=== PATIENT | female | born 1970 | race Caucasian/White ===

== ENCOUNTER 2020-12-28 09:00 | Outpatient (RCR) | payer MEDICARE, SELFPAY ==
--- NOTE | 2020-12-28 10:10 | BH.NA ---
Physical Data - Vital Signs Pulse Rate: 70 Blood Pressure: 128/72 - Height/Weight Height: 1.65 m Weight:: 104.326 kg Weight in Pounds: 230.0 lbs Current Medication Compliance - Medication Compliance Do you take your medication as prescribed?: Yes Nutritional History - Appetite Nutritional Instructions:: If client shows signs of a swallowing problem, weight change of 10 pounds or more in the last month, or is on a diabetic diet, the physician will review and request a dietitian consult, as appropriate. All unintentional weight loss will be referred to the physician for decision on need for dietitian consult. Describe your appetite:: Good Additional nutritional information:: Client states she did have a decrease appetite, but appetite has increased after Latuda dose increase about 4 weeks ago. Functional Assessment - Sleep Pattern Describe any problems with sleeping: Client states her sleep has been good, stating she gets about 8 hours per night. Client states at times, she does have night terrors due to her PTSD. - Activities Motor Activity:: Functional Sensory/Communication Assess - Communication Problems Do you have difficulty understanding what people are saying?: No Medical Problems/History - Cardiac Conditions Cardiovascular: Hypertension, Myocardial infarction Comments:: [place] in 2005. Cardiomyopathy. - Additional History Additional comments:: anxiety, PTSD, bipolar Surgical History - Surgical History Have you had any surgeries? If so, list type and date:: Yes - heart cath 2005, hysterectomy 2013, tonsilectomy as child Substance Abuse - Substance Abuse Please describe substance abuse in the last 30 days:: Client reports drinking alcohol socially. Client has been a 1 pack per day smoker of cigarettes for 35 years. Client reports marijuana use about 2x per week, stating she uses it at times to help her sleep or when she has a night terror. Client states she drinks 2 cups of coffee per day. Mental Status Summary - Mental Status Significant Findings/Observations on Appearance and Mood:: Client is alert and oriented x 4. Client is wearing a mask due to COVID 19 pandemic. Client is casually groomed with good hygiene. Client makes good eye contact. Client's speech is normal volume with increased rate at times. Client is cooperative with assessment. Client makes logical associations. Client states she has a history of delusions with brayan in the past, but denies current delusions/hallucinations. Client denies SI. Suicide Assessment - Suicidal Ideation Are you currently or have you been suicidal in the past?: Yes - denies SI at this time Suicidal Intentional Rating Scale (SIRS): Suicidal thoughts (past) Physician Notification: If Active suicidal thoughts/Will not contract for safety is checked, contact physician and document in the Physician Notification section below. Past Psychiatric History - MH Treatment Hx Past Psychiatric Medications:: [place], minipress, Seroquel, Zyprexa, Wellbutrin, Effexor, Abilify, Topamax, Trileptal, Xanax Age of first mental health symptoms: Client states she began having anxiety in her teenage years. Client states she was diagnosed bipolar in her 20's. Describe (age, circumstance, etc) any past hospitalizations: Client was hospitalized 6 times in [place], last being in 2018 and states she spent 10 days in intermediate. Client states this was during around a 3 year period of brayan where she had delusions. Current providers for mental health treatment (counselor, psychiatrist, immigration case worker, etc.): counselor at [facility]. Client's PCP prescibes mental health medication. Fall Risk Assessment - Age Age: Less than 60 - Mental Status Mental Status: Willing & able to ask for assistance when needed - Physical Status Physical Status: No problems - Impairments Impairments: None - Elimination Elimination: Continent AND independent - Gait or Balance Gait or Balance: Walks independently - Hx of Falls History of falls in the past 6 months: No known history - Medications/Substances Psychotropics:: Antidepressants, Mood stabilizers Others:: Antihypertensives Medications/substances used within the past 24 hours or ordered to administer: 3 or more of the medications/substances listed above - Total Score Total Points:: 2 RN Summary of Impressions - Impressions Recommendations: Include psychiatric and medical issues, treatment planning recommendations, and discharge planning needs. Impressions: Psychiatric Issues: Bipolar 1 disorder, most recent episode mixed, severe without psychosis - Level of Care How do the client's current symptoms and functional deficits support need for this level of care?: Client was self-referred to program with hypomania and erratic moods. Client states her and sister reported to her that they saw hypomania signs in her behavior, and client wanted to get help before she noticed full brayan. Client states she was depressed in October and recently has noticed hypomania symptoms of racing thoughts, increased energy, talking faster at times. Client also endorses poor focus, crying spells, and mood swings. Client states her sister is her biggest support system. Client denies SI, but states she does not want to be a burden on others and states she often feels she would not mind if she did not wake up in the morning. Client reports having a 3 year period in the past of brayan, where she had several hospitalizations and spent 10 days in intermediate and had many delusions. Client states she has been stable for the past 2 years on her medication and denies delusions. IOP will promote gains and prevent further decompensation while providing social support and skills training.
[2020-12-28 11:09] VITALS: BP 128/72; PULSE 70
--- NOTE | 2020-12-28 11:10 | BH.SGPN.GN ---
Behaviors/Verbalizations/Mental Status: []Eye contact is good. Alert and oriented. Motor activity is appropriate. Appearance is casual. grooming is appropriate. Speech is Appropriate. Mood is anxious. Affect is constricted. Thoughts are linear and logical. No evidence of psychosis or hallucinations. Client Response/Progress/Benefit: []Pt engaged participant AEB pt providing limited input throughout session, listening attentively to peers and completing strengths exploration handout. Pt reported she felt uncomfortable identifying her strengths because it's something she isn't used to doing. Pt shared some of the strengths she identified were forgiveness, patience, and spirituality. Pt stated she is currently using the strength of gratitude to help her stay focused on appreciating what she has in life. Pt reported she will journal what she is grateful for so she can reflect back on what she appreciates at times of struggle. Pt seemed to benefit from increased awareness of personal strengths and improved understanding how perspective can impact view of self. Pt first day in IOP. Pt is to continue IOP to increase healthy coping, stabilize moods, and prevent decompensation. Narrative Note: []
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
--- NOTE | 2020-12-28 13:22 | BH.PSY.EVA_ITS ---
Initial Treatment Plan - Patient Information Visit Information: ADMISSION DATE: EXPECTED LOS: 4-6 weeks - Problems/Symptoms Problem #1:: Erratic mood Symptom:: Depression, crying, irritability, anger, restlessness, energy fluct uations, decreased concentration, guilt, fleeting thoughts of Problem #2:: Anxiety Symptom:: Worry, rumination
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
--- NOTE | 2021-01-02 10:47 | BH.MTP ---
Master Treatment Plan - Patient Information Program Physician:: Dr. Hall Primary Therapist:: Kyleigh Drew, [facility] - Psychiatric Diagnoses Psychiatric Diagnoses:: Bipolar 1 disorder, most recent episode mixed, severe without psychosis Diagnosis Code(s):: F 31.63 - Estimated LOS Estimated LOS (in weeks):: 6 Problem/Goal #1 - Problem/Goal #1 Stated Goal:: Client will increase mood stability and decrease depressive symptoms, anger/irritability, and passive thoughts of due to Bipolar I through Intensive Outpatient Program. Description of Barriers: Pt's uncertainty about whether she wants to be in IOP could be a barrier to treatment progress. Pt expresses her biggest concern is mood stability but now feels more stable since her medication was adjusted. Additional treatment barriers could be distorted thoughts and social anxiety. Functional Impact: Pt self-referred to [facility] after her noticed manic symptoms. Pt reported up until 1 week ago she had a history of racing thoughts, restlessness, rapid speech, crying and irritability and erratic mood. She does endorse feeling sad and crying and irritable, but she feels in the past week her mood has calm down somewhat. She denies hopelessness and denies worthlessness. She does feel guilty over being estranged from her other 3 children from her prior marriage and other issues in her past regarding family. Pt has hx of 6 prior hospitalizations for severe brayan. Pt reports significant anxiety that prevents patient from leaving house unless important. Pt states her family has an issue with her being a ?shut in? but at this time doesn?t see that as a problem. Pt reports significant social anxiety so avoids crowds and being around others. Pt has limited support system due to her isolative behaviors. Pt does have passive thoughts of stating, ?I wouldn?t mind if I didn?t wake up tomorrow.? Pt denies suicidal intent or plan. - Objectives Objective #1 Stated Objective: Client will learn and utilize 2-3 healthy coping strategies to manage mental health symptoms. Interventions: Therapist will utilize CBT techniques to assist client with understanding the connection between thoughts, feelings and behaviors. Education will be provided on behavioral activation. Therapist will assist client in learning internal coping strategies to manage depressive symptoms, along with helping client identify triggers. Discharge Criteria: Client will have achieved this goal when can verbalize and practiced at least 2 healthy coping strategies that successfully manage mental health symptoms. Target Date: 02/08/21 Review Date: 01/25/21 Objective #2 Stated Objective: Pt will decrease depressive and manic symptoms AEB pt?s score on the DSM 5 cross-cutting measure and improve pt?s daily functioning. Interventions: Through groups and individual therapy, pt will be provided with education on cognitive distortions, mistaken beliefs, and identifying and combating negative self-talk. Therapist will assist pt with getting back into the activities she once enjoyed as well as increasing healthy coping strategies. Discharge Criteria: Pt will have met this goal when pt?s score on the DSM 5 cross cutting measure for depression and brayan has been decreased and per pt?s report daily functioning has improved. Target Date: 02/08/21 Review Date: 01/25/21 Problem/Goal #2 - Problem/Goal #2 Stated Goal:: Stabilize anxiety level while increasing ability to function on daily basis. Description of Barriers: Pt's uncertainty about whether she wants to be in IOP could be a barrier to treatment progress. Pt expresses her biggest concern is mood stability but now feels more stable since her medication was adjusted. Additional treatment barriers could be distorted thoughts and social anxiety. Functional Impact: Pt self-referred to [facility] after her noticed manic symptoms. Pt reported up until 1 week ago she had a history of racing thoughts, restlessness, rapid speech, crying and irritability and erratic mood. She does endorse feeling sad and crying and irritable, but she feels in the past week her mood has calm down somewhat. She denies hopelessness and denies worthlessness. She does feel guilty over being estranged from her other 3 children from her prior marriage and other issues in her past regarding family. Pt has hx of 6 prior hospitalizations for severe brayan. Pt reports significant anxiety that prevents patient from leaving house unless important. Pt states her family has an issue with her being a ?shut in? but at this time doesn?t see that as a problem. Pt reports significant social anxiety so avoids crowds and being around others. Pt has limited support system due to her isolative behaviors. Pt does have passive thoughts of stating, ?I wouldn?t mind if I didn?t wake up tomorrow.? Pt denies suicidal intent or plan. - Objectives Objective #1 Stated Objective: Client will learn and implement 2-3 calming skills to reduce overall anxiety and manage anxiety symptoms.?? Interventions: Therapist will teach client calming/relaxation skills and how to apply these skills to everyday life.? Discharge Criteria: Client will have achieved this goal when can verbalize at least 2 calming strategies and have practiced techniques to help reduce anxiety. Target Date: 02/08/21 Review Date: 01/25/21 Objective #2 Stated Objective: Pt will decrease anxious symptoms AEB pt?s score on the DSM 5 cross-cutting measure improve pt?s daily functioning. Interventions: Through groups and individual therapy, pt will be provided education about anxiety?s impact on body and common physiological reaction to anxiety. Therapist will teach pt appropriate breathing techniques and build healthy coping skills to manage daily anxieties. Discharge Criteria: Pt will have met this goal when pt?s score on the DSM 5 cross cutting measure for anxiety has been decreased and per pt?s report daily functioning has improved. Target Date: 02/08/21 Review Date: 01/25/21
--- NOTE | 2021-01-02 11:13 | BH.SGPN.GN ---
Behaviors/Verbalizations/Mental Status: []Client alert and oriented, neatly dressed and groomed. Eye contact good. Motor activity appropriate. Speech within normal limits. Affect constricted, mood anxious. Thoughts linear, logical, no signs of hallucinations or delusions. Client Response/Progress/Benefit: []Client an active participant throughout AEB taking notes and participating when prompted. Client participated in the group activity highlighting the various barriers to effectively utilizing supports and strategies the group used. Client participated in discussion of the four types of support (emotion, tangible, informational, and social) and gave examples for all types. Client reports wanting to work on increasing social support and she plans to do this by learning more about [employer]. Client shared this will benefit her mental health because it will give client a routine and foster connections. Client seemed to benefit from identifying the type of support client wants to improve. Client to continue in IOP tx to prevent decompensation, improve mood stability, and learn healthy coping skills. Narrative Note: []
--- NOTE | 2021-01-04 08:57 | BH.SGPN.GN ---
Behaviors/Verbalizations/Mental Status: []Eye contact is fair. Alert and oriented. Motor activity is appropriate. Appearance is casual. grooming is appropriate. Declined to speak throughout. Mood is depressed. Affect is constricted. Thoughts are linear and logical. No evidence of psychosis or hallucinations. Client Response/Progress/Benefit: []Pt semi-engaged in session AEB listening to others and remaining attentive throughout. Pt is new to IOP program and continues to struggle with anxiety about engaging in the group setting. As a result she declined to share during group, however appeared to connect with fellow participants comments AEB nodding on occasion throughout. Recommended continued IOP tx to improve mental health sx management, reduce anxiety, and prevent decompensation. Narrative Note: []
--- NOTE | 2021-01-04 10:10 | BH.SGPN.GN ---
Behaviors/Verbalizations/Mental Status: []Client alert and oriented, neatly dressed and groomed. Eye contact good. Motor activity appropriate. Speech within normal limits. Affect constricted, mood anxious. Thoughts linear, logical, no signs of hallucinations or delusions. Client Response/Progress/Benefit: []Pt was a passive participant in group discussion and was attentive during psychoeducation. Participated in short activity about automatic thoughts. Group was primarily educational and introduced and gave examples of the 10 cognitive distortions. Benefited from education and increased awareness of cognitive distortions and role that they play in negative thoughts and emotions. Pt is new to IOP and is quiet during group sessions. Will continue IOP tx to prevent decompensation, increase healthy coping skills, and reduce isolation. Narrative Note: []
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
== END 2021-01-05 11:40 | disposition home or self-care (01) ==
LOC: BHIOP 09:00
PROVIDERS: PCP Internal Medicine; Referring Provider Psychiatry & Neurology Psychiatry; Visit Provider Psychiatry & Neurology Psychiatry
DX: F31.63 Bipolar disorder, current episode mixed, severe, without psychotic features (principal); E66.9 Obesity, unspecified; I42.9 Cardiomyopathy, unspecified; I25.2 Old myocardial infarction; I10 Essential (primary) hypertension; Z79.899 Other long term (current) drug therapy; F17.210 Nicotine dependence, cigarettes, uncomplicated; F12.90 Cannabis use, unspecified, uncomplicated; Z81.8 Family history of other mental and behavioral disorders; Z62.810 Personal history of physical and sexual abuse in childhood
CPT/HCPCS: H0035; 90834; 90853

== ENCOUNTER 2021-05-01 09:29 | Emergency (ER) | payer MEDICARE, MEDICAID, SELFPAY ==
[2021-05-01 09:30] VITALS: BP 162/85; PULSE 79; RESP 18; TEMP 35.7; O2SAT 97; BMI 39.9
--- NOTE | 2021-05-01 09:40 | RAD_ITS ---
STUDY: X-RAY - RIGHT ANKLE REASON FOR EXAM: Female, 51 years old. INJURY TECHNIQUE: view(s) of the ankle. COMPARISON: None. FINDINGS: Normal visualized distal tibia and fibula. Normal medial and lateral malleoli. Normal tibiotalar articulation and ankle mortise. Normal visualized talus and calcaneus. Except for large plantar heel spur. Minimal calcification is noted at the insertion of Achilles tendon. The visualized subtalar, talonavicular, calcaneocuboid and tarsal articulations are normal. The soft tissue structures are unremarkable. RAD/Ankle min 3 Views IMPRESSION: Normal x-ray examination of the ankle. Electronically Signed: Shawn Beth, at 10:00 EDT Tel , Service support ,
--- NOTE | 2021-05-01 09:40 | RAD_ITS ---
STUDY: X-RAY - RIGHT TIBIA AND FIBULA REASON FOR EXAM: Female, 51 years old. INJURY TECHNIQUE: view(s) of the tibia and fibula were obtained. COMPARISON: None. FINDINGS: Normal visualized tibia. Normal visualized fibula. The soft tissue structures are unremarkable. RAD/Tibia & Fibula 2 Views IMPRESSION: Normal x-ray examination of the tibia and fibula. Electronically Signed: Shawn Beth, at 9:59 EDT Tel , Service support ,
--- NOTE | 2021-05-01 09:40 | ED.VIS.LOWEX ---
HPI History of Present Illness Chief Complaint: Lower Extremity Injury Informant: patient Narrative Narrative: Patient states that last (4 days ago) she was having some discomfort in her right ankle. On Saturday she was attempting to step over a puppy gate and had her weight on her right ankle when her ankle buckled and she fell to the ground. Since that time she has had pain and swelling laterally that radiates proximally over the lateral aspect of the lower leg. She had a boot orthosis leftover from a left ankle fracture for which she saw [place] [facility]. She states that she has been wearing that and that is what has helped her to be able to continue to ambulate. She has been icing it and trying to rest. She called her orthopedic surgeon today and they recommended that she come to emergency for x-rays. [facility] Medical History Bipolar 1 disorder, mixed, severe Cardiomyopathy Hypertension Myocardial infarct, old Home Medications Amitriptyline Hcl 25 mg PO QHS 12/28/20 [History Last Taken Unknown] amlodipine 10 mg PO DAILY 12/28/20 [History Last Taken Unknown] efrkhiuvbz-vdcnhmglrkqhp-sjhb 1 tab PO DAILY PRN PRN 12/28/20 [History Last Taken Unknown] carvedilol 12.5 mg PO BID 12/28/20 [History Last Taken Unknown] clonazepam 1 mg PO DAILY PRN PRN 12/28/20 [History Last Taken Unknown] fluoxetine 10 mg PO DAILY 12/28/20 [History Last Taken Unknown] lisinopril 20 mg PO DAILY 12/28/20 [History Last Taken Unknown] lurasidone 60 mg PO DAILY 12/28/20 [History Last Taken Unknown] promethazine 25 mg PO DAILY PRN PRN 12/28/20 [History Last Taken Unknown] Allergy/AdvReac Type Severity Reaction Status Date / Time No Known Allergies Allergy Verified 05/01/21 09:30 Surgical History History of hysterectomy History of tonsillectomy Hx of cardiac catheterization Social History (Updated 05/01/21 @ 09:[address] Emmanuel Bhandari DO) substance use type: does not use ROS ROS ED Constitutional Constitutional ED: Denies chills or weight loss Eyes Eyes: Denies change in vision or diplopia ENT ENT ED: Denies ear pain, rhinorrhea or sore throat Cardiovascular Cardiovascular: Denies chest pain, orthopnea, palpitations or racing heartbeat Respiratory/Chest Respiratory/Chest: Denies cough, dyspnea or orthopnea Gastrointestinal Gastrointestinal: Denies abdominal pain, diarrhea, nausea or vomiting Genitourinary Genitourinary ED: Denies dysuria, hematuria or urinary frequency Musculoskeletal Musculoskeletal: Reports other Details: See history of present illness ; Denies arthralgias or myalgias Integumentary Denies abscess or rash Neurologic Neurologic: Denies headache(s) or weakness Psychiatric Psychiatric: Denies anxiety, depression, suicidal ideation or suicidal thoughts Endocrine Endocrinology: Denies polydipsia, polyphagia or polyuria Allergic/Immunologic Allergic/Immunologic ED: Denies mouth swelling, tongue swelling or urticaria EXAM Physical Exam Const Vital Signs: 05/01/21 09:30 Temperature 96.3 F L Temperature Source Temporal Pulse Rate 79 Respiratory Rate 18 Blood Pressure 162/85 H Blood Pressure Mean 110 Pulse Ox 97 Oxygen Delivery Method Room Air Positive well nourished and well developed General Appearance ED: well developed HEENT Reports normocephalic, head/scalp atraumatic and moist mucous membranes Eyes PERRL and EOMs intact bilaterally Neck no lymphadenopathy, supple and no JVD Resp normal respiratory effort and clear to auscultation bilaterally Cardio regular rate, regular rhythm and no murmurs GI normal to inspection, nondistended, normoactive bowel sounds and non-tender Palpation: soft Back/Spine no CVA tenderness and normal ROM Extremity Extremity Narrative: Patient has swelling and tenderness over the lateral malleolus. She has tenderness over the fibular head. No fifth metatarsal pain. There is some mild yellowish-green ecchymosis over the dorsum of the foot. Neurovascularly intact distal General Extremety ED: Yes edema General Extremity: edema Neuro oriented x3 and CN's II-XII intact bilaterally Sensorium / Orientation: alert Motor Exam: strength 5/5 throughout Psych mental status grossly normal Mood & Affect: Negative for depressed or tearful Skin no rashes or lesions noted and no wounds MDM MDM MDM Narrative Medical decision making narrative: My interpretation of the plain film of the right tibia/fibula and right ankle is no acute fracture or soft tissue swelling noted. Patient may use her walker boot and follow-up with orthopedics if not improving. I will write for a few [place] for nighttime pain at the patient's request. Radiography Diagnostic Testing: Radiology Impression Ankle X-Ray 05/01/21 09:40 IMPRESSION: Normal x-ray examination of the ankle. Electronically Signed: Shawn Beth, at 10:00 EDT Tel , Service support , Tibia/Fibula X-Ray 05/01/21 09:40 IMPRESSION: Normal x-ray examination of the tibia and fibula. Electronically Signed: Shawn Beth, at 9:59 EDT Tel , Service support , Discharge Plan Triage Chief Complaint: Lower Extremity Injury ED Provider: Emmanuel Bhandari Dx/Rx/DC Orders Clinical Impression: Right ankle sprain Instructions: ED Ankle Sprain (Adult) Prescriptions: No Action Amitriptyline Hcl 25 MG tablet 25 mg PO QHS RF: 0 carvedilol 12.5 MG tablet 12.5 mg PO BID RF: 0 lisinopril 20 MG tablet 20 mg PO DAILY RF: 0 clonazepam 1 MG tablet 1 mg PO DAILY PRN PRN (Reason: Anxiety) RF: 0 qpfgcyelil-fzqzninygnfis-cbxs 1 TABLET tablet 1 tab PO DAILY PRN PRN (Reason: Pain 1-10 Or Fever) RF: 0 amlodipine 10 MG tablet 10 mg PO DAILY RF: 0 promethazine 25 MG tablet 25 mg PO DAILY PRN PRN (Reason: Nausea) RF: 0 fluoxetine 20 MG capsule 10 mg PO DAILY RF: 0 lurasidone 60 MG tablet 60 mg PO DAILY RF: 0 Primary Care Provider: Adri Chang Referrals: Adri Chang DO [Primary Care Provider] - As Needed Activity Restrictions/Additional Instructions: Follow-up with your orthopedic surgeon 10 to 14 days unless improved. Disposition Disposition: Home, self care
== END 2021-05-01 10:18 | disposition home or self-care (01) ==
LOC: ED 10:13
PROVIDERS: Emergency Provider Emergency Medicine; PCP Internal Medicine
DX: S93.401A Sprain of unspecified ligament of right ankle, initial encounter (principal); I10 Essential (primary) hypertension; I25.2 Old myocardial infarction; I42.9 Cardiomyopathy, unspecified; W19.XXXA Unspecified fall, initial encounter; Z79.899 Other long term (current) drug therapy
CPT/HCPCS: 73590; 73610; 99282

== ENCOUNTER 2021-05-13 20:35 | Emergency (ER) | payer MEDICARE, MEDICAID, SELFPAY ==
[2021-05-13 20:36] VITALS: BP 116/66; PULSE 101; RESP 16; TEMP 36.4; O2SAT 99; BMI 38.1
--- NOTE | 2021-05-13 20:46 | EKG12_ITS ---
Test Reason : DIZZINESS Blood Pressure : / mmHG Vent. Rate : 096 BPM Atrial Rate : 096 BPM P-R Int : 162 ms QRS Dur : 086 ms QT Int : 388 ms P-R-T Axes : 071 043 035 degrees QTc Int : 490 ms Normal sinus rhythm ST & T wave abnormality, consider anterior ischemia Prolonged QT Abnormal ECG Confirmed by CALLIE TORIBIO, NEIL ([id number]), editor news SABRINA HARTLEY ([id number]) on 05/17/2021 1:09:59 PM Referred By: FIGUEROA Confirmed By:NEIL LEDESMA MD
--- NOTE | 2021-05-13 20:46 | EX.ED.DYSGE1 ---
HPI History of Present Illness Chief Complaint: Syncope Detail of Chief Complaint: Near syncope Informant: patient Onset/Context/Timing Onset: Today Context: Sudden Onset Timing: Intermittent Current Severity: Mild Maximum Severity: Mild Narrative Narrative: 51-year-old female history of prior ID and hypertension. No recent hospitalization. She is asked in the ER tonight for to be evaluated. She said she thought it was her mask because no trouble breathing but then she broke out in a sweat and felt like she might pass out. She said this happened before but it has been several years ago she said she actually passed out at that time. She denies any nausea, vomiting, diarrhea or fever. No chest pain. States she is already feeling better when she got the lie down in bed. Denies any recent dysuria or melena. Prior similar symptoms: Yes Recent Illness/Hospitalization: No PFSH PFS Medical History Bipolar 1 disorder, mixed, severe Cardiomyopathy Hypertension Myocardial infarct, old Home Medications amlodipine 10 mg PO DAILY 12/28/20 [History Last Taken Unknown] otvcfkzexo-olxgpdlkncbdw-sics 1 tab PO DAILY PRN PRN 12/28/20 [History Last Taken Unknown] carvedilol 12.5 mg PO BID 12/28/20 [History Last Taken Unknown] clonazepam 1 mg PO DAILY PRN PRN 12/28/20 [History Last Taken Unknown] fluoxetine 10 mg PO DAILY 12/28/20 [History Last Taken Unknown] lurasidone 60 mg PO DAILY 12/28/20 [History Last Taken Unknown] promethazine 25 mg PO DAILY PRN PRN 12/28/20 [History Last Taken Unknown] hydrocodone-acetaminophen 1 tab PO Q6H PRN PRN 3 Days #10 tablet 05/01/21 [Rx Last Taken Unknown] amitriptyline 50 mg PO QHS 05/13/21 [History Last Taken Unknown] Allergy/AdvReac Type Severity Reaction Status Date / Time No Known Allergies Allergy Verified 05/13/21 20:38 Surgical History History of hysterectomy History of tonsillectomy Hx of cardiac catheterization Social History Smoking Status: Current every day smoker tobacco type: cigarettes substance use type: does not use ROS ROS ED ROS Narrative Denies recent illness. Review of Systems ROS Unobtainable: Denies due to encephalopathy Constitutional Constitutional ED: Denies chills or fever(s) Eyes Eyes: Denies change in vision ENT ENT ED: Denies ear pain or sore throat Cardiovascular Cardiovascular: Denies chest pain or palpitations Respiratory/Chest Respiratory/Chest: Reports dyspnea; Denies cough Gastrointestinal Gastrointestinal: Denies abdominal pain, constipation, diarrhea, melena, nausea or vomiting Genitourinary Genitourinary ED: Denies dysuria Musculoskeletal Musculoskeletal: Denies arthralgias or myalgias Integumentary Denies abscess or rash Neurologic Neurologic: Denies headache(s) Psychiatric Psychiatric: Denies depression Endocrine Endocrinology: Denies polyuria Allergic/Immunologic Allergic/Immunologic ED: Denies urticaria EXAM Physical Exam Narrative Exam Narrative: Middle-aged female no acute distress. Current vital signs are stable afebrile. Blood pressure 116/66. Pulse ox nine 9% on room air no signs of hypoxia. She is in no distress lying flat in bed. Exams unremarkable. Const Vital Signs: 05/13/21 20:36 05/13/21 20:40 05/13/21 21:13 Temperature 97.5 F L Temperature Source Temporal Pulse Rate 101 H Respiratory Rate 16 Respiratory Effort Normal Non-Labored Respiratory Pattern Normal Blood Pressure 116/66 Blood Pressure Mean 82 Pulse Ox 99 97 Oxygen Delivery Method Room Air Room Air 05/13/21 21:27 Temperature Temperature Source Pulse Rate 84 Respiratory Rate 18 Respiratory Effort Respiratory Pattern Blood Pressure 124/61 H Blood Pressure Mean 82 Pulse Ox 95 Oxygen Delivery Method Room Air Positive well nourished and well developed General Appearance ED: well developed HEENT Reports moist mucous membranes Negative for trauma or tenderness Eyes PERRL and EOMs intact bilaterally Neck no lymphadenopathy, supple and no JVD General: Negative for tenderness Chest Wall inspection of chest normal and palpation of chest normal Resp normal respiratory effort and clear to auscultation bilaterally Effort and Inspection: Negative for retractions or pain with movement Auscultation: Negative for rales, rhonchi, wheezes or diminished lung sounds Cardio regular rate, regular rhythm, S1 normal heart sound, S2 normal heart sound and no murmurs GI normal to inspection, nondistended, normoactive bowel sounds, non-tender and non-distended Palpation: soft Back/Spine no CVA tenderness General Back: Negative for CVA tenderness Cervical Spine: Negative for cervical spine tenderness Thoracic Spine / Upper Back: Negative for thoracic spinal tenderness or paraspinal muscle tenderness Lumbar Spine / Lower Back: Negative for lumbar spinal tenderness Extremity normal to inspection General Extremety ED: Negative for edema or tenderness General Extremity: Negative for edema Neuro oriented x3 and CN's II-XII intact bilaterally Sensorium / Orientation: alert Motor Exam: strength 5/5 throughout Psych mental status grossly normal Mood & Affect: anxious Skin no rashes or lesions noted and no wounds MDM MDM MDM Narrative Medical decision making narrative: Patient clinically looks well she had a near syncopal episode. She is already feeling improved before any treatment just lying down. We will check some screening labs. Repeat exam patient is doing well at 10:10 PM. She feels fine. Her symptoms of resolved. She clinically looks well and wants to be discharged home. Impression: Near syncope uncertain etiology Lab Data Attestation: I reviewed the patient's lab results. Lab results narrative: White count 9. Hemoglobin 14. Electrolytes unremarkable gap of 8 creatinine of 1. High-sensitivity troponin 15. Labs: Laboratory Results - last 24 hr 05/13/21 05/13/21 20:42 20:42 WBC 9.5 RBC 4.49 Hgb 14.4 Hct 42.3 MCV 94.2 MCH 32.1 H MCHC 34.0 RDW Std Deviation 42.6 RDW Coeff of Willy 12.3 Plt Count 253 MPV 10.9 Immature Gran % (Auto) 0.200 Neut % (Auto) 54.6 Lymph % (Auto) 35.5 [place] % (Auto) 5.4 Eos % (Auto) 2.8 Baso % (Auto) 1.5 H Absolute Neuts (auto) 5.2 Absolute Lymphs (auto) 3.38 Nucleated RBC % 0 Sodium 138 Potassium 3.6 Chloride 105 Carbon Dioxide 25.0 Anion Gap 8 BUN 14 Creatinine 1.06 H Estim Creat Clear Calc 58.78 Est GFR (MDRD) Af Amer 70 Est GFR (MDRD) Non-Af 58 L BUN/Creatinine Ratio 13.2 Glucose 132 H Calcium 9.0 Troponin I High Sens 15.3 Radiography Chest X-Ray - ED: 1 View, Read by ED Physician, Read by Radiologist, Normal, Heart, Lungs, Mediastinum, Bony Structures and No Acute Disease Diagnostic Testing: Radiology Impression Chest X-Ray 05/13/21 20:53 IMPRESSION: No acute radiographic abnormalities. Electronically Signed: Tobias Waller MD at 21:19 EDT Tel , Service support , Rhythm Strip Rhythm Strip: Sinus Rhythm Rate: 96 Ectopy: None EKG Initial EKG: Attestation: I personally reviewed and interpreted this EKG as follows: Interpretation: Sinus Rhythm and No Acute Injury Pattern Comments: Normal sinus rhythm rate of ninety-six no acute signs of ID she does have inverted T waves in leads V3, four and five. Currently we do not have an old EKG available for comparison. Discharge Plan Triage Chief Complaint: Syncope ED Provider: Kuldeep Benedict Dx/Rx/DC Orders Instructions: ED Near-Fainting, Uncertain Cause Prescriptions: No Action carvedilol 12.5 MG tablet 12.5 mg PO BID RF: 0 clonazepam 1 MG tablet 1 mg PO DAILY PRN PRN (Reason: Anxiety) RF: 0 ceoxvxlvwg-vrmbqoxycklef-mzez 1 TABLET tablet 1 tab PO DAILY PRN PRN (Reason: Pain 1-10 Or Fever) RF: 0 amlodipine 10 MG tablet 10 mg PO DAILY RF: 0 promethazine 25 MG tablet 25 mg PO DAILY PRN PRN (Reason: Nausea) RF: 0 fluoxetine 20 MG capsule 10 mg PO DAILY RF: 0 lurasidone 60 MG tablet 60 mg PO DAILY RF: 0 hydrocodone-acetaminophen [hydrocodone-acetaminophen] 1 TABLET tablet 1 tab PO Q6H PRN PRN (Reason: Pain) 3 Days Qty: 10 RF: 0 amitriptyline 50 mg tablet 50 mg PO QHS RF: 0 Primary Care Provider: Adri Chang Referrals: Adri Chang, [Primary Care Provider] - As Needed Activity Restrictions/Additional Instructions: Your labs are unremarkable as was your chest x-ray. There is no obvious cause for why you feel you might pass out. Drink plenty of fluids and rest. Follow-up with your doctor as needed. Return if you are feeling worse. Disposition Disposition: Home, Self Care
--- NOTE | 2021-05-13 20:53 | RAD_ITS ---
INDICATION: chest pain EXAMINATION/TECHNIQUE: X-RAY - XR Chest 1 View COMPARISON: None. FINDINGS: The lungs are clear. The cardiomediastinal silhouette is unremarkable. No pleural effusion or pneumothorax. No acute osseous abnormalities. RAD/Chest 1 View (Portable) IMPRESSION: No acute radiographic abnormalities. Electronically Signed: Tobias Waller MD at 21:19 EDT Tel , Service support ,
[2021-05-13 21:03] LABS: Absolute Lymphocyte Count 3.38 X10^3/uL (0.83-4.51); Absolute Neutrophil Count 5.2 X10^3/uL (2.0-7.7); Basophil# 0.14 X10^3/uL; Basophil% 1.5 % (0-1); Eosinophil# 0.27 X10^3/uL; Eosinophils% 2.8 % (0-5); Hematocrit 42.3 % (37-47); Hemoglobin 14.4 g/dL (12.0-15.0); Lymphocyte # 3.38 X10^3/ul (0.83-4.51); Lymphocyte % 35.5 % (19-41); Mean Corpuscular Hgb 32.1 pg (27.0-32.0); Mean Corpuscular Volume 94.2 fL (81-99); Mean Platelet Vol. 10.9 fl (6.2-12.0); Monocyte# 0.51 X10^3/uL; Monocyte% 5.4 % (0-10); NRBC Flagged by Analyzer 0 % (0-5); Neutrophil % 54.6 % (47-70); Platelet Count 253 K/mm3 (150-450); RBC Distribution Width CV 12.3 % (11.6-14.6); RBC Distribution Width SD 42.6 fl (35.1-43.9); Red Blood Count 4.49 M/mm3 (4.2-5.4); White Blood Count 9.5 K/mm3 (4.4-11.0)
[2021-05-13 21:13] VITALS: O2SAT 97
[2021-05-13 21:13] LABS: Anion Gap 8 (5-15); BUN 14 mg/dL (7-18); BUN/Creat Ratio 13.2 RATIO (10-20); Chloride 105 mmol/L (98-107); Creatinine, Serum 1.06 mg/dL (0.55-1.02); EST Glomerular Filtration Rate 58 mL/min (>60); Est Glom Filt Rate - Afr Amer 70 mL/min (>60); Estimated Creatinine Clearance 58.78 ml/min; Glucose 132 mg/dL (74-106); Potassium 3.6 mmol/L (3.5-5.1); Sodium Level 138 mmol/L (136-145); Troponin-I HS 15.3 pg/mL (3.0-53.7)
[2021-05-13] MEDS: 0.9% Normal Saline 1,000 ML 1000 ML IV (21:18)
[2021-05-13 21:27] VITALS: BP 124/61; PULSE 84; RESP 18; O2SAT 95
[2021-05-13 22:18] VITALS: BP 121/54; BP 126/64; PULSE 92; PULSE 96
== END 2021-05-13 22:20 | disposition home or self-care (01) ==
PROVIDERS: Emergency Provider Emergency Medicine; PCP Internal Medicine
DX: R55 Syncope and collapse (principal); I10 Essential (primary) hypertension; F17.210 Nicotine dependence, cigarettes, uncomplicated; Z79.899 Other long term (current) drug therapy
CPT/HCPCS: 71045; 80048; 84484; 85025; 93005; 96360; 99285; J7030; A4216

== ENCOUNTER 2021-07-02 07:40 | Inpatient (IN) | payer MEDICARE, MEDICAID, SELFPAY ==
[2021-07-02] VITALS (35 sets, daily range): BP systolic 87–165; BP diastolic 46–90; PULSE 76–97; RESP 12–22; TEMP 35.6–36.8; O2SAT 91–100; BMI 39.9; BMI 39.2
--- NOTE | 2021-07-02 07:54 | EKG12_ITS ---
Test Reason : AM Blood Pressure : / mmHG Vent. Rate : 092 BPM Atrial Rate : 092 BPM P-R Int : 194 ms QRS Dur : 098 ms QT Int : 414 ms P-R-T Axes : 047 010 019 degrees QTc Int : 511 ms Normal sinus rhythm Nonspecific T wave abnormality Prolonged QT Abnormal ECG When compared with ECG of 02-JUL-2021 08:19, MANUAL COMPARISON REQUIRED, DATA IS UNCONFIRMED Confirmed by EVY TORIBIO, FABRICE ([id number]), video news editor JOYCE SHARIF ([id number]) on 07/04/2021 8:07:59 AM Referred By: JOHN Confirmed By:FABRICE RATLIFF MD
--- NOTE | 2021-07-02 07:59 | RAD_ITS ---
STUDY: X-RAY CHEST REASON FOR EXAM: Female, 51 years old. Endotracheal and OG tube placement. TECHNIQUE: Single AP portable view of the chest. COMPARISON: 05/13/2021. FINDINGS: There is an endotracheal tube with its tip 2 cm above the miguel. There is no enteric tube with its tip in the left upper quadrant. There is elevation of the right hemidiaphragm. Lungs are well-expanded and free of infiltrate or mass. There is no demonstrated pleural abnormality. Normal size heart. Normal mediastinum and trisha. Normal visualized pulmonary arteries. Normal visualized aortic arch and descending thoracic aorta. Normal visualized thoracic spine. Normal visualized ribs, clavicles, and shoulders. There is no demonstrated abnormality of the visualized soft tissue structures of the upper abdomen. RAD/Chest 1 View (Portable) IMPRESSION: 1. Endotracheal tube and orogastric tube as described. 2. No acute cardiopulmonary disease. Electronically Signed: Darrick Ball DO at 8:22 EDT Tel [phone], Service support ,
--- NOTE | 2021-07-02 08:01 | EDS_ITS ---
HPI History of Present Illness Chief Complaint: Overdose Informant: EMS Narrative Narrative: Patient arrives via EMS unresponsive after presumed overdose. Per medics patient's heard her up around 530 this morning. He then found her unresponsive. In reviewing her pill bottles there was an empty bottle of amitriptyline. According to pharmacy data we are able to review she had 30 tabs of amitriptyline filled on the 10th and 60 tabs filled on the 12th. Reportedly both bottles are now empty. Patient is unresponsive and unable to answer any questions. [facility] Medical History Bipolar 1 disorder, mixed, severe Cardiomyopathy Hypertension Myocardial infarct, old Home Medications amlodipine 10 mg PO DAILY 12/28/20 [History Last Taken Unknown] yhuxfcthnh-aipdgqidyuyzm-ldjo 1 tab PO DAILY PRN PRN 12/28/20 [History Last Taken Unknown] carvedilol 12.5 mg PO BID 12/28/20 [History Last Taken Unknown] clonazepam 1 mg PO DAILY PRN PRN 12/28/20 [History Last Taken Unknown] lurasidone 60 mg PO DAILY 12/28/20 [History Last Taken Unknown] promethazine 25 mg PO DAILY PRN PRN 12/28/20 [History Last Taken Unknown] amitriptyline 50 mg PO QHS 05/13/21 [History Last Taken Unknown] Allergy/AdvReac Type Severity Reaction Status Date / Time No Known Allergies Allergy Verified 07/02/21 08:34 Surgical History History of hysterectomy History of tonsillectomy Hx of cardiac catheterization Social History Smoking Status: Current every day smoker tobacco type: cigarettes substance use type: does not use ROS ROS ED Review of Systems ROS Unobtainable: due to endotracheal tube and due to mental status EXAM Physical Exam Const Vital Signs: 07/02/21 07:43 07/02/21 07:50 07/02/21 07:51 Temperature 97.3 F L Temperature Source Temporal Pulse Rate 94 96 Respiratory Rate 19 H 19 H Respiratory Effort Normal Non-Labored Respiratory Depth Normal Respiratory Pattern Normal Blood Pressure 101/46 L 102/65 Blood Pressure Mean 64 77 Pulse Ox 91 95 Oxygen Delivery Method Non-Rebreather Ambu-Bag Oxygen Flow Rate (L/min) 10 07/02/21 08:02 07/02/21 08:24 Temperature Temperature Source Pulse Rate 97 97 Respiratory Rate 22 H 13 Respiratory Effort Respiratory Depth Respiratory Pattern Blood Pressure 116/83 H 115/73 Blood Pressure Mean 94 87 Pulse Ox 99 99 Oxygen Delivery Method Venturi Mask Mechanical Ventilator Oxygen Flow Rate (L/min) Positive well nourished and well developed General Appearance ED: well developed HEENT normocephalic; Negative for trauma Cardio regular rate and regular rhythm GI non-tender Palpation: soft Neuro Neuro Narrative: Unresponsive to voice or painful stimuli. MDM MDM MDM Narrative Medical decision making narrative: Patient medically intubated on arrival to the emergency room. Patient did receive 20 mg of IV etomidate. 7.5 ET tube passed through the cords under direct visualization. Versed and fentanyl drips are ordered for sedation. Patient is given IV fluid boluses. Lab work, EKG, urinalysis, urine tox ordered. Lab Data Attestation: I reviewed the patient's lab results. Labs: Laboratory Results - last 24 hr 07/02/21 07/02/21 07/02/21 07:45 07:45 07:45 WBC 8.9 RBC 4.07 L Hgb 13.0 Hct 40.5 MCV 99.5 H MCH 31.9 MCHC 32.1 RDW Std Deviation 46.9 H RDW Coeff of Willy 12.9 Plt Count 233 MPV 10.5 Immature Gran % (Auto) 0.300 Neut % (Auto) 61.1 Lymph % (Auto) 28.2 [place] % (Auto) 6.0 Eos % (Auto) 3.3 Baso % (Auto) 1.1 H Absolute Neuts (auto) 5.4 Absolute Lymphs (auto) 2.51 Nucleated RBC % 0 Sodium 141 Potassium 4.4 Chloride 109 H Carbon Dioxide 26.0 Anion Gap 6 BUN 15 Creatinine 1.05 H Estim Creat Clear Calc 59.34 Est GFR (MDRD) Af Amer 71 Est GFR (MDRD) Non-Af 59 L BUN/Creatinine Ratio 14.3 Glucose 110 H Calcium 8.4 L Total Bilirubin 0.20 AST 15 ALT 31 Alkaline Phosphatase 61 Total Protein 7.1 Albumin 3.8 Globulin 3.3 Albumin/Globulin Ratio 1.2 Urine Color Urine Clarity Urine pH Ur Specific Dorris Urine Protein Urine Glucose (UA) Urine Ketones Urine Occult Blood Urine Nitrite Urine Bilirubin Urine Urobilinogen Ur Leukocyte Esterase Urine RBC Urine WBC Ur Squamous Epith Cells Urine Bacteria Urine Mucus Salicylates 5.0 Urine Opiates Screen Urine Methadone Screen Acetaminophen < 2.0 L Ur Barbiturates Screen Ur Phencyclidine Scrn Ur Amphetamines Screen U Methamphetamin-MDMA U Benzodiazepines Scrn Urine Cocaine Screen U Cannabinoids Screen Ur Drug Screen Comment Ethyl Alcohol < 3.0 07/02/21 07/02/21 07:55 07:55 WBC RBC Hgb Hct MCV MCH MCHC RDW Std Deviation RDW Coeff of Willy Plt Count MPV Immature Gran % (Auto) Neut % (Auto) Lymph % (Auto) [place] % (Auto) Eos % (Auto) Baso % (Auto) Absolute Neuts (auto) Absolute Lymphs (auto) Nucleated RBC % Sodium Potassium Chloride Carbon Dioxide Anion Gap BUN Creatinine Estim Creat Clear Calc Est GFR (MDRD) Af Amer Est GFR (MDRD) Non-Af BUN/Creatinine Ratio Glucose Calcium Total Bilirubin AST ALT Alkaline Phosphatase Total Protein Albumin Globulin Albumin/Globulin Ratio Urine Color Yellow Urine Clarity Clear Urine pH 7.0 Ur Specific Dorris 1.005 Urine Protein Negative Urine Glucose (UA) Normal Urine Ketones Negative Urine Occult Blood Negative Urine Nitrite Negative Urine Bilirubin Negative Urine Urobilinogen Normal Ur Leukocyte Esterase Negative Urine RBC 0 SEEN Urine WBC 0 SEEN Ur Squamous Epith Cells 0 SEEN Urine Bacteria 0 SEEN Urine Mucus 0 SEEN Salicylates Urine Opiates Screen NEGATIVE Urine Methadone Screen NEGATIVE Acetaminophen Ur Barbiturates Screen POSITIVE H Ur Phencyclidine Scrn NEGATIVE Ur Amphetamines Screen NEGATIVE U Methamphetamin-MDMA NEGATIVE U Benzodiazepines Scrn NEGATIVE Urine Cocaine Screen NEGATIVE U Cannabinoids Screen POSITIVE H Ur Drug Screen Comment Ethyl Alcohol Radiography Chest X-Ray - ED: 1 View, Read by ED Physician and - (ET tube above miguel in appropriate position. No focal infiltrate.) Diagnostic Testing: Radiology Impression Chest X-Ray 07/02/21 07:59 IMPRESSION: 1. Endotracheal tube and orogastric tube as described. 2. No acute cardiopulmonary disease. Electronically Signed: Darrick Ball DO at 8:22 EDT Tel [phone], Service support , EKG Initial EKG: Attestation: I personally reviewed and interpreted this EKG as follows: Interpretation: Sinus Rhythm (Sinus at 94 with first-degree AV block. QRS duration is 160 ms. QTC is 497.) Treatment and Re-Evaluation Comments:: Bicarb drip to have ready at bedside. This is not yet been initiated. Patient's lab work is largely unremarkable. Tylenol and salicylate levels are negative. Alcohol is negative. Tox screen is positive for barbiturates and cannabinoids. No family has arrived to provide any further information. At this time of this is a presumed amitriptyline overdose. Patient be admitted to ICU for further treatment and care. Critical Care Time Critical Care Time: Yes Critical care time (excluding procedures): 30-74 minutes (40 minutes), Discussing w/Consultants, Arranging Admission or Transfer and Performing Direct Patient Care at Bedside Discharge Plan Triage Chief Complaint: Overdose ED Provider: Ai Sigala Dx/Rx/DC Orders Clinical Impression: Overdose, Respiratory failure Prescriptions: No Action carvedilol 12.5 MG tablet 12.5 mg PO BID RF: 0 clonazepam 1 MG tablet 1 mg PO DAILY PRN PRN (Reason: Anxiety) RF: 0 oxvfjabetx-fyvadupotobds-soqe 1 TABLET tablet 1 tab PO DAILY PRN PRN (Reason: Pain 1-10 Or Fever) RF: 0 amlodipine 10 MG tablet 10 mg PO DAILY RF: 0 promethazine 25 MG tablet 25 mg PO DAILY PRN PRN (Reason: Nausea) RF: 0 fluoxetine 20 MG capsule 10 mg PO DAILY RF: 0 lurasidone 60 MG tablet 60 mg PO DAILY RF: 0 hydrocodone-acetaminophen [hydrocodone-acetaminophen] 1 TABLET tablet 1 tab PO Q6H PRN PRN (Reason: Pain) 3 Days Qty: 10 RF: 0 amitriptyline 50 mg tablet 50 mg PO QHS RF: 0 Primary Care Provider: Adri Chang Referrals: Adri Chang, [Primary Care Provider] - Disposition Disposition: Acute Care Hospital [facility]
[2021-07-02 08:03] LABS: Bacteria 0 SEEN /hpf (None Seen); Mucous, Urine 0 SEEN /hpf (<or=2+); Red Blood Cells-Urine 0 SEEN /hpf (0-5); Squamous Epithelial Cells - UA 0 SEEN /hpf (5-10); White Blood Cells 0 SEEN /hpf (0-5)
[2021-07-02] MEDS: 0.9% Normal Saline 1,000 ML 1000 ML IV (08:03)
[2021-07-02] MEDS: 0.9% Normal Saline 1,000 ML 250 ML IV (08:04)
[2021-07-02] MEDS: Etomidate 20 MG/10 ML Vial IV (08:04)
[2021-07-02] MEDS: LORazepam 2 MG/ML Syringe IV (08:04)
[2021-07-02 08:07] LABS: Color, Urine Yellow (Yellow); Glucose, Dipstick Normal (Normal); Ketone-Dipstick Negative (Negative); Leukocyte Esterase-Dipstick Negative /ul (Negative); Nitrite-Dipstick Negative (Negative); Occult Blood-Urine Negative /ul (Negative); Protein-Dipstick Negative (Negative); Specific Gravity, Urine 1.005 (1.002-1.030); Urine Bilirubin Dipstick Negative (Negative); Urine Clarity Clear (Clear); Urine Urobilinogen Normal (Normal)
[2021-07-02 08:16] LABS: Absolute Lymphocyte Count 2.51 X10^3/uL (0.83-4.51); Absolute Neutrophil Count 5.4 X10^3/uL (2.0-7.7); Basophil% 1.1 % (0-1); Eosinophil# 0.29 X10^3/uL; Eosinophils% 3.3 % (0-5); Hematocrit 40.5 % (37-47); Lymphocyte # 2.51 X10^3/ul (0.83-4.51); Lymphocyte % 28.2 % (19-41); Mean Corp Hgb Conc 32.1 g/dL (32-36); Mean Corpuscular Hgb 31.9 pg (27.0-32.0); Mean Corpuscular Volume 99.5 fL (81-99); Mean Platelet Vol. 10.5 fl (6.2-12.0); Monocyte# 0.53 X10^3/uL; NRBC Flagged by Analyzer 0 % (0-5); Neutrophil # 5.43 X10^3/uL (2.7-7.7); Neutrophil % 61.1 % (47-70); Platelet Count 233 K/mm3 (150-450); RBC Distribution Width CV 12.9 % (11.6-14.6); RBC Distribution Width SD 46.9 fl (35.1-43.9); Red Blood Count 4.07 M/mm3 (4.2-5.4); White Blood Count 8.9 K/mm3 (4.4-11.0)
[2021-07-02 08:22] LABS: Amphetamine Urine VISTA NEGATIVE (<1000 ng/mL); Barbiturate Urine VISTA POSITIVE (< 200 ng/mL); Benzodiazepine Urine VISTA NEGATIVE (< 200 ng/mL); Cocaine Urine VISTA NEGATIVE (< 300 ng/mL); Ecstacy Urine VISTA NEGATIVE (< 500 ng/mL); Methadone Urine VISTA NEGATIVE (< 300 ng/mL); PCP Urine VISTA NEGATIVE (< 25 ng/mL); THC Urine VISTA POSITIVE (< 50 ng/mL); Vista UDS pH Range 6
[2021-07-02 08:25] LABS: ALB/GLOB Ratio 1.2 RATIO (0.9-2.4); AST(SGOT) 15 U/L (15-37); Alanine Aminotransfer ALT/SGPT 31 U/L (13-56); Albumin, Serum 3.8 g/dL (3.2-5.0); Alkaline Phosphatase 61 U/L (45-117); Anion Gap 6 (5-15); BUN 15 mg/dL (7-18); BUN/Creat Ratio 14.3 RATIO (10-20); Calcium,Total 8.4 mg/dL (8.5-10.1); Chloride 109 mmol/L (98-107); Creatinine, Serum 1.05 mg/dL (0.55-1.02); EST Glomerular Filtration Rate 59 mL/min (>60); Est Glom Filt Rate - Afr Amer 71 mL/min (>60); Estimated Creatinine Clearance 59.34 ml/min; Globulin 3.3 g/dL (2.2-4.2); Glucose 110 mg/dL (74-106); Potassium 4.4 mmol/L (3.5-5.1); Protein, Total 7.1 g/dL (6.4-8.2); Sodium Level 141 mmol/L (136-145)
[2021-07-02 08:30] LABS: Acetaminophen (Tylenol) Level < 2.0 ug/mL (10.0-30.0); Alcohol, Blood (Medical)-Serum < 3.0 mg/dL
[2021-07-02 08:56] LABS: Allen Test Positive; Base Excess -3 mmol/L (-2 to +2); Bicarbonate 22.4 mmol/L (22-26); Blood Gas Specimen Type ART; FI02 50; Mode AC; O2 Delivery Device Adult Vent; PEEP 5; PO2 94 mmHG (75-100); RR 12; SITE R Radial; SO2 97 % (95-99); Total Carbon Dioxide 24 mmol/L; Vt 450; pCO2 37.6 mmHg (35-45); pH 7.38 (7.35-7.45)
[2021-07-02] MEDS: 0.9% Normal Saline 1,000 ML 999 ML IV (09:49)
--- NOTE | 2021-07-02 09:59 | PCS.PANDOC ---
PANDEMIC DOCUMENTATION INITIATED: Date: 06/26/2021 Time: 190
--- NOTE | 2021-07-02 10:03 | ECHOD_ITS ---
Reason For Study: CHF Procedure This was a 2D Doppler, Color Flow transthoracic echocardiogram. Exam performed portable in ICU/CCU. Left Ventricle Normal LV size. Mild concentric left ventricular hypertrophy. Left ventricular systolic function is normal. The estimated ejection fraction is 65 %. Stage 1 diastolic dysfunction. No regional wall motion abnormalities noted. Right Ventricle Normal RV size. Normal systolic function. Atria Normal left atrium. Normal right atrium. Mitral Valve Normal mitral valve. Tricuspid Valve Normal tricuspid valve. Aortic Valve Trisinus/trileaflet aortic valve. Mild (1+) aortic valve insufficiency. Pulmonic Valve Normal pulmonic valve. Great Vessels Normal aortic root. The pulmonary artery is normal size. Normal inferior vena cava. Pericardium/Pleural Trivial pericardial effusion. MMode/2D Measurements & Calculations LVIDd: 4.7 cm IVSd: 1.2 cm Ao root diam: 3.4 cm LVIDs: 2.3 cm LVPWd: 1.2 cm RVDd: 2.8 cm FS: 52.0 % LAV(MOD-bp): 40.7 ml LVAd ap4: 27.3 cm2 SV(MOD-sp4): 47.7 ml LAV(MOD-bp) Indexed: 19.6 ml/m2 LVLd ap4: 8.0 cm LAV(MOD-sp2): 45.4 ml EDV(MOD-sp4): 75.9 ml LAV(MOD-sp4): 31.6 ml EDV(sp4-el): 79.2 ml LVAs ap4: 14.7 cm2 LVLs ap4: 6.5 cm ESV(MOD-sp4): 28.2 ml ESV(sp4-el): 28.3 ml EF(MOD-sp4): 62.8 % EF(sp4-el): 64.2 % SV(sp4-el): 50.9 ml LA A4 area: 12.7 cm2 LA dimension(2D): 3.5 cm RA A4 area: 9.9 cm2 Doppler Measurements & Calculations MV E max joseph: 64.9 cm/sec Lat Peak E' Joseph: 8.5 cm/sec Med Peak E' Joseph: 7.2 cm/sec MV A max joseph: 103.8 cm/sec E/E' lat: 7.6 E/E' med: 9.0 MV E/A: 0.63 Ao V2 max: 164.6 cm/sec AI max joseph: 468.0 cm/sec LV V1 max: 112.5 cm/sec Ao max P.8 mmHg AI max P.7 mmHg LV V1 max P.1 mmHg Ao V2 mean: 114.6 cm/sec Ao mean P.7 mmHg AI dec slope: 269.5 cm/sec2 Ao V2 VTI: 31.8 cm AI P1/2t: 508.5 msec PA V2 max: 93.8 cm/sec ECHO/Echo Complete Interpretation Summary Normal LV size. Mild concentric left ventricular hypertrophy. Left ventricular systolic function is normal. The estimated ejection fraction is 65 %. Stage 1 diastolic dysfunction. Mild (1+) aortic valve insufficiency. Trisinus/trileaflet aortic valve. Ordering Physician: Nubia Flynn Referring Physician: Adri Chang Performed By: Leela To, MAU, RVT
--- NOTE | 2021-07-02 10:07 | PCM.HP.STD ---
HPI - General General Date of Admission: 07/02/21 HPI Narrative SAMANTHA QUIROS, is a 51 F who presented to the emergency department at [facility] via EMS upon being found unresponsive by her at home on 07/02/2021. The patient is currently intubated and sedated and all history was obtained from her . He reports that she woke up at 5 AM and took her son to work and then sent her sister a text at [facility] for that stated she took 30 50 mg amitriptyline tablets. She stated in the text I hope that I took enough. The reports that she has had 6 psychiatric admissions in the last 10 years. Most of her care had been in [place] prior to this as she has recently moved here. He states that she has been under a lot of stress lately as her oldest son has been threatening suicide, her puppy of 6 months old had to be euthanized yesterday, and she has been estranged from her other children. She sees psychiatry and psychology here in [place] and has a history of PTSD and bipolar disorder. He reports he has been treated with lithium in the past but this made her symptoms worse. He notes a history of cardiomyopathy, hypertension, migraine headaches, as well as her PTSD and bipolar disorder. She currently has her medical care in [place]. She smokes 1 to 2 packs/day, uses marijuana periodically, occasionally socially drinks, but he denies any other drug use. [facility] Medical History Bipolar 1 disorder, mixed, severe Cardiomyopathy Hypertension Myocardial infarct, old Home Medications amlodipine 10 mg PO DAILY 12/28/20 [History Last Taken Unknown] ymrhsbdksw-nyhkkqwkcbeqc-dump 1 tab PO DAILY PRN PRN 12/28/20 [History Last Taken Unknown] carvedilol 12.5 mg PO BID 12/28/20 [History Last Taken Unknown] clonazepam 1 mg PO DAILY PRN PRN 12/28/20 [History Last Taken Unknown] lurasidone 60 mg PO DAILY 12/28/20 [History Last Taken Unknown] promethazine 25 mg PO DAILY PRN PRN 12/28/20 [History Last Taken Unknown] amitriptyline 50 mg PO BID 05/13/21 [History Last Taken Unknown] Allergy/AdvReac Type Severity Reaction Status Date / Time No Known Allergies Allergy Verified 07/02/21 08:34 Surgical History History of hysterectomy History of tonsillectomy Hx of cardiac catheterization Social History (Updated 07/02/21 @ 10:[address] Nubia Flynn DO) current occupation: Disabled Smoking Status: Current every day smoker tobacco type: cigarettes Smoking packs per day: 2 Smoking cigarettes per day: 40.0 alcohol intake: current alcohol intake frequency: other details: Social alcohol use but nothing habitual substance use type: marijuana ROS Review of Systems ROS Unobtainable: due to endotracheal tube Vital Signs Vital Signs Vital Signs: 07/02/21 07:43 07/02/21 07:50 07/02/21 07:51 Temperature 97.3 F L Temperature Source Temporal Pulse Rate 94 96 Respiratory Rate 19 H 19 H Respiratory Effort Normal Non-Labored Respiratory Depth Normal Respiratory Pattern Normal Blood Pressure 101/46 L 102/65 Blood Pressure Mean 64 77 Pulse Ox 91 95 Oxygen Delivery Method Non-Rebreather Ambu-Bag Oxygen Flow Rate (L/min) 10 Fraction of Inspired Oxygen (FIO2) 07/02/21 08:02 07/02/21 08:11 07/02/21 08:24 Temperature Temperature Source Pulse Rate 97 96 97 Respiratory Rate 22 H 18 13 Respiratory Effort Respiratory Depth Respiratory Pattern Blood Pressure 116/83 H 115/73 Blood Pressure Mean 94 87 Pulse Ox 99 99 99 Oxygen Delivery Method Venturi Mask Mechanical Ventilator Oxygen Flow Rate (L/min) Fraction of Inspired Oxygen (FIO2) 50 07/02/21 08:33 07/02/21 08:52 07/02/21 09:00 Temperature 97.4 F L Temperature Source Temporal Pulse Rate 93 88 86 Respiratory Rate 16 17 14 Respiratory Effort Respiratory Depth Respiratory Pattern Blood Pressure 112/72 104/71 93/67 Blood Pressure Mean 85 82 75 Pulse Ox 96 96 96 Oxygen Delivery Method Mechanical Ventilator Mechanical Ventilator Mechanical Ventilator Oxygen Flow Rate (L/min) Fraction of Inspired Oxygen (FIO2) 50 50 07/02/21 09:17 07/02/21 09:51 Temperature Temperature Source Pulse Rate 83 79 Respiratory Rate 14 15 Respiratory Effort Respiratory Depth Respiratory Pattern Blood Pressure 87/57 L 87/49 L Blood Pressure Mean 67 61 Pulse Ox 96 96 Oxygen Delivery Method Mechanical Ventilator Mechanical Ventilator Oxygen Flow Rate (L/min) Fraction of Inspired Oxygen (FIO2) 50 50 Weight Weight: 112.4 kg Body Mass Index (BMI) 39.9 Physical Exam Const no apparent distress Constitutional Narrative: Morbidly obese middle-aged white female lying in bed intubated and sedated HEENT normocephalic, head/scalp atraumatic and moist oral mucous membranes HEENT Narrative: ET tube in place Eyes PERRL and conjunctivae normal Eyes Narrative: Pupils are somewhat sluggish but reactive-likely related to amitriptyline and sedated medications Neck no lymphadenopathy, supple, no JVD and no carotid bruits Resp normal respiratory effort, no retractions, no use of accessory muscles and clear to auscultation bilaterally Auscultation: Negative for crackles, rales, rhonchi or wheezes Cardio regular rate, regular rhythm, S1 normal heart sound, S2 normal heart sound, no murmurs, no rub, no gallops, no clicks and no JVD GI normal to inspection, nondistended, normoactive bowel sounds, soft to palpation, non-tender and non-distended; Negative for hepatosplenomegaly Extremity normal to inspection and no clubbing, cyanosis or edema Peripheral Pulses: Yes pulses 2+ throughout Skin no rashes or lesions noted, no wounds, skin turgor normal, no jaundice, no petechiae and no mottling Skin Narrative: Few scattered tattoos Neuro Neuro Narrative: Intubated and sedated, reflexes 2+ bilateral upper and lower extremities, persistent primitive reflexes intact Psych Psych Narrative: Unable to evaluate at this time Results Lab / Micro Data Result Diagrams: 07/02/21 07:45 07/02/21 07:45 Labs: Laboratory Results - last 24 hr 07/02/21 07:45: WBC 8.9, RBC 4.07 L, Hgb 13.0, Hct 40.5, MCV 99.5 H, MCH 31.9, MCHC 32.1, RDW Std Deviation 46.9 H, RDW Coeff of Willy 12.9, Plt Count 233, MPV 10.5, Immature Gran % (Auto) 0.300, Neut % (Auto) 61.1, Lymph % (Auto) 28.2, [place] % (Auto) 6.0, Eos % (Auto) 3.3, Baso % (Auto) 1.1 H, Absolute Neuts (auto) 5.4, Absolute Lymphs (auto) 2.51, Nucleated RBC % 0 07/02/21 07:45: Sodium 141, Potassium 4.4, Chloride 109 H, Carbon Dioxide 26.0, Anion Gap 6, BUN 15, Creatinine 1.05 H, Estim Creat Clear Calc 59.34, Est GFR (MDRD) Af Amer 71, Est GFR (MDRD) Non-Af 59 L, BUN/Creatinine Ratio 14.3, Glucose 110 H, Calcium 8.4 L, Total Bilirubin 0.20, AST 15, ALT 31, Alkaline Phosphatase 61, Total Protein 7.1, Albumin 3.8, Globulin 3.3, Albumin/Globulin Ratio 1.2 07/02/21 07:45: Salicylates 5.0, Acetaminophen < 2.0 L, Ethyl Alcohol < 3.0 07/02/21 07:55: Urine Opiates Screen NEGATIVE, Urine Methadone Screen NEGATIVE, Ur Barbiturates Screen POSITIVE H, Ur Phencyclidine Scrn NEGATIVE, Ur Amphetamines Screen NEGATIVE, U Methamphetamin-MDMA NEGATIVE, U Benzodiazepines Scrn NEGATIVE, Urine Cocaine Screen NEGATIVE, U Cannabinoids Screen POSITIVE H, Ur Drug Screen Comment 07/02/21 07:55: Urine Color Yellow, Urine Clarity Clear, Urine pH 7.0, Ur Specific [place] 1.005, Urine Protein Negative, Urine Glucose (UA) Normal, Urine Ketones Negative, Urine Occult Blood Negative, Urine Nitrite Negative, Urine Bilirubin Negative, Urine Urobilinogen Normal, Ur Leukocyte Esterase Negative, Urine RBC 0 SEEN, Urine WBC 0 SEEN, Ur Squamous Epith Cells 0 SEEN, Urine Bacteria 0 SEEN, Urine Mucus 0 SEEN Micro: Microbiology 07/02/21 08:05 Mucosa - Nose SARS-CoV-2 Antigen (Rapid) - Final ABG Data ABG results: ABG 07/02/21 08:52 Specimen Type ART Sample Site R Radial pH 7.38 Bicarbonate Actual 22.4 Total CO2 24 Base Excess -3 L O2 Saturation 97 O2 % 50 ABG pCO2 37.6 ABG pO2 94 César Test Positive Respiration Rate 12 O2 Delivery Device Adult Vent Vent Mode AC Tidal Volume 450 POC PEEP 5 Radiology Impression Chest X-Ray 07/02/21 07:59 IMPRESSION: 1. Endotracheal tube and orogastric tube as described. 2. No acute cardiopulmonary disease. Electronically Signed: Darrick Ball DO at 8:22 EDT Tel [phone], Service support , Assessment & Plan Assessment/Plan (1) Amitriptyline overdose: (2) Respiratory failure: PLAN: Acute amitriptyline overdose -Patient took at least 3050 mg amitriptyline tablets this a.m. between 5 and 530 -Continue sodium bicarbonate drip for cardiac stabilization -Goal pH is 7.50-7.55 -Patient had a normal pH on admission -Repeat a.m. EKG--> current EKG shows sinus tachycardia -If EKG remains normal will consider tapering sodium bicarb -Check ABG at 1400, 2000, 0400 -Monitor for seizure activity -If occur on propofol would use benzodiazepines -Continue propofol drip -Activated charcoal not performed as patient is out of 2-hour window from ingestion and ingestion time was not clear on presentation -Monitor for hypotension -Patient is currently hemodynamically stable -Pressors if patient has refractory hypotension -Crisis consult once patient is extubated and able to participate in evaluation -Patient will likely need inpatient psychiatric admission Acute hypoxic respiratory failure secondary airway protection -Patient intubated in the emergency department on 07/02/2021 -Wean vent as able -Periodic sedation vacations to assess for extubation readiness -As needed aerosols -Given altered mental status--> concern for aspiration -Monitor for fever/white count elevation/sputum change-->if these develop would initiate Unasyn -Chest x-ray in a.m. -Pulmonary/critical care consult History of ischemic cardiomyopathy -Check echocardiogram -EKG shows no acute ischemic changes -Hold home carvedilol CAD/HTN -Hold amlodipine/carvedilol given concern for hypotension -Monitor blood pressure and reinitiate as able History of migraine headaches -Hold Fioricet PTSD/bipolar disorder -Hold amitriptyline, lurasidone -Psych consult once extubated -Suspect inpatient psychiatry admission after medically stable Tobacco abuse -Suspect patient may have underlying COPD although does not have this is a diagnosis -As needed albuterol -Smokes 1 to 2 packs/day -Recommend cessation -Consider nicotine patch THC use -Recommend cessation Morbid obesity -BMI 40.0 -Complicates treatment, prognosis, and outcomes DVT prophylaxis Lovenox 40 mg twice daily CODE STATUS -Full code Critical care time greater than 35 minutes Charges/Coding Procedures Hospitalists Procedures: [id number] [facility]
[2021-07-02] MEDS: Propofol 10MG/Ml 1,000 MG/100 ML Bottle 3.4 MG CONT INF (10:45)
--- NOTE | 2021-07-02 10:53 | EX.PCM.CONCC ---
Assessment & Plan Assessment/Plan (1) Respiratory failure: (2) Amitriptyline overdose: (3) Bipolar 1 disorder, mixed, severe: (4) Cardiomyopathy: PLAN: RECOMMENDATIONS: 1. No further gastric lavage or activated charcoal 2. Continue bicarbonate drip 3. Ativan as needed for seizure 4. Hold on tube feeds for now 5. Continue mechanical ventilation with spontaneous breathing and awakening trials per protocol 6. Extubation likely based off of mental status 7. Continue to monitor QT/QTc IMPRESSIONS: 1. Acute amitriptyline overdose Patient reportedly has taken up to 3 g of amitriptyline tablets between 5 and 530 this morning. Patient has been placed on a sodium bicarbonate drip with a goal pH of 7.5-7.55. Continue with intermittent EKGs and QTC monitoring. Intermittent ABGs to check pH. Patient should have seizure precautions. Sedation will be transitioned to propofol with as needed Ativan as needed for seizures. Cannot exclude the need for pressors moving forward. 2. Acute hypoxic respiratory failure Clinical suspicion for hypoxia related to failure to protect her airway. Patient does not have any obvious signs of aspiration at this time and no emesis has been reported. If patient were to develop fever, leukocytosis or increased secretions, empiric treatment with Unasyn would be appropriate. 3. Reported ischemic cardiomyopathy/CAD/migraine/PTSD/bipolar/morbid obesity/polysubstance abuse Complicates care, management, recovery and prognosis. Agree with echocardiogram. Would hold home carvedilol secondary to risk for hypotension. Patient will need a crisis evaluation after extubation. May initiate patient on bronchodilators given tobacco history with presumed COPD if wheezing noted on exam. TIME: 36 minutes of critical care time spent addressing patient's amitriptyline overdose, hypoxic respiratory failure, review of all data and collaboration with care team (10 AM to 11 AM) HPI Consult Data Date of Consult: 07/02/21 HPI Narrative HPI Narrative: SAMANTHA QUIROS is a 51 F, with past medical history listed below, who presented to [facility] on 07/02/2021 after being found unresponsive by her at approximately 5:30 AM. Patient reportedly had sent a text to someone at 5 AM and was found unresponsive at 5:30 AM. Patient did have empty bottles of amitriptyline at her bedside. Patient had potentially 90 tablets available and both were found empty. Patient was unresponsive and unable to provide review of systems. Patient reportedly does have issues with suicidal ideation in the past. On presentation to the ER, patient was afebrile with lower blood pressure of 101/46. Patient was initially receiving bag mask ventilation and then was intubated. Patient had an unremarkable CBC and CMP. Patient did have a positive salicylate level of 5, low acetaminophen and low ethyl alcohol. UA was unremarkable and tox screen showed barbiturates and cannabinoids. Chest x-ray showed good position of supportive devices but no aspiration. EKG showed sinus rhythm with a QTC of 497. Patient was initially placed on a Versed drip by the ER secondary to concerns for hypotension. On presentation to the ICU, patient was unresponsive. Patient was on fentanyl, but no sedation. Patient's OG was not to suction. Patient's OG was placed to suction with possible pill fragments. Patient did have a 400 cc lavage with possible pill fragment removal. Patient did not receive charcoal per the documentation and has no signs of charcoal on irrigation. Patient has been placed on a bicarbonate drip. Patient reportedly does have a history of congestive heart failure and is an avid smoker. Unable to obtain review of systems at this time. [facility] Medical History (Updated 07/02/21 @ 10:[address] Dionte Eden MD) Bipolar 1 disorder, mixed, severe Cardiomyopathy Hypertension Myocardial infarct, old Home Medications amlodipine 10 mg PO DAILY 12/28/20 [History Last Taken Unknown] llzxjgiazb-vfgypkgarwnsk-vvtj 1 tab PO DAILY PRN PRN 12/28/20 [History Last Taken Unknown] carvedilol 12.5 mg PO BID 12/28/20 [History Last Taken Unknown] clonazepam 1 mg PO DAILY PRN PRN 12/28/20 [History Last Taken Unknown] lurasidone 60 mg PO DAILY 12/28/20 [History Last Taken Unknown] promethazine 25 mg PO DAILY PRN PRN 12/28/20 [History Last Taken Unknown] amitriptyline 50 mg PO BID 05/13/21 [History Last Taken Unknown] Allergy/AdvReac Type Severity Reaction Status Date / Time No Known Allergies Allergy Verified 07/02/21 08:34 Surgical History History of hysterectomy History of tonsillectomy Hx of cardiac catheterization Social History current occupation: Disabled Smoking Status: Current every day smoker tobacco type: cigarettes Smoking packs per day: 2 Smoking cigarettes per day: 40.0 alcohol intake: current alcohol intake frequency: other details: Social alcohol use but nothing habitual substance use type: marijuana ROS Review of Systems ROS Unobtainable: due to mental status Physical Exam Const no apparent distress Constitutional Narrative: Not following commands. No signs of trauma appreciated General Appearance: intubated and patient mechanically ventilated Nutritional Appearance: morbidly obese HEENT normocephalic, head/scalp atraumatic and moist oral mucous membranes Eyes PERRL and EOMs intact bilaterally Neck full ROM and no lymphadenopathy Chest inspection of chest normal Resp normal respiratory effort and no use of accessory muscles Effort and Inspection: able to speak in complete sentences Auscultation: clear to auscultation bilaterally; Negative for rales, rhonchi or wheezes Percussion: Negative for dullness Cardio regular rate, regular rhythm, S1 normal heart sound, S2 normal heart sound, no murmurs, no rub and no gallops GI normal to inspection, nondistended, normoactive bowel sounds no CVA tenderness Extremity no clubbing, cyanosis or edema Skin no rashes or lesions noted Neuro oriented x3, CN's II-XII intact bilaterally, moves all extremities and no focal motor deficits Psych cooperative and affect normal Lab / Micro Data Result Diagrams: 07/02/21 07:45 07/02/21 07:45 Labs: Laboratory Results - last 24 hr 07/02/21 07:45: WBC 8.9, RBC 4.07 L, Hgb 13.0, Hct 40.5, MCV 99.5 H, MCH 31.9, MCHC 32.1, RDW Std Deviation 46.9 H, RDW Coeff of Willy 12.9, Plt Count 233, MPV 10.5, Immature Gran % (Auto) 0.300, Neut % (Auto) 61.1, Lymph % (Auto) 28.2, [place] % (Auto) 6.0, Eos % (Auto) 3.3, Baso % (Auto) 1.1 H, Absolute Neuts (auto) 5.4, Absolute Lymphs (auto) 2.51, Nucleated RBC % 0 07/02/21 07:45: Sodium 141, Potassium 4.4, Chloride 109 H, Carbon Dioxide 26.0, Anion Gap 6, BUN 15, Creatinine 1.05 H, Estim Creat Clear Calc 59.34, Est GFR (MDRD) Af Amer 71, Est GFR (MDRD) Non-Af 59 L, BUN/Creatinine Ratio 14.3, Glucose 110 H, Calcium 8.4 L, Total Bilirubin 0.20, AST 15, ALT 31, Alkaline Phosphatase 61, Total Protein 7.1, Albumin 3.8, Globulin 3.3, Albumin/Globulin Ratio 1.2 07/02/21 07:45: Salicylates 5.0, Acetaminophen < 2.0 L, Ethyl Alcohol < 3.0 07/02/21 07:55: Urine Opiates Screen NEGATIVE, Urine Methadone Screen NEGATIVE, Ur Barbiturates Screen POSITIVE H, Ur Phencyclidine Scrn NEGATIVE, Ur Amphetamines Screen NEGATIVE, U Methamphetamin-MDMA NEGATIVE, U Benzodiazepines Scrn NEGATIVE, Urine Cocaine Screen NEGATIVE, U Cannabinoids Screen POSITIVE H, Ur Drug Screen Comment 07/02/21 07:55: Urine Color Yellow, Urine Clarity Clear, Urine pH 7.0, Ur Specific [place] 1.005, Urine Protein Negative, Urine Glucose (UA) Normal, Urine Ketones Negative, Urine Occult Blood Negative, Urine Nitrite Negative, Urine Bilirubin Negative, Urine Urobilinogen Normal, Ur Leukocyte Esterase Negative, Urine RBC 0 SEEN, Urine WBC 0 SEEN, Ur Squamous Epith Cells 0 SEEN, Urine Bacteria 0 SEEN, Urine Mucus 0 SEEN Micro: Microbiology 07/02/21 08:05 Mucosa - Nose SARS-CoV-2 Antigen (Rapid) - Final ABG Data ABG results: ABG 07/02/21 08:52 Specimen Type ART Sample Site R Radial pH 7.38 Bicarbonate Actual 22.4 Total CO2 24 Base Excess -3 L O2 Saturation 97 O2 % 50 ABG pCO2 37.6 ABG pO2 94 César Test Positive Respiration Rate 12 O2 Delivery Device Adult Vent Vent Mode AC Tidal Volume 450 POC PEEP 5 Radiology Impression Chest X-Ray 07/02/21 07:59 IMPRESSION: 1. Endotracheal tube and orogastric tube as described. 2. No acute cardiopulmonary disease. Electronically Signed: Darrick Ball DO at 8:22 EDT Tel [phone], Service support , Charges/Coding Procedures Hospitalists Procedures: [id number] [facility] H[facility]
[2021-07-02] MEDS: Enoxaparin 40 MG/0.4 ML Syringe SC ×2 (11:07→20:30)
[2021-07-02] MEDS: Famotidine 20 MG Tablet GT ×2 (11:09→20:30)
[2021-07-02 13:51] LABS: Blood Gas Specimen Type VEN; PEEP 5; RR 12; VBG BASE EXCESS 0 mmol/L (-1.0-3.5); VBG Bicarbonate 26 mmol/L (22-26); VBG PO2 45 mmHg (25-40); VBG SO2 79 % (50-70); VBG TCO2 27 mmol/L (23-33); VBG pCO2 44.3 mmHg (41-51); VBG pH 7.37 (7.32-7.42)
[2021-07-02] MEDS: Chlorhexidine 15 ML PO (20:30)
[2021-07-02 20:31] LABS: Blood Gas Specimen Type VEN; O2 Delivery Device Adult Vent; PEEP 5; RR 12; VBG BASE EXCESS 5 mmol/L (-1.0-3.5); VBG Bicarbonate 30 mmol/L (22-26); VBG PO2 45 mmHg (25-40); VBG SO2 80 % (50-70); VBG TCO2 31 mmol/L (23-33); VBG pCO2 49.3 mmHg (41-51); VBG pH 7.39 (7.32-7.42)
[2021-07-03] VITALS (25 sets, daily range): BP systolic 112–157; BP diastolic 54–102; PULSE 87–99; RESP 10–25; TEMP 36.3–37.3; O2SAT 91–99
[2021-07-03] MEDS: Propofol 10MG/Ml 1,000 MG/100 ML Bottle 13.5 MG CONT INF (01:20)
[2021-07-03 04:07] LABS: Absolute Lymphocyte Count 1.78 X10^3/uL (0.83-4.51); Absolute Neutrophil Count 7.2 X10^3/uL (2.0-7.7); Basophil# 0.05 X10^3/uL; Basophil% 0.5 % (0-1); Eosinophil# 0.19 X10^3/uL; Eosinophils% 1.9 % (0-5); Hematocrit 35.7 % (37-47); Hemoglobin 11.6 g/dL (12.0-15.0); Lymphocyte # 1.78 X10^3/ul (0.83-4.51); Lymphocyte % 18.1 % (19-41); Mean Corp Hgb Conc 32.5 g/dL (32-36); Mean Corpuscular Hgb 32.1 pg (27.0-32.0); Mean Corpuscular Volume 98.9 fL (81-99); Mean Platelet Vol. 10.3 fl (6.2-12.0); Monocyte# 0.56 X10^3/uL; Monocyte% 5.7 % (0-10); NRBC Flagged by Analyzer 0 % (0-5); Neutrophil % 73.5 % (47-70); Platelet Count 168 K/mm3 (150-450); RBC Distribution Width SD 46.9 fl (35.1-43.9); Red Blood Count 3.61 M/mm3 (4.2-5.4); White Blood Count 9.8 K/mm3 (4.4-11.0)
[2021-07-03 04:21] LABS: Allen Test Positive; Base Excess 6 mmol/L (-2 to +2); Bicarbonate 30.1 mmol/L (22-26); Blood Gas Specimen Type ART; FI02 30; Mode AC; O2 Delivery Device Adult Vent; PEEP 5; PO2 76 mmHG (75-100); RR 12; SITE R Radial; SO2 96 % (95-99); Total Carbon Dioxide 31 mmol/L; Vt 450; pCO2 44.2 mmHg (35-45); pH 7.44 (7.35-7.45)
[2021-07-03 04:37] LABS: AST(SGOT) 11 U/L (15-37); Alanine Aminotransfer ALT/SGPT 25 U/L (13-56); Albumin, Serum 3.1 g/dL (3.2-5.0); Alkaline Phosphatase 59 U/L (45-117); Anion Gap 5 (5-15); BUN 7 mg/dL (7-18); BUN/Creat Ratio 8.3 RATIO (10-20); Calcium,Total 7.6 mg/dL (8.5-10.1); Chloride 103 mmol/L (98-107); Creatinine, Serum 0.84 mg/dL (0.55-1.02); EST Glomerular Filtration Rate 75 mL/min (>60); Est Glom Filt Rate - Afr Amer 91 mL/min (>60); Estimated Creatinine Clearance 74.17 ml/min; Glucose 141 mg/dL (74-106); Phosphorus 2.3 mg/dL (2.5-4.9); Potassium 3.3 mmol/L (3.5-5.1); Protein, Total 6.1 g/dL (6.4-8.2); Sodium Level 141 mmol/L (136-145); Thyroid Stim Hormone (TSH) 0.61 uIU/mL (0.358-3.74)
--- NOTE | 2021-07-03 05:00 | RAD_ITS ---
EXAM: XR CHEST, 1 VIEW : 1970 CLINICAL INDICATION: VDRF TECHNIQUE: Frontal view of the chest. This report was created using [employer] report generation technology. COMPARISON: 07/02/21 FINDINGS: LUNGS AND PLEURAL SPACES: Unremarkable. No consolidation or edema. No pneumothorax. No effusion. HEART: Unremarkable. Cardiac silhouette not enlarged. MEDIASTINUM: Central airways and mediastinal contour are unremarkable. BONES/JOINTS: Unremarkable. SOFT TISSUES: Unremarkable. TUBES, LINES AND DEVICES: Stable endotracheal and enteric tubes. RAD/Chest 1 View (Portable) IMPRESSION: No acute findings in the chest. at [id number] Reported and signed by: Luke Acuña MD Electronically Signed: Luke Acuña MD at 5:45 EDT Tel , Service support ,
--- NOTE | 2021-07-03 05:00 | EKG12_ITS ---
Test Reason : OVERDOSE Blood Pressure : / mmHG Vent. Rate : 094 BPM Atrial Rate : 094 BPM P-R Int : 232 ms QRS Dur : 116 ms QT Int : 398 ms P-R-T Axes : 064 -25 057 degrees QTc Int : 497 ms Sinus rhythm with 1st degree A-V block Incomplete left bundle branch block Prolonged QT Abnormal ECG Confirmed by EVY TORIBIO, FABRICE ([id number]), editor city JOYCE SHARIF ([id number]) on 07/06/2021 10:39:09 AM Referred By: BHUMI Confirmed By:FABRICE RATLIFF MD
--- NOTE | 2021-07-03 06:36 | PN.CC_ITS ---
Assessment & Plan Assessment/Plan (1) Amitriptyline overdose: (2) Respiratory failure: PLAN: RECOMMENDATIONS: 1. Okay to proceed with a trial of extubation this morning. 2. Once extubated, wean supplemental oxygen to maintain saturations at or above 90%. 3. Bicarbonate infusion can be stopped once current bag is completed. 4. Bedside swallow evaluation once extubated and advance diet accordingly. 5. Crisis evaluation. 6. Electrolyte repletion as ordered. IMPRESSIONS: 1. Acute hypoxemic respiratory failure Secondary to acute intentional overdose leading to respiratory decompensation. The patient has improved from a respiratory perspective and passed her spontaneous breathing trial this morning. She is currently a candidate for a trial of extubation. Once extubated, supplemental oxygen will be weaned to maintain saturations at or above 90%. Will perform bedside swallow evaluation and advance diet accordingly. 2. Intentional amitriptyline overdose The patient has remained clinically stable overnight. She was treated over the last 24 hours with a continuous bicarbonate infusion, which will be stopped later this morning. We will continue to monitor with telemetry. Plan for extubation and subsequent evaluation by crisis, once medically stable. 3. Hypokalemia/hypophosphatemia Electrolyte repletion as ordered. Recheck levels in the morning. 4. History of ischemic cardiomyopathy/coronary artery disease/PTSD/bipolar disorder/obesity Complicates care, management, recovery and prognosis. Resume home medications when clinically appropriate. TIME: 37 minutes of critical care time, independent of procedures, was spent addressing the patient's acute hypoxemic respiratory failure, intentional amitri ptyline overdose, hypokalemia, hypophosphatemia, review of all data and collaboration with the care team. ([id number]) Subjective Subjective The patient was seen and examined at the bedside this morning. Events from the last 24 hours have been reviewed. The patient is currently afebrile, hemodynamically stable and maintaining appropriate oxygen saturations on spontaneous mode mechanical ventilation with an FiO2 requirement of 30%. The patient remains on a bicarbonate infusion. Arterial blood gas this morning revealed a pH of 7.4 with a PCO2 of 44 and PO2 of 76. Chemistry profile was notable for a potassium of 3.3. Phosphorus was low at 2.3. The patient has done well this morning on her spontaneous breathing trial. She is currently documented to be overall net +2.5 L for the hospital admission. Objective Data Objective Data The patient's most recent lab work, culture data and imaging studies have all been personally reviewed. Rapid coronavirus antigen testing was negative. Sputum culture is pending. Vital Signs: Vital Signs Temp Pulse Resp BP Pulse Ox 97.9 F 87 18 139/68 H 95 07/03/21 00:00 07/03/21 06:00 07/03/21 06:00 07/03/21 06:00 07/03/21 06:00 Oxygen Flow Rate (L/min) 10 Oxygen Delivery Method Mechanical Ventilator Weight: 111.7 kg Body Mass Index (BMI) 39.2 Intake & Output: Intake and Output for Last 24 Hours 07/01/21 07/02/21 07/03/21 23:59 23:59 23:59 Intake Total 4209.11 / 4218.31 1229.48 / 1229.48 Output Total 1750 / 2100 1125 / 1125 Balance 2459.11 / 2118.31 104.48 / 104.48 Lab / Micro Data Attestation: I reviewed the patient's lab results. Result Diagrams: 07/03/21 04:00 07/04/21 06:19 Labs: Laboratory Results - last 24 hr 07/02/21 07:45: WBC 8.9, RBC 4.07 L, Hgb 13.0, Hct 40.5, MCV 99.5 H, MCH 31.9, MCHC 32.1, RDW Std Deviation 46.9 H, RDW Coeff of Willy 12.9, Plt Count 233, MPV 10.5, Immature Gran % (Auto) 0.300, Neut % (Auto) 61.1, Lymph % (Auto) 28.2, [place] % (Auto) 6.0, Eos % (Auto) 3.3, Baso % (Auto) 1.1 H, Absolute Neuts (auto) 5.4, Absolute Lymphs (auto) 2.51, Nucleated RBC % 0 07/02/21 07:45: Sodium 141, Potassium 4.4, Chloride 109 H, Carbon Dioxide 26.0, Anion Gap 6, BUN 15, Creatinine 1.05 H, Estim Creat Clear Calc 59.34, Est GFR (MDRD) Af Amer 71, Est GFR (MDRD) Non-Af 59 L, BUN/Creatinine Ratio 14.3, Glucose 110 H, Calcium 8.4 L, Total Bilirubin 0.20, AST 15, ALT 31, Alkaline Phosphatase 61, Total Protein 7.1, Albumin 3.8, Globulin 3.3, Albumin/Globulin Ratio 1.2 07/02/21 07:45: Salicylates 5.0, Acetaminophen < 2.0 L, Ethyl Alcohol < 3.0 07/02/21 07:55: Urine Opiates Screen NEGATIVE, Urine Methadone Screen NEGATIVE, Ur Barbiturates Screen POSITIVE H, Ur Phencyclidine Scrn NEGATIVE, Ur Amphetamines Screen NEGATIVE, U Methamphetamin-MDMA NEGATIVE, U Benzodiazepines Scrn NEGATIVE, Urine Cocaine Screen NEGATIVE, U Cannabinoids Screen POSITIVE H, Ur Drug Screen Comment 07/02/21 07:55: Urine Color Yellow, Urine Clarity Clear, Urine pH 7.0, Ur Specific [place] 1.005, Urine Protein Negative, Urine Glucose (UA) Normal, Urine Ketones Negative, Urine Occult Blood Negative, Urine Nitrite Negative, Urine Bilirubin Negative, Urine Urobilinogen Normal, Ur Leukocyte Esterase Negative, Urine RBC 0 SEEN, Urine WBC 0 SEEN, Ur Squamous Epith Cells 0 SEEN, Urine Bacteria 0 SEEN, Urine Mucus 0 SEEN 07/03/21 04:00: WBC 9.8, RBC 3.61 L, Hgb 11.6 L, Hct 35.7 L, MCV 98.9, MCH 32.1 H, MCHC 32.5, RDW Std Deviation 46.9 H, RDW Coeff of Willy 13.0, Plt Count 168, MPV 10.3, Immature Gran % (Auto) 0.300, Neut % (Auto) 73.5 H, Lymph % (Auto) 18.1 L, [place] % (Auto) 5.7, Eos % (Auto) 1.9, Baso % (Auto) 0.5, Absolute Neuts (auto) 7.2, Absolute Lymphs (auto) 1.78, Nucleated RBC % 0 07/03/21 04:00: Sodium 141, Potassium 3.3 L, Chloride 103, Carbon Dioxide 33.0 H , Anion Gap 5, BUN 7, Creatinine 0.84, Estim Creat Clear Calc 74.17, Est GFR (MDRD) Af Amer 91, Est GFR (MDRD) Non-Af 75, BUN/Creatinine Ratio 8.3 L, Glucose 141 H, Calcium 7.6 L, Phosphorus 2.3 L, Magnesium 2.0, Total Bilirubin 0.30, AST 11 L, ALT 25, Alkaline Phosphatase 59, Total Protein 6.1 L, Albumin 3.1 L, Globulin 3.0, Albumin/Globulin Ratio 1.0, TSH 0.61 Micro: Microbiology 07/02/21 08:05 Mucosa - Nose SARS-CoV-2 Antigen (Rapid) - Final ABG Data ABG results: ABG 07/02/21 07/02/21 07/02/21 08:52 13:44 20:22 Specimen Type ART KIEL KIEL Sample Site R Radial pH 7.38 Bicarbonate Actual 22.4 Total CO2 24 Base Excess -3 L O2 Saturation 97 O2 % 50 ABG pCO2 37.6 ABG pO2 94 César Test Positive VBG pH 7.37 7.39 VBG pO2 45 H 45 H VBG HCO3 26 30 H VBG Total CO2 27 31 VBG O2 Sat (Calc) 79 H 80 H VBG Base Excess 0 5 H POC Mix VBG pCO2 Pt Tmp 44.3 49.3 Respiration Rate 12 12 12 O2 Delivery Device Adult Vent Adult Vent Vent Mode AC Tidal Volume 450 POC PEEP 5 5 5 07/03/21 04:15 Specimen Type ART Sample Site R Radial pH 7.44 Bicarbonate Actual 30.1 H Total CO2 31 Base Excess 6 H O2 Saturation 96 O2 % 30 ABG pCO2 44.2 ABG pO2 76 César Test Positive VBG pH VBG pO2 VBG HCO3 VBG Total CO2 VBG O2 Sat (Calc) VBG Base Excess POC Mix VBG pCO2 Pt Tmp Respiration Rate 12 O2 Delivery Device Adult Vent Vent Mode AC Tidal Volume 450 POC PEEP 5 Radiography Diagnostic Testing: Radiology Impression Chest X-Ray 07/02/21 07:59 IMPRESSION: 1. Endotracheal tube and orogastric tube as described. 2. No acute cardiopulmonary disease. Electronically Signed: Darrick Ball DO at 8:22 EDT Tel [phone], Service support , Chest X-Ray 07/03/21 05:00 IMPRESSION: No acute findings in the chest. at 0546 Reported and signed by: Luke Acuña MD Electronically Signed: Luke Acuña MD at 5:45 EDT Tel , Service support , Physical Exam Const alert General Appearance: cooperative, intubated and patient mechanically ventilated Nutritional Appearance: obese HEENT normocephalic and head/scalp atraumatic Mouth: endotracheal tube in place and OG tube in place Eyes PERRL and EOMs intact bilaterally Neck supple General: trachea midline Resp normal respiratory effort Auscultation: Negative for rales, rhonchi or wheezes Cardio regular rate and regular rhythm GI normal to inspection, nondistended, normoactive bowel sounds Extremity no clubbing, cyanosis or edema Skin no rashes or lesions noted Neuro moves all extremities and no focal motor deficits Psych cooperative Charges/Coding Procedures Hospitalists Procedures: 32029 Critial Care 1st Hr
[2021-07-03] MEDS: Potassium Chloride 10mEq/100mL 10 MEQ/100 ML IV.SOLN. 100 MEQ IV BOLUS ×4 (08:34→12:00)
[2021-07-03] MEDS: 0.9% Saline Lock 10 ML Syringe IV ×2 (09:40→15:02)
[2021-07-03] MEDS: Enoxaparin 40 MG/0.4 ML Syringe SC ×2 (10:57→22:16)
[2021-07-03] MEDS: Famotidine 20 MG Tablet PO (10:57)
[2021-07-03] MEDS: CHLORHEXIDINE GLUC 2% CLOTH 1 EACH TOWELETTE TOPICAL (10:57)
--- NOTE | 2021-07-03 13:34 | PN.HOSP_ITS ---
Subjective Subjective Patient remains intubated but plan is for extubation this morning. No complaints at this time. I did inform her as she is awake on the ventilator that she would need an acute psychiatric admission and she shook her head no. She has been pink slipped. Objective Data Objective Data Vital Signs: Vital Signs Temp Pulse Resp BP Pulse Ox 97.7 F L 97 22 H 152/93 H 99 07/03/21 12:00 07/03/21 13:00 07/03/21 13:00 07/03/21 13:00 07/03/21 13:00 Oxygen Flow Rate (L/min) 3 Oxygen Delivery Method Room Air Weight: 111.7 kg Body Mass Index (BMI) 39.2 Intake & Output: Intake and Output for Last 24 Hours 07/01/21 07/02/21 07/03/21 23:59 23:59 23:59 Intake Total 4209.11 / 4218.31 3274.48 / 3274.48 Output Total 1750 / 2100 2500 / 2500 Balance 2459.11 / 2118.31 774.48 / 774.48 Lab / Micro Data Result Diagrams: 07/03/21 04:00 07/04/21 06:19 Labs: Laboratory Results - last 24 hr 07/03/21 04:00: WBC 9.8, RBC 3.61 L, Hgb 11.6 L, Hct 35.7 L, MCV 98.9, MCH 32.1 H, MCHC 32.5, RDW Std Deviation 46.9 H, RDW Coeff of Willy 13.0, Plt Count 168, MPV 10.3, Immature Gran % (Auto) 0.300, Neut % (Auto) 73.5 H, Lymph % (Auto) 18.1 L, [place] % (Auto) 5.7, Eos % (Auto) 1.9, Baso % (Auto) 0.5, Absolute Neuts (auto) 7.2, Absolute Lymphs (auto) 1.78, Nucleated RBC % 0 07/03/21 04:00: Sodium 141, Potassium 3.3 L, Chloride 103, Carbon Dioxide 33.0 H , Anion Gap 5, BUN 7, Creatinine 0.84, Estim Creat Clear Calc 74.17, Est GFR (MDRD) Af Amer 91, Est GFR (MDRD) Non-Af 75, BUN/Creatinine Ratio 8.3 L, Glucose 141 H, Calcium 7.6 L, Phosphorus 2.3 L, Magnesium 2.0, Total Bilirubin 0.30, AST 11 L, ALT 25, Alkaline Phosphatase 59, Total Protein 6.1 L, Albumin 3.1 L, Globulin 3.0, Albumin/Globulin Ratio 1.0, TSH 0.61 Micro: Microbiology 07/02/21 08:26 Sputum, Induced/Lukens Gram Stain - Final 07/02/21 08:26 Sputum, Induced/Lukens Respiratory Culture - Preliminary Appears to be normal respiratory isaura. Further studies to follow. 07/02/21 08:05 Mucosa - Nose SARS-CoV-2 Antigen (Rapid) - Final ABG Data ABG results: ABG 07/02/21 07/02/21 07/03/21 13:44 20:22 04:15 Specimen Type KIEL KIEL ART Sample Site R Radial pH 7.44 Bicarbonate Actual 30.1 H Total CO2 31 Base Excess 6 H O2 Saturation 96 O2 % 30 ABG pCO2 44.2 ABG pO2 76 César Test Positive VBG pH 7.37 7.39 VBG pO2 45 H 45 H VBG HCO3 26 30 H VBG Total CO2 27 31 VBG O2 Sat (Calc) 79 H 80 H VBG Base Excess 0 5 H POC Mix VBG pCO2 Pt Tmp 44.3 49.3 Respiration Rate 12 12 12 O2 Delivery Device Adult Vent Adult Vent Vent Mode AC Tidal Volume 450 POC PEEP 5 5 5 Radiography Diagnostic Testing: Radiology Impression Chest X-Ray 07/03/21 05:00 IMPRESSION: No acute findings in the chest. at 0546 Reported and signed by: Luke Acuña MD Electronically Signed: Luke Acuña MD at 5:45 EDT Tel , Service support , Physical Exam Const alert and no apparent distress Constitutional Narrative: Morbidly obese middle-aged white female lying in bed intubated but awake and interactive on the ventilator Exam Limitations: no limitations HEENT normocephalic, head/scalp atraumatic and moist oral mucous membranes HEENT Narrative: ET tube in place Head and Scalp: normocephalic Eyes PERRL, EOMs intact bilaterally and conjunctivae normal Neck no lymphadenopathy, supple, no JVD and no carotid bruits Resp normal respiratory effort, no retractions, no use of accessory muscles and clear to auscultation bilaterally Auscultation: Negative for crackles, rales, rhonchi or wheezes Cardio regular rate, regular rhythm, S1 normal heart sound, S2 normal heart sound, no murmurs, no rub, no gallops, no clicks and no JVD GI normal to inspection, nondistended, normoactive bowel sounds, soft to palpation, non-tender and non-distended; Negative for hepatosplenomegaly Extremity normal to inspection and no clubbing, cyanosis or edema Skin no rashes or lesions noted, no wounds, skin turgor normal, no jaundice, no petechiae and no mottling Skin Narrative: Few scattered tattoos Neuro CN's II-XII intact bilaterally, moves all extremities and no focal motor deficits Sensorium / Orientation: awake and alert Speech: speech normal Assessment & Plan Assessment/Plan (1) Amitriptyline overdose: (2) Respiratory failure: PLAN: Acute amitriptyline overdose -Patient took at least 3050 mg amitriptyline tablets this a.m. between 5 and 530 -Discontinue bicarb after this current drip is completed -Patient is fully awake and appropriately interactive -Evaluation by crisis once medical clearance is obtained--> likely tomorrow Acute hypoxic respiratory failure secondary airway protection -Patient intubated in the emergency department on 07/02/2021 -Extubated today -Swallow eval passed -Start cardiac diet Hypokalemia -Potassium replacement -Repeat in a.m. Hypophosphatemia -Phosphorus replacement -Mild -No need to repeat in a.m. History of ischemic cardiomyopathy -echocardiogram pending -Initial EKG shows no acute ischemic changes--> repeat this morning shows some T wave inversion but again no acute ST-T wave changes -Restart home carvedilol carvedilol CAD/HTN -Restart amlodipine/carvedilol given concern for hypotension -Monitor blood pressure and reinitiate as able History of migraine headaches -Hold Fioricet PTSD/bipolar disorder -Hold amitriptyline, reinitiate lurasidone -Crisis consult tomorrow -Suspect inpatient psychiatry admission after medically stable Tobacco abuse -Suspect patient may have underlying COPD although does not have this is a diagnosis -As needed albuterol -Smokes 1 to 2 packs/day -Recommend cessation -Start nicotine patch THC use -Recommend cessation Morbid obesity -BMI 40.0 -Complicates treatment, prognosis, and outcomes DVT prophylaxis Lovenox 40 mg twice daily CODE STATUS -Full code
--- NOTE | 2021-07-03 14:37 | CASEMGMT ---
Social Work Note Crisis to evaluate pt once pt is medically cleared. Ines Tamez X [employer]AY INSPECTOR, WELDING MACHINE ASSEMBLER
[2021-07-03] MEDS: proMETHazine 25 MG Tablet PO ×2 (15:00→20:32)
[2021-07-03] MEDS: Acetaminophen/Butalbital/Caffe 1 Tablet PO ×2 (15:00→20:32)
[2021-07-03] MEDS: LURASIDONE HCL 40 MG TABLET PO (17:36)
[2021-07-03] MEDS: clonazePAM 1 MG Tablet PO (18:47)
[2021-07-03] MEDS: BENZOCAINE/MENTHOL 1 LOZENGE MUCOUS MEM (22:18)
[2021-07-04] VITALS: PULSE 96
[2021-07-04 03:00] VITALS: BP 105/78; PULSE 95; RESP 18; TEMP 36.4; O2SAT 93
[2021-07-04 04:00] VITALS: PULSE 96
[2021-07-04 07:31] LABS: Anion Gap 5 (5-15); BUN 6 mg/dL (7-18); Calcium,Total 8.5 mg/dL (8.5-10.1); Chloride 108 mmol/L (98-107); EST Glomerular Filtration Rate 112 mL/min (>60); Est Glom Filt Rate - Afr Amer 135 mL/min (>60); Estimated Creatinine Clearance 103.84 ml/min; Glucose 119 mg/dL (74-106); Potassium 3.3 mmol/L (3.5-5.1); Sodium Level 140 mmol/L (136-145)
[2021-07-04 07:42] VITALS: PULSE 89
[2021-07-04 07:58] VITALS: BP 123/91; PULSE 85; RESP 18; TEMP 37; O2SAT 97
[2021-07-04] MEDS: Carvedilol 12.5 MG Tablet PO (08:08)
[2021-07-04] MEDS: Acetaminophen/Butalbital/Caffe 1 Tablet PO (08:11)
[2021-07-04] MEDS: proMETHazine 25 MG Tablet PO (08:15)
--- NOTE | 2021-07-04 10:26 | CASEMGMT ---
Crisis is here to see patient. Kinney slip was filled out and physician to sign. Jennifer Pulido [employer]
--- NOTE | 2021-07-04 10:40 | DS.PCM_ITS ---
Providers Date of Admission: 07/02/21 Primary Care Physician: Dr. Adri Chang, DO Consultations 07/02/21 14:10 Consult: Chief Airport Guide / Pulmonary Medicine Routine Consulting Provider: [facility] [place] Reason for Consult: OD, Resp Failure EMERGENT Consult: No MD Notified: Yes Date Notified: 07/02/21 Time Notified: 10:05 Method of Notification: Verbal Reason For Visit: AMITRITYLINE OVERDOSE Diagnosis Discharge Diagnosis (1) Amitriptyline overdose: Status: Acute Code(s): T43.011A - Poisoning by tricyclic antidepressants, accidental (unintentional), initial encounter (2) Respiratory failure: Status: Acute Code(s): J96.90 - Respiratory failure, unspecified, unspecified whether with hypoxia or hypercapnia Medications at Discharge Home Medications amlodipine 10 mg PO DAILY 12/28/20 [id number] 1 tab PO 4X/DAY PRN 12/28/20 carvedilol 12.5 mg PO DAILY 12/28/20 clonazepam 1 mg PO TID PRN PRN 12/28/20 promethazine 25 mg PO 4X/DAY PRN 12/28/20 Latuda 40 mg PO DAILY 07/03/21 fluoxetine [Prozac] 20 mg PO DAILY 07/03/21 lisinopril 20 mg PO DAILY 07/03/21 Hospital Course Operations None Procedures 2-D Echocardiogram and Intubation Summary of Care Provided Minutes Spent on Discharge: 39 Hospital Course: SAMANTHA QUIROS, is a 51 F who presented to the emergency department at [facility] via EMS upon being found unresponsive by her at home on 07/02/2021. The patient was emergently intubated in the emergency department secondary to depressed mental status. I obtained all history from her and he reported that she woke up at 5 AM on the day of admission and took her son to work. Then sent her sister a text at 530 for that stated she took 30, 50 mg amitriptyline tablets. She stated in the text I hope that I took enough. The reported that she had 6 psychiatric admissions in the last 10 years. Most of her care had been in [place] prior to this as she has recently moved here. He stated that she has been under a lot of stress lately as her oldest son has been threatening suicide, her puppy of 6 months old had to be euthanized yesterday, and she has been estranged from her other children. She sees psychiatry and psychology here in [place] and has a history of PTSD and bipolar disorder. He reported he has been treated with lithium in the past but this made her symptoms worse. She was admitted to the ICU and placed on a sodium bicarb drip given her amitriptyline toxicity. She had no cardiac arrhythmias and her EKG remained normal on the day following her admission. Her bicarb drip was weaned and she was able to be extubated on 07/03/2021. An echocardiogram was performed given her history of cardiomyopathy and showed an EF of 65% with stage I diastolic dysfunction mild aortic valve insufficiency and mild concentric LVH. She had mild electrolyte abnormalities in the form of hypokalemia which was replaced with oral potassium. She was evaluated by crisis on the a.m. of 07/04/2021 and they felt she needed inpatient psychiatry admission. She was discharged to inpatient psychiatry facility on 07/04/2021 in stable condition. Discharge diagnoses: Acute amitriptyline toxicity-resolved Suicide attempt Acute hypoxic respiratory failure-resolved Hypokalemia Hypophosphatemia History of cardiomyopathy-EF on echo 07/03/2021 65% Hypertension CAD History of migraine headaches PTSD Bipolar disorder Tobacco abuse THC use Morbid obesity Physical Exam Const alert, oriented x3 and no apparent distress Constitutional Narrative: Morbidly obese middle-aged white female sitting up in bed with sitter at bedside, patient appears well, nontoxic, no acute distress General Appearance: cooperative, comfortable, well kempt and well developed Orientation / Consciousness: awake Exam Limitations: no limitations HEENT normocephalic, head/scalp atraumatic, hearing grossly normal bilaterally, moist oral mucous membranes and oropharynx normal Mouth: oral and palatal mucosa normal Eyes PERRL, EOMs intact bilaterally and conjunctivae normal Neck no lymphadenopathy, supple, no JVD and no carotid bruits Resp normal respiratory effort, no retractions, no use of accessory muscles and clear to auscultation bilaterally Resp Narrative: Diminished but clear Auscultation: Negative for crackles, rales, rhonchi or wheezes Cardio regular rate, regular rhythm, S1 normal heart sound, S2 normal heart sound, no murmurs, no rub, no gallops, no clicks and no JVD GI normal to inspection, nondistended, normoactive bowel sounds, soft to palpation, non-tender and non-distended; Negative for hepatosplenomegaly Extremity normal to inspection and no clubbing, cyanosis or edema Skin no rashes or lesions noted, no wounds, skin turgor normal, no jaundice, no petechiae and no mottling Skin Narrative: Few scattered tattoos Neuro oriented x3, CN's II-XII intact bilaterally, moves all extremities, no focal motor deficits and no sensory deficits noted Sensorium / Orientation: awake, alert, oriented to person, oriented to place and oriented to time Speech: speech normal Motor Exam: strength 5/5 throughout Psych Psych Narrative: Good eye contact, interaction appropriate Mood & Affect: anxious Weight / BMI Weight Weight: 108.7 kg Body Mass Index (BMI) 39.2 ABG / Lab / Microbiology Data Result Diagrams: 07/03/21 04:00 07/04/21 06:19 Laboratory: Laboratory Results - last 24 hr 07/04/21 06:19: Sodium 140, Potassium 3.3 L, Chloride 108 H, Carbon Dioxide 27.0, Anion Gap 5, BUN 6 L, Creatinine 0.60, Estim Creat Clear Calc 103.84, Est GFR (MDRD) Af Amer 135, Est GFR (MDRD) Non-Af 112, BUN/Creatinine Ratio 10.0, Glucose 119 H, Calcium 8.5 Microbiology: Microbiology 07/02/21 08:26 Sputum, Induced/Lukens Gram Stain - Final 07/02/21 08:26 Sputum, Induced/Lukens Respiratory Culture - Final 07/02/21 08:05 Mucosa - Nose SARS-CoV-2 Antigen (Rapid) - Final Radiography Diagnostic Testing: Radiology Impression Echocardiogram 07/02/21 10:03 Interpretation Summary Normal LV size. Mild concentric left ventricular hypertrophy. Left ventricular systolic function is normal. The estimated ejection fraction is 65 %. Stage 1 diastolic dysfunction. Mild (1+) aortic valve insufficiency. Trisinus/trileaflet aortic valve. Ordering Physician: Nubia Flynn Referring Physician: Adri Chang Performed By: Leela To RDCS, RVT D/C Instructions Discharge Diet: Low fat / Low cholesterol Meaningful Use Info Meaningful Use Diagnoses (Choose all that apply): None applicable Discharge Plan Admission Admit Date/Time: 07/02/21 08:58 Primary Reason for Your Visit: Intentional Amitriptyline OD Attending Provider: Nubia Flynn Primary Care Provider: Adri Chang Consulting Providers: Dionte Eden ; Dimitris Lopez ; Fauzia Kim [employer] CHAIR Discharge Orders/Prescriptions Prescriptions: Continued carvedilol 12.5 MG tablet 12.5 mg PO DAILY RF: 0 clonazepam 1 MG tablet 1 mg PO TID PRN PRN (Reason: Anxiety) RF: 0 [id number]-yadzvyjaytecb-zfsc 1 TABLET tablet 1 tab PO 4X/DAY PRN (Reason: Migraine Headache) RF: 0 amlodipine 10 MG tablet 10 mg PO DAILY RF: 0 promethazine 25 MG tablet 25 mg PO 4X/DAY PRN (Reason: Nausea) RF: 0 lisinopril 20 mg Tablet 20 mg PO DAILY RF: 0 fluoxetine [Prozac] 20 mg Capsule 20 mg PO DAILY RF: 0 Latuda 40 mg Tablet 40 mg PO DAILY RF: 0 Discontinued amitriptyline 50 mg tablet 50 mg PO BID RF: 0 Referrals / Follow Up: Adri Chang, [Primary Care Provider] - Within 1 Month Disposition Disposition (needs filled in before D/C Order can be placed): Psychiatric Hospital or Unit Charges/Coding Visit Charges Inpatient E&M: 27494 Disch Hosp
--- NOTE | 2021-07-04 10:52 | DCINST_ITS ---
Discharge Instructions Diet Discharge Diet: Low fat / Low cholesterol Follow Up Care Test Results: Test results from this visit will be discussed in further detail at your follow-up appointment, if applicable. Discharge Plan Admission Admit Date/Time: 07/02/21 08:58 Primary Reason for Your Visit: Intentional Amitriptyline OD Attending Provider: Nubia Flynn Primary Care Provider: Adri Chang Consulting Providers: Dionte Eden ; Dimitris Lopez ; Fauzia Kim [employer] Discharge Orders/Prescriptions Prescriptions: Continued carvedilol 12.5 MG tablet 12.5 mg PO DAILY RF: 0 clonazepam 1 MG tablet 1 mg PO TID PRN PRN (Reason: Anxiety) RF: 0 ufxwemoggi-mqlmghncdwaga-cvfp 1 TABLET tablet 1 tab PO 4X/DAY PRN (Reason: Migraine Headache) RF: 0 amlodipine 10 MG tablet 10 mg PO DAILY RF: 0 promethazine 25 MG tablet 25 mg PO 4X/DAY PRN (Reason: Nausea) RF: 0 lisinopril 20 mg Tablet 20 mg PO DAILY RF: 0 fluoxetine [Prozac] 20 mg Capsule 20 mg PO DAILY RF: 0 Latuda 40 mg Tablet 40 mg PO DAILY RF: 0 Discontinued amitriptyline 50 mg tablet 50 mg PO BID RF: 0 Referrals / Follow Up: Adri Chang DO [Primary Care Provider] - Within 1 Month Disposition Disposition (needs filled in before D/C Order can be placed): Psychiatric Hospital or Unit
[2021-07-04] MEDS: Potassium Chloride Oral Tablet 20 MEQ 60 MEQ PO (11:01)
[2021-07-04] MEDS: LURASIDONE HCL 40 MG TABLET PO (11:07)
[2021-07-04] MEDS: Enoxaparin 40 MG/0.4 ML Syringe SC (11:08)
[2021-07-04] MEDS: Lisinopril 20 MG Tablet PO (11:09)
[2021-07-04] MEDS: FLUoxetine 20 MG Capsule PO (11:09)
[2021-07-04] MEDS: amLODIPine 10 MG Tablet PO (11:09)
[2021-07-04 14:05] VITALS: BP 132/87; PULSE 85; RESP 16; TEMP 36.6; O2SAT 95
[2021-07-04] MEDS: clonazePAM 1 MG Tablet PO (15:04)
--- NOTE | 2021-07-04 15:21 | NURSING ---
called upset that facility patient is being transferred to is so far away. Explained that crisis arranges based on acceptance and bed availability. Patient is agreeable to transport. still upset and wanting to get an consumer attorney to get her out of there ([facility]). on speaker phone talking with this nurse and patient. wants patient to go to [facility] and stated that he called them and they said they had a bed. Crisis notified of request. They stated that it would be in the best interest of the patient to transfer to [facility] as planned due to although [facility] stated they have beds, acceptance has to happen and it is not guaranteed. This information relayed to both patient and on speaker phone. Patient still agreeable to transport. remains upset that the facility is so far away and he was not consulted regarding the facility the patient was to be transferred to.
== END 2021-07-04 15:57 | DRG 917 ==
LOC: ED 08:36 → ICU 09:05 → PCU 07-03 17:15
PROVIDERS: Admitting Provider Internal Medicine; Emergency Provider Emergency Medicine; PCP Internal Medicine; Visit Provider Internal Medicine
DX: T43.012A Poisoning by tricyclic antidepressants, intentional self-harm, initial encounter (principal); J96.01 Acute respiratory failure with hypoxia; F31.63 Bipolar disorder, current episode mixed, severe, without psychotic features; Z68.41 Body mass index [BMI] 40.0-44.9, adult; Y92.009 Unspecified place in unspecified non-institutional (private) residence as the place of occurrence of the external cause; I50.9 Heart failure, unspecified; I11.0 Hypertensive heart disease with heart failure; I25.2 Old myocardial infarction; F17.210 Nicotine dependence, cigarettes, uncomplicated; I44.0 Atrioventricular block, first degree; F43.10 Post-traumatic stress disorder, unspecified; Z79.899 Other long term (current) drug therapy; G43.909 Migraine, unspecified, not intractable, without status migrainosus; I25.5 Ischemic cardiomyopathy; E66.01 Morbid (severe) obesity due to excess calories; I25.10 Atherosclerotic heart disease of native coronary artery without angina pectoris; E83.39 Other disorders of phosphorus metabolism; E87.6 Hypokalemia; Z63.8 Other specified problems related to primary support group
CPT/HCPCS: 31500; 31720; 36415; 36600; 51702; 71045; 80048; 80053; 80307; 80329; 81001; 82077; 82803; 83735; 84100; 84443; 85025; 87070; 87205; 87426; 93005; 93306; 94002; 94660; 97162; 97166; 97802; 99251; 99285; J7030; J7050; Q9957; A4216; G0463; G0480; J3010; J3490

== ENCOUNTER 2021-07-31 11:03 | Outpatient (RCR) | payer MEDICARE, MEDICAID, SELFPAY ==
--- NOTE | 2021-07-31 10:15 | BH.SGPN.GN ---
Behaviors/Verbalizations/Mental Status: []Client alert and oriented, casually dressed and groomed. Eye contact fair. Motor activity appropriate. Speech within normal limits. Affect congruent, mood anxious. Thoughts linear, logical, no signs of hallucinations or delusions Client Response/Progress/Benefit: []Pt was a mostly passive participant AEB pt not providing input during discussions. Attentive during psychoeducation and taking notes. Appeared to connect with topic of personal pitfalls and how they can impede mental health treatment progress. Pt and peers also discussed reasons why overcoming pitfalls is so challenging. During experiential activity pt along with peers identified several pitfalls from the activity that are also associated with mental health. Pt shared her personal pitfalls include: lack of awareness, isolation, and fear of failure. Benefited from group by increasing awareness of pitfalls which can impact mental health. Pt will continue in IOP tx to improve emotion regulation, increase healthy coping skills and prevent decompensation. Narrative Note: []
--- NOTE | 2021-07-31 11:15 | BH.SGPN.GN ---
Behaviors/Verbalizations/Mental Status: []Client alert and oriented, casually dressed and groomed. Eye contact good. Motor activity appropriate. Speech within normal limits. Affect constricted, mood anxious and irritable. Thoughts linear, logical, no signs of hallucinations or delusions. Client Response/Progress/Benefit: []Client receptive of session, engaged throughout AEB client actively listening and contributing to discussion, as well as taking notes. Client completed worksheet identifying personal pitfalls impacting mental health progress. Client identified the following pitfalls: lack of awareness, giving into fear of failure, and isolation. Group learned different coping skills to help manage pitfalls. Client selected isolation as the pitfall client wants to overcome. Client plans to work on this by coming to IOP twice a week and individual therapy once a week. Benefited from identifying personal pitfalls and strategies to overcome these pitfalls. Client?s first day of IOP. Client will continue IOP tx to prevent decompensation, increase self-awareness, and improve mood stability. Narrative Note: []
--- NOTE | 2021-08-02 09:05 | BH.SGPN.GN ---
Behaviors/Verbalizations/Mental Status: []Client alert and oriented, casually dressed and groomed. Eye contact good. Motor activity appropriate. Speech within normal limits. Affect congruent, mood euthymic. Thoughts linear, logical, no signs of hallucinations or delusions. Reviewed client?s symptom tracker, no risk for suicidal ideation, plan, or intent as of 08/02/21 Client Response/Progress/Benefit: []Client responded well to session, attentive and providing supportive statements to peers. Client reports feeling calm this morning. Client stated she has been at peace for the past few days and she wants to keep it that way. Client reported she has several stressors, but she is pushing those to the back of my mind. Client declined to talk about these stressors as client is fearful that talking about them will make the peace she is experiencing now end. Client reports coming to IOP and talking in front of strangers is a significant mental health win for her. Appeared to benefit from connecting with peers and reflecting on her positive mood. Client will continue to be encouraged to talk about her stressors, so these do not become overwhelming in the future. Will continue IOP tx to prevent decompensation, improve overall functioning, and learn healthy coping skills. Narrative Note: []
--- NOTE | 2021-08-02 11:10 | BH.SGPN.GN ---
Behaviors/Verbalizations/Mental Status: []Client alert and oriented, casually dressed and groomed. Eye contact good. Motor activity appropriate. Speech within normal limits. Affect congruent. mood anxious. Thoughts linear, logical, no signs of hallucinations or delusions. Client Response/Progress/Benefit: []Client engaged during activity and discussion AEB remaining attentive and asking questions throughout psychoeducation, providing some input, and taking notes throughout. Client did well to remain engaged as group worked on identifying characteristics and benefits of adopting a growth mindset. Listened and appearing to connect with discussion as fellow participants worked on reframing the example fixed thoughts into growth mindset thoughts. Client worked in small group to apply skills learned to reframe own personal fixed thoughts. Reframed personal fixed thought of ?No one can help me? with growth mindset thought of ?I can take small steps to learn to approach myself with more kindness to better help myself?. Noted that this would aid in improving overall positivity and sense of hope. Benefitted from discussing benefits of growth mindset and brainstorming strategies for prompting growth-mindset. Client continues to struggle with distorted thought patterns, impulsivity, and lack of support. Recommended to continue in IOP tx to promote active thought challenging, improve self-talk, and promote healthy communication with supports. Narrative Note: []
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
[2021-08-02 12:00] VITALS: BP 156/97; PULSE 98
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
--- NOTE | 2021-08-02 13:01 | BH.DR.ITP ---
Initial Treatment Plan Patient Information Visit Information: ADMISSION DATE: EXPECTED LOS: 4-6 weeks Problems/Symptoms Problem #1:: Mood instability Symptom:: Depression, irritability, history of crying, history of hopelessness, worthlessness, guilt, passive thoughts of . Problem #2:: Anxiety Symptom:: Worry, rumination, panic attacks, avoidance, reexperiencing, flashbacks
--- NOTE | 2021-08-07 10:15 | BH.SGPN.GN ---
Behaviors/Verbalizations/Mental Status: []Client alert and oriented, casually dressed and appropriately groomed. Eye contact fair. Motor activity appropriate. Speech within normal limits. Affect congruent, mood euthymic. Thoughts linear, logical, no signs of hallucinations or delusions. Client Response/Progress/Benefit: []Client mostly passive participant AEB client providing limited contributions during group discussion. Client did appear to listen attentively to others and took notes throughout session. Attentive to group discussion about benefits to resilience which included: helps reach goals, improve mood, increase confidence, able to bounce back for future stressors, and decrease anxiety. Client connected with others that she believes she is resilient. Group was primarily education based, with client participating in small group discussion regarding traits that promote resilience. Client attentive to large group discussion. Client appeared to benefit from psychoeducation. Will continue IOP treatment to increase healthy coping, challenge negative thinking and prevent decompensation.
--- NOTE | 2021-08-07 11:16 | BH.SGPN.GN ---
Behaviors/Verbalizations/Mental Status: []Client alert and oriented, casual dress, hygiene tended to. Eye contact good. Motor activity appropriate. Speech within normal limits. Affect congruent, mood depressed. Thoughts linear, logical, no signs of hallucinations or delusions. Client Response/Progress/Benefit: []Client responded well to session AEB contributing to discussion, asking questions throughout, and completing the resilience worksheet provided. Client participated in the discussion of how each resiliency component can help increase personal resiliency and worked cooperatively with group to identify strategies to enhance each of the components discussed. Client reported feeling she is doing well with implementing the resilience component of ?take decisive action?. Went on to reflect wanting to improve personal resilience in the area of ?making connections? Client stated she would like to continue working on improving her relationship with her older children by trying to reach out to them. Client seemed to benefit from discussing strategies for improving personal resilience and establishing a small goal in order to begin doing so. Will continue IOP to improve self-awareness, reduce external focus, and prevent decompensation. Narrative Note: []
--- NOTE | 2021-08-07 15:52 | BH.MTP ---
Master Treatment Plan - Patient Information Program Physician:: Dr. Zoey Hall Primary Therapist:: TIM Luther - Psychiatric Diagnoses Psychiatric Diagnoses:: 1. Bipolar 1 disorder, most recent episode mixed, severe without psychosis (F ). 2. PTSD. 3. Marijuana use disorder Diagnosis Code(s):: F - Estimated LOS Estimated LOS (in weeks):: 6 Problem/Goal #1 - Problem/Goal #1 Stated Goal:: Client will increase mood stability, decrease depressive symptoms, irritability, and passive thoughts of due to Bipolar I through Intensive Outpatient Program AEB decrease in DSM Depression and Irritability scales Description of Barriers: hx of poor follow through, distorted thoughts, poor self-worth, self-reports wanting to focus on her family and not herself, impulsivity Functional Impact: The pt is a 51-year-old female with a history of bipolar 1 disorder with hx of psychosis in brayan, depression, and PTSD who was referred to the [facility] program following suicide attempt. Pt reports she had attempted to overdose on amitriptyline on a July 02, 2021 which resulted in ICU admission for 2 days. Following ICU admission, pt was admitted to [facility] for psychiatric stabilization. Pt reports doing ?better? since discharge and denies any active SI, plan, or intent since the attempt. Reports ?I initially thought it was impulsive but in working with my therapist discovered it was more out of anger?. Pt noted she is estranged from her three oldest children and on the day of attempt had discovered that her oldest daughter had gotten and was expecting without informing pt. Pt shared feeling betrayed and hopeless, indicating thoughts of ?If they don?t want me in their life then why bother?? Shared her puppy had around that time as well, further exacerbating her sx. Notes writing a suicide note to her prior to the attempt. Shared that her is not a good support and ?most of the time we hate each other? which at times is a stressor as well. 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 Shared that most of the time she isolates in her room and has limited engagement with her or two sons still living in the home. Pt has been on medical disability due to her mental health since 2013 which she reports leads to some feels of guilt as she feels this encourages her sons to remain complacent and unmotivated. At time of intake, pt endorsing: worthlessness, negative core beliefs, depression and irritability, isolation, avoidance and apathy, lack of enjoyment. Reports ambivalence to living but denies any active SI, plan, or intent. Reports panic attacks approximately 2-3x per week and often struggles with ruminating thoughts. Pt reports current sx are impacting her social, interpersonal, and financial functioning. Reports difficulties in functioning at baseline and completing daily responsibilities. Goal Relevant Strengths/Supports: familiar with mh tx, reports motivation, and receptive of the treatment process - Objectives Objective #1 Stated Objective: Client will learn and utilize 2-3 healthy coping strategies to better manage depressive and mood symptoms as shown by reduced DSM-5 scores. Interventions: Through group and individual sessions, therapist will help client identify triggers and warning signs of depression and emotional dysregulation including emotional, physical, and behavioral changes. Therapist will teach client various coping skills to manage symptoms and give tangible resources to use to regulate emotions. Therapist will use cognitive restructuring techniques and help client gain awareness of negative thoughts that reinforce depressive cycles. Discharge Criteria: Pt will be able to identify at least 2 warning signs/triggers for mood dysregulation and consistently apply at least 2 healthy coping skills for improved mood stability and reduction in depression and irritability. Target Date: 09/13/21 Review Date: 08/30/21 Objective #2 Stated Objective: Client will identify 2-3 cognitive distortions that lead to mood dysregulation and learn 2-3 ways to manage these thoughts to improve mood stability. Interventions: Therapist will assist client in identifying, challenging, and replacing dysfunctional thoughts with positive, more realistic thoughts. Therapist will use CBT and DBT techniques to help client gain awareness of thinking errors and learn how to more effectively handle negative thoughts that reinforce unhealthy coping skills. Discharge Criteria: Client will report reduced depression and improved self-talk by identifying at least 2 distortions that reinforce negative thinking, as well as implement at least 2 strategies to challenge and replace these distorted thoughts. Target Date: 09/13/21 Review Date: 08/30/21 Problem/Goal #2 - Problem/Goal #2 Stated Goal:: Stabilize anxiety level while increasing ability to function on daily basis AEB by reduction in DSM 5 Cross-cutting outcome measurement through Intensive Outpatient Services. Description of Barriers: hx of poor follow through, distorted thoughts, poor self-worth, self-reports wanting to focus on her family and not herself, impulsivity Functional Impact: The pt is a 51-year-old female with a history of bipolar 1 disorder with hx of psychosis in brayan, depression, and PTSD who was referred to the [facility] program following suicide attempt. Pt reports she had attempted to overdose on amitriptyline on a July 02, 2021 which resulted in ICU admission for 2 days. Following ICU admission, pt was admitted to [facility] for psychiatric stabilization. Pt reports doing ?better? since discharge and denies any active SI, plan, or intent since the attempt. Reports ?I initially thought it was impulsive but in working with my therapist discovered it was more out of anger?. Pt noted she is estranged from her three oldest children and on the day of attempt had discovered that her oldest daughter had gotten and was expecting without informing pt. Pt shared feeling betrayed and hopeless, indicating thoughts of ?If they don?t want me in their life then why bother?? Shared her puppy had around that time as well, further exacerbating her sx. Notes writing a suicide note to her prior to the attempt. Shared that her is not a good support and ?most of the time we hate each other? which at times is a stressor as well. 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 Shared that most of the time she isolates in her room and has limited engagement with her or two sons still living in the home. Pt has been on medical disability due to her mental health since 2013 which she reports leads to some feels of guilt as she feels this encourages her sons to remain complacent and unmotivated. At time of intake, pt endorsing: worthlessness, negative core beliefs, depression and irritability, isolation, avoidance and apathy, lack of enjoyment. Reports ambivalence to living but denies any active SI, plan, or intent. Reports panic attacks approximately 2-3x per week and often struggles with ruminating thoughts. Pt reports current sx are impacting her social, interpersonal, and financial functioning. Reports difficulties in functioning at baseline and completing daily responsibilities. Goal Relevant Strengths/Supports: familiar with tx, reports motivation, and receptive of the treatment process - Objectives Objective #1 Stated Objective: Client will identify 2-3 cognitive distortions that lead to rumination and learn 2-3 ways to manage these thoughts to better manage anxiety Interventions: Through individual and group counseling will provide education on the most common cognitive distortions and teach client the connection between thoughts, emotions, and feelings. Therapist will assist client in identifying, challenging, and replacing dysfunctional thoughts with positive, more realistic thoughts. Discharge Criteria: Will be able to identify 2-3 frequently used cognitive distortions and ways to challenge or reframe . Target Date: 09/13/21 Review Date: 08/30/21 Objective #2 Stated Objective: Pt will decrease anxious symptoms AEB pt?s score on the DSM 5 cross-cutting measure improve pt?s daily functioning. Interventions: Through groups and individual therapy, pt will be provided education about anxiety?s impact on body and common physiological reaction to anxiety. Therapist will teach pt appropriate breathing techniques and build healthy coping skills to manage daily anxieties. Aid client in identifying and challenging distorted thoughts that cause rumination and increased anxiety. Discharge Criteria: Pt will have met this goal when pt?s score on the DSM 5 cross cutting measure for anxiety has been decreased and per pt?s report daily functioning has improved. Target Date: 09/13/21 Review Date: 08/30/21
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
--- NOTE | 2021-08-07 15:53 | BH.MDN ---
Multi-Disciplinary Note - Note 30-min Individual Time Started:: 09:31 Date: 08/07/21 Purpose of session/treatment goals addressed:: Reviewed progress and current symptoms. Discussed expectations for tx and begin working on treatment plan goals. Eye Contact:: Good Motor Activity:: Appropriate Appearance:: Casual Speech:: Appropriate Mood:: Depressed Affect:: Full Thoughts:: Linear, Logical, No evidence of hallucinations/delusions noted Staff Interventions:: thought challenging - use of external locus of control and reports of it's pointless to focus on me, motivational interviewing - to begin eliciting healthy change behaviors, rapport building, goal setting Client Response:: Pt reports that she is enjoying IOP and getting used to group counseling despite some initial reluctance to be in the group setting. Discussed the factors leading to recent suicide attempt on July 02. Noted that she had initially thought this was an impulsive attempt but upon further reflection with her outpatient counselor believes it was out of anger in response to feeling rejected by her older children. Explained that earlier in the day she had discovered her estranged daughter had gotten and was now expecting a child without ever reaching out to tell inform or include her. Shared thoughts of ?well if they don?t want me in their life, then what?s the point??. Discussed that she is estranged from 3 of her 5 children but that the youngest two still live in the home. At that time client had attempted to overdose on Amitriptyline and was in the ICU for several days as a result. Indicated that she does not truly want to and that this was out of her character, she just did not want to be in pain any longer. Shared that she is afraid to begin working on herself as she has a lot of unresolved guilt about ?being a mother?, past trauma, and negative core beliefs about herself. Shared ?It?s a lot easier to focus on others?unfortunately, even if you?re their mother you can?t make them change either?. Shared blaming herself for her two youngest sons struggling with independence which is a major stressor. Client identified her sister as her primary support, noting that ?most the time my and I hate each other?. Able to identify goals which include increase engagement in activities she used to enjoy around the house, stabilize mood, and to improve communication with her children. Pt admits that although she does not want to. she needs to make changes in her self-care and thought patterns to begin improving her own mental health. Discussed some of her trauma history and how this impacts her relationships. Coping skill is primarily avoidance, isolation, and distraction. Willing to begin working to find healthier means of coping. Client receptive of homework to identify qualities about herself she believes are positive and inquired whether she could use supports for help in doing so. Risks/Concerns:: Denies any active suicidal ideations, plan, or intent. Client has a hx of a recent suicide attempt on month ago via overdose. Client was hospitalized for one week as a result. However, reports this was more situational in nature and denies any active ideation, plan, or intent since that date. Progress Toward Goals/Plan:: Progress noted since hospital discharge and feels she can connect to group topics, per pt report. Significant stressors at home and within interpersonal relationships continue to contribute to mental health issues. Conflictual relationship with and estranged children. Plan is to continue in IOP to stabilize mood, maintain safety, prevent decompensation, and learn healthy communication and coping skills. Time Stopped:: 10:03
== END 2021-08-10 23:59 ==
LOC: BHIOP 11:03
PROVIDERS: PCP Internal Medicine; Visit Provider Psychiatry & Neurology Psychiatry
DX: F31.63 Bipolar disorder, current episode mixed, severe, without psychotic features (principal); F43.10 Post-traumatic stress disorder, unspecified; F12.90 Cannabis use, unspecified, uncomplicated; E66.9 Obesity, unspecified; I10 Essential (primary) hypertension; Z79.899 Other long term (current) drug therapy
CPT/HCPCS: S9480; 90832; 90853

== ENCOUNTER 2021-08-11 09:00 | Outpatient (RCR) | payer MEDICARE, MEDICAID, SELFPAY ==
[2021-08-11 00:39] VITALS: BP 156/97; PULSE 98
--- NOTE | 2021-08-11 09:03 | BH.SGPN.GN ---
Behaviors/Verbalizations/Mental Status: []Client alert and oriented, casually dressed and groomed. Eye contact fair to good. Motor activity appropriate. Speech within normal limits. Affect constricted, mood dysthymic, anxious. Thoughts linear, logical, no signs of hallucinations or delusions. Reviewed client?s symptom tracker, no risk for suicidal ideation, plan, or intent as of 08/11/21 Client Response/Progress/Benefit: []Client responded well to session, attentive, and appearing to connect to fellow participants AEB nodding throughout. Client reports she would not like to share on this date. Continues to struggle with engagement when group focuses on addressing more individualized goals and stressors which may serve as a barrier to progress. Client recommended to continue IOP tx to prevent decompensation, improve internalization of skills and challenge external locus of control, as well as address negative core beliefs. Narrative Note: []
--- NOTE | 2021-08-11 10:10 | BH.SGPN.GN ---
Behaviors/Verbalizations/Mental Status: []Client alert and oriented, casually dressed and groomed. Eye contact good. Motor activity appropriate. Speech within normal limits. Affect constricted, mood dysthymic. Thoughts linear, logical, no signs of hallucinations or delusions. Client Response/Progress/Benefit: []Pt was a semi-active participant in group discussion, taking notes. Attentive during psychoeducation on communication styles. Along with peers pt participated in providing insight into the benefits to effective communication on mental health which included; helps us get needs met, resolves problems, improves relationships, establishes expectations, decreases stress, and to express emotions. Pt along with peers able to identify ways that communication can be misinterpreted such as communicating through behaviors. Pt connected most with the passive-aggressive communication style. Benefited from increased awareness of different communication styles and the importance of communicating effectively to improve mental wellness. Will continue IOP tx to prevent decompensation, learn healthy emotional regulation skills, and improve overall functioning. Narrative Note: []
--- NOTE | 2021-08-11 11:10 | BH.SGPN.GN ---
Behaviors/Verbalizations/Mental Status: []Eye contact is good. Motor activity is appropriate. Appearance is casual. Speech is Appropriate. Mood is dysthymic. Affect is constricted. Thoughts are linear and logical. No evidence of psychosis. Client Response/Progress/Benefit: []Pt was an engaged participant in group discussion. Attentive during psychoeducation on communication styles (Passive, Passive-Aggressive, Aggressive, and Assertive) and benefits/disadvantages to each style. Along with peers pt participated in providing insight into the benefits to effective communication on mental health. Pt along with peers able to identify ways that communication can be misinterpreted through tone, texting, body language and assumptions. Pt identified her most frequently used communication style as passive-aggressive, which she recognizes has negatively impacted her relationships. Reported she wants to work on interpersonal skill of mindfulness during communication to stay focused on the topic. Benefited from increased awareness of different communication styles and the importance of communicating effectively to improve mental wellness. Will continue in IOP to increase healthy coping, challenge negative thoughts, and prevent decompensation. Narrative Note: []
--- NOTE | 2021-08-16 10:14 | BH.SGPN.GN ---
Behaviors/Verbalizations/Mental Status: []Client alert and oriented, casually dressed and groomed. Eye contact good. Motor activity appropriate. Speech within normal limits. Affect congruent, mood depressed and anxious. Thoughts linear, logical, no signs of hallucinations or delusions. Client Response/Progress/Benefit: []Client responded well to session, attentive and taking notes throughout. Participated in discussion of things that can keep people feeling trapped or stuck in life including; avoidance, unhealthy coping, isolation, inconsistent boundaries, and surrounding self with toxic people. Shared connecting with negative thoughts and lack of self-care as being a barrier. Group discussed the connection between thoughts, emotions, and behaviors as well as how negative thinking can keep a person stuck. Client attentive during psychoeducation on maintenance cycles. Client able to identify negative thoughts that have kept client stuck which included ?I?m a terrible person?, ?I?m always going to be this way?, and ?I should be doing better?. Appeared to benefit from gaining awareness of how negative thoughts reinforce mental health symptoms and keep people stuck. Will continue IOP tx to prevent decompensation, increase self-care, as well as improve ability to challenge and begin replacing negative core beliefs with more positive self-talk statements. Narrative Note: []
--- NOTE | 2021-08-16 11:15 | BH.SGPN.GN ---
Behaviors/Verbalizations/Mental Status: []Client alert and oriented, neatly dressed and groomed. Eye contact good. Motor activity appropriate. Speech within normal limits. Affect constricted, mood anxious. Thoughts linear, logical, no signs of hallucinations or delusions. Client Response/Progress/Benefit: []Client responded well to session, attentive during discussion and receptive to supportive feedback. Client identified a negative thought that has kept her stuck. Client's thought was I?m not a good enough mother.? Client reported when she thinks this way, she isolates, feels alone, and avoids phone calls. Client worked to reframe the thought by finding more rational, realistic ways to look at the thoughts and then processed within group setting. Client reframed the thought to ?I am a good enough mother? and shared if she started telling herself this, she would have a better relationship with her kids. Client stated she will use positive self-talk to continue challenging negative self-talk. Client appeared to benefit from practicing challenging negative thinking. Client will continue IOP tx to reduce intensity of her symptoms, increase emotional regulation skills, and improve daily functioning. Narrative Note: []
--- NOTE | 2021-08-16 15:43 | BH.MDN ---
Multi-Disciplinary Note - Note 60-min Individual Time Started:: 09:10 Date: 08/16/21 Purpose of session/treatment goals addressed:: Met with patient to review current symptoms, stressors, and progress in IOP. Addressed treatment plan goals 1 and 2. Eye Contact:: Good - tearful throughout Motor Activity:: Appropriate Appearance:: Casual - bleeding slightly through shirt from blood draw this morning Speech:: Appropriate Mood:: Depressed Affect:: Congruent Thoughts:: Linear, Logical, No evidence of hallucinations/delusions noted Staff Interventions:: thought challenging, motivational interviewing - to promote healthy change behaviors and small goal setting, psychoeducation on: - impacts of trauma on coping skill development, CBT techniques, strengths perspective - identified personal resilience factors Client Response:: Pt receptive of session and engaged throughout. Discussed having her first session with outpatient psychiatrist, Lor[facility]obos[facility]. Noted this went well but that she prefers to meeting person when discussing such personal information rather than over the phone. Went on to discuss struggling with ongoing negative thoughts and rumination about why she became suicidal in June and the impacts this has had on her life since. Noting, ?I don?t even what suicide to be a viable option for me. Everyone is mad at me now and I didn?t plan to be here to have to deal with that?. Described significant guilt about the impact of her suicide attempt on her children and sister, stating ?I feel bad for putting my kids through this, I don?t want to cause any pain for others?. Described her family as protective factors. Pt often struggles with deflecting when the topic begins to focus on identifying and addressing negative core beliefs and unhealthy coping behaviors contributing to chronic depression and thoughts of . Reports ?I?ve been this messed up for so long, don?t you think it?s beyond hope??. Receptive of challenging these thoughts and identifying times she has been able to overcome seemingly impossible to manage situations in the past. Identified resilience factors used to do so. Time spent discussing importance of hope and positive self-talk statements to begin improving motivation, as well as small goal completion to increase confidence in ability to make progress. Discussed small self-care goals she can begin tracking as daily accomplishments. First goal identified as showering daily. Risks/Concerns:: None noted. Denies any SI, plan, or intent since hospitalization 6 weeks ago. Protective factors noted. Progress Toward Goals/Plan:: Consistent and engaged in IOP. Learning skills, though struggles with consistently practicing them outside of group. Continues to report limited self-care and indicates she is not showering or doing laundry regularly. Discussed continued isolation when at home, though has begun taking steps to reduce this by reaching out more to her sister, calling her son, and joining an online support group for Bipolar Disorder and one geared towards Parents of Estranged Children. Continues to struggle with distraction and avoidance, often preoccupying herself with other?s problems to avoid addressing her own. Reports guilt, apathy, anhedonia, and loneliness. Will continue in IOP to maintain safety, prevent decompensation, and increase healthy coping. Time Stopped:: 10:05
--- NOTE | 2021-08-18 09:05 | BH.SGPN.GN ---
Behaviors/Verbalizations/Mental Status: []Eye contact is good. Motor activity is appropriate. Appearance is casual. Speech is appropriate. Mood is euthymic. Affect is congruent. Thoughts are linear and logical. No evidence of psychosis. Reviewed daily symptom tracker sheet with no reports of suicidal ideations, plan, or intent. Client Response/Progress/Benefit: []Client was engaged and attentive throughout group session, provided insight to others. Client reported her emotion of the day as ?happy,? and stated that her depression has decreased since she began attending IOP. Client reported a stressor as talking in Process group. Clinician and group normalized these feelings, which client appeared to benefit from. Client reported working toward her goal of acknowledging her accomplishments, which she feels is helping her depression management. Client indicated per daily symptom tracker that her mood and ability to function has been generally better, while her scores for anxiety and depression remained at moderate as in previous session. Will continue IOP treatment to improve the use of depression and anxiety management skills, as well as prevent decompensation. Narrative Note: []
--- NOTE | 2021-08-18 10:12 | BH.SGPN.GN ---
Behaviors/Verbalizations/Mental Status: []Client alert and oriented, casually dressed and groomed. Eye contact good. Motor activity appropriate. Speech within normal limits. Affect congruent, mood depressed and anxious. Thoughts linear, logical, no signs of hallucinations or delusions. Client Response/Progress/Benefit: [] Client engaged in session AEB taking notes, contributing to discussion, and providing examples throughout. Client shared connecting with the importance of setting boundaries and noted ?Boundaries are the distance at which I can love you and me simultaneously?. Client shared she has struggled with setting healthy boundaries and often goes from one extreme to the other. Noted this has resulted in cutting healthy people out of her life at times. Client assisted group with identifying benefits of setting boundaries such as improved relationships, reduced anxiety, increased sense of self-respect, and feeling validated. Listened during psychoeducation on different types of boundaries. Client seemed to benefit from increased awareness of how boundaries impact mental health and the different types of boundaries there are. Will continue IOP tx promote gains, continue to improve healthy boundaries with self and others, as well as improve self-care and small goal setting skills.? Narrative Note: []
--- NOTE | 2021-08-18 11:03 | BH.SGPN.GN ---
Behaviors/Verbalizations/Mental Status: []Client alert and oriented, neatly dressed and groomed. Eye contact fair. Motor activity appropriate. Speech within normal limits. Affect constricted, mood dysthymic and anxious. Thoughts linear, logical, no signs of hallucinations or delusions. Client Response/Progress/Benefit: []Client responded well to session AEB listening attentively to peers and providing input. Client engaged in the boundary self-assessment and was attentive during psychoeducation on the different boundary styles. Noted she connects most with the rigid boundary style as client states she is ?generally alone? and struggles with all or nothing boundaries. Client reports being rigid often results with client being alone and harms her relationships. Client was given a handout on strategies for healthy boundary setting. Client identified wanting to work on starting small by setting easier boundaries first with trusted people. Progress noted in client?s consistent attendance and increased self-awareness. Will continue IOP tx to improve emotional regulation skills, reduce negative thinking, and improve daily functioning. Narrative Note: []
--- NOTE | 2021-08-21 11:15 | BH.SGPN.GN ---
Behaviors/Verbalizations/Mental Status: []Client alert and oriented, neatly dressed and groomed. Eye contact good. Motor activity restless. Speech within normal limits. Affect congruent, mood euthymic. Thoughts linear, logical, no signs of hallucinations or delusions. Client Response/Progress/Benefit: []Client engaged participant AEB client taking notes and providing some input during the small group discussion. Attentive throughout group discussion on the various areas of self-care, benefits, and types of self-care activities for each area. Client completed worksheet which identified current self-care practices and what self-care activities client wants to start using. Client selected physical self-care as the area she wants to work on and client plans to do this for going on walks this week. Appeared to benefit from completing the self-care evaluation and gaining insights into current self-care practices, as well as identifying areas in which she would like to improve upon. Will continue IOP tx to increase application of healthy coping skills, reduce negative thinking patterns, and improve daily functioning. Narrative Note: []
--- NOTE | 2021-08-21 11:15 | BH.SGPN.GN ---
Behaviors/Verbalizations/Mental Status: []Eye contact is good. Motor activity is appropriate. Appearance is casual. Speech is Appropriate. Mood is anxious and euthymic. Affect is congruent. Thoughts are linear and logical. No evidence of psychosis. Client Response/Progress/Benefit: [] Pt provided input in group discussion and was actively taking notes and listening throughout. Attentive during psychoeducation and provided insight on definition and benefits of self-care. Noted ?If you don?t take care of self, you cant care for others. Self-care helps us be a better support?. Group identified self-care benefits to include; improves relationships, increases motivation, improves enjoyment, improves communication, helps one be more engaged with others, improves physical health, and can improve productivity. Pt participated in activity aimed at identifying and challenging common self-care myths and worked within the small group setting to identify evidence each of the ?self-care myths?. Reported connecting with the myth ?self-care means you?re selfish?. Worked within her small group to identify evidence challenging this, such as the various was in which self-care can help to improve personal relationships. Benefited from group by increasing awareness of benefits to self-care and consequences of neglecting self-care. Continues to struggle with externalization and mood stability. Will continue in IOP to prevent decompensation, improve depression management, and continue to promote application of behavior activation skills. Narrative Note: []
--- NOTE | 2021-08-21 11:49 | BH.MDN_ITS ---
Multi-Disciplinary Note - Note 30-min Individual Time Started:: 09:27 Date: 08/21/21 Purpose of session/treatment goals addressed:: Met with patient to review current symptoms, stressors, and progress in IOP. Addressed treatment plan goals 1 and 2 and strategies for maintaining motivation. Identified small goal to begin more consistently implementing regular mindfulness skills. Eye Contact:: Good Motor Activity:: Appropriate Appearance:: Casual Speech:: Appropriate Mood:: Euthymic, Anxious Affect:: Full Thoughts:: Linear, Logical, No evidence of hallucinations/delusions noted Staff Interventions:: thought challenging, motivational interviewing - to promote healthy change behaviors and continue to promote progress towards small goal maintenance, psychoeducation on: - hierarchy of needs and self-care, CBT techniques - reviewed behavior activation techniques, goal setting Client Response:: Pt receptive of session and engaged throughout. Discussed feeling positive and ?happy? this morning which she notes is significant progress in the past two weeks, sharing difficulties in remembering the last time she truly felt happy. Pt expressed feeling proud of herself this morning as she and her spent time discussing her mental health and the areas she has made progress in the past few weeks. Pt told her he has seen improvements in her motivation and willingness to complete small tasks around the house. Pt reflected that in the past she would do it for a week and then become unmotivated or think ?What?s the point and give up?. 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 Shared the daily accomplishment log has been helpful and she has many more goals she would like to begin working on but fears overwhelming herself with trying to do too much at once. Discussed wanting to exercise, get outdoors more, improve use of deep breathing and progressive muscle relaxation, as well as begin physical therapy for her knee/ankle. Receptive of discussion on continued maintenance as a goal before adding on too many additional goals, as well as strategies for slowing increasing additional habits. Connected with concept of habit staking and indicated plans to add one small moment of leroy she experienced when writing her daily accomplishments. Additionally shared wanting to set a small goal for beginning to practice progressive muscle relaxation 3x this week before bed to begin refamiliarizing herself with mindfulness skills she has previously found to be beneficial. Risks/Concerns:: None noted. Denies any SI, plan, or intent. Protective factors noted. Future oriented Progress Toward Goals/Plan:: Consistent and engaged in IOP. Pt continues to be open to learning skills for improving her mental health and challenging unrealistic expectations/negative thinking patterns. Reports actively keeping her accomplishment log and sharing personal wins with her which has been helpful. Progress in improved willingness to reach out to supports. Self-reports improved motivation and energy levels. Continues to struggle with negative core beliefs and external focus which may impede continued progress. Recommended continued IOP tx to promote ongoing application of behavior activation skills and maintain gains made, reduce avoidance and isolation behaviors, as well as continue to improve mood stability and use of emotion regulation skills in times of disappointment of distress. Time Stopped:: 10:03
--- NOTE | 2021-08-25 09:05 | BH.SGPN.GN ---
Behaviors/Verbalizations/Mental Status: Eye contact is good. Motor activity is appropriate. Appearance is casual. Speech is appropriate. Mood is anxious. Affect is incongruent AEB smiling when talking about stressful things. Thoughts are linear and logical. No evidence of psychosis. Reviewed daily symptom tracker sheet with no reports of suicidal ideations, plan, or intent. Client Response/Progress/Benefit: Client was engaged throughout group session. Client reported her emotion of the day as anxious, as client?s nephew was in a car accident and was going into surgery this morning. Client reported a win of not using her nephew?s surgery as an excuse to skip IOP. Client also reported ripping up a letter from her estranged mother as a win, as in the past reading the letters had caused her to go into a rage. Client reported reaching out to her sister as a support to talk about the letter as a coping mechanism, which is progress. Client appeared to benefit from supportive group discussion of setting boundaries and being able to uphold them. Client reported that her mood and ability to function has been generally worse, but this seems to be situationally based AEB client?s report of improved mood last week. Will continue IOP treatment to maintain boundary setting and increase application of healthy coping skills to manage anger. Narrative Note: []
--- NOTE | 2021-08-25 10:10 | BH.SGPN.GN ---
Behaviors/Verbalizations/Mental Status: []Client alert and oriented, casually dressed and groomed. Eye contact good. Motor activity appropriate. Speech within normal limits. Affect constricted, mood anxious. Thoughts linear, logical, no signs of hallucinations or delusions. Client Response/Progress/Benefit: []Pt was an engaged participant in group discussion AEB taking notes and providing input at times. Attentive during psychoeducation reviewing internal and external obstacles and provided examples throughout. Participated in the reflection activity in which clients sangeeta pictures depicting their current and desired reality and shared with the group. Pt identified barriers to getting to desired reality which included: limited support system, feeling like a burden, toxic family, depressed symptoms and intrusive obsessive thoughts. Benefited from group by increasing awareness of current reality and barriers. Will continue IOP tx to prevent decompensation, reduce negative thinking, and improve overall functioning. Narrative Note: []
--- NOTE | 2021-08-25 11:15 | BH.SGPN.GN ---
Behaviors/Verbalizations/Mental Status: []Client alert and oriented, casually dressed and groomed. Eye contact good. Motor activity appropriate. Speech within normal limits. Affect congruent, mood anxious and euthymic. Thoughts linear, logical, no signs of hallucinations or delusions. Client Response/Progress/Benefit: []Client engaged during activity and provided ideas on how to cope with internal barriers that keep clients stuck from moving towards goals. Client took on a leadership role during activity which is progress in overall engagement levels. Able to identify barriers to desired reality. Identified barriers to current reality to include: lack of healthy supports, feeling like a burden, intrusive thoughts, need for external validation, and negative self-talk. Client wants to work on overcoming the barrier of intrusive thoughts by getting back into using her ?thought dump? journal to reduce how long she allows herself to ruminate unnecessarily on things outside of her control. Shared that this will help her to feel a sense of relief and less anxious as well. Benefited from group by identifying obstacles and solutions to desired reality. Client will continue IOP tx to reduce distortions and improve self-compassion, increase use of healthy coping skills and emotion regulation, and improve overall functioning. Narrative Note: []
--- NOTE | 2021-08-28 09:03 | BH.SGPN.GN ---
Behaviors/Verbalizations/Mental Status: []Eye contact is good. Motor activity is appropriate. Appearance is casual. Speech is appropriate. Mood is euthymic. Affect is incongruent, AEB laughing when expressing frustration. Thoughts are linear and logical. No evidence of psychosis. Reviewed daily symptom tracker sheet with no reports of suicidal ideations, plan, or intent. Client Response/Progress/Benefit: []Client was engaged and attentive throughout group session, providing insight to others. Client reported her emotion of the day as ?happy?. Client reported meeting her goal of cleaning her fridge, and voiced a sense of accomplishment. Client discussed stressors of being late to IOP due to her family, who are unsupportive of her mental health treatment. Client reported setting boundaries with family by continuing to attend IOP. Appeared to benefit from supportive group environment. Client indicates per daily symptom tracker that her ability to function and overall mood have been generally better. Will continue IOP treatment to increase functioning and promote gains in emotional regulation. Narrative Note: []
--- NOTE | 2021-08-28 10:08 | BH.SGPN.GN ---
Behaviors/Verbalizations/Mental Status: []Eye contact is good. Motor activity is appropriate. Appearance is casual. Speech is Appropriate. Mood is euthymic. Affect is congruent. Thoughts are linear and logical. No evidence of psychosis. Client Response/Progress/Benefit: []Pt did well to remain an active participant in group discussion and activity. She provided input when prompted and worked with peers to complete challenge activity. Attentive during psychoeducation on coping skills. Sharing that sometimes we turn to unhealthy skills because it?s what we were taught or it works faster in the moment. Pt along with peers worked together to identify unhealthy coping skills such as; avoidance, lashing out on others, substances, isolation, distracting with other activities. Group was able to identify why people use unhealthy coping skills such as; easy, comfortable, work in the short-term, habit, or it?s what they were taught/learned from others. Pt noted connecting with isolating herself, lashing out on others, or getting sarcastic as a form of unhealthy coping. Pt was able to make connection between the activity (tower building) and the importance of having a strong base/foundation of both internal and external coping skills. Benefited from increased understanding of unhealthy coping skills and the need for developing healthy internal and external coping skills to manage mental health sx. Pt will continue in IOP to prevent decompensation, improve consistent behavior activation, as well as continue to promote healthy change behaviors. Narrative Note: []
--- NOTE | 2021-08-28 11:11 | BH.SGPN.GN ---
Behaviors/Verbalizations/Mental Status: []Client alert and oriented, casually dressed and groomed. Eye contact good. Motor activity appropriate. Speech within normal limits. Affect congruent, mood euthymic. Thoughts linear, logical, no signs of hallucinations or delusions. Client Response/Progress/Benefit: []Client responded well to session, taking notes and contributing at various points throughout. Discussing that she particularly connects with the importance of grounding in coping. Shared various types of grounding she has practiced in the past. Group discussed the different categories of coping skills which included distraction, emotional release, grounding, self-love, and thought challenging. Client noted struggling with emotion release skills. Client participated in creating a coping skills ?menu? from the five categories of coping skills. Client's coping skill menu included: going for walks for healthy distraction, meditation for grounding, talking to supports for emotional release, keeping an accomplishment log for self-love, and gaining increased awareness of cognitive distortions to improve ability to thought challenge. Appeared to benefit from increasing repertoire of healthy coping skills. Will continue tx to emotion release skills, challenge negative thoughts and prevent decompensation. Narrative Note: []
--- NOTE | 2021-08-30 09:05 | BH.SGPN.GN ---
Behaviors/Verbalizations/Mental Status: []Eye contact is good. Motor activity is appropriate. Appearance is casual. Speech is appropriate. Mood is euthymic. Affect is congruent. Thoughts are linear and logical. No evidence of psychosis. Reviewed daily symptom tracker sheet with no reports of suicidal ideations, plan, or intent. Client Response/Progress/Benefit: []Client was attentive and engaged throughout group session. Client discussed feeling low energy today, and discussed a stressor of feeling guilty for things she had done that affected others in the past. Client states that she is working on accepting her past with her individual therapist. Appeared to benefit from supportive group environment. Client identified the progress she has made toward her goal, and that even small steps get her closer to where she wants to be. Client identified a positive of spending the day with her son. Client indicates per daily symptom tracker that her mood and ability to function have been generally better. Client will continue IOP treatment to prevent decompensation and continue to improve client?s ability to recognize small wins to increase client?s motivation and functioning . Narrative Note: []
--- NOTE | 2021-08-30 10:10 | BH.SGPN.GN ---
Behaviors/Verbalizations/Mental Status: []Client alert and oriented, neatly dressed and groomed. Eye contact good. Motor activity appropriate. Speech within normal limits. Affect constricted, mood euthymic. Thoughts linear, logical, no signs of hallucinations or delusions. Client Response/Progress/Benefit: []Client engaged during session AEB client contributing thoughts throughout discussion and completing worksheet. Connected with discussion on crisis and how coping with external crises by using unhealthy coping skills could result in a personal crisis. Able to give examples of unhealthy coping skills people use to manage crisis. Group reflected on the importance of having awareness of personal warning signs to prevent reaching crisis point. Group identified potential warning signs for crisis and client completed the personal warning signs worksheet. Client identified personal crisis warning signs to include: crying more frequently, racing thoughts, and rapid mood changes. Client benefited by increasing awareness of what leads to crisis and personal warning signs. Client demonstrating progress AEB self-report of increased emotional regulation when angry. Will continue IOP tx to further improve emotional regulation skills and increase mood stability. Narrative Note: []
--- NOTE | 2021-08-30 11:10 | BH.SGPN.GN ---
Behaviors/Verbalizations/Mental Status: []Client alert and oriented, casually dressed and groomed. Eye contact good. Motor activity appropriate. Speech within normal limits. Affect congruent. Mood euthymic. Thoughts linear, logical, no signs of hallucinations or delusions. Client Response/Progress/Benefit: []Client responded well to session as evidenced by client listening attentively to others and providing strategies during discussion. Client identified her warning signs for crisis and gained further awareness of earliest warning signs. Client created a crisis action plan to help client better manage warning signs for crisis. Client?s action plan included importance of informing doctor's of her symptoms. Client struggled with identifying what she can do to help herself when aware of warning signs. Able to identify some strategies with assistance. Client appeared to benefit from creating a crisis action plan and increasing self-awareness. Client to continue IOP tx to increase consistent use of healthy coping, challenge negative thinking and prevent decompensation. Narrative Note: []
--- NOTE | 2021-08-30 12:00 | BH.MTP_ITS ---
Treatment Plan Review Date of Admission:: 08/02/21 Date of Treatment Plan Review:: 08/30/21 Admitting Diagnoses:: 1. Bipolar 1 disorder, most recent episode mixed, severe without psychosis (F 31.63). 2. PTSD. 3. Marijuana use disorder Current Diagnoses:: 1. Bipolar 1 disorder, most recent episode mixed, severe without psychosis (F 31.63). 2. PTSD. 3. Marijuana use disorder Patient's Response to Treatment:: Pt was initially reluctant to engage as she expressed fears that she was ?beyond the point of help? and indicated some anxiety about engaging in the group setting. However, has shown significant progress over the past 4 weeks in both her attendance and engagement. Pt often contributes to group, provides supportive feedback, and is willing to participate in the various challenge activities. Pt completes all homework provided and reports actively practicing the skills she has learned outside the treatment environment. Pt notes improved mood as a result. Continues to remain medication compliant; however, has struggled with ongoing marijuana use which could impede long-term progress. Status of Current Problems and Symptoms: Pt has shown progress on treatment plan goals. According to DSM-5 pt had a 42% decrease in overall symptoms since starting IOP. Depression scale indicates a 29% decrease and anxiety has seen a 22% reduction. Irritability shows a 50% decrease as well. Continues to struggle with distorted thoughts and externalization, focusing on past regrets resulting in current unhealthy relationships which continues to keep client stuck. Problem #1 Problem Name:: Depression, irritability, mood stability Status of Goals:: Per pt report and DSM-5 data, pt has reduced irritability by 50% and depressive sx by 29%.. Reports improved self-care and use of opposite action to continue to promote behavior activation skills. I trying to improve emotion regulation in times of increased anger/resentment though continues to struggle in this area. Reports ongoing negative self-talk, though is working on identifying core beliefs with more realistic positive alternatives. Also is keeping an accomplishment log which sh has found helpful. Team Recommendations:: Continued tx encouraged. Will specifically work on improving awareness of warning signs for decompensation and communicating those openly and honsetly with her providers. Problem #2 Problem Name:: anxiety, ruminations Status of Goals:: Partially complete. Pt reports decreased anxiety as she is moving to more acceptance of her strained relationship with her kids. I working to thought challenge as well. Per DSM-5, anxiety has reduced by 22%. Continues to struggle with ruminating thoughts. Team Recommendations:: COntinued focus on encouraging pt to work on increasing social activities and working on small exposures to further improve self- confidence.
--- NOTE | 2021-08-30 13:52 | PCM.BH.PN_ITS ---
Progress Note Progress Note: Progress Note: history of Present Illness/Interim History: [] The patient is a 51-year-old female with a history of bipolar 1 disorder who is seen in follow-up at the [facility] behavioral health IOP program. I last saw the patient about 1 month ago. The patient feels that she is really benefiting from the IOP program this time around. She is able to leave her house more easily and feels she is learning valuable skills and doing well in the program. She saw her new psychiatric provider recently and at that time her Depakote labs were ordered. She describes her mood as stable and feels she is not depressed or manic at this point in time. She is getting along better with her although issues there do remain. She is able to get more done at home and enjoys her home activities more. She denies any hopelessness and denies worthlessness. She has had no panic attacks since 2 weeks ago. She still has chronic, fleeting, passive thoughts of . She denies any suicidal ideation, homicidal ideation, hallucinations, delusions or symptoms of brayan. She states that her new psychiatric provider also is going to start lowering her Klonopin slowly. Current Psychiatric Medications: [] Latuda 40 mg p.o. daily with food; Depakote 500 mg p.o. twice daily; Prozac 20 mg p.o. daily; Klonopin 1 mg p.o. daily up to twice a day Mental Status Examination: [] Patient is a 51-year-old female who is obese and seen wearing a mask due to the pandemic. She is casually dressed and groomed with good hygiene and has no psychomotor agitation or retardation. Speech is normal rate and rhythm and fluent with no pressure. Eye contact is good. Mood is euthymic. Affect is full and normal. Thought process is goal-directed and organized. Thought content: There is evidence of passive thoughts of which she states are baseline for her. There is no evidence of suicidal ideation, homicidal ideation, hallucinations, delusions or symptoms of brayan. Judgment is intact. Insight is good. Impulsivity is moderate. Diagnoses: [] 1. Bipolar 1 disorder, most recent episode mixed, severe without psychosis (F 31.63, resolving) 2. PTSD 3. Marijuana use disorder 4. Nicotine dependence 5. Primary support issues 6. Obesity, cardiomyopathy, hypertension Plan: [] The patient will continue the IOP program at [facility] as the structure, support, education and group therapy will hopefully prevent worsening of the patient's symptoms. The patient felt safe during the interview and if it anytime she does not feel safe she will let us know or go to the emergency room. The risks, options, possible side effects and complications of the medications were discussed again with the patient and she understands accepts these. No medication changes were made today. She will continue to follow-up with her outpatient psychiatric and medical providers.
--- NOTE | 2021-09-01 09:51 | BH.COMM ---
Communication Note - Communication with Client Communication Note: Pt scheduled to meet with individual therapist for session on this date, however canceled due to feeling ill. Will reschedule for 09/04/21
--- NOTE | 2021-09-04 09:05 | BH.SGPN.GN ---
Behaviors/Verbalizations/Mental Status: Eye contact is good. Motor activity is appropriate. Appearance is casual. Speech is appropriate. Mood is depressed. Affect is congruent. Thoughts are linear and logical. No evidence of psychosis. Reviewed daily symptom tracker sheet with no reports of suicidal ideations, plan, or intent. Client Response/Progress/Benefit: Client was engaged throughout group session, and stated her emotion of the day as ?fatigue?. Client discussed that her outpatient therapist is leaving the agency and unable to accept her insurance. Client stated she is sad about having to find a new therapist, but knows that she has gone through similar situations before and things have worked out. Client appeared to benefit from group discussion regarding the benefits of having a new perspective. Client expressed was proud that she went to her PCP appointment and got her flu shot in the same day, as she has avoided these in the past. Progress noted AEB client utilizing opposite action more and avoiding others less. Client indicated per daily symptom tracker that her mood and ability to function has been generally worse. Will continue IOP treatment to build a support system outside of IOP and increase functioning, and further improve mood stability. Narrative Note: []
--- NOTE | 2021-09-04 10:18 | BH.SGPN.GN ---
Behaviors/Verbalizations/Mental Status: []Client alert and oriented, neatly dressed and groomed. Eye contact good. Motor activity appropriate. Speech within normal limits. Affect constricted, mood agitated. Thoughts linear, logical, no signs of hallucinations or delusions. Client Response/Progress/Benefit: []Client was an engaged participant AEB taking notes and listening to peers. Connected with group topic of perspective and the impacts of one?s perspective on mental health. Client worked with the group to identify impact of a negative perspective which included: increased panic attacks, believing irrational thoughts, and worsening mental health symptoms. Client agreed with peers that ?if you look for the negative all you will see is the negative.? Client appeared to benefit from increasing understanding of mental health benefits of a positive perspective and potential consequences to progress when perspective is negative. Client recently found out her outpatient therapist is leaving which is causing some stress. Will continue IOP tx to reinforce healthy coping skills and increase ability to manage ongoing stressors. Narrative Note: []
--- NOTE | 2021-09-04 16:14 | BH.MDN_ITS ---
Multi-Disciplinary Note - Note 45-min Individual Time Started:: 09:25 Date: 09/04/21 Purpose of session/treatment goals addressed:: Reviewed current symptoms, skill application, and progress in IOP. Worked with client to identify areas for continued focus, specifically focusing on maintenance and anxiety management. Began discharge planning, discussing client concerns regarding outpatient therapy. Eye Contact:: Good Motor Activity:: Appropriate Appearance:: Casual Speech:: Appropriate Mood:: Euthymic, Anxious Affect:: Full Thoughts:: Linear, Logical Staff Interventions:: thought challenging - Challenged cognitive distortions reinforcing anxiety and concerns about maintaining gains post discharge, motivational interviewing - to aid in identifying progress as well as areas for continued treatment focus, CBT techniques - decisional balance about outpatient treatment options, discharge planning, strengths perspective, reviewed DSM-5, goal setting - discussed small goals for maintaining gains and further reducing anxiety prior to IOP discharge Client Response:: Client receptive of session, engaged throughout. Discussed feeling ?a little thrown off today? as she took a different car and forgot her binder for group. Stated that when she does not have the things she needs, or her routine is changed, her mood is sometimes impacted. Discussed using grounding and trying to be in the present moment to prevent this from occurring today. Client and therapist discussed the various skills she has been able to more readily apply since beginning the IOP program. Client identified improved use of opposite action and ?doing the anxious thing? to reduce her isolation and urges to avoid. Provided an example of going to the doctor and immediately getting the requested bloodwork done after this appointment rather than pr ocrastinating like she would typically do. Shared feeling proud of her ability to ?be more proactive? and discussed the role keeping a daily accomplishment log has played in continuing to promote engaging in self-care, getting out of the house, and acknowledging her own progress. Described feeling less depressed and anxious as a result. Went on to discuss some fears that she will not be able to maintain these gains and continue to socialize with others once the program has ended. Described ongoing difficulties in getting other members of the household to agree to go out and do things with her. Shared continuing to feel isolated and lonely in her own home as she spends most of her time in her own room. Indicates attempting to encourage her sons to spend time with her but that they have work or other things they are doing. Client and therapist reviewed the option of getting involved in volunteering or another support group to encourage continued social interaction and support. Discussed interest in [employer] and indicated that she would be most likely to follow through with something local as she often lacks motivation to drive places or go out of her way to go somewhere. Receptive of homework to begin looking into what may be available in the area. Discussed some concerns regarding continuing with her current outpatient therapist as she has recently gone into private practice and no longer accepts client?s insurance. Noted the therapist has agreed to work with client to address insurance barriers and continue to see client on a pro-kendall basis in the meantime. Client described feeling guilty and fearful she is taking a paying client?s spot. Willing to work with therapist to discuss use of personalization and weigh the potential costs/benefits of remaining with her established provided vs. establishing care elsewhere. Risks/Concerns:: No risks or concerns noted. Future oriented, protective factors. Progress Toward Goals/Plan:: Pt has shown progress on treatment plan goals. According to DSM-5 pt had a 42% decrease in overall symptoms since starting IOP. Depression scale indicates a 29% decrease and anxiety has seen a 22% reduction. Irritability shows a 50% decrease as well. Continues to struggle with distorted thoughts and externalization, focusing on past regrets resulting in current unhealthy relationships which continues to keep client stuck. Pt reports feeling she has made progress in getting out of the house more often, using opposite action, and reducing use of unhealthy coping such as isolation and smoking marijuana. Pt reports she has found keeping an accomplishment journal and reaching out to her sister to be particularly helpful. Continues to report utilizing skills which we reviewed, though reports ongoing issues with motivation. Encouraged to utilize self-care and begin looking for extracurricular activities or support groups she may become more involved with to continue to promote social support. Plan is to continue in IOP to maintain stability, increase healthy coping, and reduce isolation and avoidance. Time Stopped:: 10:07
--- NOTE | 2021-09-06 10:10 | BH.SGPN.GN ---
Behaviors/Verbalizations/Mental Status: [] Eye contact is good. Motor activity is appropriate. Appearance is casual. Speech is Appropriate. Mood is euthymic. Affect is full. Thoughts are linear and logical. No evidence of psychosis. Client Response/Progress/Benefit: [] Pt was an active participant in group discussion and activity. Attentive during psychoeducation. Pt participated in interactive group discussion in which group defined fixed mindset and provided insight on how a fixed mindset could impact mental health and result in; being closed to new possibilities, focusing only on how things are unfair, could lead to helplessness, could lead to feelings of not being in control, could cause one to feel like a failure, and could cause one to ignore any success. Interacted and worked well with peers in small group. Fixed mindset thoughts that were overheard during activity included; This won't work, this didn't work before, I don't think this matters, Its hard. I'm nervous, this sucks, this is impossible, I'm not good at this, we will fail. Benefited from increased awareness on the role of fixed mindset on mental health. Will continue in IOP to prevent decompensation, increase healthy coping, and stablize mood. Narrative Note: []
--- NOTE | 2021-09-06 11:10 | BH.SGPN.GN ---
Behaviors/Verbalizations/Mental Status: []Client alert and oriented, neatly dressed and groomed. Eye contact good. Motor activity appropriate. Speech within normal limits. Affect congruent, mood euthymic. Thoughts linear, logical, no signs of hallucinations or delusions. Client Response/Progress/Benefit: []Client engaged during activity and discussion AEB remaining attentive, providing increased input, and taking notes throughout. Client worked in small group to apply skills learned to reframe own personal fixed thoughts. Appeared to benefit from suggestions provided by peers. Reframed personal fixed thought of ?I?m a failure? with growth mindset thought of ?I?m not a failure, look at my accomplishment journal.? Client also picked a strategy from the list of suggestions to develop a growth mindset and reports she will use this strategy each morning when she journals. Benefitted from discussing benefits of growth mindset and brainstorming strategies for prompting growth-mindset. Progress noted as client reports improved mood and ability to acknowledge progress. Will continue IOP tx to promote gains, further improve functioning, and reinforce healthy coping skills. Narrative Note: []
== END 2021-09-10 23:59 ==
LOC: BHIOP 09:00
PROVIDERS: PCP Internal Medicine; Visit Provider Psychiatry & Neurology Psychiatry
DX: F31.63 Bipolar disorder, current episode mixed, severe, without psychotic features (principal); F43.10 Post-traumatic stress disorder, unspecified; F12.90 Cannabis use, unspecified, uncomplicated
CPT/HCPCS: S9480; 90832; 90834; 90837; 90853

== ENCOUNTER → 2021-08-16 08:29 | Outpatient (CLI) | payer MEDICARE, MEDICAID, SELFPAY ==
[2021-08-16 10:21] LABS: Absolute Lymphocyte Count 2.02 X10^3/uL (0.83-4.51); Absolute Neutrophil Count 4.4 X10^3/uL (2.0-7.7); Basophil# 0.09 X10^3/uL; Basophil% 1.2 % (0-1); Eosinophil# 0.23 X10^3/uL; Eosinophils% 3.2 % (0-5); Hematocrit 44.6 % (37-47); Hemoglobin 14.8 g/dL (12.0-15.0); Lymphocyte # 2.02 X10^3/ul (0.83-4.51); Lymphocyte % 27.9 % (19-41); Mean Corp Hgb Conc 33.2 g/dL (32-36); Mean Corpuscular Hgb 31.8 pg (27.0-32.0); Mean Corpuscular Volume 95.9 fL (81-99); Mean Platelet Vol. 11.4 fl (6.2-12.0); Monocyte% 6.9 % (0-10); NRBC Flagged by Analyzer 0 % (0-5); Neutrophil # 4.37 X10^3/uL (2.7-7.7); Neutrophil % 60.5 % (47-70); Platelet Count 211 K/mm3 (150-450); RBC Distribution Width CV 13.1 % (11.6-14.6); RBC Distribution Width SD 46.1 fl (35.1-43.9); Red Blood Count 4.65 M/mm3 (4.2-5.4); White Blood Count 7.2 K/mm3 (4.4-11.0)
[2021-08-16 11:15] LABS: Valproic Acid (Depakene) Level 36 ug/mL (50-100)
[2021-08-16 11:16] LABS: AST(SGOT) 10 U/L (15-37); Alanine Aminotransfer ALT/SGPT 23 U/L (13-56); Alkaline Phosphatase 63 U/L (45-117); Anion Gap 9 (5-15); BUN 14 mg/dL (7-18); BUN/Creat Ratio 15.7 RATIO (10-20); Calcium,Total 9.3 mg/dL (8.5-10.1); Chloride 103 mmol/L (98-107); Creatinine, Serum 0.89 mg/dL (0.55-1.02); EST Glomerular Filtration Rate 71 mL/min (>60); Est Glom Filt Rate - Afr Amer 86 mL/min (>60); Globulin 3.9 g/dL (2.2-4.2); Glucose 101 mg/dL (74-106); Potassium 4.2 mmol/L (3.5-5.1); Protein, Total 7.9 g/dL (6.4-8.2); Sodium Level 137 mmol/L (136-145)
--- NOTE | 2021-08-30 12:31 | PCM.BH.PN_ITS ---
Progress Note Progress Note: history of Present Illness/Interim History: [] The patient is a 51-year-old female with a history of bipolar 1 disorder who is seen in follow-up at the [facility] behavioral health IOP program. I last saw the patient about 1 month ago. The patient feels that she is really benefiting from the IOP program this time around. She is able to leave her house more easily and feels she is learning valuable skills and doing well in the program. She saw her new psychiatric provider recently and at that time her Depakote labs were ordered. She describes her mood as stable and feels she is not depressed or manic at this point in time. She is getting along better with her although issues there do remain. She is able to get more done at home and enjoys her home activities more. She denies any hopelessness and denies worthlessness. She has had no panic attacks since 2 weeks ago. She still has chronic, fleeting, passive thoughts of . She denies any suicidal ideation, homicidal ideation, hallucinations, delusions or symptoms of brayan. She states that her new psychiatric provider also is going to start lowering her Klonopin slowly. Current Psychiatric Medications: [] Latuda 40 mg p.o. daily with food; Depakote 500 mg p.o. twice daily; Prozac 20 mg p.o. daily; Klonopin 1 mg p.o. daily up to twice a day Mental Status Examination: [] Patient is a 51-year-old female who is obese and seen wearing a mask due to the pandemic. She is casually dressed and groomed with good hygiene and has no psychomotor agitation or retardation. Speech is normal rate and rhythm and fluent with no pressure. Eye contact is good. Mood is euthymic. Affect is full and normal. Thought process is goal-directed and organized. Thought content: There is evidence of passive thoughts of which she states are baseline for her. There is no evidence of suicidal ideatio n, homicidal ideation, hallucinations, delusions or symptoms of brayan. Judgment is intact. Insight is good. Impulsivity is moderate. Diagnoses: [] 1. Bipolar 1 disorder, most recent episode mixed, severe without psychosis (F 31.63, resolving) 2. PTSD 3. Marijuana use disorder 4. Nicotine dependence 5. Primary support issues 6. Obesity, cardiomyopathy, hypertension Plan: [] The patient will continue the IOP program at [facility] as the structure, support, education and group therapy will hopefully prevent worsening of the patient's symptoms. The patient felt safe during the interview and if it anytime she does not feel safe she will let us know or go to the emergency room. The risks, options, possible side effects and complications of the medications were discussed again with the patient and she understands accepts these. No medication changes were made today. She will continue to follow-up with her outpatient psychiatric and medical providers.
== END ==
PROVIDERS: PCP Internal Medicine; Referring Provider Registered Nurse; Visit Provider Registered Nurse
DX: F31.31 Bipolar disorder, current episode depressed, mild (principal); F19.10 Other psychoactive substance abuse, uncomplicated; R53.83 Other fatigue; Z79.899 Other long term (current) drug therapy
CPT/HCPCS: 36415; 80053; 80164; 85025

== ENCOUNTER → 2021-09-04 11:28 | Outpatient (CLI) | payer MEDICARE, MEDICAID, SELFPAY ==
--- NOTE | 2021-09-04 11:32 | RAD_ITS ---
STUDY: X-RAY - LEFT KNEE REASON FOR EXAM: Female, 51 years old. KNEE PAIN TECHNIQUE: 3 view(s) of the knee. COMPARISON: None. FINDINGS: Normal visualized distal femur. Normal visualized proximal tibia and fibula. Normal proximal tibiofibular articulation. Normal medial femorotibial compartment. Normal lateral femorotibial compartment. Normal patellofemoral articulation. The soft tissue structures are unremarkable. RAD/Knee 3 Views IMPRESSION: Normal x-ray examination of the knee. Electronically Signed: Michael Chong MD at 12:58 EDT Tel , Service support ,
--- NOTE | 2021-09-04 11:35 | RAD_ITS ---
STUDY: X-RAY - RIGHT ANKLE REASON FOR EXAM: Female, 51 years old. ANKLE PAIN TECHNIQUE: 3 view(s) of the ankle. COMPARISON: 05/01/2021 FINDINGS: Interval development of benign-appearing periosteal reaction along the closed posterior cortex of the distal tibia possibly the root related to prior trauma. Normal medial and lateral malleoli. Normal tibiotalar articulation and ankle mortise. Normal visualized talus and calcaneus. Small plantar and posterior calcaneal enthesophytes. The visualized subtalar, talonavicular, calcaneocuboid and tarsal articulations are normal. The soft tissue structures are unremarkable. RAD/Ankle min 3 Views IMPRESSION: Interval development of benign-appearing periosteal reaction along the posterior cortex of the distal tibia possibly from prior trauma. MRI may be useful. Electronically Signed: Michael Chong MD at 13:00 EDT Tel , Service support ,
== END ==
PROVIDERS: PCP Internal Medicine; Referring Provider Internal Medicine; Visit Provider Internal Medicine
DX: M25.571 Pain in right ankle and joints of right foot (principal); M25.562 Pain in left knee
CPT/HCPCS: 73562; 73610

== ENCOUNTER 2021-09-13 09:00 | Outpatient (RCR) | payer MEDICARE, MEDICAID, SELFPAY ==
[2021-09-11 00:29] VITALS: BP 156/97; PULSE 98
--- NOTE | 2021-09-13 09:01 | BH.SGPN.GN ---
Behaviors/Verbalizations/Mental Status: []Eye contact is good. Motor activity is appropriate. Appearance is casual. Speech is Appropriate. Mood is euthymic. Affect is congruent. Thoughts are linear and logical. No evidence of psychosis. Reviewed daily check in sheet and no reports of suicidal ideations or intent. Client Response/Progress/Benefit: []Pt responded well to session AEB pt sharing thoughts and feelings, listening attentively to others and providing feedback to others. Pt stated her IOP therapist gave her homework to do something she enjoys. Pt reported she used to love reading and is feeling very excited that over the weekend she read an entire novel. Pt stated she hasn't been able to read a full book in the last five years due to poor concentration. Pt reported she believes stopping marijuana use two months ago and getting counseling is what has helped her. Pt stated she is feeling optimistic and excited. Pt to continue IOP to continue use of healthy coping skills, maintain gains and prevent decompensation. Narrative Note: []
--- NOTE | 2021-09-13 10:10 | BH.SGPN.GN ---
Behaviors/Verbalizations/Mental Status: []Eye contact is good. Motor activity is appropriate. Appearance is casual. Speech is Appropriate. Mood is anxious, euthymic. Affect is congruent. Thoughts are linear and logical. No evidence of psychosis Client Response/Progress/Benefit: []Pt was an attentive participant in group discussion AEB taking notes and contributing at various points throughout. Attentive during psychoeducation on Conflict Styles ( Avoidant, Competing, Accommodating, and Collaborating). Participated in interactive group discussion on benefits of conflict.? Pt noted that ?Sometimes we need to avoid conflict to help keep the peace?. Pt along with peers identified several reasons conflict is often avoided which included; anxiety, fear of other?s reaction, not wanting to face additional conflict, and negative past experiences. Pt reported connecting most with the avoiding and accommodating conflict resolution styles. Discussed that this has resulted in feeling isolated and not getting the emotion validation she needs. Shared that avoidance has also resulted in overly relying on unhealthy coping skills. Benefited from increased awareness on conflict styles. Will continue in IOP to promote consistency of application of self-care, continue to improve use of accomplishment log, increase the use of healthy communication with supports, and prevent decompensation. Narrative Note: []
--- NOTE | 2021-09-13 11:10 | BH.SGPN.GN ---
Behaviors/Verbalizations/Mental Status: []Client alert and oriented, casually dressed and groomed. Eye contact good. Motor activity appropriate. Speech within normal limits. Affect congruent, mood euthymic. Thoughts linear, logical, no signs of hallucinations or delusions. Client Response/Progress/Benefit: []Client engaged in session AEB taking notes and participating when prompted. Client did well to review conflict styles and the various impacts of each on mental health. Client reports her barriers to managing conflict are fear of failure and not wanting people to be mad at her. Client wants to work on better managing conflict by remaining calm and not stockpiling her hurt feelings and concerns. Appeared to benefit from gaining strategies to help client better manage conflict. Will continue IOP tx to reinforce healthy coping skills that have helped client maintain mood stability. Narrative Note: []
--- NOTE | 2021-09-15 08:54 | BH.IGGP_ITS ---
Aftercare Plan - Demographics Treatment End Date:: 09/15/21 Psychiatrist:: Zoey Welch Psychiatrist Office #:: [phone] [facility] Therapist:: Leela Ledezma Therapist Phone #:: [phone] - Plan Details Progress/Aftercare Plan Details:: You have made progress in beginning to make your own mental health needs more important in your life. Taking time to seek treatment has allowed you the opportunity to make yourself a priority in your own life. This is huge and not an easy thing to do! Because of this, you have been able to been able to better identify what you need and have taken steps to work towards getting those needs met. This has included setting boundaries with yourself (not allowing yourself to give into the desire to isolate/avoid), making time to plan for self-care, and challenging yourself to continue to develop a healthier relationship with yourself. Keep this up! You have been making strides in decreasing the negative self-talk and challenging the di storted thoughts that impact your mood and your mental health. Challenging those distortions and negative self-talk messages will only continue to help improve your ability to love yourself and treat yourselravinder bae as a person! Sending yourself kathia messages in times of disappointment, increased stress, when you feel overwhelmed or like you can?t do it, and when experiencing higher levels of anxiety will continue to help improve your resilience and ability to cope in difficult times. This will help you continue to follow-through with goals you have for yourself and remind yourself that you can do hard things! You have taken steps to challenge your perspective and remind yourself that you are doing the best you can for yourself right now, despite what anyone else says. This is going to be important in continuing to improve the way you feel about yourself and prevent from allowing other?s opinions shape how you feel about you. You have made so much progress in using opposite action to encourage yourself to start small and complete small tasks that you can build upon. You have been able to not only get out of the isolation funk but have also begun to do things around the house! Keep making time for the things you enjoy doing and not just the tasks you feel responsible for. Don?t forget to give yourself credit for these things as well! You know how much that accomplishment log has helped you! Keep reaching out and trying to get involved, it?s important to spend time with your supports! Continue to work on making progress in your ability to communicate openly and honestly with your supports. I know it can be hard to talk about mental health or reach out when it feels like others may not understand. Just remember, they are here to help you and they don?t always have to fully understand in order to give you the support you need! Strategies for Success:: Opposite Action!!! ? do what will help you, even when your brain is saying ?this is too hard? or ?I can?t do it?, even when it feels uncomfortable, even when you are tempted to give up or fall back into unhealthy coping behaviors like napping or isolating. Doing the hard or the anxious thing is often the healthier option. Challenge negative thought patterns by trying to look at things from the other perspective. Remember ?thoughts are thoughts, not facts?. Ask yourself ?How else can I think about this?? ?Do I have to give this thought value?? ?Is there evidence against this thought?? ?Am I being fair to myself?? ?Would I expect this of someone else??. Remember COMMUNICATE, COMMUN ICATE, COMMUNICATE! Your supports won?t know how to help if you don?t let them be a part of the conversation. This also includes communicating with yourself and your therapist! Your mental health needs are important and deserve to be addressed! Keep challenging yourself to find activities that YOU enjoy and make YOU feel refreshed. Who and what refills your cup? Continue to make time for yourself! Self-care is reyes to maintaining progress and developing a healthier relationship with yourself! This includes sometimes doing those hard things (such as reaching out or challenging yourself to say ?no? to things that may create unnecessary stress, not engaging in old unhealthy coping skills, and showing up even when you don?t want to). Use your in the moment calming skills you have learned. Remember, Stop and take a breather when things feel overwhelming. Try engaging in a mindfulness activity such as the 5-sense, progressive muscle relaxation, or deep breathing. - Appointments Appointments/Referrals to Other Services:: Continue with weekly outpatient therapy with Tiffany, as well as ongoing medication management through the counseling center! Aftercare starts 09/21/21 @ 2pm. - Medications Home Medications: Home Medications amlodipine 10 mg PO DAILY 12/28/20 fmfkysenpw-[id number]-[id number] 1 tab PO 4X/DAY PRN 12/28/20 carvedilol 12.5 mg PO DAILY 12/28/20 clonazepam 1 mg PO TID PRN PRN 12/28/20 promethazine 25 mg PO 4X/DAY PRN 12/28/20 Latuda 40 mg PO DAILY 07/03/21 fluoxetine [Prozac] 20 mg PO DAILY 07/03/21 lisinopril 20 mg PO DAILY 07/03/21 divalproex [Depakote] 500 mg PO BID 08/02/21
--- NOTE | 2021-09-15 08:57 | BH.DS_ITS ---
Discharge Summary - Demographics Date of Admission:: 07/31/21 Discharge Date: 09/15/21 Presenting Problems at Admission:: The pt is a 51-year-old female with a history of bipolar 1 disorder with hx of psychosis in brayan, depression, and PTSD who was referred to the [facility] program following suicide attempt. Pt reports she had attempted to overdose on amitriptyline on a July 02, 2021 which resulted in ICU admission for 2 days. Following ICU admission, pt was admitted to [facility] for psychiatric stabilization. Pt reports doing ?better? since discharge and denies any active SI, plan, or intent since the attempt. Reports ?I initially thought it was impulsive but in working with my therapist discovered it was more out of anger?. Pt noted she is estranged from her three oldest children and on the day of attempt had discovered that her oldest daughter had gotten and was expecting without informing pt. Pt shared feeling betrayed and hopeless, indicating thoughts of ?If they don?t want me in their life then why bother?? Shared her puppy had around that time as well, further exacerbating her sx. Notes writing a suicide note to her prior to the attempt. Shared that her is not a good support and ?most of the time we hate each other? which at times is a stressor as well. 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 Shared that most of the time she isolates in her room and has limited engagement with her or two sons still living in the home. Pt has been on medical disability due to her mental health since 2013 which she reports leads to some feels of guilt as she feels this encourages her sons to remain complacent and unmotivated. At time of intake, pt endorsing: worthlessness, negative core beliefs, depression and irritability, isolation, avoidance and apathy, lack of enjoyment. Reports ambivalence to living but denies any active SI, plan, or intent. Reports panic attacks approximately 2-3x per week and often struggles with ruminating thoughts. Pt reports current sx are impacting her social, interpersonal, and financial functioning. Reports difficulties in functioning at baseline and completing daily responsibilities. Discharge Diagnoses:: 1. Bipolar 1 disorder, most recent episode mixed, severe without psychosis (F 31.63). 2. PTSD. 3. Marijuana use disorder Reason for Discharge:: Pt completed treatment plan goals and no longer meets criteria for [facility] level of care. - Treatment Progress During Treatment & Response: Pt's attendance in [facility] was consistent and she always rescheduled or call to cancel when needing to make changes in attendance. When she was in IOP she was engaged and attentive, doing well to improve engagement throughout the duration of her admission in the [facility] tx program. Pt has met treatment plan goals as noted above. DSM outcome measurements show a 63% decrease in overall symptoms since admission. DSM also shows a 57% reduction in scores on depression scale, 75% reduction on score in anger scale, and a 33% reduction on scores on the anxiety scales. Pt self- reports improved mood stability, sobriety from marijuana, improved socialization and reduced isolation, improved ability to be present, and decrease in anxiety. Reports increased awareness and insight on health coping skills. Issues Still to be Addressed:: Would benefit from continued work on communication and conflict resolution skills. Recommended to continue with counseling to work on relapse prevention skills, thought challenging, depression, anxiety, and overall mood management. Additionally recommended family therapy. Discharge Recommendations/Instructions:: Pt is to continue with her established outpatient providers. Pt sees Tiffany Hernandez at her private practice here in [place], [place]. Additionally, pt will continue with her caser up through [facility], as well as meet regularly with Lynne Casanova through the [facility] for ongoing medication management. Discharge Handout: Complete Discharge Handout with client on aftercare options and continuity of care.
--- NOTE | 2021-09-15 10:08 | BH.SGPN.GN ---
Behaviors/Verbalizations/Mental Status: []Eye contact is good. Motor activity is appropriate. Appearance is casual. Speech is Appropriate. Mood is anxious, euthymic. Affect is congruent. Thoughts are linear and logical. No evidence of psychosis. Client Response/Progress/Benefit: []Pt was an active participant in group discussion AEB asking questions and providing input throughout. Attentive during psychoeducation, sharing that this is a topic she connects to as she has experienced much stigma in her life due to her mental health. Pt along with peers added their perspective on the definition of stigma as it relates to mental health. Pt participated in interactive group discussion on the topic and the potential impacts of stigma on seeking help, confidence, and relationships with others. Reflected that people have assumed she was dangerous in the past as a result of their own stigma associated with mental health. Pt reflected that mental health stigma has ?kept me from having a good relationship with her adult children?. Reflected beliefs she allows stigma to maintain thoughts of ?I?m not a good mother?. Benefited from increased awareness of mental health stigma and how it could impact patient. Will continue in outpatient tx as pt is to discharge from [facility] on this date. Narrative Note: []
--- NOTE | 2021-09-15 11:10 | BH.SGPN.GN ---
Behaviors/Verbalizations/Mental Status: []Client alert and oriented, casually dressed and groomed. Eye contact good. Motor activity appropriate. Speech within normal limits. Affect congruent, mood euthymic. Thoughts linear, logical, no signs of hallucinations or delusions. Client Response/Progress/Benefit: []Client engaged participant AEB client providing some input during small group discussion, taking notes and listening attentively to others. Group brainstormed strategies to combat social and perceived stigma which included: educating others, no longer using negative language about mental illness, being vulnerable with supports, and attending support groups. Client shared one thing she can do to combat stigma is to be mindful of the language she uses to describe her mental health and to avoid saying ?I?m just crazy.? Appeared to benefit from increasing awareness of strategies to combat stigma. Progress noted in client?s reduced DMS-5 scores and self-report of improved mood. Will discharge from IOP tx as client has accomplished her treatment goals and no longer meets criteria for IOP level of care. Narrative Note: []
--- NOTE | 2021-09-15 14:20 | BH.MDN_ITS ---
Multi-Disciplinary Note - Note 30-min Individual Time Started:: 09:10 Date: 09/15/21 Purpose of session/treatment goals addressed:: The purpose of this session was to review client's progress in tx, as well as review strategies that will promote mood stability and gains made in IOP. Another goal was to discuss discharge recommendations and process any current stressors. Eye Contact:: Good Motor Activity:: Appropriate Appearance:: Casual Speech:: Appropriate Mood:: Euthymic, Anxious Affect:: Full Thoughts:: Linear, Logical, No evidence of hallucinations/delusions noted Staff Interventions:: motivational interviewing, discharge planning - Therapist discussed the benefits of ongoing maintenance and use of daily coping skills., strengths perspective, reviewed DSM-5, other - encouraged family therapy Client Response:: Client responded well to session, open to meeting with therapist. Client reports feeling she has made much progress since beginning IOP tx, specifically in reduced anxiety and improved overall mood. Shared feeling as though she is able to ?dwell less on the negative?. Discussed areas in which client has seen personal progress and areas she would like to continue working on post IOP discharge. Identified progress in improved engagement in self-care activities, improved use of thought challenging and personal affirmational statements, as well as reduced rumination and anger about the past. Shared that she has been more consistently been engaging in activities she finds enjoyable such as reading and tia art. Client has additionally been able to quit smoking marijuana and reports she has not smoked in at least the past 3 weeks. Client went on to discuss her biggest concerns to be maintaining the gains she has made as well as ongoing difficulties in navigating her relationships at home. Reviewed warning signs for client to be aware of, as well as skills she can use if beginning to notice changes in her mood or behavior. Client's coping skills included: thought challenging, self-care, grounding via 5-senses method, daily affirmations, and communicating with her healthy supports (sister, therapist). Discussed benefits of ongoing family therapy and client reports she still wants to work on further maintaining anxiety and depression on a consistent basis before pursuing this. Client Will continue with outpatient providers for medication management and individual counseling, as well as begin the [facility] Aftercare Program next week. Risks/Concerns:: Client denies any suicidal ideations, plan, or intent as of 09/15/21. Hopeful and future oriented. Progress Toward Goals/Plan:: Client has responded well to treatment and has made great progress while in [facility]. Client self-reports overall improved mood, more positive thinking, reduced anxiety, and more consistent use of healthy coping skills. Client reports increased ability to identify and challenge negative thinking, ask for help, and realistically address stressors rather than rumin ating on them and becoming angry. Client still endorses some symptoms of anxiety, depression, and has negative thinking but it is of reduced intensity. Will discharge from [facility] on this date. Time Stopped:: 09:37
== END 2021-09-15 13:09 | disposition home or self-care (01) ==
LOC: BHIOP 09:00
PROVIDERS: PCP Internal Medicine; Visit Provider Psychiatry & Neurology Psychiatry
DX: F31.63 Bipolar disorder, current episode mixed, severe, without psychotic features (principal); F43.10 Post-traumatic stress disorder, unspecified; F12.90 Cannabis use, unspecified, uncomplicated
CPT/HCPCS: S9480; 90832; 90853

== ENCOUNTER → 2021-09-26 08:49 | Outpatient (CLI) | payer MEDICARE, MEDICAID, SELFPAY ==
[2021-09-26 10:22] LABS: AST(SGOT) 11 U/L (15-37); Alanine Aminotransfer ALT/SGPT 19 U/L (13-56); Albumin, Serum 3.6 g/dL (3.2-5.0); Alkaline Phosphatase 61 U/L (45-117); Bilirubin, Direct 0.08 mg/dL (0.00-0.30); Globulin 3.8 g/dL (2.2-4.2); Protein, Total 7.4 g/dL (6.4-8.2)
[2021-09-26 10:28] LABS: Valproic Acid (Depakene) Level 66 ug/mL (50-100)
== END ==
PROVIDERS: PCP Internal Medicine; Referring Provider Registered Nurse; Visit Provider Registered Nurse
DX: F31.9 Bipolar disorder, unspecified (principal); Z79.899 Other long term (current) drug therapy
CPT/HCPCS: 36415; 80076; 80164

== ENCOUNTER 2021-09-28 14:00 | Outpatient (RCR) | payer MEDICARE, MEDICAID, SELFPAY ==
--- NOTE | 2021-09-28 14:00 | BH.SGPN.GN ---
Behaviors/Verbalizations/Mental Status: []Client alert and oriented, casually dressed and groomed. Eye contact good. Motor activity appropriate. Speech within normal limits. Affect congruent, mood anxious and agitated. Thoughts linear, logical, no signs of hallucinations or delusions. Client Response/Progress/Benefit: []Pt responded well to session, provided input, and listened attentively to peers. Reported feeling ?irritable and impatient? today, explaining that she has had several medical tests over the past few weeks which has increased stress. Noted she does not like having tests done and that the upcoming holidays are always a sensitive time of year for her. Pt discussed that she has been trying to spend time away from the house and change up her environment when recognizing that she is feeling more irritable. Expressed that focusing on ?small positives? has aided in managing her increased stress and irritability as well. Client engaged in discussion on self-advocacy. Worked with group to identify the benefits of self-advocacy, as well as common barriers. Reviewed the personal bill of rights and shared she does well to advocate for her right to ?be angry at someone I love?. Discussed struggling with personal right of ?I have the right to determine my own priorities?. Noted plans to take steps in better advocating for this right by reminding herself she can put her mental health needs ahead of other responsibilities or other?s problems. Client seemed to benefit from reviewing treatment progress and skill application, as well as learning about how to increase self-advocacy. Client to continue aftercare to promote gains, prevent regression, and further improve functioning. Narrative Note: []
--- NOTE | 2021-09-28 15:14 | BH.MTP ---
Master Treatment Plan - Patient Information Program Physician:: Zoey Hall Primary Therapist:: TIM Luther - Psychiatric Diagnoses Psychiatric Diagnoses:: 1. Bipolar 1 disorder, most recent episode mixed, severe without psychosis (F 3163). 2. PTSD. 3. Marijuana use disorder Diagnosis Code(s):: F 63 - Estimated LOS Estimated LOS (in weeks):: 12 Problem/Goal #1 - Problem/Goal #1 Stated Goal:: Client will maintain or see a reduction in symptoms AEB client score on the DSM 5 cross-cutting measure and improve client's daily functioning. - Objectives Objective #1 Stated Objective: Client will continue to consistently apply healthy coping skills to maintain progress made in IOP tx. Interventions: Through group therapy, client will review warning signs and triggers as well as healthy coping skills learned in IOP tx to successfully maintain gains while transitioning into outpatient therapy. Discharge Criteria: Client will have accomplished this goal when client's score on the DSM-5 cross-cutting measure has either maintained or reduced over a 12 week period. Target Date: 12/28/21 Review Date: 11/02/21 Objective #2 Stated Objective: Client will learn and utilize 2-3 maintenance strategies to prevent decompensation. Interventions: Through group therapy, client will be provided with education on healthy maintenance behaviors, relapse prevention techniques, and healthy coping strategies. Discharge Criteria: Client will have accomplished this goal when can report using at least 2 maintenance skills to prevent decompensation. Target Date: 12/28/21 Review Date: 11/02/21
== END 2021-10-10 23:59 ==
LOC: BHOG 14:00
PROVIDERS: PCP Internal Medicine; Visit Provider Psychiatry & Neurology Psychiatry
DX: F31.63 Bipolar disorder, current episode mixed, severe, without psychotic features (principal); F43.10 Post-traumatic stress disorder, unspecified; F12.90 Cannabis use, unspecified, uncomplicated
CPT/HCPCS: 90853

== ENCOUNTER 2021-10-12 09:00 | Outpatient (RCR) | payer MEDICARE, MEDICAID, SELFPAY ==
--- NOTE | 2021-10-12 14:00 | BH.SGPN.GN ---
Behaviors/Verbalizations/Mental Status: []Client alert and oriented, casually dressed and groomed. Eye contact good. Motor activity appropriate. Speech within normal limits. Affect constricted. Mood depressed. Thoughts linear, logical, no signs of hallucinations or delusions. Client Response/Progress/Benefit: [] Client responded well to session AEB client sharing thoughts and feelings and listening attentively to peers. Client stated she has been struggling with increased depression recently. Client admitted she hasn't been using her healthy skills. Client stated lack of motivation and apathy have made it difficult to use skills. Client reported she has learned about new medical issues and received not promising news about her physical ailments. Client recognizes this is impacting her mood. Agreed getting back to using her skills would be helpful. Client contributed to the discussion on gratitude and its benefits. Client attentive during discussion of internal vs. external gratitude. Client created weekly plan on what she will identify for gratitude over the next 7 days. Appeared to benefit from connecting with peers and creating plan to identify gratitude. Pt plan included: another person, something that made her laugh, an item use everyday, a happy memory, a song she loves, a food she loves, and an ability of hers. Will continue IOP aftercare to increase consistent use of healthy skills, challenge distorted thoughts and prevent further decompensation.
--- NOTE | 2021-10-26 14:00 | BH.SGPN.GN ---
Behaviors/Verbalizations/Mental Status: []Client alert and oriented, neatly dressed and groomed. Eye contact good. Motor activity appropriate. Speech within normal limits. Affect constricted, mood depressed. Thoughts linear, logical, no signs of hallucinations or delusions. Client Response/Progress/Benefit: []Pt receptive of session, engaged throughout. Pt stated she has been struggling and didn't want to come to group today. Pt identified mental health positive as pushing herself to attend aftercare group today. Additional positive noted as baking bunch of cookies. Pt admits she hasn't been using her skills consistently and knows this is contributing to some decompensation. Receptive of discussion on personal accountability and its importance in maintaining mental health stability. Pt worked cooperatively with group to identify benefits of maintaining personal accountability. Engaged in brainstorming strategies for improving ability to hold themselves accountable. Pt seemed to benefit from support from peers and increasing understanding of personal accountability benefits and strategies. Will continue IOP aftercare group to maintain gains and prevent decompensation.
--- NOTE | 2021-11-09 14:05 | BH.SGPN.GN ---
Behaviors/Verbalizations/Mental Status: [] Client alert and oriented, casual dress, hygiene tended to. Eye contact good. Motor activity appropriate. Speech within normal limits. Affect congruent, mood euthymic. Thoughts linear, logical, no signs of hallucinations or delusions. Client Response/Progress/Benefit: []Client responded well to session, attentive and engaged throughout. Reported feeling ?content? 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 Noted that doing this had been an empowering experience and has inspired her to get make into cooking which is something she has enjoyed doing for herself in the past. Participated in discussion on making healthy choices and the barriers keeping clients from making healthy choices. Client identified her personal barriers as: lack of motivation, past experiences, and fear of stepping outside her comfort zone. Client attentive and contributing to discussion of strategies to improve healthy decision making. Shared wanting to be more willing to take risks and do things for herself in the area of self-care. Appeared to benefit from reflecting on application of coping skills, identifying barriers, and discussing strategies to improve healthy decision-making skills. Narrative Note: []
--- NOTE | 2021-11-09 15:00 | BH.TPR ---
Treatment Plan Review Date of Admission:: 09/28/21 Date of Treatment Plan Review:: 11/09/21 Admitting Diagnoses:: 1. Bipolar 1 disorder, most recent episode mixed, severe without psychosis (F 31.63). 2. PTSD. 3. Marijuana use disorder Current Diagnoses:: 1. Bipolar 1 disorder, most recent episode mixed, severe without psychosis (F 31.63). 2. PTSD. 3. Marijuana use disorder Patient's Response to Treatment:: Pt responding mostly well to aftercare program AEB pt's consistent attendance, contributions during group discussions, and self-report that she is applying skills learned outside treatment environment. Progress remains variable at time due to pt own admission of inconsistency of skill application, as well as poor motivation at times. Status of Current Problems and Symptoms: Pt continues to experience mild symptoms of depression, irritability and anxiety per her DSM-5, though has seen improvements in overall ability to manage these symptoms. Client's anxiety, depression and irritability scores have increased since IOP discharge, which she attributes to inconsistent skill application, as well as time of year. Pt reports the holiday is often a triggering time for her as she has had past trauma around this time of year. Pt additionally has had several medical issues in the past month which she self-reports have increased anxiety, frustration, and hopelessness due to lack of information, physical pain, as well as difficulties in navigating the medical system. Client reports improved ability to catch early warning signs and use of distortions and is doing well to challenge these. She also reports increased willingness to follow through with maintaining healthy lifestyle changes she has made while in IOP, and is more consistently reaching out to supports. Problem #1 Problem Name:: Pt will maintain or see a reduction in mental health symptoms Status of Goals:: obj 1 ? incomplete, ongoing work encouraged. Per pt's DSM 5 scores, anxiety, depression, and irritability have increased due to several additional stressors in the last few weeks. Pt does report better managing her sx than she has in the past and has maintained healthier communication with supports rather than isolating or lashing out. obj 2 - Incomplete with ongoing work encouraged. Client has reported using some healthy coping skills and reaching out to supports, however struggles with consistently doing so. She is able to identify healthy skills and strategies for challenging negative thoughts, though struggles at times with implementation. Pt has continued however to reach out to supports which is progress and is better managing her emotions before reaching point of crisis. Continues to deny and suicidal ideation since prior to IOP admission. Team Recommendations:: pt continue IOP aftercare group in addition to attending regular outpatient counseling in order to futher stabalize mood, as well as decrease depressive and anxious symptoms, and promote further gains.
== END 2021-11-10 23:59 ==
LOC: BHOG 09:00
PROVIDERS: PCP Internal Medicine; Visit Provider Psychiatry & Neurology Psychiatry
DX: F31.63 Bipolar disorder, current episode mixed, severe, without psychotic features (principal); F43.10 Post-traumatic stress disorder, unspecified; F12.10 Cannabis abuse, uncomplicated
CPT/HCPCS: 90853

== ENCOUNTER 2021-10-20 20:01 | Inpatient (IN) | payer MEDICARE, MEDICAID, SELFPAY ==
[2021-10-20] VITALS (12 sets, daily range): BP systolic 76–121; BP diastolic 42–74; PULSE 63–86; RESP 10–20; TEMP 35.4–36.3; O2SAT 91–99; BMI 42.4; BMI 41.9
[2021-10-20] MEDS: 0.9% Normal Saline 1,000 ML 1000 ML IV ×2 (20:10→20:26)
--- NOTE | 2021-10-20 20:12 | EKG12_ITS ---
Test Reason : DYSRHYTHMIA Blood Pressure : / mmHG Vent. Rate : 088 BPM Atrial Rate : 088 BPM P-R Int : 168 ms QRS Dur : 092 ms QT Int : 396 ms P-R-T Axes : 062 036 044 degrees QTc Int : 479 ms Normal sinus rhythm T wave abnormality, consider anterior ischemia Prolonged QT Abnormal ECG Confirmed by EVY TORIBIO, FABRICE ([id number]), commercial production editor JOYCE SHARIF ([id number]) on 10/23/2021 10:08:41 AM Referred By: KERRI Confirmed By:FABRICE RATLIFF MD
--- NOTE | 2021-10-20 20:14 | EDS_ITS ---
HPI History of Present Illness Chief Complaint: Unresponsive Detail of Chief Complaint: Unresponsive Informant: patient and EMS Narrative Narrative: Patient presents to the emergency department via EMS from home with an unresponsive episode. Patient found by in basement unresponsive and called squad. It is unclear when patient was last seen well. Patient was noted to be hypotensive. was concerned that she had been drinking and there was concern that she may have overdosed on her medications. On arrival to the emergency department patient was being bagged however she woke up and started answering questions. She denies suicidal ideation or intentional drug overdose. Patient states that she was in the basement smoking pot. Patient denies recent illness. She denies chest pain or headache. She denies drinking alcohol or other illicit drugs. She denies intentionally taking any overdoses of her medications. [facility] Medical History (Updated 10/20/21 @ 22:[address] Marcos Asher DO) Amitriptyline overdose Bipolar 1 disorder, mixed, severe Cardiomyopathy Hypertension Marijuana use Myocardial infarct, old Nicotine dependence PTSD (post-traumatic stress disorder) Home Medications amlodipine 10 mg PO DAILY 12/28/20 [History Last Taken Unknown] txnatfzoos-happszgikpssn-lypv 1 tab PO 4X/DAY PRN 12/28/20 [History Last Taken Unknown] carvedilol 12.5 mg PO DAILY 12/28/20 [History Last Taken Unknown] clonazepam 1 mg PO TID PRN PRN 12/28/20 [History Last Taken Unknown] promethazine 25 mg PO 4X/DAY PRN 12/28/20 [History Last Taken Unknown] Latuda 40 mg PO DAILY 07/03/21 [History Last Taken Unknown] fluoxetine [Prozac] 20 mg PO DAILY 07/03/21 [History Last Taken Unknown] lisinopril 20 mg PO DAILY 07/03/21 [History Last Taken Unknown] divalproex [Depakote] 500 mg PO BID 08/02/21 [History Last Taken Unknown] Allergy/AdvReac Type Severity Reaction Status Date / Time No Known Allergies Allergy Verified 10/20/21 20:05 Surgical History History of hysterectomy History of tonsillectomy Hx of cardiac catheterization Social History current occupation: Disabled Smoking Status: Unknown if ever smoked alcohol intake: current alcohol intake frequency: other details: Social alcohol use but nothing habitual substance use type: marijuana ROS ROS ED ROS Narrative Unresponsive episode Review of Systems ROS Unobtainable: due to mental condition Constitutional Constitutional ED: Reports systems reviewed and no addt'l complaints, except as documented; Denies body ache(s), change in weight or chills Eyes Eyes: Denies acute decrease in peripheral vision, change in vision, double vision or loss of vision ENT ENT ED: Reports none; Denies ear pain, lip swelling, loss taste/smell, neck pain, otalgia or sore throat Cardiovascular Cardiovascular: Reports none; Denies abdominal pain, chest pain with activity, leg edema, lightheadedness, palpitations, rapid heart rate or syncope Respiratory/Chest Respiratory/Chest: Reports none; Denies change in mental status, dry cough, dyspnea, hemoptysis, shortness of breath at rest or shortness of breath with exe rtion Gastrointestinal Gastrointestinal: Reports none; Denies abdominal pain, change in stool character , diarrhea, hematemesis, hematochezia, melena, rectal bleeding or vomiting Genitourinary Genitourinary ED: Reports none; Denies abdominal discomfort, anuria, dysuria, genital pain or polyuria Musculoskeletal Musculoskeletal: Reports none; Denies arthralgias, back pain, difficulty walking, extremity pain, muscle weakness or myalgias Integumentary Reports none; Denies abscess or rash Neurologic Neurologic: Reports none; Denies abnormal gait, confusion, focal weakness, frequent falls, headache(s), loss of vision, numbness, paresthesias, radicular pain, vertigo or weakness Psychiatric Psychiatric: Reports systems reviewed and no addt'l complaints, except as documented and none; Denies behavioral changes, confusion, difficulty concent rating, hallucinations, suicidal ideation, tactile hallucinations or visual hallucinations Endocrine Endocrinology: Denies none, cold intolerance, excessive sweating, fatigue or heat intolerance Hematologic/Lymphatic Hematologic/Lymphatic: Reports none; Denies anemia, easy bleeding or easy bruising Allergic/Immunologic Allergic/Immunologic ED: Denies as per HPI, none, lip swelling, mouth swelling, throat swelling, tongue swelling or hives EXAM Physical Exam Const Vital Signs: 10/20/21 20:01 10/20/21 20:06 10/20/21 20:09 Temperature 96.1 F L Temperature Source Temporal Pulse Rate 86 Respiratory Rate 18 Blood Pressure 76/43 L Blood Pressure Mean 54 Pulse Ox 94 91 Oxygen Delivery Method Nasal Cannula Oxygen Flow Rate (L/min) 4 10/20/21 20:31 10/20/21 21:18 10/20/21 21:48 Temperature Temperature Source Pulse Rate 77 71 Respiratory Rate 18 20 H 11 L Blood Pressure 81/42 L 101/49 L 102/54 L Blood Pressure Mean 55 66 70 Pulse Ox 93 95 94 Oxygen Delivery Method Nasal Cannula Nasal Cannula Nasal Cannula Oxygen Flow Rate (L/min) 4 4 4 10/20/21 22:09 10/20/21 22:29 Temperature Temperature Source Pulse Rate 70 68 Respiratory Rate 10 L 10 L Blood Pressure 101/59 L 121/74 H Blood Pressure Mean 73 89 Pulse Ox 97 Oxygen Delivery Method Nasal Cannula Nasal Cannula Oxygen Flow Rate (L/min) 5 5 Positive well nourished and well developed General Appearance ED: well developed and NAD HEENT Reports TM's clear and moist mucous membranes normocephalic and atraumatic; Negative for trauma or tenderness Tympanic Membrane ED: Yes TM's clear Eyes PERRL and EOMs intact bilaterally General Eye ED: Negative for pale conjunctiva or scleral icterus Neck no lymphadenopathy, supple and no JVD General: Negative for tenderness Chest Wall inspection of chest normal and palpation of chest normal Chest: Negative for tenderness Resp normal respiratory effort and clear to auscultation bilaterally Effort and Inspection: Negative for respiratory distress or pain with movement Auscultation: Negative for rhonchi, wheezes or diminished lung sounds Cardio regular rate, regular rhythm, S1 normal heart sound, S2 normal heart sound and no murmurs Peripheral Pulses: pulses 2+ throughout GI normal to inspection, nondistended, normoactive bowel sounds, soft to palpation, non-tender, non-distended and no masses Back/Spine no CVA tenderness and no thoracic nor lumbar tenderness Extremity normal to inspection General Extremety ED: Negative for edema General Extremity: Negative for edema Neuro oriented x3, CN's II-XII intact bilaterally, no sensory deficits noted and gait normal Sensorium / Orientation: awake, alert, oriented to person, oriented to place and oriented to time Motor Exam: strength 5/5 throughout and strength abnormal Psych mental status grossly normal Skin no rashes or lesions noted and no wounds MDM MDM MDM Narrative Medical decision making narrative: IV line established on arrival. Patient placed on a hall monitor. Patient was ordered a liter normal saline fluid bolus followed by a second liter for hypotension. Hypotension did respond to fluids. Patient had received Narcan x3 doses per EMS prior to arrival. Patient work-up in the emergency department notes patient to be positive on tox screen for THC and barbiturates. Patient's mental status continue to improve. Case will be discussed with hospitalist will evaluate patient for admission. Lab Data Attestation: I reviewed the patient's lab results. Labs: Laboratory Results - last 24 hr 10/20/21 10/20/21 10/20/21 20:08 20:10 20:10 WBC 8.5 RBC 3.84 L Hgb 12.5 Hct 38.0 MCV 99.0 MCH 32.6 H MCHC 32.9 RDW Std Deviation 46.2 H RDW Coeff of Willy 12.7 Plt Count 237 MPV 10.7 Immature Gran % (Auto) 0.400 Neut % (Auto) 48.6 Lymph % (Auto) 38.7 [place] % (Auto) 7.7 Eos % (Auto) 3.4 Baso % (Auto) 1.2 H Absolute Neuts (auto) 4.1 Absolute Lymphs (auto) 3.27 Nucleated RBC % 0 Sodium 140 Potassium 4.2 Chloride 105 Carbon Dioxide 29.0 Anion Gap 6 BUN 16 Creatinine 1.39 H Estim Creat Clear Calc 43.09 Est GFR (MDRD) Af Amer 51 L Est GFR (MDRD) Non-Af 42 L BUN/Creatinine Ratio 11.5 Glucose 113 H Lactic Acid 1.1 Calcium 8.4 L Total Bilirubin 0.20 AST 10 L ALT 27 Alkaline Phosphatase 53 Troponin I High Sens 17 Total Protein 6.7 Albumin 3.4 Globulin 3.3 Albumin/Globulin Ratio 1.0 Urine Color Urine Clarity Urine pH Ur Specific [place] Urine Protein Urine Glucose (UA) Urine Ketones Urine Occult Blood Urine Nitrite Urine Bilirubin Urine Urobilinogen Ur Leukocyte Esterase Urine RBC Urine WBC Ur Squamous Epith Cells Urine Bacteria Urine Mucus Salicylates Urine Opiates Screen Urine Methadone Screen Acetaminophen Ur Barbiturates Screen Ur Phencyclidine Scrn Ur Amphetamines Screen U Methamphetamin-MDMA U Benzodiazepines Scrn Urine Cocaine Screen U Cannabinoids Screen Ur Drug Screen Comment Ethyl Alcohol 10/20/21 10/20/21 10/20/21 20:10 20:18 20:18 WBC RBC Hgb Hct MCV MCH MCHC RDW Std Deviation RDW Coeff of Willy Plt Count MPV Immature Gran % (Auto) Neut % (Auto) Lymph % (Auto) [place] % (Auto) Eos % (Auto) Baso % (Auto) Absolute Neuts (auto) Absolute Lymphs (auto) Nucleated RBC % Sodium Potassium Chloride Carbon Dioxide Anion Gap BUN Creatinine Estim Creat Clear Calc Est GFR (MDRD) Af Amer Est GFR (MDRD) Non-Af BUN/Creatinine Ratio Glucose Lactic Acid Calcium Total Bilirubin AST ALT Alkaline Phosphatase Troponin I High Sens Total Protein Albumin Globulin Albumin/Globulin Ratio Urine Color Yellow Urine Clarity Clear Urine pH 6.0 Ur Specific [place] 1.010 Urine Protein Negative Urine Glucose (UA) Normal Urine Ketones 5 H Urine Occult Blood Negative Urine Nitrite Negative Urine Bilirubin Negative Urine Urobilinogen Normal Ur Leukocyte Esterase 25 H Urine RBC 0 SEEN Urine WBC 0 SEEN Ur Squamous Epith Cells 0 SEEN Urine Bacteria 0 SEEN Urine Mucus 0 SEEN Salicylates 2.3 L Urine Opiates Screen NEGATIVE Urine Methadone Screen NEGATIVE Acetaminophen 5.6 L Ur Barbiturates Screen POSITIVE H Ur Phencyclidine Scrn NEGATIVE Ur Amphetamines Screen NEGATIVE U Methamphetamin-MDMA NEGATIVE U Benzodiazepines Scrn NEGATIVE Urine Cocaine Screen NEGATIVE U Cannabinoids Screen POSITIVE H Ur Drug Screen Comment Ethyl Alcohol 3.0 Radiography Diagnostic Testing: Clinical Impression(s) from Imaging Studies Brain CT 10/20/21 21:00 IMPRESSION: Negative Brain CT without contrast. Paranasal sinus disease. Electronically Signed: Uri Cabrera DO at 21:39 EST Tel , Service support , EKG Initial EKG: Attestation: I personally reviewed and interpreted this EKG as follows: Comments: Sinus rhythm with a ventricular rate of [address] changes noted. Discharge Plan Dx/Rx/DC Orders Clinical Impression: Syncope, Acute alteration in mental status, Transient hypotension Disposition Disposition: Acute Care Hospital [facility]
[2021-10-20 20:26] LABS: Bacteria 0 SEEN /hpf (None Seen); Mucous, Urine 0 SEEN /hpf (<or=2+); Red Blood Cells-Urine 0 SEEN /hpf (0-5); Squamous Epithelial Cells - UA 0 SEEN /hpf (5-10); White Blood Cells 0 SEEN /hpf (0-5)
[2021-10-20 20:27] LABS: Absolute Lymphocyte Count 3.27 X10^3/uL (0.83-4.51); Absolute Neutrophil Count 4.1 X10^3/uL (2.0-7.7); Basophil% 1.2 % (0-1); Eosinophil# 0.29 X10^3/uL; Eosinophils% 3.4 % (0-5); Hemoglobin 12.5 g/dL (12.0-15.0); Lymphocyte # 3.27 X10^3/ul (0.83-4.51); Lymphocyte % 38.7 % (19-41); Mean Corp Hgb Conc 32.9 g/dL (32-36); Mean Corpuscular Hgb 32.6 pg (27.0-32.0); Mean Platelet Vol. 10.7 fl (6.2-12.0); Monocyte# 0.65 X10^3/uL; Monocyte% 7.7 % (0-10); NRBC Flagged by Analyzer 0 % (0-5); Neutrophil # 4.12 X10^3/uL (2.7-7.7); Neutrophil % 48.6 % (47-70); Platelet Count 237 K/mm3 (150-450); RBC Distribution Width CV 12.7 % (11.6-14.6); RBC Distribution Width SD 46.2 fl (35.1-43.9); Red Blood Count 3.84 M/mm3 (4.2-5.4); White Blood Count 8.5 K/mm3 (4.4-11.0)
[2021-10-20 20:28] LABS: Color, Urine Yellow (Yellow); Glucose, Dipstick Normal (Normal); Ketone-Dipstick 5 mg/dl (Negative); Leukocyte Esterase-Dipstick 25 /ul (Negative); Nitrite-Dipstick Negative (Negative); Occult Blood-Urine Negative /ul (Negative); Protein-Dipstick Negative (Negative); Urine Bilirubin Dipstick Negative (Negative); Urine Clarity Clear (Clear); Urine Urobilinogen Normal (Normal)
[2021-10-20 20:43] LABS: AST(SGOT) 10 U/L (15-37); Alanine Aminotransfer ALT/SGPT 27 U/L (13-56); Albumin, Serum 3.4 g/dL (3.2-5.0); Alkaline Phosphatase 53 U/L (45-117); Anion Gap 6 (5-15); BUN 16 mg/dL (7-18); BUN/Creat Ratio 11.5 RATIO (10-20); Calcium,Total 8.4 mg/dL (8.5-10.1); Chloride 105 mmol/L (98-107); Creatinine, Serum 1.39 mg/dL (0.55-1.02); EST Glomerular Filtration Rate 42 mL/min (>60); Est Glom Filt Rate - Afr Amer 51 mL/min (>60); Estimated Creatinine Clearance 43.09 ml/min; Globulin 3.3 g/dL (2.2-4.2); Glucose 113 mg/dL (74-106); Potassium 4.2 mmol/L (3.5-5.1); Protein, Total 6.7 g/dL (6.4-8.2); Sodium Level 140 mmol/L (136-145); Troponin-I HS 17 pg/mL (3.0-54.0)
[2021-10-20 20:53] LABS: Lactic Acid 1.1 mmol/L (0.4-1.9)
--- NOTE | 2021-10-20 21:00 | CT_ITS ---
INDICATION: mental status change EXAMINATION: CT BRAIN - CT Head or Brain W/O Contrast Injection TECHNIQUE: Multiple axial images were obtained of the head without intravenous contrast. A radiation dose optimization technique was used for this scan. IV Contrast dosage and agent: None. COMPARISON: None. FINDINGS: BRAIN PARENCHYMA: No intra- or extra-axial hemorrhage. No evidence of acute infarct. No intracranial mass or mass effect. There is preservation of the balderas/white matter interface. Posterior fossa structures are unremarkable. CSF SPACES: Appropriate for age. No hydrocephalus. Basal cisterns are patent. CALVARIUM, SKULL BASE, PARANASAL SINUSES AND MASTOID AIR CELLS: Moderate opacification ethmoid air cells and mild mucosal thickening seen in the bilateral maxillary sinuses most likely small amount of fluid layering in the posterior maxillary sinuses. Mastoid air cells and middle ears are clear. No discrete lytic or blastic abnormalities. ORBITS: Both globes, extraocular muscles, optic nerves and retrobulbar fat appear unremarkable. ASPECTS Score for Acute Strokes: 10 CT/Brain/Head without Contrast IMPRESSION: Negative Brain CT without contrast. Paranasal sinus disease. Electronically Signed: Uri Cabrera DO at 21:39 EST Tel , Service support ,
[2021-10-20 21:03] LABS: Acetaminophen (Tylenol) Level 5.6 ug/mL (10.0-30.0); Salicylate 2.3 mg/dL (2.8-20.0)
[2021-10-20 21:14] LABS: Amphetamine Urine VISTA NEGATIVE (<1000 ng/mL); Barbiturate Urine VISTA POSITIVE (< 200 ng/mL); Benzodiazepine Urine VISTA NEGATIVE (< 200 ng/mL); Cocaine Urine VISTA NEGATIVE (< 300 ng/mL); Ecstacy Urine VISTA NEGATIVE (< 500 ng/mL); Methadone Urine VISTA NEGATIVE (< 300 ng/mL); PCP Urine VISTA NEGATIVE (< 25 ng/mL); THC Urine VISTA POSITIVE (< 50 ng/mL); Vista UDS pH Range 6
[2021-10-20] MEDS: 0.9% Normal Saline 1,000 ML 150 ML IV (21:45)
--- NOTE | 2021-10-20 22:22 | PCM.HP.STD ---
HPI - General General Date of Admission: 10/20/21 Date of Service: 10/20/21 Chief Complaint: Unresponsiveness HPI Narrative Attempt was made to reach patient's by telephone. However patient's did not take his phone. Message was left for patient to call medical team. SAMANTHA QUIROS, is a 51 F with a significant history of cardiomyopathy; bipolar 1 disorder; nicotine abuse; PTSD; and tobacco abuse who presents to the emergency department with unresponsiveness. History was taken for emergency department doctor who reported that per history he received from paramedics patient went to the basement to smoke marijuana. Later on found her unresponsive and called the paramedics. Emergency department doctor reported that patient briefly was talking but at the time of my evaluation patient was not answering questions and she was obtunded. Reportedly patient received Narcan from paramedics. Also because of hypotension patient received IV fluid boluses at the emergency department. [facility] Medical History (Updated 10/20/21 @ 22:[address] Raphael Villegas MD) Amitriptyline overdose Bipolar 1 disorder, mixed, severe Cardiomyopathy Hypertension Marijuana use Myocardial infarct, old Nicotine dependence PTSD (post-traumatic stress disorder) Home Medications amlodipine 10 mg PO DAILY 12/28/20 [History Last Taken Unknown] iczyznsvpp-wasyrjtqmrzjz-tlyk 1 tab PO 4X/DAY PRN 12/28/20 [History Last Taken Unknown] carvedilol 12.5 mg PO DAILY 12/28/20 [History Last Taken Unknown] clonazepam 1 mg PO TID PRN PRN 12/28/20 [History Last Taken Unknown] promethazine 25 mg PO 4X/DAY PRN 12/28/20 [History Last Taken Unknown] Latuda 40 mg PO DAILY 07/03/21 [History Last Taken Unknown] fluoxetine [Prozac] 20 mg PO DAILY 07/03/21 [History Last Taken Unknown] lisinopril 20 mg PO DAILY 07/03/21 [History Last Taken Unknown] divalproex [Depakote] 500 mg PO BID 08/02/21 [History Last Taken Unknown] Allergy/AdvReac Type Severity Reaction Status Date / Time No Known Allergies Allergy Verified 10/20/21 20:05 Family History unable to obtain unable to obtain Surgical History History of hysterectomy History of tonsillectomy Hx of cardiac catheterization Social History current occupation: Disabled Smoking Status: Unknown if ever smoked alcohol intake: current alcohol intake frequency: other details: Social alcohol use but nothing habitual substance use type: marijuana ROS Review of Systems ROS Unobtainable: due to encephalopathy Vital Signs Vital Signs Vital Signs: 10/20/21 20:01 10/20/21 20:06 10/20/21 20:09 Temperature 96.1 F L Temperature Source Temporal Pulse Rate 86 Respiratory Rate 18 Blood Pressure 76/43 L Blood Pressure Mean 54 Pulse Ox 94 91 Oxygen Delivery Method Nasal Cannula Oxygen Flow Rate (L/min) 4 10/20/21 20:31 10/20/21 21:18 10/20/21 21:48 Temperature Temperature Source Pulse Rate 77 71 Respiratory Rate 18 20 H 11 L Blood Pressure 81/42 L 101/49 L 102/54 L Blood Pressure Mean 55 66 70 Pulse Ox 93 95 94 Oxygen Delivery Method Nasal Cannula Nasal Cannula Nasal Cannula Oxygen Flow Rate (L/min) 4 4 4 10/20/21 22:09 Temperature Temperature Source Pulse Rate 70 Respiratory Rate 10 L Blood Pressure 101/59 L Blood Pressure Mean 73 Pulse Ox Oxygen Delivery Method Nasal Cannula Oxygen Flow Rate (L/min) 5 Weight Weight: 115.6 kg Body Mass Index (BMI) 42.4 Physical Exam Narrative Physical exam: General: Well-nourished, well-developed. Head: Normocephalic, atraumatic, no tenderness Eyes: PERRLA, EOMI ENT, no trauma, moist mucous membranes, no rhinorrhea Neck: Nontender. CVS: Regular rate and rhythm. S1-S2 present. No murmur, gallop or rub. Respiratory : Faint expiratory wheezes. chest wall nontender. Abdomen: Soft, nontender, nondistended, normal bowel sounds, no masses : Deferred Back: Nontender, no CVA tenderness, no midline spinal tenderness, deformities, step-offs Extremities: Nontender . No edema. No cyanosis. Skin: Normal color, no trauma, abrasions Neuro: Obtunded. Psychiatry: Obtunded Results Lab / Micro Data Result Diagrams: 10/20/21 20:10 10/20/21 20:10 Labs: Laboratory Results - last 24 hr 10/20/21 20:08: Lactic Acid 1.1 10/20/21 20:10: WBC 8.5, RBC 3.84 L, Hgb 12.5, Hct 38.0, MCV 99.0, MCH 32.6 H, MCHC 32.9, RDW Std Deviation 46.2 H, RDW Coeff of Willy 12.7, Plt Count 237, MPV 10.7, Immature Gran % (Auto) 0.400, Neut % (Auto) 48.6, Lymph % (Auto) 38.7, [place] % (Auto) 7.7, Eos % (Auto) 3.4, Baso % (Auto) 1.2 H, Absolute Neuts (auto) 4.1, Absolute Lymphs (auto) 3.27, Nucleated RBC % 0 10/20/21 20:10: Sodium 140, Potassium 4.2, Chloride 105, Carbon Dioxide 29.0, Anion Gap 6, BUN 16, Creatinine 1.39 H, Estim Creat Clear Calc 43.09, Est GFR (MDRD) Af Amer 51 L, Est GFR (MDRD) Non-Af 42 L, BUN/Creatinine Ratio 11.5, Glucose 113 H, Calcium 8.4 L, Total Bilirubin 0.20, AST 10 L, ALT 27, Alkaline Phosphatase 53, Troponin I High Sens 17, Total Protein 6.7, Albumin 3.4, Globulin 3.3, Albumin/Globulin Ratio 1.0 10/20/21 20:10: Salicylates 2.3 L, Acetaminophen 5.6 L, Ethyl Alcohol 3.0 10/20/21 20:18: Urine Color Yellow, Urine Clarity Clear, Urine pH 6.0, Ur Specific [place] 1.010, Urine Protein Negative, Urine Glucose (UA) Normal, Urine Ketones 5 H, Urine Occult Blood Negative, Urine Nitrite Negative, Urine Bilirubin Negative, Urine Urobilinogen Normal, Ur Leukocyte Esterase 25 H, Urine RBC 0 SEEN, Urine WBC 0 SEEN, Ur Squamous Epith Cells 0 SEEN, Urine Bacteria 0 SEEN, Urine Mucus 0 SEEN 10/20/21 20:18: Urine Opiates Screen NEGATIVE, Urine Methadone Screen NEGATIVE, Ur Barbiturates Screen POSITIVE H, Ur Phencyclidine Scrn NEGATIVE, Ur Amphetamines Screen NEGATIVE, U Methamphetamin-MDMA NEGATIVE, U Benzodiazepines Scrn NEGATIVE, Urine Cocaine Screen NEGATIVE, U Cannabinoids Screen POSITIVE H, Ur Drug Screen Comment Radiology Impression Brain CT 10/20/21 21:00 IMPRESSION: Negative Brain CT without contrast. Paranasal sinus disease. Electronically Signed: Uri DO Rick at 21:39 EST Tel , Service support , Assessment & Plan Assessment/Plan (1) Encephalopathy acute: PLAN: Acute encephalopathy Etiology unclear. Urine toxicology at emergency department was reviewed. Urine toxicology showed the barbituates and cannabinoids, no substance that patient has been taking. Discussed with ED doctor will get chest x-ray. Will check ABG. Supportive treatment with lactated Ringer's. Wheezes Scheduled DuoNeb ordered. Albuterol as needed. Hypotension Resolve at emergency department. Hold all antihypertensive medication. Trend blood pressures. DVT prophylaxis: Subcu Lovenox ordered Charges/Coding Visit Charges Inpatient E&M: 81410 Init Hosp L3
--- NOTE | 2021-10-20 22:40 | RAD_ITS ---
INDICATION: wheezing EXAMINATION/TECHNIQUE: X-RAY - XR Chest 1 View COMPARISON: 07/03/2021 chest x-ray FINDINGS: LINES/DEVICES: None. LUNGS: Chronic asymmetric elevation right hemidiaphragm. Linear opacity overlying the right hemidiaphragm suggesting atelectasis. This is however new compared to the prior exam. Lungs are otherwise clear. No pleural effusion or pneumothorax. No nodule or mass. MEDIASTINUM AND CARDIOVASCULAR STRUCTURES: Normal size and contour of the cardiomediastinal silhouette. No evidence of pulmonary vascular congestion. BONES AND SOFT TISSUES: No abnormality within limits of the exam. RAD/Chest 1 View (Portable) IMPRESSION: 1. Chronic asymmetric elevation right hemidiaphragm with suspected overlying atelectasis. The atelectasis is new. Electronically Signed: Uri Cabrera DO at 23:10 EST Tel , Service support ,
[2021-10-20 23:25] LABS: Allen Test Positive; Base Excess 2 mmol/L (-2 to +2); Bicarbonate 27.9 mmol/L (22-26); Blood Gas Specimen Type ART; O2 Delivery Device Cannula; PO2 83 mmHG (75-100); SITE R Radial; SO2 95 % (95-99); Total Carbon Dioxide 30 mmol/L; pH 7.31 (7.35-7.45)
--- NOTE | 2021-10-20 23:37 | PCS.PANDOC ---
PANDEMIC DOCUMENTATION INITIATED: Date: 06/26/2021 Time: 190
[2021-10-20] MEDS: Lactated Ringers 1,000 ML 75 ML IV (23:50)
[2021-10-21] VITALS: BP 120/62; PULSE 70; RESP 11; TEMP 36.3; O2SAT 94
[2021-10-21 01:00] VITALS: BP 115/62; PULSE 70; RESP 10; TEMP 36.3; O2SAT 96
[2021-10-21 02:00] VITALS: BP 102/62; PULSE 69; RESP 11; TEMP 36.3; O2SAT 97
[2021-10-21 03:00] VITALS: BP 107/68; PULSE 68; PULSE 69; RESP 11; TEMP 36.5; O2SAT 98
--- NOTE | 2021-10-21 04:20 | NURSING ---
Entered pt's room and she was awake, asking why she was here and when she could go home. Pt was able to state the month and that she was at the hospital. Pt doesn't know what happened last evening but she said went down to the basement to smoke pot with her friend Katlyn around 1830. She doesn't recall anything after that. She states maybe she took too many of her headache pills but she can't remember when she took them last. 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 I didn't realize I took all of them until later in the evening. When asked if she took all her headache pills, she stated, The bottle's empty. Pt states, This is so not like me and said that she was not trying to hurt herself and didn't do it on purpose. Pt expressed that she is stressed about her daughter right now because she is and she won't be able to see her baby since she doesn't speak to her mother. Pt said she just got out of [facility] and doesn't want to go back to a psych facility. Dr. Villegas to bedside to speak with patient. Pt is amendable to MD's plan of waiting until the morning to be sure she is feeling okay before discharging her, although she does want to go home and finish making her [place] cookies.
[2021-10-21 05:00] VITALS: BP 119/52; PULSE 70; RESP 15; TEMP 36.5; O2SAT 96
--- NOTE | 2021-10-21 05:37 | PCM.PN.BLA ---
Progress Note Notified by nursing that patient wanted to leave AGAINST MEDICAL ADVICE. Went to bedside to see patient. Advised patient to wait in the a.m. Since it was only 4 :10am. Later, notified that patient wants nicotine patch. Nicotine patch prescribed. Later, Nurse notified me that patient decided to leave AGAINST MEDICAL ADVICE.
--- NOTE | 2021-10-21 06:12 | NURSING ---
Pt wanted to leave AMA and pulled out one IV and heart monitor, attempted to pull out newman. Second IV and newman removed by this RN. Dr. Villegas notified and he said he would come up to discharge pt. However, pt did not want to wait for him. Pt walked down by staff members to ER to wait on her ride.
--- NOTE | 2021-10-21 06:24 | PCM.DC.SUM ---
Providers Date of Admission: 10/20/21 Primary Care Physician: Dr. Adri Chang DO Reason For Visit: ACUTE ENCPHALOPATHY Diagnosis Discharge Diagnosis (1) Encephalopathy acute: Status: Acute Code(s): G93.40 - Encephalopathy, unspecified Plan: Patient was observed at the hospital. ABG showed a PCO2 of 55. PCO2 was 95. pH was 7.31. DuoNeb espgvf-fnf-dghxl was ordered. She became alert and oriented and is said to leave AMA. Medications at Discharge Home Medications amlodipine 10 mg PO DAILY 12/28/20 fawejjgadu-mfxuswnkyxrtg-ghfp 1 tab PO 4X/DAY PRN 12/28/20 carvedilol 12.5 mg PO DAILY 12/28/20 clonazepam 1 mg PO TID PRN PRN 12/28/20 promethazine 25 mg PO 4X/DAY PRN 12/28/20 Latuda 40 mg PO DAILY 07/03/21 fluoxetine [Prozac] 20 mg PO DAILY 07/03/21 lisinopril 20 mg PO DAILY 07/03/21 divalproex [Depakote] 500 mg PO BID 08/02/21 Hospital Course Summary of Care Provided Hospital Course: Patient be presented because she was unresponsive. Acute encephalopathy Etiology unclear. Urine toxicology at emergency department was reviewed. Urine toxicology showed the barbituates and cannabinoids, no substance that patient has been taking. Discussed with ED doctor will get chest x-ray. Will check ABG. Supportive treatment with lactated Ringer's. Wheezes Scheduled DuoNeb ordered. Albuterol as needed. Hypotension Resolve at emergency department. Hold all antihypertensive medication. Trend blood pressures. DVT prophylaxis: Subcu Lovenox ordered Weight / BMI Weight Weight: 114.6 kg Body Mass Index (BMI) 41.9 ABG / Lab / Microbiology Data Result Diagrams: 10/20/21 20:10 10/20/21 20:10 Laboratory: Laboratory Results - last 24 hr 10/20/21 20:08: Lactic Acid 1.1 10/20/21 20:10: WBC 8.5, RBC 3.84 L, Hgb 12.5, Hct 38.0, MCV 99.0, MCH 32.6 H, MCHC 32.9, RDW Std Deviation 46.2 H, RDW Coeff of Willy 12.7, Plt Count 237, MPV 10.7, Immature Gran % (Auto) 0.400, Neut % (Auto) 48.6, Lymph % (Auto) 38.7, [place] % (Auto) 7.7, Eos % (Auto) 3.4, Baso % (Auto) 1.2 H, Absolute Neuts (auto) 4.1, Absolute Lymphs (auto) 3.27, Nucleated RBC % 0 10/20/21 20:10: Sodium 140, Potassium 4.2, Chloride 105, Carbon Dioxide 29.0, Anion Gap 6, BUN 16, Creatinine 1.39 H, Estim Creat Clear Calc 43.09, Est GFR (MDRD) Af Amer 51 L, Est GFR (MDRD) Non-Af 42 L, BUN/Creatinine Ratio 11.5, Glucose 113 H, Calcium 8.4 L, Total Bilirubin 0.20, AST 10 L, ALT 27, Alkaline Phosphatase 53, Troponin I High Sens 17, Total Protein 6.7, Albumin 3.4, Globulin 3.3, Albumin/Globulin Ratio 1.0 10/20/21 20:10: Salicylates 2.3 L, Acetaminophen 5.6 L, Ethyl Alcohol 3.0 10/20/21 20:18: Urine Color Yellow, Urine Clarity Clear, Urine pH 6.0, Ur Specific [place] 1.010, Urine Protein Negative, Urine Glucose (UA) Normal, Urine Ketones 5 H, Urine Occult Blood Negative, Urine Nitrite Negative, Urine Bilirubin Negative, Urine Urobilinogen Normal, Ur Leukocyte Esterase 25 H, Urine RBC 0 SEEN, Urine WBC 0 SEEN, Ur Squamous Epith Cells 0 SEEN, Urine Bacteria 0 SEEN, Urine Mucus 0 SEEN 10/20/21 20:18: Urine Opiates Screen NEGATIVE, Urine Methadone Screen NEGATIVE, Ur Barbiturates Screen POSITIVE H, Ur Phencyclidine Scrn NEGATIVE, Ur Amphetamines Screen NEGATIVE, U Methamphetamin-MDMA NEGATIVE, U Benzodiazepines Scrn NEGATIVE, Urine Cocaine Screen NEGATIVE, U Cannabinoids Screen POSITIVE H, Ur Drug Screen Comment 10/20/21 22:56: Ammonia 43.0 H ABG: ABG 10/20/21 23:18 Specimen Type ART Sample Site R Radial pH 7.31 L Bicarbonate Actual 27.9 H Total CO2 30 Base Excess 2 O2 Saturation 95 ABG pCO2 55.0 H ABG pO2 83 César Test Positive O2 Delivery Device Cannula Liter Flow 5.0 Radiography Diagnostic Testing: Radiology Impression Brain CT 10/20/21 21:00 IMPRESSION: Negative Brain CT without contrast. Paranasal sinus disease. Electronically Signed: Uri Cabrera DO at 21:39 EST Tel , Service support , Chest X-Ray 10/20/21 22:40 IMPRESSION: 1. Chronic asymmetric elevation right hemidiaphragm with suspected overlying atelectasis. The atelectasis is new. Electronically Signed: Uri Cabrera DO at 23:10 EST Tel , Service support , Meaningful Use Info Meaningful Use Diagnoses (Choose all that apply): None applicable Discharge Plan Admission Admit Date/Time: 10/20/21 22:31 Primary Reason for Your Visit: Acute encephalopathy Attending Provider: Raphael Villegas Primary Care Provider: Adri Chang Discharge Orders/Prescriptions Prescriptions: No Action carvedilol 12.5 MG tablet 12.5 mg PO DAILY RF: 0 clonazepam 1 MG tablet 1 mg PO TID PRN PRN (Reason: Anxiety) RF: 0 uomudqgejm-wqsfjcngayoll-qgrz 1 TABLET tablet 1 tab PO 4X/DAY PRN (Reason: Migraine Headache) RF: 0 amlodipine 10 MG tablet 10 mg PO DAILY RF: 0 promethazine 25 MG tablet 25 mg PO 4X/DAY PRN (Reason: Nausea) RF: 0 lisinopril 20 mg Tablet 20 mg PO DAILY RF: 0 fluoxetine [Prozac] 20 mg Capsule 20 mg PO DAILY RF: 0 Latuda 40 mg Tablet 40 mg PO DAILY RF: 0 divalproex [Depakote] 500 mg Tablet,Delayed Release (Dr/Ec) 500 mg PO BID RF: 0 Referrals / Follow Up: Adri Chang DO [Primary Care Provider] - Disposition Disposition (needs filled in before D/C Order can be placed): Against Medical Advice
--- NOTE | 2021-10-21 23:41 | ED.RN ---
lab called with positive blood culture results. gram + clusters. spoke with Dr. Villegas who was primary doctor. Dr. Villegas made aware of results. Per Doctor concern for false positive and it was contaminated and the results are false. we will wait for the follow up I&D
--- NOTE | 2021-10-22 01:55 | PCM.PN.BLA ---
Progress Note Notified that preliminary blood culture showed gram-positive cocci in clusters in aerobic bottle. Discussed with nurse who reportedly left a message for patient on a voice mail to call back. Anticipate concomitant as patient did not have a fever of white count on presentation. Patient has been discharged home.
== END 2021-10-21 06:00 | disposition left against medical advice (07) | DRG 93 ==
LOC: ED 22:41 → PCU 22:56
PROVIDERS: Admitting Provider Hospitalist; Emergency Provider Emergency Medicine; PCP Internal Medicine; Visit Provider Hospitalist
DX: G92.8 Other toxic encephalopathy (principal); I95.9 Hypotension, unspecified; R06.2 Wheezing
CPT/HCPCS: 36600; 51702; 70450; 71045; 80053; 80307; 80329; 81001; 82077; 82140; 82803; 83605; 84484; 85025; 87040; 87149; 93005; 99285; J7030; J7120; A4216; G0480

== ENCOUNTER 2021-11-15 09:00 | Outpatient (RCR) | payer MEDICARE, MEDICAID, SELFPAY ==
--- NOTE | 2021-11-16 14:00 | BH.SGPN.GN ---
Behaviors/Verbalizations/Mental Status: []Client alert and oriented, casually dressed and groomed. Eye contact good. Motor activity appropriate. Speech within normal limits. Affect congruent, mood anxious and optimistic. Thoughts linear, logical, no signs of hallucinations or delusions. Client Response/Progress/Benefit: []Client responded well to session, checked in using GAPS. Client?s emotion today is ?optimistic? as client will be starting EMDR therapy again. Client stated ?this is a positive and a stressor? because EMDR therapy was what triggered client?s decompensation last year per client?s report. Client has been challenging her anxious thoughts about EMDR by reminding herself that she is more stable, has more skills, and has more support this time. Client shared ?I?m going into it with a more open mind and confidence.? Receptive of discussion on self-talk and its influence in maintaining long-term mental health stability. Contributed to strategies for improving effective creation and application of believable personal affirmations. Client?s affirmational statements were ?I am worthy of engaging in self-care? and ?I have worth and value as an individual.? Client to continue aftercare group to promote gains and further increase application of healthy coping skills. Narrative Note: []
--- NOTE | 2021-11-23 14:00 | BH.SGPN.GN ---
Behaviors/Verbalizations/Mental Status: []Client alert and oriented, casually dressed and groomed. Eye contact good. Motor activity appropriate. Speech within normal limits. Affect full and bright, mood euthymic. Thoughts linear, logical, no signs of hallucinations or delusions. Client Response/Progress/Benefit: [] Pt responded well to session, engaged and remaining attentive and willing to participate in discussion throughout. Reports feeling ?content? today as she has been making more of an effort to care for both her mental and physical health. Discussed regularly attending therapy and medical appointments which is often anxiety provoking and something she avoids. Pt noted feeling this has contributed to increased stability and improvements in her home relationships as well. Pt reports connecting with the topic of routine and structure and it?s importance in ongoing mental health maintenance. Pt engaged in brainstorming of various daily routine ideas. Pt completed task of identifying current routine practices as well as important tasks to begin more regularly implementing into a structured daily routine. Shared plans to begin incorporating regular family dinners into the routine to continue to encourage communication. Pt seemed to benefit from support from peers and learning about benefits of routine. Pt to continue aftercare group to promote ongoing use of healthy coping, continue to promote mood management and self-care, and prevent decompensation. Narrative Note: []
--- NOTE | 2021-12-07 13:48 | BH.TPR ---
Treatment Plan Review Date of Admission:: 09/28/21 Date of Treatment Plan Review:: 12/07/21 Admitting Diagnoses:: 1. Bipolar 1 disorder, most recent episode mixed, severe without psychosis (F 31.63). 2. PTSD. 3. Marijuana use disorder Current Diagnoses:: 1. Bipolar 1 disorder, most recent episode mixed, severe without psychosis (F 31.63). 2. PTSD. 3. Marijuana use disorder Patient's Response to Treatment:: Pt is continuing to respond well to aftercare program AEB pt's consistent attendance, contributions during group discussions, and self-report that she is applying skills learned outside treatment environment. Progress has improved in overall consistency as pt self-reports improvements in skill application, consistent medication use, and willingness to follow-through with small goal setting. Additionally reports improved use of support which has improved pt motivation overall as well. Status of Current Problems and Symptoms: Pt continues to experience mild symptoms of depression, irritability and anxiety per self-report, though has seen further improvements since last review. Pt now consistently reports emotional stability and expresses contentment more than expressing a depressed or irritable mood. Pt attributes improved mood over the past four weeks to increased follow-through with skill application, taking her medications as prescribed, and reaching out to supports rather than shutting down. Client continues to identify and challenge distorted thought patterns, further contributing to improvements in stability. 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 She has expressed anxiety about this and some concern of struggling to prioritize own self-care. Able to identify skills and supports she can continue to utilize at that time. Problem #1 Problem Name:: Pt will maintain or see a reduction in mental health symptoms Status of Goals:: obj 1 ? Complete, ongoing work encouraged. Pt did not complete DSM-5 at time of review, therefore exact score decrease of symptomology is not available. However, pt self-reports reduction in anxiety, depression, and irritability. Reports improved mood stability and use of skills to continue to promote gains. Continues to reports maintaining healthier communication with supports and is proactively reaching out in times of increased stress. obj 2 - Complete with ongoing work encouraged. Client has successfully reported increased consistency in use of healthy coping skills and reaching out to supports. She is able to identify her potential warning signs and triggers, as well as upcoming stressors, and is taking steps to create plans for addressing rather than avoiding or ignoring them. Pt continues to use thought challenging and supports when struggling with negative thought patterns. Reports that poor self-esteem and negative core beliefs are the areas in which she primarily continues to struggle. healthy skills and strategies for challenging negative thoughts, though struggles at times with implementation. Pt has successfully avoided escalating to point of crisis and continues to deny and suicidal ideation since prior to IOP admission. Team Recommendations:: Pt will continue IOP aftercare group in addition to attending regular outpatient counseling in order to continue to promote mood stability, support pt in managing upcoming stressors, and promote further gains.
--- NOTE | 2021-12-07 14:00 | BH.SGPN.GN ---
Behaviors/Verbalizations/Mental Status: []Client alert and oriented, casually dressed. Eye contact good. Motor activity appropriate. Speech within normal limits. Affect congruent, mood euthymic and anxious. Thoughts linear, logical, no signs of hallucinations or delusions. Client Response/Progress/Benefit: []Pt responded well to session AEB providing input during discussion and listening attentively to peers. Pt reported mental health positives as scheduling and following-through with attending various medical appointments, as well as remaining consistent in taking her medications as prescribed. This continues to be progress for pt as she struggles in these areas. Shared current stressor as her ?s upcoming surgery but did well to identify several skills and supports she can utilize to best address this stressor. Pt engaged in discussion about self-love and worked with group to identify strategies to increase self-love. Pt reported she wants to work on self-love by working on challenging herself not to believe the self-hate or negative self-talk messages that pop into her head. Noted plans to replace these with more positive self-talk statements. Pt seemed to benefit from reviewing treatment progress and stressors as well as learning about how to increase self-love. Pt to continue aftercare program to maintain treatment progress, continue use of healthy coping, and prevent decompensation. Narrative Note: []
== END 2021-12-11 23:59 ==
LOC: BHOG 09:00
PROVIDERS: PCP Internal Medicine; Visit Provider Psychiatry & Neurology Psychiatry
DX: F31.63 Bipolar disorder, current episode mixed, severe, without psychotic features (principal); F43.10 Post-traumatic stress disorder, unspecified; F12.10 Cannabis abuse, uncomplicated
CPT/HCPCS: 90853

== ENCOUNTER 2021-12-12 07:40 | Outpatient (RCR) | payer MEDICARE, MEDICAID, SELFPAY ==
--- NOTE | 2021-12-20 14:57 | BH.DS_ITS ---
Discharge Summary - Demographics Date of Admission:: 09/28/21 Discharge Date: 12/20/21 Presenting Problems at Admission:: Client discharged from IOP tx and transitioned to IOP aftercare to maintain gains client made in IOP and to reinforce healthy coping skills. At admission to IOP aftercare, client reported experiencing mild-moderate symptoms of anxiety and depression. Client was reporting ongoing pain management issues as well. Client was also experiencing life stressors relationship stress, finances, and parenting. Discharge Diagnoses:: 1. Bipolar 1 disorder, most recent episode mixed, severe without psychosis (F 31.63). 2. PTSD. 3. Marijuana use disorder Reason for Discharge:: Client has accomplished her tx goals AEB her ability to maintain mood stability and gains made in IOP. Client will transition to traditional outpatient counseling. - Treatment Progress During Treatment & Response: Client was engaged in IOP aftercare as evidenced by client's participation in group discussions and self-report of consistently applying coping skills and ongoing medication compliance. Client's DSM-5 scores were unable to be obtained at discharge due to pt not being in at tendance on last day. At discharge from IOP aftercare, client self-reported that she was experiencing less depression and anxiety. Additionally, client was reporting an improved mood, more positive thinking patterns, improved mood stability, medication compliance, consistent use of healthy coping skills, a better relationship with her supports. Issues Still to be Addressed:: Client can benefit from ongoing outpatient counseling and medication management to promote gains and reinforce healthy coping skills. Client can continue to work on increasing self-confidence, emo tion regulation, and challenging negative self-talk. Client works with her outpatient therapist on processing and coping with trauma. Discharge Recommendations/Instructions:: Client recommended to continue seeing her outpatient therapist, Tiffany Leon, and the counseling center for medication management. Discharge Handout: Complete Discharge Handout with client on aftercare options and continuity of care.
== END 2021-12-21 13:40 | disposition home or self-care (01) ==
LOC: BHOG 07:40
PROVIDERS: PCP Internal Medicine; Visit Provider Psychiatry & Neurology Psychiatry
DX: F31.63 Bipolar disorder, current episode mixed, severe, without psychotic features (principal); F43.10 Post-traumatic stress disorder, unspecified; F12.10 Cannabis abuse, uncomplicated

== ENCOUNTER 2022-01-24 20:26 | Inpatient (IN) | payer MEDICARE, MEDICAID, SELFPAY ==
[2022-01-24 20:26] VITALS: PULSE 77; TEMP 36.1; O2SAT 87; BMI 40.9
--- NOTE | 2022-01-24 20:42 | EKG12_ITS ---
Test Reason : AMS Blood Pressure : / mmHG Vent. Rate : 064 BPM Atrial Rate : 064 BPM P-R Int : 176 ms QRS Dur : 092 ms QT Int : 468 ms P-R-T Axes : 056 019 032 degrees QTc Int : 482 ms Normal sinus rhythm T wave abnormality, consider anterolateral ischemia Prolonged QT Abnormal ECG Reconfirmed by GIGI TORIBIO, DALY ([id number]), purchase request editor JOYCE SHARIF ([id number]) on 01/29/2022 8:54:58 AM Referred By: Confirmed By:ILDEFONSO YU MD
--- NOTE | 2022-01-24 20:43 | EX.ED.DYSGE1 ---
HPI History of Present Illness Chief Complaint: Weakness Narrative Narrative: Within the past couple hours patient is started feeling gradually lightheaded and having multiple near syncopal episodes. She denies any other prodromal symptoms; no shortness of breath, chest discomfort, palpitations, headache. No focal neurologic symptoms. She feels tired. She states earlier today she felt fine. She states that she recently was treated for pneumonia 2 or 3 weeks ago with a Z-Juancarlos and felt like it worked and she recovered fine. She does not have cough right now. She also states that she recently was in an intensive outpatient program for her mental health and she is out of that as well and doing better. She denies any other recent illness in the last several days. She does state that she has a plethora of cardiac problems including a cardiomyopathy and ischemic heart disease. She states she saw cardiology when she was living in [place], but then did not follow-up with them like she should have and since she has been living here has not seen a treasury manager yet. [facility] Medical History Amitriptyline overdose Bipolar 1 disorder, mixed, severe Cardiomyopathy Hypertension Marijuana use Myocardial infarct, old Nicotine dependence PTSD (post-traumatic stress disorder) Syncope Home Medications [id number] 1 tab PO 4X/DAY PRN 12/28/20 [History Last Taken Unknown] carvedilol 12.5 mg PO DAILY 12/28/20 [History Last Taken Unknown] clonazepam 1 mg PO TID PRN PRN 12/28/20 [History Last Taken Unknown] promethazine 25 mg PO 4X/DAY PRN 12/28/20 [History Last Taken Unknown] Latuda 40 mg PO DAILY 07/03/21 [History Last Taken Unknown] fluoxetine [Prozac] 20 mg PO DAILY 07/03/21 [History Last Taken Unknown] lisinopril 20 mg PO DAILY 07/03/21 [History Last Taken Unknown] divalproex [Depakote] 500 mg PO BID 08/02/21 [History Last Taken Unknown] Allergy/AdvReac Type Severity Reaction Status Date / Time No Known Allergies Allergy Verified 01/24/22 20:31 Surgical History History of hysterectomy History of tonsillectomy Hx of cardiac catheterization Social History current occupation: Disabled Smoking Status: Current every day smoker tobacco type: cigarettes alcohol intake: current alcohol intake frequency: other details: Social alcohol use but nothing habitual substance use type: marijuana ROS ROS ED Constitutional Constitutional ED: Reports fatigue and weakness; Denies anorexia, body ache(s), chills or fever(s) Eyes Eyes: Denies change in vision or diplopia ENT ENT ED: Denies rhinorrhea or sore throat Cardiovascular Cardiovascular: Denies chest pain, orthopnea, palpitations, paroxysmal nocturnal dyspnea or pedal edema Respiratory/Chest Respiratory/Chest: Denies cough, dyspnea, orthopnea or paroxysmal nocturnal dyspnea Gastrointestinal Gastrointestinal: Denies abdominal pain, diarrhea, nausea or vomiting Genitourinary Genitourinary ED: Denies dysuria or hematuria Musculoskeletal Musculoskeletal: Denies back pain or neck pain Integumentary Denies abscess or rash Neurologic Neurologic: Denies headache(s), paresthesias or weakness Psychiatric Psychiatric: Denies anxiety or suicidal thoughts EXAM Physical Exam Const Vital Signs: 01/24/22 20:26 01/24/22 20:42 01/24/22 20:46 Temperature 97.0 F L Temperature Source Temporal Pulse Rate 77 67 Respiratory Rate 14 Respiratory Effort Normal Respiratory Pattern Normal Blood Pressure 78/55 L Blood Pressure Mean 62 Pulse Ox 87 95 Oxygen Delivery Method Room Air Nasal Cannula Oxygen Flow Rate (L/min) 3 Fraction of Inspired Oxygen (FIO2) 95 01/24/22 21:51 01/24/22 22:18 01/24/22 22:58 Temperature 97.0 F L Temperature Source Temporal Pulse Rate 62 60 Respiratory Rate 15 13 Respiratory Effort Respiratory Pattern Blood Pressure 87/57 L 102/49 L Blood Pressure Mean 67 66 Pulse Ox 98 97 Oxygen Delivery Method Room Air Nasal Cannula Oxygen Flow Rate (L/min) 3 Fraction of Inspired Oxygen (FIO2) 01/24/22 23:36 01/25/22 00:12 Temperature Temperature Source Pulse Rate 62 70 Respiratory Rate 13 14 Respiratory Effort Respiratory Pattern Blood Pressure 114/47 L 102/60 Blood Pressure Mean 69 74 Pulse Ox 96 92 Oxygen Delivery Method Nasal Cannula Nasal Cannula Oxygen Flow Rate (L/min) 3 3 Fraction of Inspired Oxygen (FIO2) Positive well nourished and well developed General Appearance ED: well developed and NAD HEENT Reports moist mucous membranes normocephalic and atraumatic Eyes PERRL and EOMs intact bilaterally Neck full ROM and supple Resp normal respiratory effort and clear to auscultation bilaterally Cardio regular rate, regular rhythm and no murmurs GI non-tender and non-distended Auscultation: normoactive bowel sounds Palpation: soft Back/Spine no CVA tenderness General Back: other FROM Extremity normal to inspection General Extremety ED: Negative for edema, pulses abnormal or tenderness General Extremity: Negative for edema or pulses abnormal Neuro oriented x3, CN's II-XII intact bilaterally and no sensory deficits noted Neuro Narrative: Lethargic, yet awake without needing stimulation, and slurring her speech a little, but as the patient talks she slurs less. No aphasia or focal neurologic deficit. NIHSS 1 for LOC. Sensorium / Orientation: awake and alert Motor Exam: strength 5/5 throughout Skin no rashes or lesions noted and no wounds MDM MDM MDM Narrative Medical decision making narrative: Patient presents with systolic blood pressure around 60; as I am evaluating her, nurses putting IVs in and putting a liter of IV normal saline on a pressure bag as work-up is begun, and I lied the patient down supine because she was feeling more lightheaded. Pulse is in the 70s and without ectopy. Her hemoglobin came back 6.5. Therefore I did a rectal on her and sent a Hemoccult, discussed pros and cons of blood transfusion and the fact that it is indicated for her while we are discovering why she is anemic, she was agreeable and a blood transfusion with 1 unit of blood with type and cross was ordered. However then the lab stated that this was an error and she was redrawn, her hemoglobin is 12.7 she does not require a transfusion. We canceled it before it was given to the patient. With fluids, her pressure came up to 114/47 after starting the third liter. She is lethargic but alerts easily to voice. There was some delay and diagnostics because of producing urine but when she did, it appears to be infected. Culture sent, Rocephin started, plan is for admission. Of note her cardiac work-up right now is negative with a pre-existing right bundle branch block, and she had an echo last year that showed stage 1 diastolic dysfunction with an EF of 65%, making my suspicion for cardiogenic shock very low. Lab Data Attestation: I reviewed the patient's lab results. Labs: Laboratory Results - last 24 hr 01/24/22 01/24/22 01/24/22 20:55 20:55 20:55 WBC Cancelled Corrected WBC Cancelled RBC Cancelled Hgb Cancelled Hct Cancelled MCV Cancelled MCH Cancelled MCHC Cancelled RDW Std Deviation Cancelled RDW Coeff of Willy Cancelled Plt Count Cancelled MPV Cancelled Immature Gran % (Auto) Cancelled Neut % (Auto) Cancelled Lymph % (Auto) Cancelled [place] % (Auto) Cancelled Eos % (Auto) Cancelled Baso % (Auto) Cancelled Absolute Neuts (auto) Cancelled Absolute Lymphs (auto) Cancelled Total Counted Cancelled Neutrophils % (Manual) Cancelled Band Neutrophils % Cancelled Lymphocytes % (Manual) Cancelled Monocytes % (Manual) Cancelled Eosinophils % (Manual) Cancelled Basophils % (Manual) Cancelled Metamyelocytes % Cancelled Myelocytes % Cancelled Promyelocytes % Cancelled Blast Cells % Cancelled Plasma Cell % (Manual) Cancelled Other Cells % Cancelled Nucleated RBC % Cancelled Nucleated RBCs/100 WBC Cancelled Differential Comment Cancelled Diff Path Review Cancelled Hypersegmented Neuts Cancelled Atypical Lymphocytes Cancelled Reactive Lymphocytes Cancelled Smudge Cells Cancelled Toxic Granulation Cancelled Toxic Vacuolation Cancelled Dohle Bodies Cancelled Carolyn Rods Cancelled Platelet Estimate Cancelled Plt Morphology Comment Cancelled RBC Morphology Cancelled Polychromasia Cancelled Hypochromasia Cancelled Poikilocytosis Cancelled Basophilic Stippling Cancelled Anisocytosis Cancelled Microcytosis Cancelled Macrocytosis Cancelled Spherocytes Cancelled Sickle Cells Cancelled Target Cells Cancelled Tear Drop Cells Cancelled Ovalocytes Cancelled Stomatocytes Cancelled [place] Bodies Cancelled Alona Cells Cancelled Bite Cells Cancelled Crenated Cell Cancelled Acanthocytes (Spur) Cancelled Rouleaux Cancelled Schistocytes Cancelled PT Cancelled INR Cancelled APTT Cancelled Sodium Cancelled Potassium Cancelled Chloride Cancelled Carbon Dioxide Cancelled Anion Gap Cancelled BUN Cancelled Creatinine Cancelled Estim Creat Clear Calc Cancelled Est GFR (MDRD) Af Amer Cancelled Est GFR (MDRD) Non-Af Cancelled BUN/Creatinine Ratio Cancelled Glucose Cancelled Lactic Acid Calcium Cancelled Total Bilirubin Cancelled AST Cancelled ALT Cancelled Alkaline Phosphatase Cancelled Troponin I High Sens Cancelled B-Natriuretic Peptide Total Protein Cancelled Albumin Cancelled Globulin Cancelled Albumin/Globulin Ratio Cancelled Urine Color Urine Clarity Urine pH Ur Specific [place] Urine Protein Urine Glucose (UA) Urine Ketones Urine Occult Blood Urine Nitrite Urine Bilirubin Urine Urobilinogen Ur Leukocyte Esterase Urine RBC Urine WBC Ur Squamous Epith Cells Amorphous Sediment Urine Bacteria Urine Mucus Urine Opiates Screen Urine Methadone Screen Ur Barbiturates Screen Ur Phencyclidine Scrn Ur Amphetamines Screen MDMA (Ecstasy) Screen U Benzodiazepines Scrn Urine Cocaine Screen U Cannabinoids Screen Ur Drug Screen Comment Blood Type Antibody Screen Crossmatch 01/24/22 01/24/22 01/24/22 20:55 20:55 22:15 WBC Corrected WBC RBC Hgb Hct MCV MCH MCHC RDW Std Deviation RDW Coeff of Willy Plt Count MPV Immature Gran % (Auto) Neut % (Auto) Lymph % (Auto) [place] % (Auto) Eos % (Auto) Baso % (Auto) Absolute Neuts (auto) Absolute Lymphs (auto) Total Counted Neutrophils % (Manual) Band Neutrophils % Lymphocytes % (Manual) Monocytes % (Manual) Eosinophils % (Manual) Basophils % (Manual) Metamyelocytes % Myelocytes % Promyelocytes % Blast Cells % Plasma Cell % (Manual) Other Cells % Nucleated RBC % Nucleated RBCs/100 WBC Differential Comment Diff Path Review Hypersegmented Neuts Atypical Lymphocytes Reactive Lymphocytes Smudge Cells Toxic Granulation Toxic Vacuolation Dohle Bodies Carolyn Rods Platelet Estimate Plt Morphology Comment RBC Morphology Polychromasia Hypochromasia Poikilocytosis Basophilic Stippling Anisocytosis Microcytosis Macrocytosis Spherocytes Sickle Cells Target Cells Tear Drop Cells Ovalocytes Stomatocytes [place] Bodies Alona Cells Bite Cells Crenated Cell Acanthocytes (Spur) Rouleaux Schistocytes PT INR APTT Sodium 139 Potassium 3.7 Chloride 105 Carbon Dioxide 28.0 Anion Gap 6 BUN 12 Creatinine 1.01 Estim Creat Clear Calc 59.30 Est GFR (MDRD) Af Amer 74 Est GFR (MDRD) Non-Af 61 BUN/Creatinine Ratio 11.9 Glucose 121 H Lactic Acid Cancelled Calcium 8.5 Total Bilirubin 0.30 AST 14 L ALT 31 Alkaline Phosphatase 49 Troponin I High Sens 13 B-Natriuretic Peptide Cancelled Total Protein 6.5 Albumin 3.3 Globulin 3.2 Albumin/Globulin Ratio 1.0 Urine Color Urine Clarity Urine pH Ur Specific [place] Urine Protein Urine Glucose (UA) Urine Ketones Urine Occult Blood Urine Nitrite Urine Bilirubin Urine Urobilinogen Ur Leukocyte Esterase Urine RBC Urine WBC Ur Squamous Epith Cells Amorphous Sediment Urine Bacteria Urine Mucus Urine Opiates Screen Urine Methadone Screen Ur Barbiturates Screen Ur Phencyclidine Scrn Ur Amphetamines Screen MDMA (Ecstasy) Screen U Benzodiazepines Scrn Urine Cocaine Screen U Cannabinoids Screen Ur Drug Screen Comment Blood Type Antibody Screen Crossmatch 01/24/22 01/24/22 01/24/22 22:15 22:15 22:15 WBC 7.2 Corrected WBC RBC 3.93 L Hgb 12.7 Hct 36.6 L MCV 93.1 MCH 32.3 H MCHC 34.7 RDW Std Deviation 44.9 H RDW Coeff of Willy 13.0 Plt Count 204 MPV 10.2 Immature Gran % (Auto) 1.300 H Neut % (Auto) 59.1 Lymph % (Auto) 28.7 [place] % (Auto) 8.3 Eos % (Auto) 1.8 Baso % (Auto) 0.8 Absolute Neuts (auto) 4.2 Absolute Lymphs (auto) 2.05 Total Counted Neutrophils % (Manual) Band Neutrophils % Lymphocytes % (Manual) Monocytes % (Manual) Eosinophils % (Manual) Basophils % (Manual) Metamyelocytes % Myelocytes % Promyelocytes % Blast Cells % Plasma Cell % (Manual) Other Cells % Nucleated RBC % 0 Nucleated RBCs/100 WBC Differential Comment Diff Path Review Hypersegmented Neuts Atypical Lymphocytes Reactive Lymphocytes Smudge Cells Toxic Granulation Toxic Vacuolation Dohle Bodies Carolyn Rods Platelet Estimate Plt Morphology Comment RBC Morphology Polychromasia Hypochromasia Poikilocytosis Basophilic Stippling Anisocytosis Microcytosis Macrocytosis Spherocytes Sickle Cells Target Cells Tear Drop Cells Ovalocytes Stomatocytes Rin[place] Bodies Alona Cells Bite Cells Crenated Cell Acanthocytes (Spur) Rouleaux Schistocytes PT 13.1 INR 1.1 APTT 26.7 Sodium Potassium Chloride Carbon Dioxide Anion Gap BUN Creatinine Estim Creat Clear Calc Est GFR (MDRD) Af Amer Est GFR (MDRD) Non-Af BUN/Creatinine Ratio Glucose Lactic Acid Calcium Total Bilirubin AST ALT Alkaline Phosphatase Troponin I High Sens B-Natriuretic Peptide 4.8 Total Protein Albumin Globulin Albumin/Globulin Ratio Urine Color Urine Clarity Urine pH Ur Specific [place] Urine Protein Urine Glucose (UA) Urine Ketones Urine Occult Blood Urine Nitrite Urine Bilirubin Urine Urobilinogen Ur Leukocyte Esterase Urine RBC Urine WBC Ur Squamous Epith Cells Amorphous Sediment Urine Bacteria Urine Mucus Urine Opiates Screen Urine Methadone Screen Ur Barbiturates Screen Ur Phencyclidine Scrn Ur Amphetamines Screen MDMA (Ecstasy) Screen U Benzodiazepines Scrn Urine Cocaine Screen U Cannabinoids Screen Ur Drug Screen Comment Blood Type Antibody Screen Crossmatch 01/24/22 01/24/22 01/24/22 22:15 22:15 23:35 WBC Corrected WBC RBC Hgb Hct MCV MCH MCHC RDW Std Deviation RDW Coeff of Willy Plt Count MPV Immature Gran % (Auto) Neut % (Auto) Lymph % (Auto) [place] % (Auto) Eos % (Auto) Baso % (Auto) Absolute Neuts (auto) Absolute Lymphs (auto) Total Counted Neutrophils % (Manual) Band Neutrophils % Lymphocytes % (Manual) Monocytes % (Manual) Eosinophils % (Manual) Basophils % (Manual) Metamyelocytes % Myelocytes % Promyelocytes % Blast Cells % Plasma Cell % (Manual) Other Cells % Nucleated RBC % Nucleated RBCs/100 WBC Differential Comment Diff Path Review Hypersegmented Neuts Atypical Lymphocytes Reactive Lymphocytes Smudge Cells Toxic Granulation Toxic Vacuolation Dohle Bodies Carolyn Rods Platelet Estimate Plt Morphology Comment RBC Morphology Polychromasia Hypochromasia Poikilocytosis Basophilic Stippling Anisocytosis Microcytosis Macrocytosis Spherocytes Sickle Cells Target Cells Tear Drop Cells Ovalocytes Stomatocytes R[place] Bodies Alona Cells Bite Cells Crenated Cell Acanthocytes (Spur) Rouleaux Schistocytes PT INR APTT Sodium Potassium Chloride Carbon Dioxide Anion Gap BUN Creatinine Estim Creat Clear Calc Est GFR (MDRD) Af Amer Est GFR (MDRD) Non-Af BUN/Creatinine Ratio Glucose Lactic Acid 0.3 L Calcium Total Bilirubin AST ALT Alkaline Phosphatase Troponin I High Sens B-Natriuretic Peptide Total Protein Albumin Globulin Albumin/Globulin Ratio Urine Color Yellow Urine Clarity Clear Urine pH 6.5 Ur Specific [place] 1.010 Urine Protein 15 H Urine Glucose (UA) Normal Urine Ketones Negative Urine Occult Blood Negative Urine Nitrite Negative Urine Bilirubin Negative Urine Urobilinogen Normal Ur Leukocyte Esterase 100 H Urine RBC 0 SEEN Urine WBC 10-25 SEEN Ur Squamous Epith Cells 10-25 SEEN Amorphous Sediment 2+ Urine Bacteria 2+ Urine Mucus 0 SEEN Urine Opiates Screen Urine Methadone Screen Ur Barbiturates Screen Ur Phencyclidine Scrn Ur Amphetamines Screen MDMA (Ecstasy) Screen U Benzodiazepines Scrn Urine Cocaine Screen U Cannabinoids Screen Ur Drug Screen Comment Blood Type Cancelled Antibody Screen Cancelled Crossmatch See Detail 01/24/22 23:35 WBC Corrected WBC RBC Hgb Hct MCV MCH MCHC RDW Std Deviation RDW Coeff of Willy Plt Count MPV Immature Gran % (Auto) Neut % (Auto) Lymph % (Auto) [place] % (Auto) Eos % (Auto) Baso % (Auto) Absolute Neuts (auto) Absolute Lymphs (auto) Total Counted Neutrophils % (Manual) Band Neutrophils % Lymphocytes % (Manual) Monocytes % (Manual) Eosinophils % (Manual) Basophils % (Manual) Metamyelocytes % Myelocytes % Promyelocytes % Blast Cells % Plasma Cell % (Manual) Other Cells % Nucleated RBC % Nucleated RBCs/100 WBC Differential Comment Diff Path Review Hypersegmented Neuts Atypical Lymphocytes Reactive Lymphocytes Smudge Cells Toxic Granulation Toxic Vacuolation Dohle Bodies Carolyn Rods Platelet Estimate Plt Morphology Comment RBC Morphology Polychromasia Hypochromasia Poikilocytosis Basophilic Stippling Anisocytosis Microcytosis Macrocytosis Spherocytes Sickle Cells Target Cells Tear Drop Cells Ovalocytes Stomatocytes Rincon-[place] Bodies [place] Cells Bite Cells Crenated Cell Acanthocytes (Spur) Rouleaux Schistocytes PT INR APTT Sodium Potassium Chloride Carbon Dioxide Anion Gap BUN Creatinine Estim Creat Clear Calc Est GFR (MDRD) Af Amer Est GFR (MDRD) Non-Af BUN/Creatinine Ratio Glucose Lactic Acid Calcium Total Bilirubin AST ALT Alkaline Phosphatase Troponin I High Sens B-Natriuretic Peptide Total Protein Albumin Globulin Albumin/Globulin Ratio Urine Color Urine Clarity Urine pH Ur Specific [place] Urine Protein Urine Glucose (UA) Urine Ketones Urine Occult Blood Urine Nitrite Urine Bilirubin Urine Urobilinogen Ur Leukocyte Esterase Urine RBC Urine WBC Ur Squamous Epith Cells Amorphous Sediment Urine Bacteria Urine Mucus Urine Opiates Screen NEGATIVE Urine Methadone Screen NEGATIVE Ur Barbiturates Screen POSITIVE H Ur Phencyclidine Scrn NEGATIVE Ur Amphetamines Screen NEGATIVE MDMA (Ecstasy) Screen NEGATIVE U Benzodiazepines Scrn NEGATIVE Urine Cocaine Screen NEGATIVE U Cannabinoids Screen POSITIVE H Ur Drug Screen Comment Blood Type Antibody Screen Crossmatch Radiography Diagnostic Testing: Clinical Impression(s) from Imaging Studies Chest X-Ray 01/24/22 20:55 IMPRESSION: Elevated right hemidiaphragm and discoid atelectasis at the right base. Electronically Signed: Pradeep Cartwright MD at 21:54 EDT , Rhythm Strip Rhythm Strip: Sinus Rhythm Rate: 72 Ectopy: None EKG Initial EKG: Attestation: I personally reviewed and interpreted this EKG as follows: Interpretation: Sinus Rhythm, No Acute Injury Pattern and Inverted T-Waves (Across precordium and leads I, 2, aVL) Prior EKG tracings: available for review Prior: Changed (Looks the same except T wave inversions in leads I, 2, aVL are new) Discharge Plan Dx/Rx/DC Orders Clinical Impression: Acute hypotension, Near syncope, UTI (urinary tract infection) Disposition Disposition: Acute Care Hospital [facility]
[2022-01-24 20:46] VITALS: BP 78/55; PULSE 67; RESP 14; O2SAT 95
[2022-01-24] MEDS: 0.9% Normal Saline 1,000 ML 999 ML IV ×2 (20:48→21:33)
--- NOTE | 2022-01-24 20:55 | RAD_ITS ---
STUDY: X-RAY CHEST REASON FOR EXAM: Female, 51 years old. weakness, recent pneumonia TECHNIQUE: AP portable COMPARISON: 10/20/2021 FINDINGS: Elevated right hemidiaphragm and discoid atelectasis at the right base.. There is no demonstrated pleural abnormality. Normal size heart. Normal mediastinum and trisha. Normal visualized pulmonary arteries. Normal visualized aortic arch and descending thoracic aorta. Normal visualized thoracic spine. Normal visualized ribs, clavicles, and shoulders. There is no demonstrated abnormality of the visualized soft tissue structures of the upper abdomen. RAD/Chest 1 View (Portable) IMPRESSION: Elevated right hemidiaphragm and discoid atelectasis at the right base. Electronically Signed: Pradeep Cartwright MD at 21:54 EDT ,
[2022-01-24 21:51] VITALS: BP 87/57; PULSE 62; RESP 15; O2SAT 98
[2022-01-24 22:18] VITALS: BP 102/49; PULSE 60; RESP 13; O2SAT 97
[2022-01-24 22:31] LABS: Absolute Lymphocyte Count 2.05 X10^3/uL (0.83-4.51); Absolute Neutrophil Count 4.2 X10^3/uL (2.0-7.7); Basophil# 0.06 X10^3/uL; Basophil% 0.8 % (0-1); Eosinophil# 0.13 X10^3/uL; Eosinophils% 1.8 % (0-5); Hematocrit 36.6 % (37-47); Hemoglobin 12.7 g/dL (12.0-15.0); Lymphocyte # 2.05 X10^3/ul (0.83-4.51); Lymphocyte % 28.7 % (19-41); Mean Corp Hgb Conc 34.7 g/dL (32-36); Mean Corpuscular Hgb 32.3 pg (27.0-32.0); Mean Corpuscular Volume 93.1 fL (81-99); Mean Platelet Vol. 10.2 fl (6.2-12.0); Monocyte# 0.59 X10^3/uL; Monocyte% 8.3 % (0-10); NRBC Flagged by Analyzer 0 % (0-5); Neutrophil # 4.23 X10^3/uL (2.7-7.7); Neutrophil % 59.1 % (47-70); Platelet Count 204 K/mm3 (150-450); RBC Distribution Width SD 44.9 fl (35.1-43.9); Red Blood Count 3.93 M/mm3 (4.2-5.4); White Blood Count 7.2 K/mm3 (4.4-11.0)
[2022-01-24 22:50] LABS: AST(SGOT) 14 U/L (15-37); Alanine Aminotransfer ALT/SGPT 31 U/L (13-56); Albumin, Serum 3.3 g/dL (3.2-5.0); Alkaline Phosphatase 49 U/L (45-117); Anion Gap 6 (5-15); BUN 12 mg/dL (7-18); BUN/Creat Ratio 11.9 RATIO (10-20); Calcium,Total 8.5 mg/dL (8.5-10.1); Chloride 105 mmol/L (98-107); Creatinine, Serum 1.01 mg/dL (0.55-1.02); EST Glomerular Filtration Rate 61 mL/min (>60); Est Glom Filt Rate - Afr Amer 74 mL/min (>60); Globulin 3.2 g/dL (2.2-4.2); Glucose 121 mg/dL (74-106); Potassium 3.7 mmol/L (3.5-5.1); Protein, Total 6.5 g/dL (6.4-8.2); Sodium Level 139 mmol/L (136-145); Troponin-I HS 13 pg/mL (3.0-54.0)
[2022-01-24 22:58] VITALS: TEMP 36.1
[2022-01-24 23:04] LABS: BNP,B-Type NATRIURETIC PEPTIDE 4.8 pg/mL (0-100)
[2022-01-24 23:10] LABS: Lactic Acid 0.3 mmol/L (0.4-1.9)
[2022-01-24 23:36] VITALS: BP 114/47; PULSE 62; RESP 13; O2SAT 96
[2022-01-24 23:46] LABS: Mucous, Urine 0 SEEN /hpf (<or=2+); Red Blood Cells-Urine 0 SEEN /hpf (0-5)
[2022-01-24 23:48] LABS: Color, Urine Yellow (Yellow); Glucose, Dipstick Normal (Normal); Ketone-Dipstick Negative (Negative); Leukocyte Esterase-Dipstick 100 /ul (Negative); Nitrite-Dipstick Negative (Negative); Occult Blood-Urine Negative /ul (Negative); Protein-Dipstick 15 mg/dl (Negative); Urine Bilirubin Dipstick Negative (Negative); Urine Clarity Clear (Clear); Urine Urobilinogen Normal (Normal); Urine pH 6.5 (5.0 - 8.0)
[2022-01-24 23:55] LABS: Amorphous Sediment 2+; Bacteria 2+ /hpf (None Seen); Squamous Epithelial Cells - UA 10-25 SEEN /hpf (5-10); White Blood Cells 10-25 SEEN /hpf (0-5)
[2022-01-25] VITALS (9 sets, daily range): BP systolic 99–144; BP diastolic 52–96; PULSE 58–74; RESP 14–18; TEMP 36.3–36.8; O2SAT 92–100; BMI 39.9
[2022-01-25 00:08] LABS: Amphetamine Urine VISTA NEGATIVE (<1000 ng/mL); Barbiturate Urine VISTA POSITIVE (< 200 ng/mL); Benzodiazepine Urine VISTA NEGATIVE (< 200 ng/mL); Cocaine Urine VISTA NEGATIVE (< 300 ng/mL); Ecstacy Urine VISTA NEGATIVE (< 500 ng/mL); Methadone Urine VISTA NEGATIVE (< 300 ng/mL); PCP Urine VISTA NEGATIVE (< 25 ng/mL); THC Urine VISTA POSITIVE (< 50 ng/mL); Vista UDS pH Range 6
[2022-01-25 00:20] LABS: International Normalized Ratio 1.1; Partial Thromboplast Time 26.7 Seconds (24.1-36.2); Prothrombin Time (Protime)PT. 13.1 SECONDS (11.7-14.9)
--- NOTE | 2022-01-25 00:28 | PCM.HP.STD ---
[facility] - General General Date of Admission: 01/25/22 HPI Narrative SAMANTHA QUIROS, is a 51 F with a significant history of bipolar 1 disorder; PTSD; General anxiety disorder; CAD; PAD; cardiomyopathy; hypertension and diabetes mellitus who presents to the emergency department with 8-week history of persistent near syncope. There is no aggravating or ameliorating factors to her symptoms. Reportedly she had not seen any physician for her presenting symptoms. Emergency department doctor reported that on presentation patient systolic blood pressure was in the 60s. Patient reportedly used to see a senior infrastructure engineer in [place] but she moved away from [place] so she does not see any cardiology at this time. [facility] Medical History Amitriptyline overdose Bipolar 1 disorder, mixed, severe Cardiomyopathy Hypertension Marijuana use Myocardial infarct, old Nicotine dependence PTSD (post-traumatic stress disorder) Syncope Home Medications cctauywale-trlbqcvagcnim-difz 1 tab PO 4X/DAY PRN 12/28/20 [History Last Taken Unknown] carvedilol 12.5 mg PO DAILY 12/28/20 [History Last Taken Unknown] clonazepam 1 mg PO TID PRN PRN 12/28/20 [History Last Taken Unknown] promethazine 25 mg PO 4X/DAY PRN 12/28/20 [History Last Taken Unknown] Latuda 40 mg PO DAILY 07/03/21 [History Last Taken Unknown] fluoxetine [Prozac] 20 mg PO DAILY 07/03/21 [History Last Taken Unknown] lisinopril 20 mg PO DAILY 07/03/21 [History Last Taken Unknown] divalproex [Depakote] 500 mg PO BID 08/02/21 [History Last Taken Unknown] Allergy/AdvReac Type Severity Reaction Status Date / Time No Known Allergies Allergy Verified 01/24/22 20:31 Family History Other Breast cancer Diabetes Heart disease Surgical History History of hysterectomy History of tonsillectomy Hx of cardiac catheterization Social History current occupation: Disabled Smoking Status: Current every day smoker tobacco type: cigarettes alcohol intake: current alcohol intake frequency: other details: Social alcohol use but nothing habitual substance use type: marijuana ROS ROS Narrative Constitutional: Denies fever, chills, fatigue, anorexia and change in weight Eyes: Denies blurry vision, change in eye color, change in vision, discharge from eye(s), double vision, erythema, eye pain, loss of vision or other HEENT: Denies abnormal hearing, dysphagia, ear pain, epistaxis, headache(s), hearing loss, nasal congestion, nasal discharge, post nasal drip, sinus pressure, sore throat or other Cardiovascular: Denies chest pain or palpitations. Denies dyspnea on exertion, orthopnea and paroxysmal nocturnal dyspnea Respiratory/Chest: Denies cough, excessive phlegm production, shortness of breath with exertion and wheezing Gastrointestinal: Denies abdominal pain, coffee ground emesis, constipation, diarrhea, dyspepsia, hematemesis, hematochezia, loose stools, melena, nausea, vomiting or other Genitourinary: Denies burning urination, difficulty urinating, dysuria, hematuria, nocturia, urinary frequency, urinary hesitancy, urinary incontinence, urinary urgency or other Musculoskeletal: Denies arthralgias, back pain, joint pain, joint stiffness, joint swelling, myalgias, neck pain or other Neurologic: Denies abnormal gait, abnormal speech, confusion, disequilibrium, dizziness, focal weakness, headache(s), numbness, paresthesias, seizure-like activity, seizures, tingling, tremor(s) or other Psychiatric: Denies anxiety, depression, homicidal ideation, suicidal ideation or other Endocrinology: Denies change in body appearance, cold intolerance, excessive sweating, heat intolerance, polydipsia, polyuria or other Hematologic/Lymphatic: Denies anemia, easy bleeding, easy bruising, lymphadenopathy or other Integumentary: Denies rashes Allergic/Immunologic: Denies rhinitis, hives, eczema, asthma or other Vital Signs Vital Signs Vital Signs: 01/24/22 20:26 01/24/22 20:42 01/24/22 20:46 Temperature 97.0 F L Temperature Source Temporal Pulse Rate 77 67 Respiratory Rate 14 Respiratory Effort Normal Respiratory Pattern Normal Blood Pressure 78/55 L Blood Pressure Mean 62 Pulse Ox 87 95 Oxygen Delivery Method Room Air Nasal Cannula Oxygen Flow Rate (L/min) 3 Fraction of Inspired Oxygen (FIO2) 95 01/24/22 21:51 01/24/22 22:18 01/24/22 22:58 Temperature 97.0 F L Temperature Source Temporal Pulse Rate 62 60 Respiratory Rate 15 13 Respiratory Effort Respiratory Pattern Blood Pressure 87/57 L 102/49 L Blood Pressure Mean 67 66 Pulse Ox 98 97 Oxygen Delivery Method Room Air Nasal Cannula Oxygen Flow Rate (L/min) 3 Fraction of Inspired Oxygen (FIO2) 01/24/22 23:36 01/25/22 00:12 Temperature Temperature Source Pulse Rate 62 70 Respiratory Rate 13 14 Respiratory Effort Respiratory Pattern Blood Pressure 114/47 L 102/60 Blood Pressure Mean 69 74 Pulse Ox 96 92 Oxygen Delivery Method Nasal Cannula Nasal Cannula Oxygen Flow Rate (L/min) 3 3 Fraction of Inspired Oxygen (FIO2) Weight Weight: 111.584 kg Body Mass Index (BMI) 40.9 Physical Exam Narrative Physical exam: General: Well-nourished, well-developed. Head: Normocephalic, atraumatic, no tenderness Eyes: PERRLA, EOMI ENT, no trauma, moist mucous membranes, no rhinorrhea Neck: Nontender, full range of motion, no spinal tenderness, deformities, step-off CVS: Regular rate and rhythm. S1-S2 present. No murmur, gallop or rub. Respiratory : clear to auscultation bilaterally, chest wall nontender, no wheezing Abdomen: Soft, nontender, nondistended, normal bowel sounds, no masses : Deferred Back: Nontender, no CVA tenderness, no midline spinal tenderness, deformities, step-offs Extremities: Nontender full range of motion, no trauma Skin: Normal color, no trauma, abrasions Neuro: Lethargic, oriented, cranial nerves II through XII grossly intact. Psychiatry: Normal mood. Normal affect. Not depressed. Not anxious. Results Lab / Micro Data Result Diagrams: 01/24/22 22:15 01/24/22 22:15 Labs: Laboratory Results - last 24 hr 01/24/22 20:55: WBC Cancelled, Corrected WBC Cancelled, RBC Cancelled, Hgb Cancelled, Hct Cancelled, MCV Cancelled, MCH Cancelled, MCHC Cancelled, RDW Std Deviation Cancelled, RDW Coeff of Willy Cancelled, Plt Count Cancelled, MPV Cancelled, Immature Gran % (Auto) Cancelled, Neut % (Auto) Cancelled, Lymph % (Auto) Cancelled, Vigo % (Auto) Cancelled, Eos % (Auto) Cancelled, Baso % (Auto) Cancelled, Absolute Neuts (auto) Cancelled, Absolute Lymphs (auto) Cancelled, Total Counted Cancelled, Neutrophils % (Manual) Cancelled, Band Neutrophils % Cancelled, Lymphocytes % (Manual) Cancelled, Monocytes % (Manual) Cancelled, Eosinophils % (Manual) Cancelled, Basophils % (Manual) Cancelled, Metamyelocytes % Cancelled, Myelocytes % Cancelled, Promyelocytes % Cancelled, Blast Cells % Cancelled, Plasma Cell % (Manual) Cancelled, Other Cells % Cancelled, Nucleated RBC % Cancelled, Nucleated RBCs/100 WBC Cancelled, Differential Comment Cancelled, Diff Path Review Cancelled, Hypersegmented Neuts Cancelled, Atypical Lymphocytes Cancelled, Reactive Lymphocytes Cancelled, Smudge Cells Cancelled, Toxic Granulation Cancelled, Toxic Vacuolation Cancelled, Dohle Bodies Cancelled, Carolyn Rods Cancelled, Platelet Estimate Cancelled, Plt Morphology Comment Cancelled, RBC Morphology Cancelled, Polychromasia Cancelled, Hypochromasia Cancelled, Poikilocytosis Cancelled, Basophilic Stippling Cancelled, Anisocytosis Cancelled, Microcytosis Cancelled, Macrocytosis Cancelled, Spherocytes Cancelled, Sickle Cells Cancelled, Target Cells Cancelled, Tear Drop Cells Cancelled, Ovalocytes Cancelled, Stomatocytes Cancelled, [place] Bodies Cancelled, Alona Cells Cancelled, Bite Cells Cancelled, Crenated Cell Cancelled, Acanthocytes (Spur) Cancelled, Rouleaux Cancelled, Schistocytes Cancelled 01/24/22 20:55: PT Cancelled, INR Cancelled, APTT Cancelled 01/24/22 20:55: Sodium Cancelled, Potassium Cancelled, Chloride Cancelled, Carbon Dioxide Cancelled, Anion Gap Cancelled, BUN Cancelled, Creatinine Cancelled, Estim Creat Clear Calc Cancelled, Est GFR (MDRD) Af Amer Cancelled, Est GFR (MDRD) Non-Af Cancelled, BUN/Creatinine Ratio Cancelled, Glucose Cancelled, Calcium Cancelled, Total Bilirubin Cancelled, AST Cancelled, ALT Cancelled, Alkaline Phosphatase Cancelled, Troponin I High Sens Cancelled, Total Protein Cancelled, Albumin Cancelled, Globulin Cancelled, Albumin/Globulin Ratio Cancelled 01/24/22 20:55: Lactic Acid Cancelled 01/24/22 20:55: B-Natriuretic Peptide Cancelled 01/24/22 22:15: Sodium 139, Potassium 3.7, Chloride 105, Carbon Dioxide 28.0, Anion Gap 6, BUN 12, Creatinine 1.01, Estim Creat Clear Calc 59.30, Est GFR (MDRD) Af Amer 74, Est GFR (MDRD) Non-Af 61, BUN/Creatinine Ratio 11.9, Glucose 121 H, Calcium 8.5, Total Bilirubin 0.30, AST 14 L, ALT 31, Alkaline Phosphatase 49, Troponin I High Sens 13, Total Protein 6.5, Albumin 3.3, Globulin 3.2, Albumin/Globulin Ratio 1.0 01/24/22 22:15: WBC 7.2, RBC 3.93 L, Hgb 12.7, Hct 36.6 L, MCV 93.1, MCH 32.3 H, MCHC 34.7, RDW Std Deviation 44.9 H, RDW Coeff of Willy 13.0, Plt Count 204, MPV 10.2, Immature Gran % (Auto) 1.300 H, Neut % (Auto) 59.1, Lymph % (Auto) 28.7, Vigo % (Auto) 8.3, Eos % (Auto) 1.8, Baso % (Auto) 0.8, Absolute Neuts (auto) 4.2, Absolute Lymphs (auto) 2.05, Nucleated RBC % 0 01/24/22 22:15: B-Natriuretic Peptide 4.8 01/24/22 22:15: PT 13.1, INR 1.1, APTT 26.7 01/24/22 22:15: Lactic Acid 0.3 L 01/24/22 22:15: Blood Type Cancelled, Antibody Screen Cancelled, Crossmatch See Detail 01/24/22 23:35: Urine Color Yellow, Urine Clarity Clear, Urine pH 6.5, Ur Specific Clifford 1.010, Urine Protein 15 H, Urine Glucose (UA) Normal, Urine Ketones Negative, Urine Occult Blood Negative, Urine Nitrite Negative, Urine Bilirubin Negative, Urine Urobilinogen Normal, Ur Leukocyte Esterase 100 H, Urine RBC 0 SEEN, Urine WBC 10-25 SEEN, Ur Squamous Epith Cells 10-25 SEEN, Amorphous Sediment 2+, Urine Bacteria 2+, Urine Mucus 0 SEEN 01/24/22 23:35: Urine Opiates Screen NEGATIVE, Urine Methadone Screen NEGATIVE, Ur Barbiturates Screen POSITIVE H, Ur Phencyclidine Scrn NEGATIVE, Ur Amphetamines Screen NEGATIVE, MDMA (Ecstasy) Screen NEGATIVE, U Benzodiazepines Scrn NEGATIVE, Urine Cocaine Screen NEGATIVE, U Cannabinoids Screen POSITIVE H, Ur Drug Screen Comment Micro: Microbiology 01/24/22 22:43 Stool Stool Occult Blood (RYAN) - Final Rhythm Strip Rhythm Strip: Sinus Rhythm Rate: 72 Ectopy: None Radiology Impression Chest X-Ray 01/24/22 20:55 IMPRESSION: Elevated right hemidiaphragm and discoid atelectasis at the right base. Electronically Signed: Pradeep Cartwright MD at 21:54 EDT , Assessment & Plan Assessment/Plan (1) Acute hypotension: (2) Near syncope: (3) Abnormal urinalysis: PLAN: Acute hypotension/near syncope Chest x-ray was visualized and independently interpreted and I agree radiology interpretation of elevation of right diaphragm and right basilar discoid atelectasis. Syncope is likely secondary to hypotension. We will hold all home blood pressure medications. Reportedly she takes lisinopril; Norvasc and coreg at home. Received normal saline bolus at emergency department. We will continue normal saline maintenance infusion upon completion of IV fluids. Chest x-ray in a.m. as lung auscultation showed some rales. Orthostatic vitals per protocol.EKG showed diffuse T wave inversion in multiple leads with new T wave inversions in leads I aVL and to compare to previous EKG. Last echocardiogram on file was on 07/02/2021. Echocardiogram at that time showed ejection fraction of 65% with stage I diastolic dysfunction. Hold all home blood pressure medication including carvedilol and lisinopril. Abnormal urinalysis Urinalysis with leukocyte esterase of 100; urine bacteria of 2+; pyuria of 10-25; however squamous epithelial cells was 10-25. Patient denies any urinary symptoms. She denies fever. Normal white count but with bandemia of 1.3%. With syncope patient was started on ceftriaxone at the emergency department. Ceftriaxone continued. Tobacco abuse Nicotine patch prescribed. Counseled. DVT prophylaxis: Subcutaneous Lovenox ordered. Charges/Coding Visit Charges Inpatient E&M: 53841 Init Hosp L3
[2022-01-25] MEDS: Ceftriaxone 1 GM/50 ML BAG IV (00:40)
[2022-01-25 01:24] LABS: Alcohol, Blood (Medical)-Serum < 3.0 mg/dL
[2022-01-25] MEDS: 0.9% Normal Saline 1,000 ML 100 ML IV (02:59)
[2022-01-25] MEDS: 0.9% Saline Lock 10 ML Syringe IV (03:01)
--- NOTE | 2022-01-25 05:55 | RAD_ITS ---
EXAM: XR CHEST, 1 VIEW : 1970 CLINICAL INDICATION: Rales TECHNIQUE: Frontal view of the chest. This report was created using [employer] report generation technology. COMPARISON: 01/24/2022 FINDINGS: LUNGS AND PLEURAL SPACES: There is minimal atelectasis at the right base. No pneumothorax. No effusion. HEART: Unremarkable. Cardiac silhouette not enlarged. MEDIASTINUM: Central airways and mediastinal contour are unremarkable. BONES/JOINTS: Unremarkable. SOFT TISSUES: Unremarkable. UPPER ABDOMEN: There is mild elevation the right hemidiaphragm. RAD/Chest 1 View (Portable) IMPRESSION: Minimal linear atelectasis at the right lung base. No other abnormalities are identified. at 0934 Reported and signed by: Reed Briggs MD Electronically Signed: Reed Briggs MD at 9:33 EDT ,
--- NOTE | 2022-01-25 05:55 | ECHOD_ITS ---
Reason For Study: SYNCOPE/NEAR SYNCOPE Procedure This was a 2D Doppler, Color Flow transthoracic echocardiogram. Exam performed portable in patient room. Left Ventricle Normal LV size. The estimated ejection fraction is 65 %. Normal diastology for age. No regional wall motion abnormalities noted. Right Ventricle Normal RV size. Normal systolic function. Atria Normal left atrium. Normal right atrium. No doppler evidence for ASD. Mitral Valve There is no mitral valve stenosis. No mitral valve insufficiency. Tricuspid Valve There is no tricuspid stenosis. No tricuspid valve insufficiency. Unable to estimate RV systolic pressure due to inadequate jet, pulmonary artery pressure probably normal. Aortic Valve The aortic valve is not well visualized. There is no aortic stenosis. Trivial aortic valve insufficiency. Pulmonic Valve There is no pulmonic valvular stenosis. No pulmonic valve insufficiency. Great Vessels Normal aortic root. Pericardium/Pleural No pericardial effusion. MMode/2D Measurements & Calculations LVIDd: 5.0 cm IVSd: 0.97 cm Ao root diam: 3.6 cm LVIDs: 3.3 cm LVPWd: 1.1 cm RVDd: 3.1 cm FS: 34.5 % LAV(MOD-bp): 41.1 ml LA A4 area: 12.8 cm2 LA dimension(2D): 3.4 cm LAV(MOD-bp) Indexed: 19.2 ml/m2 LAV(MOD-sp2): 48.2 ml LAV(MOD-sp4): 30.7 ml RA A4 area: 12.4 cm2 Time Measurements MV dec time: 0.22 sec Doppler Measurements & Calculations MV E max joseph: 69.3 cm/sec Lat Peak E' Joseph: 8.8 cm/sec Med Peak E' Joseph: 8.4 cm/sec MV A max joseph: 78.8 cm/sec E/E' lat: 7.8 E/E' med: 8.3 MV E/A: 0.88 Ao V2 max: 135.1 cm/sec AI max joseph: 452.6 cm/sec LV V1 max: 117.5 cm/sec Ao max P.3 mmHg AI max P.0 mmHg LV V1 max P.5 mmHg Ao V2 mean: 93.1 cm/sec AI dec slope: 201.5 cm/sec2 LV V1 mean P.0 mmHg Ao mean P.8 mmHg AI P1/2t: 658.0 msec LV V1 mean: 82.1 cm/sec Ao V2 VTI: 31.2 cm LV V1 VTI: 28.1 cm PA V2 max: 91.3 cm/sec ECHO/Echo Complete Interpretation Summary The estimated ejection fraction is 65 %. Normal diastology for age. Trivial aortic valve insufficiency. Ordering Physician: Nelly^Raphael^^^ Referring Physician: Adri Chang Performed By: Michela Urrutia, MAU, RVT
[2022-01-25 05:58] LABS: Absolute Lymphocyte Count 2.53 X10^3/uL (0.83-4.51); Absolute Neutrophil Count 3.4 X10^3/uL (2.0-7.7); Basophil# 0.08 X10^3/uL; Basophil% 1.2 % (0-1); Eosinophil# 0.15 X10^3/uL; Eosinophils% 2.2 % (0-5); Hematocrit 37.9 % (37-47); Hemoglobin 12.7 g/dL (12.0-15.0); Lymphocyte # 2.53 X10^3/ul (0.83-4.51); Lymphocyte % 37.3 % (19-41); Mean Corp Hgb Conc 33.5 g/dL (32-36); Mean Corpuscular Volume 95.5 fL (81-99); Mean Platelet Vol. 10.5 fl (6.2-12.0); Monocyte# 0.59 X10^3/uL; Monocyte% 8.7 % (0-10); NRBC Flagged by Analyzer 0 % (0-5); Neutrophil # 3.38 X10^3/uL (2.7-7.7); Neutrophil % 49.9 % (47-70); Platelet Count 205 K/mm3 (150-450); RBC Distribution Width CV 13.1 % (11.6-14.6); RBC Distribution Width SD 46.2 fl (35.1-43.9); Red Blood Count 3.97 M/mm3 (4.2-5.4); White Blood Count 6.8 K/mm3 (4.4-11.0)
[2022-01-25 06:26] LABS: Anion Gap 3 (5-15); BUN 12 mg/dL (7-18); BUN/Creat Ratio 16.8 RATIO (10-20); Calcium,Total 7.8 mg/dL (8.5-10.1); Chloride 109 mmol/L (98-107); Creatinine, Serum 0.71 mg/dL (0.55-1.02); EST Glomerular Filtration Rate 92 mL/min (>60); Est Glom Filt Rate - Afr Amer 111 mL/min (>60); Estimated Creatinine Clearance 84.35 ml/min; Glucose 109 mg/dL (74-106); Sodium Level 140 mmol/L (136-145)
[2022-01-25] MEDS: FLUoxetine 20 MG Capsule PO (09:31)
[2022-01-25] MEDS: LURASIDONE HCL 20 MG TABLET 40 MG PO (09:31)
[2022-01-25] MEDS: Enoxaparin 40 MG/0.4 ML Syringe SC (09:32)
[2022-01-25] MEDS: Divalproex Sodium 250 MG Tablet 500 MG PO (09:32)
[2022-01-25] MEDS: Ondansetron 4 MG/2 ML Vial IV (09:53)
[2022-01-25] MEDS: Acetaminophen/Butalbital/Caffe 1 Tablet PO (10:08)
--- NOTE | 2022-01-25 10:14 | PCM.DC ---
Discharge Instructions Diet Discharge Diet: No restrictions Activity Discharge Activity: Return to Normal Activity Weight Bearing Status: Weight bearing as tolerated Dressing / Incision Call your doctor if you observe: Fever of 101 or Higher, Numbness or Tingling, Shortness of breath, Dizziness, Chest pain, Increased palpitations (irregular heartbeat) and Calf discomfort Follow Up Care Please Follow Up With: Primary care provider When: Within the next two weeks. Test Results: Test results from this visit will be discussed in further detail at your follow-up appointment, if applicable. Discharge Plan Admission Admit Date/Time: 01/25/22 00:23 Primary Reason for Your Visit: Near syncope Attending Provider: Jeff Banerjee Primary Care Provider: Adri Chang Instructions Additional Instructions / Restrictions: * Stop taking Norvasc (Amlodipine). * Note the changes that have been made to your prescriptions of Coreg and Lisinopril, below. Discharge Orders/Prescriptions Prescriptions: New carvedilol 3.125 mg tablet 3.125 mg PO DAILY Qty: 30 RF: 0 lisinopril 5 mg tablet 5 mg PO DAILY Qty: 30 RF: 0 Continued clonazepam 1 MG tablet 1 mg PO TID PRN PRN (Reason: Anxiety) RF: 0 svdxwogipb-lvowzvmqmeoee-fppq 1 TABLET tablet 1 tab PO 4X/DAY PRN (Reason: Migraine Headache) RF: 0 promethazine 25 MG tablet 25 mg PO 4X/DAY PRN (Reason: Nausea) RF: 0 fluoxetine [Prozac] 20 mg Capsule 20 mg PO DAILY RF: 0 Latuda 40 mg Tablet 40 mg PO DAILY RF: 0 divalproex [Depakote] 500 mg Tablet,Delayed Release (Dr/Ec) 500 mg PO BID RF: 0 Discontinued carvedilol 12.5 MG tablet 12.5 mg PO DAILY RF: 0 lisinopril 20 mg Tablet 20 mg PO DAILY RF: 0 Referrals / Follow Up: Adri Chang DO [Primary Care Provider] - Within 2 Weeks Disposition Disposition (needs filled in before D/C Order can be placed): Home, Self Care
--- NOTE | 2022-01-25 10:46 | CASEMGMT ---
SKINNY ROMERO assessment: Face to Face with patient for initial transition planning/care coordination assessment. SKINNY ROMERO introduced self and role at [facility], pt voices understanding and consents to assessment. Pt is lying in bed in no distress on 2L nc. Pt is A/Ox4 and answers all questions appropriately. Care providers, pharmacy, and demographics verified/updated. Presentation: Pt c/o sudden onset dizziness, attempted to stand at home w/ dizziness, c/o fatigue Admitting dx: UTI PCP: Charlene Specialists: Loan May cardio; Edilberto, psych at [facility] Insurance: [facility] Prescription Benefit: [facility] Living Will/HPOA: Pt does have HPOA but not LW and is aware that HPOA is not on file at [facility]. Pt states her sister, Wendy Vee, is HPOA. LNOK: Juan Carlos Peterson, ; Wendy Vee, sister/HPOA Living Arrangements: Pt lives with /sons on main level of 2 story home and states no concerns at home. Pt is independent with ADL's. Transportation: Pt drives self rarely but or son drives and states no transportation concerns. DME/HHC: Pt states has the following DME: walker, crutches, and BP cuff. Pt states no need for any further DME. Pt states no hx of HHC or SNF. Pt states no concerns with going home at time of discharge. Pt is on disability. Pt states does smoke pack of cigarettes daily but does not drink ETOH. Pt states no further concerns/needs. CM to follow for any further discharge planning/needs. Advised pt to ask for CM if any further questions/concerns/needs arise, voices understanding. Pt Goal: Home [place]
--- NOTE | 2022-01-25 12:10 | DS.PCM_ITS ---
Documented by User: Rajat PAN 01/25/22 12:24 Providers Date of Admission: 01/25/22 Date of Discharge: 01/25/22 Primary Care Physician: Dr. Adri Chang DO Reason For Visit: UTI Diagnosis Discharge Diagnosis (1) Acute hypotension: Status: Acute Code(s): I95.9 - Hypotension, unspecified (2) Near syncope: Status: Acute Code(s): R55 - Syncope and collapse (3) Abnormal urinalysis: Status: Acute Code(s): R82.90 - Unspecified abnormal findings in urine Medications at Discharge Home Medications wrjurximca-boysejzbqsvxi-eauq 1 tab PO 4X/DAY PRN 12/28/20 clonazepam 1 mg PO TID PRN PRN 12/28/20 promethazine 25 mg PO 4X/DAY PRN 12/28/20 Latuda 40 mg PO DAILY 07/03/21 fluoxetine [Prozac] 20 mg PO DAILY 07/03/21 divalproex [Depakote] 500 mg PO BID 08/02/21 carvedilol 3.125 mg PO DAILY #30 tab 01/25/22 lisinopril 5 mg PO DAILY #30 tab 01/25/22 Hospital Course Procedures 2-D Echocardiogram and Transthoracic echo Summary of Care Provided Minutes Spent on Discharge: 20 Hospital Course: Patient is a 51-year-old female who was admitted to [facility] on the morning of 01/25/2022 for near syncope with orthostatic hypotension. Patient's near syncope and hypotension are believed to be the result of overly aggressive home BP regimen. 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 Echocardiogram was obtained and demonstrated an EF of 65% and was overall normal for age. Patient's home Norvasc was discontinued, Coreg was decreased to 3.125 mg p.o. daily and lisinopril was decreased to 5 mg p.o. daily. Patient was initiated on IV Rocephin for abnormal UA. Antibiotics were not provided on discharge as patient was without urinary complaints and UA did not seem overly concerning for cystitis. Patient is to follow-up with primary care provider within the next 2 weeks and establish cardiology care as soon as possible. Patient seen by Rajat Damon PA-C, under the supervision of Dr. Banerjee. Time spent on patient care: 20 minutes. Physical Exam Narrative Patient is a 51-year-old female comfortably resting in bed, alert and orient x3. Patient denies development of any new symptoms overnight. Does not appear in acute distress. Const alert, oriented x3 and no apparent distress HEENT normocephalic, head/scalp atraumatic and hearing grossly normal bilaterally Eyes PERRL and conjunctivae normal Neck no lymphadenopathy and no JVD Resp normal respiratory effort, no retractions and no use of accessory muscles Cardio regular rate, regular rhythm and no JVD GI normal to inspection, nondistended, normoactive bowel sounds Extremity normal to inspection, full ROM and no clubbing, cyanosis or edema Skin no rashes or lesions noted Neuro CN's II-XII intact bilaterally Psych affect normal Weight / BMI Weight Weight: 240 lb 4.862 oz Body Mass Index (BMI) 39.9 ABG / Lab / Microbiology Data Result Diagrams: 01/25/22 05:09 01/25/22 05:09 Laboratory: Laboratory Results - last 24 hr 01/24/22 20:55: WBC Cancelled, Corrected WBC Cancelled, RBC Cancelled, Hgb Cancelled, Hct Cancelled, MCV Cancelled, MCH Cancelled, MCHC Cancelled, RDW Std Deviation Cancelled, RDW Coeff of Willy Cancelled, Plt Count Cancelled, MPV Cancelled, Immature Gran % (Auto) Cancelled, Neut % (Auto) Cancelled, Lymph % (Auto) Cancelled, [place] % (Auto) Cancelled, Eos % (Auto) Cancelled, Baso % (Auto) Cancelled, Absolute Neuts (auto) Cancelled, Absolute Lymphs (auto) Cancelled, Total Counted Cancelled, Neutrophils % (Manual) Cancelled, Band Neutrophils % Cancelled, Lymphocytes % (Manual) Cancelled, Monocytes % (Manual) Cancelled, Eosinophils % (Manual) Cancelled, Basophils % (Manual) Cancelled, Metamyelocytes % Cancelled, Myelocytes % Cancelled, Promyelocytes % Cancelled, Blast Cells % Cancelled, Plasma Cell % (Manual) Cancelled, Other Cells % Cancelled, Nucleated RBC % Cancelled, Nucleated RBCs/100 WBC Cancelled, Differential Comment Cancelled, Diff Path Review Cancelled, Hypersegmented Neuts Cancelled, Atypical Lymphocytes Cancelled, Reactive Lymphocytes Cancelled, Smudge Cells Cancelled, Toxic Granulation Cancelled, Toxic Vacuolation Cancelled, Dohle Bodies Cancelled, Carolyn Rods Cancelled, Platelet Estimate Cancelled, Plt Morphology Comment Cancelled, RBC Morphology Cancelled, Polychromasia Cancelled, Hypochromasia Cancelled, Poikilocytosis Cancelled, Basophilic Stippling Cancelled, Anisocytosis Cancelled, Microcytosis Cancelled, Macrocytosis Cancelled, Spherocytes Cancelled, Sickle Cells Cancelled, Target Cells Cancelled, Tear Drop Cells Cancelled, Ovalocytes Cancelled, Stomatocytes Cancelled, [place] Bodies Cancelled, Alona Cells Cancelled, Bite Cells Can celled, Crenated Cell Cancelled, Acanthocytes (Spur) Cancelled, Rouleaux Cancelled, Schistocytes Cancelled 01/24/22 20:55: PT Cancelled, INR Cancelled, APTT Cancelled 01/24/22 20:55: Sodium Cancelled, Potassium Cancelled, Chloride Cancelled, Carbon Dioxide Cancelled, Anion Gap Cancelled, BUN Cancelled, Creatinine Cancelled, Estim Creat Clear Calc Cancelled, Est GFR (MDRD) Af Amer Cancelled, Est GFR (MDRD) Non-Af Cancelled, BUN/Creatinine Ratio Cancelled, Glucose Cancelled, Calcium Cancelled, Total Bilirubin Cancelled, AST Cancelled, ALT Cancelled, Alkaline Phosphatase Cancelled, Troponin I High Sens Cancelled, Total Protein Cancelled, Albumin Cancelled, Globulin Cancelled, Albumin/Globulin Ratio Cancelled 01/24/22 20:55: Lactic Acid Cancelled 01/24/22 20:55: B-Natriuretic Peptide Cancelled 01/24/22 22:15: Sodium 139, Potassium 3.7, Chloride 105, Carbon Dioxide 28.0, Anion Gap 6, BUN 12, Creatinine 1.01, Estim Creat Clear Calc 59.30, Est GFR (MDRD) Af Amer 74, Est GFR (MDRD) Non-Af 61, BUN/Creatinine Ratio 11.9, Glucose 121 H, Calcium 8.5, Total Bilirubin 0.30, AST 14 L, ALT 31, Alkaline Phosphatase 49, Troponin I High Sens 13, Total Protein 6.5, Albumin 3.3, Globulin 3.2, Albumin/Globulin Ratio 1.0 01/24/22 22:15: WBC 7.2, RBC 3.93 L, Hgb 12.7, Hct 36.6 L, MCV 93.1, MCH 32.3 H, MCHC 34.7, RDW Std Deviation 44.9 H, RDW Coeff of Willy 13.0, Plt Count 204, MPV 10.2, Immature Gran % (Auto) 1.300 H, Neut % (Auto) 59.1, Lymph % (Auto) 28.7, [place] % (Auto) 8.3, Eos % (Auto) 1.8, Baso % (Auto) 0.8, Absolute Neuts (auto) 4.2, Absolute Lymphs (auto) 2.05, Nucleated RBC % 0 01/24/22 22:15: B-Natriuretic Peptide 4.8 01/24/22 22:15: PT 13.1, INR 1.1, APTT 26.7 01/24/22 22:15: Lactic Acid 0.3 L 01/24/22 22:15: Blood Type Cancelled, Antibody Screen Cancelled, Crossmatch See Detail 01/24/22 23:35: Urine Color Yellow, Urine Clarity Clear, Urine pH 6.5, Ur Specific Uriah 1.010, Urine Protein 15 H, Urine Glucose (UA) Normal, Urine Ketones Negative, Urine Occult Blood Negative, Urine Nitrite Negative, Urine Bilirubin Negative, Urine Urobilinogen Normal, Ur Leukocyte Esterase 100 H, Urine RBC 0 SEEN, Urine WBC 10-25 SEEN, Ur Squamous Epith Cells 10-25 SEEN, Amorphous Sediment 2+, Urine Bacteria 2+, Urine Mucus 0 SEEN 01/24/22 23:35: Urine Opiates Screen NEGATIVE, Urine Methadone Screen NEGATIVE, Ur Barbiturates Screen POSITIVE H, Ur Phencyclidine Scrn NEGATIVE, Ur Amphetamines Screen NEGATIVE, MDMA (Ecstasy) Screen NEGATIVE, U Benzodiazepines Scrn NEGATIVE, Urine Cocaine Screen NEGATIVE, U Cannabinoids Screen POSITIVE H, Ur Drug Screen Comment 01/25/22 00:44: Ethyl Alcohol < 3.0 01/25/22 05:09: WBC 6.8, RBC 3.97 L, Hgb 12.7, Hct 37.9, MCV 95.5, MCH 32.0, MCHC 33.5, RDW Std Deviation 46.2 H, RDW Coeff of Willy 13.1, Plt Count 205, MPV 10.5, Immature Gran % (Auto) 0.700, Neut % (Auto) 49.9, Lymph % (Auto) 37.3, [place] % (Auto) 8.7, Eos % (Auto) 2.2, Baso % (Auto) 1.2 H, Absolute Neuts (auto) 3.4, Absolute Lymphs (auto) 2.53, Nucleated RBC % 0 01/25/22 05:09: Sodium 140, Potassium 4.0, Chloride 109 H, Carbon Dioxide 28.0, Anion Gap 3 L, BUN 12, Creatinine 0.71, Estim Creat Clear Calc 84.35, Est GFR (MDRD) Af Amer 111, Est GFR (MDRD) Non-Af 92, BUN/Creatinine Ratio 16.8, Glucose 109 H, Calcium 7.8 L Microbiology: Microbiology 01/24/22 22:43 Stool Stool Occult Blood (RYAN) - Final Radiography Diagnostic Testing: Radiology Impression Chest X-Ray 01/24/22 20:55 IMPRESSION: Elevated right hemidiaphragm and discoid atelectasis at the right base. Electronically Signed: Pradeep Cartwright MD at 21:54 EDT , Chest X-Ray 01/25/22 05:55 IMPRESSION: Minimal linear atelectasis at the right lung base. No other abnormalities are identified. at 0934 Reported and signed by: Reed Briggs MD Electronically Signed: Reed Briggs MD at 9:33 EDT , Echocardiogram 01/25/22 05:55 Interpretation Summary The estimated ejection fraction is 65 %. Normal diastology for age. Trivial aortic valve insufficiency. Ordering Physician: Izzy^^^ Referring Physician: Adri Chang Performed By: Michela Urrutia RDCS, RVT D/C Instructions Discharge Diet: No restrictions Weight Bearing Status: Weight bearing as tolerated Call your doctor if you observe: Fever of 101 or Higher, Numbness or Tingling, Shortness of breath, Dizziness, Chest pain, Increased palpitations (irregular heartbeat) and Calf discomfort Please Follow Up With: Primary care provider When: Within the next two weeks. Meaningful Use Info Meaningful Use Diagnoses (Choose all that apply): None applicable Discharge Plan Admission Admit Date/Time: 01/25/22 00:23 Primary Reason for Your Visit: Near syncope Attending Provider: Jeff Banerjee Primary Care Provider: Adri Chang Instructions Additional Instructions / Restrictions: * Stop taking Norvasc (Amlodipine). * Note the changes that have been made to your prescriptions of Coreg and Lisinopril, below. Discharge Orders/Prescriptions Prescriptions: New carvedilol 3.125 mg tablet 3.125 mg PO DAILY Qty: 30 RF: 0 lisinopril 5 mg tablet 5 mg PO DAILY Qty: 30 RF: 0 Continued clonazepam 1 MG tablet 1 mg PO TID PRN PRN (Reason: Anxiety) RF: 0 ebcefnpslq-biuanbezttmcg-mycz 1 TABLET tablet 1 tab PO 4X/DAY PRN (Reason: Migraine Headache) RF: 0 promethazine 25 MG tablet 25 mg PO 4X/DAY PRN (Reason: Nausea) RF: 0 fluoxetine [Prozac] 20 mg Capsule 20 mg PO DAILY RF: 0 Latuda 40 mg Tablet 40 mg PO DAILY RF: 0 divalproex [Depakote] 500 mg Tablet,Delayed Release (Dr/Ec) 500 mg PO BID RF: 0 Discontinued carvedilol 12.5 MG tablet 12.5 mg PO DAILY RF: 0 lisinopril 20 mg Tablet 20 mg PO DAILY RF: 0 Referrals / Follow Up: Adri Chang DO [Primary Care Provider] - Within 2 Weeks Disposition Disposition (needs filled in before D/C Order can be placed): Home, Self Care Documented by User: Dr. Jeff Banerjee DO 01/25/22 14:26 Providers Date of Admission: 01/25/22 Reason For Visit: UTI Medications at Discharge Home Medications hskxqofkrp-uptsfdcgzqlgv-pxzk 1 tab PO 4X/DAY PRN 12/28/20 clonazepam 1 mg PO TID PRN PRN 12/28/20 promethazine 25 mg PO 4X/DAY PRN 12/28/20 Latuda 40 mg PO DAILY 07/03/21 fluoxetine [Prozac] 20 mg PO DAILY 07/03/21 divalproex [Depakote] 500 mg PO BID 08/02/21 carvedilol 3.125 mg PO DAILY #30 tab 01/25/22 lisinopril 5 mg PO DAILY #30 tab 01/25/22 Hospital Course Operations None Procedures 2-D Echocardiogram Summary of Care Provided Minutes Spent on Discharge: 25 Hospital Course: This is a 51-year-old female presents with near syncope. Patient was noted be hypotensive. Patient is on Norvasc, carvedilol and lisinopril. Patient did receive IV fluids and orthostatics were subsequently negative. [place] that her near syncope was related with hypotension. Patient was instructed to discontinue Norvasc as well as cut back her carvedilol and lisinopril. 2D echocardiogram was unremarkable. Patient did have an abnormal urinalysis but not second for urinary tract infection therefore urinary tract infection was ruled out. ABG / Lab / Microbiology Data Result Diagrams: 01/25/22 05:09 01/25/22 05:09 Discharge Plan Admission Admit Date/Time: 01/25/22 00:23 Primary Reason for Your Visit: Near syncope Attending Provider: Jeff Banerjee Primary Care Provider: Adri Chang Instructions Additional Instructions / Restrictions: * Stop taking Norvasc (Amlodipine). * Note the changes that have been made to your prescriptions of Coreg and Lisinopril, below. Discharge Orders/Prescriptions Prescriptions: New carvedilol 3.125 mg tablet 3.125 mg PO DAILY Qty: 30 RF: 0 lisinopril 5 mg tablet 5 mg PO DAILY Qty: 30 RF: 0 Continued clonazepam 1 MG tablet 1 mg PO TID PRN PRN (Reason: Anxiety) RF: 0 xtxmsagevs-axcxuqnearwns-snoy 1 TABLET tablet 1 tab PO 4X/DAY PRN (Reason: Migraine Headache) RF: 0 promethazine 25 MG tablet 25 mg PO 4X/DAY PRN (Reason: Nausea) RF: 0 fluoxetine [Prozac] 20 mg Capsule 20 mg PO DAILY RF: 0 Latuda 40 mg Tablet 40 mg PO DAILY RF: 0 divalproex [Depakote] 500 mg Tablet,Delayed Release (Dr/Ec) 500 mg PO BID RF: 0 Discontinued carvedilol 12.5 MG tablet 12.5 mg PO DAILY RF: 0 lisinopril 20 mg Tablet 20 mg PO DAILY RF: 0 Referrals / Follow Up: Adri Chang DO [Primary Care Provider] - Within 2 Weeks Disposition Disposition (needs filled in before D/C Order can be placed): Home, Self Care Charges/Coding Visit Charges OBSV E&M: 08781 Observation care discharge (Discharge same day. I am using this code, but should be a [id number])
== END 2022-01-25 12:59 | disposition home or self-care (01) | DRG 312 ==
LOC: ED 23:27 → PCU 01-25 03:18
PROVIDERS: Admitting Provider Hospitalist; Emergency Provider Emergency Medicine; PCP Internal Medicine
DX: I95.1 Orthostatic hypotension (principal); I42.9 Cardiomyopathy, unspecified; N39.0 Urinary tract infection, site not specified; E11.9 Type 2 diabetes mellitus without complications; F31.9 Bipolar disorder, unspecified; D72.825 Bandemia; F17.210 Nicotine dependence, cigarettes, uncomplicated; I25.10 Atherosclerotic heart disease of native coronary artery without angina pectoris; I10 Essential (primary) hypertension; I25.2 Old myocardial infarction; R82.90 Unspecified abnormal findings in urine; Z79.899 Other long term (current) drug therapy; Z87.01 Personal history of pneumonia (recurrent)
CPT/HCPCS: 36415; 71045; 80048; 80053; 80307; 81001; 82077; 82274; 83605; 83880; 84484; 85025; 85610; 85730; 87040; 87086; 87088; 93005; 93306; 99285; 99406; J7030; A4216; J2405

== ENCOUNTER 2022-04-08 18:34 | Emergency (ER) | payer MEDICARE, MEDICAID, SELFPAY ==
[2022-04-08] VITALS (7 sets, daily range): BP systolic 80–102; BP diastolic 37–82; PULSE 59–72; RESP 13–23; TEMP 36.8; O2SAT 89–97; BMI 39.1
[2022-04-08 18:41] LABS: Bedside Glucose 115 mg/dL (74-106)
--- NOTE | 2022-04-08 18:48 | NURSING ---
pt alert and oriented x4 at this time. Per pt confusion comes and goes.
--- NOTE | 2022-04-08 19:02 | EKG12_ITS ---
Test Reason : CP Blood Pressure : / mmHG Vent. Rate : 072 BPM Atrial Rate : 072 BPM P-R Int : 168 ms QRS Dur : 076 ms QT Int : 408 ms P-R-T Axes : 065 030 034 degrees QTc Int : 446 ms Normal sinus rhythm ST & T wave abnormality, consider anterior ischemia Abnormal ECG Confirmed by EVY TORIBIO, FABRICE ([id number]), desk editor YOEL HULL ([id number]) on 04/10/2022 1:18:22 PM Referred By: Confirmed By:FABRICE RATLIFF MD
--- NOTE | 2022-04-08 19:02 | CT_ITS ---
STUDY: CT BRAIN WITHOUT CONTRAST REASON FOR EXAM: Female, 52 years old. headache, near-syncope, left sided pain RADIATION DOSAGE (If Supplied By Facility): CTDIvol = ( 44.99 ) mGy, DLP = ( 846.73 ) mGycm TECHNIQUE: Transaxial CT imaging of the brain was performed without administration of intravenous contrast material. Individualized dose optimization techniques were used for this CT. COMPARISON: No relevant priors. FINDINGS: Normal soft tissue structures. Normal calvarium. Normal size ventricles and extra-axial spaces for the patient''s age. Normal white matter tracts of the cerebral hemispheres. Normal basal ganglia and thalami. Normal brainstem. Normal cerebellum. There is no intracranial hemorrhage. There are no findings of an acute ischemic infarction. Polyp or retention cyst inferior left maxillary sinus 1.2 cm transverse. Mild circumferential mucosal thickening inferior maxillary sinuses bilaterally. Anterior left maxillary sinus further superiorly demonstrates a 1.3 cm mucous retention cyst or polyp. Moderate bilateral ethmoidal mucosal thickening. CT/Brain/Head without Contrast IMPRESSION: Brain normal. Paranasal sinus disease detailed above.. Electronically Signed: Sean Calzada MD, GAMALIEL at 20:31 EDT ,
--- NOTE | 2022-04-08 19:05 | EDS_ITS ---
HPI History of Present Illness Chief Complaint: Alt LOC Informant: patient and spouse/S.O. Narrative Narrative: Patient had a near syncopal episode while in the car just prior to arrival, her brought her and was driving. She states this was associated with a headache, left-sided chest pain, rapid palpitations, and pain throughout the left side including her arm, leg, and abdomen. All of this is happened before with episodes of SVT except maybe the headache, she is not sure. She gets hypotensive, heart rate goes up to the 250-300 range, she has been seen by cardiology and EP in the [facility], and is going this week to get scheduled for an ablation. This time it took her longer to come around, although now she is more alert and acting more herself according to and herself. No recent illness although she was laying on the couch most of the day and just feeling malaised. States she has eaten today and drink some fluids but not a lot. No trouble urinating. Other than feeling a little malaise, she is feeling better with regards to all of the symptoms. No longer has the headache, chest pain, palpitations and her heart rate is normal in the 70s, no more abdominal discomfort, and no pain in the left arm or leg. [facility] Medical History (Updated 04/08/22 @ 22:[address] Mansoor Givens MD) Amitriptyline overdose Bipolar 1 disorder, mixed, severe Cardiomyopathy Hypertension Marijuana use Myocardial infarct, old Near syncope Nicotine dependence PTSD (post-traumatic stress disorder) SVT (supraventricular tachycardia) Syncope Home Medications pdicltbblz-lyvsvurjhheus-bquy 1 tab PO 4X/DAY PRN 12/28/20 [History Last Taken Unknown] clonazepam 1 mg PO BID PRN PRN 12/28/20 [History Last Taken Unknown] promethazine 25 mg PO 4X/DAY PRN 12/28/20 [History Last Taken Unknown] Latuda 60 mg PO DAILY 07/03/21 [History Last Taken Unknown] amlodipine 10 mg PO DAILY 04/08/22 [History Last Taken Unknown] benztropine 1 mg PO BID 04/08/22 [History Last Taken Unknown] carvedilol 12.5 mg PO BID 04/08/22 [History Last Taken Unknown] divalproex 500 mg PO BID 04/08/22 [History Last Taken Unknown] lisinopril 20 mg PO DAILY 04/08/22 [History Last Taken Unknown] Allergy/AdvReac Type Severity Reaction Status Date / Time No Known Allergies Allergy Verified 01/24/22 20:31 Family History Other Breast cancer Diabetes Heart disease Surgical History History of hysterectomy History of tonsillectomy Hx of cardiac catheterization Social History current occupation: Disabled Smoking Status: Current every day smoker tobacco type: cigarettes alcohol intake: current alcohol intake frequency: other details: Social alcohol use but nothing habitual substance use type: marijuana ROS ROS ED Constitutional Constitutional ED: Denies chills or fever(s) Eyes Eyes: Denies change in vision or diplopia ENT ENT ED: Denies rhinorrhea or sore throat Cardiovascular Cardiovascular: Reports as per HPI, chest pain, lightheadedness, palpitations and racing heartbeat Respiratory/Chest Respiratory/Chest: Denies cough or dyspnea Gastrointestinal Gastrointestinal: Reports abdominal pain and nausea; Denies diarrhea or vomiting Genitourinary Genitourinary ED: Denies dysuria or hematuria Musculoskeletal Musculoskeletal: Denies back pain or neck pain Integumentary Denies abscess or rash Neurologic Neurologic: Reports headache(s); Denies paresthesias or weakness Psychiatric Psychiatric: Denies anxiety or suicidal thoughts EXAM Physical Exam Const Vital Signs: 04/08/22 18:35 04/08/22 18:40 04/08/22 18:45 Temperature 98.2 F Temperature Source Oral Pulse Rate 72 72 Respiratory Rate 23 H 19 H Respiratory Effort Normal Respiratory Pattern Normal Blood Pressure 94/82 H 80/53 L Blood Pressure Mean 86 62 Pulse Ox 94 95 Oxygen Delivery Method Room Air Room Air 04/08/22 19:13 04/08/22 19:48 04/08/22 19:59 Temperature Temperature Source Pulse Rate 68 67 Respiratory Rate 20 H 15 Respiratory Effort Respiratory Pattern Blood Pressure 94/37 L 102/63 Blood Pressure Mean 56 76 Pulse Ox 89 97 Oxygen Delivery Method Room Air Room Air Room Air 04/08/22 21:00 04/08/22 22:00 04/08/22 22:38 Temperature Temperature Source Pulse Rate 59 L 63 63 Respiratory Rate 13 15 15 Respiratory Effort Respiratory Pattern Blood Pressure 97/56 L 100/60 100/60 Blood Pressure Mean 69 73 Pulse Ox 92 94 95 Oxygen Delivery Method Room Air Room Air Positive well nourished, well developed and obese General Appearance ED: well developed and NAD Nutritional Appearance: obese HEENT Reports moist mucous membranes normocephalic and atraumatic Eyes PERRL and EOMs intact bilaterally Neck full ROM and supple Resp normal respiratory effort and clear to auscultation bilaterally Cardio regular rate, regular rhythm and no murmurs Rate: Negative for bradycardia or tachycardic GI non-tender and non-distended Auscultation: normoactive bowel sounds Palpation: soft Back/Spine no CVA tenderness General Back: other FROM Extremity normal to inspection General Extremety ED: Negative for edema, pulses abnormal or tenderness General Extremity: Negative for edema or pulses abnormal Neuro oriented x3, CN's II-XII intact bilaterally, no focal motor deficits and no sensory deficits noted [place] Coma Scale: document GCS findings Spontaneous Obeys Commands Oriented 15 Sensorium / Orientation: awake and alert Motor Exam: strength 5/5 throughout Skin no rashes or lesions noted and no wounds MDM MDM MDM Narrative Medical decision making narrative: Patient was given IV fluids and her pressure came up to 100. Her EKG shows no acute injury and is unchanged with her prior, initial troponin is slightly elevated at 87, she remained asymptomatic with regards to her chest. We observed her for 2 hours while she was getting fluids and repeated the troponin and went down to 84. I suspect this was related to her palpitations and probable dysrhythmia prior to arrival, she has had multiple episodes like this in the past, she feels much better. She wants to go home. We got her out of bed and stood her up, and did some orthostatics and they were normal she did not feel dizzy, and she was feeling much better. She is planning on following up with her learning solutions specialist anyway regarding her ablation that is to be scheduled shortly. I did a urinalysis and a chest x-ray to ensure no signs of infection or source of sepsis, they were negative and she is discharged home with instructions to return. Lab Data Attestation: I reviewed the patient's lab results. Labs: Laboratory Results - last 24 hr 04/08/22 04/08/2222 18:33 18:33 18:36 WBC 12.2 H RBC 4.40 Hgb 14.4 Hct 42.6 MCV 96.8 MCH 32.7 H MCHC 33.8 RDW Std Deviation 44.8 H RDW Coeff of Willy 12.5 Plt Count 301 MPV 11.5 Immature Gran % (Auto) 0.400 Neut % (Auto) 62.5 Lymph % (Auto) 29.7 [place] % (Auto) 4.3 Eos % (Auto) 2.0 Baso % (Auto) 1.1 H Absolute Neuts (auto) 7.6 Absolute Lymphs (auto) 3.62 Nucleated RBC % 0 Sodium 142 Potassium 4.3 Chloride 107 Carbon Dioxide 27.0 Anion Gap 8 BUN 12 Creatinine 1.05 H Estim Creat Clear Calc 56.40 Est GFR (MDRD) Af Amer 71 Est GFR (MDRD) Non-Af 59 L BUN/Creatinine Ratio 11.4 Glucose 104 Lactic Acid Calcium 9.3 Troponin I High Sens 87 H Urine Color Urine Clarity Urine pH Ur Specific [place] Urine Protein Urine Glucose (UA) Urine Ketones Urine Occult Blood Urine Nitrite Urine Bilirubin Urine Urobilinogen Ur Leukocyte Esterase Urine RBC Urine WBC Ur Squamous Epith Cells Urine Bacteria Urine Mucus POC Glucose 115 H 04/08/22 04/08/22 04/08/22 19:24 19:30 21:00 WBC RBC Hgb Hct MCV MCH MCHC RDW Std Deviation RDW Coeff of Willy Plt Count MPV Immature Gran % (Auto) Neut % (Auto) Lymph % (Auto) [place] % (Auto) Eos % (Auto) Baso % (Auto) Absolute Neuts (auto) Absolute Lymphs (auto) Nucleated RBC % Sodium Potassium Chloride Carbon Dioxide Anion Gap BUN Creatinine Estim Creat Clear Calc Est GFR (MDRD) Af Amer Est GFR (MDRD) Non-Af BUN/Creatinine Ratio Glucose Lactic Acid 1.8 Calcium Troponin I High Sens 84 H Urine Color Yellow Urine Clarity Sl. Cloudy Urine pH 6.0 Ur Specific [place] 1.015 Urine Protein Negative Urine Glucose (UA) Normal Urine Ketones Negative Urine Occult Blood Negative Urine Nitrite Negative Urine Bilirubin Negative Urine Urobilinogen Normal Ur Leukocyte Esterase 25 H Urine RBC 0 SEEN Urine WBC 0-5 SEEN Ur Squamous Epith Cells 5-10 SEEN Urine Bacteria 0 SEEN Urine Mucus 0 SEEN POC Glucose Radiography Chest X-Ray - ED: 1 View, Read by ED Physician, No Acute Disease and Chronic Changes Diagnostic Testing: Clinical Impression(s) from Imaging Studies Brain CT 04/08/22 19:02 IMPRESSION: Brain normal. Paranasal sinus disease detailed above.. Electronically Signed: Sean Calzada MD, JD at 20:31 EDT , Chest X-Ray 04/08/22 19:43 IMPRESSION: Mild right infrahilar fibrosis stable. Electronically Signed: Sean Calzada MD, JD at 20:12 EDT , Rhythm Strip Rhythm Strip: Sinus Rhythm Rate: 70 Ectopy: None EKG Initial EKG: Attestation: I personally reviewed and interpreted this EKG as follows: Interpretation: Sinus Rhythm, No Acute Injury Pattern and Inverted T-Waves (V1-4) Prior EKG tracings: available for review Prior: Unchanged Discharge Plan Triage Chief Complaint: Alt LOC ED Provider: Mansoor Givens Dx/Rx/DC Orders Clinical Impression: Heart palpitations, Near syncope, Left-sided chest pain, Headache, Transient hypotension Instructions: ED Palpitations Prescriptions: No Action clonazepam 1 MG tablet 1 mg PO BID PRN PRN (Reason: Anxiety) RF: 0 ckjplihqmg-fbcizyvngcpgk-pwxr 1 TABLET tablet 1 tab PO 4X/DAY PRN (Reason: Migraine Headache) RF: 0 promethazine 25 MG tablet 25 mg PO 4X/DAY PRN (Reason: Nausea) RF: 0 Latuda 40 mg Tablet 60 mg PO DAILY RF: 0 divalproex 500 mg tablet,delayed release (DR/EC) 500 mg PO BID RF: 0 amlodipine 10 mg tablet 10 mg PO DAILY RF: 0 benztropine 1 mg tablet 1 mg PO BID RF: 0 carvedilol 3.125 mg tablet 12.5 mg PO BID RF: 0 lisinopril 5 mg tablet 20 mg PO DAILY RF: 0 Primary Care Provider: Adri Chang Referrals: Adri Chang, [Primary Care Provider] - (your airplane cover maker and/or learning solutions specialist) Disposition Disposition: Home, Self Care Discharge Date/Time: 04/08/22 22:48
[2022-04-08] MEDS: Ondansetron 4 MG/2 ML Vial IV (19:17)
[2022-04-08] MEDS: 0.9% Normal Saline 1,000 ML 1000 ML IV (19:18)
[2022-04-08 19:27] LABS: Absolute Lymphocyte Count 3.62 X10^3/uL (0.83-4.51); Absolute Neutrophil Count 7.6 X10^3/uL (2.0-7.7); Basophil# 0.13 X10^3/uL; Basophil% 1.1 % (0-1); Eosinophil# 0.24 X10^3/uL; Hematocrit 42.6 % (37-47); Hemoglobin 14.4 g/dL (12.0-15.0); Lymphocyte # 3.62 X10^3/ul (0.83-4.51); Lymphocyte % 29.7 % (19-41); Mean Corp Hgb Conc 33.8 g/dL (32-36); Mean Corpuscular Hgb 32.7 pg (27.0-32.0); Mean Corpuscular Volume 96.8 fL (81-99); Mean Platelet Vol. 11.5 fl (6.2-12.0); Monocyte# 0.52 X10^3/uL; Monocyte% 4.3 % (0-10); NRBC Flagged by Analyzer 0 % (0-5); Neutrophil # 7.61 X10^3/uL (2.7-7.7); Neutrophil % 62.5 % (47-70); Platelet Count 301 K/mm3 (150-450); RBC Distribution Width CV 12.5 % (11.6-14.6); RBC Distribution Width SD 44.8 fl (35.1-43.9); White Blood Count 12.2 K/mm3 (4.4-11.0)
[2022-04-08 19:28] LABS: Bacteria 0 SEEN /hpf (None Seen); Mucous, Urine 0 SEEN /hpf (<or=2+); Red Blood Cells-Urine 0 SEEN /hpf (0-5)
[2022-04-08 19:30] LABS: Color, Urine Yellow (Yellow); Glucose, Dipstick Normal (Normal); Ketone-Dipstick Negative (Negative); Leukocyte Esterase-Dipstick 25 /ul (Negative); Nitrite-Dipstick Negative (Negative); Occult Blood-Urine Negative /ul (Negative); Protein-Dipstick Negative (Negative); Specific Gravity, Urine 1.015 (1.002-1.030); Urine Bilirubin Dipstick Negative (Negative); Urine Clarity Sl. Cloudy (Clear); Urine Urobilinogen Normal (Normal)
[2022-04-08 19:41] LABS: Squamous Epithelial Cells - UA 5-10 SEEN /hpf (5-10); White Blood Cells 0-5 SEEN /hpf (0-5)
--- NOTE | 2022-04-08 19:43 | RAD_ITS ---
STUDY: X-RAY CHEST REASON FOR EXAM: Female, 52 years old. chest pain TECHNIQUE: Frontal view COMPARISON: 01/25/2022 FINDINGS: The lungs mild right infrahilar fibrosis stable. Left lung clear. There is no demonstrated pleural abnormality. Normal size heart. Normal mediastinum and trisha. Normal visualized pulmonary arteries. Normal visualized aortic arch and descending thoracic aorta. Normal visualized thoracic spine. Normal visualized ribs, clavicles, and shoulders. There is no demonstrated abnormality of the visualized soft tissue structures of the upper abdomen. RAD/Chest 1 View (Portable) IMPRESSION: Mild right infrahilar fibrosis stable. Electronically Signed: Sean Calzada MD, GAMALIEL at 20:12 EDT ,
[2022-04-08 19:50] LABS: Anion Gap 8 (5-15); BUN 12 mg/dL (7-18); BUN/Creat Ratio 11.4 RATIO (10-20); Calcium,Total 9.3 mg/dL (8.5-10.1); Chloride 107 mmol/L (98-107); Creatinine, Serum 1.05 mg/dL (0.55-1.02); EST Glomerular Filtration Rate 59 mL/min (>60); Est Glom Filt Rate - Afr Amer 71 mL/min (>60); Glucose 104 mg/dL (74-106); Potassium 4.3 mmol/L (3.5-5.1); Sodium Level 142 mmol/L (136-145); Troponin-I HS (w/2H Reflex) 87 pg/mL (3.0-54.0)
[2022-04-08 20:41] LABS: Lactic Acid 1.8 mmol/L (0.4-1.9)
[2022-04-08 21:21] LABS: Reflex Troponin-HS? (from REC) Y
[2022-04-08 21:42] LABS: Troponin-I HS 84 pg/mL (3.0-54.0)
== END 2022-04-08 22:48 | disposition home or self-care (01) ==
PROVIDERS: Emergency Provider Emergency Medicine; PCP Internal Medicine; Visit Provider Emergency Medicine
DX: R55 Syncope and collapse (principal); F31.63 Bipolar disorder, current episode mixed, severe, without psychotic features; R07.9 Chest pain, unspecified; R00.2 Palpitations; R51.9 Headache, unspecified; I95.89 Other hypotension; E66.9 Obesity, unspecified; I10 Essential (primary) hypertension; I25.2 Old myocardial infarction; F17.210 Nicotine dependence, cigarettes, uncomplicated; Z79.899 Other long term (current) drug therapy
CPT/HCPCS: 70450; 71045; 80048; 81001; 82962; 83605; 84484; 85025; 87040; 93005; 96361; 96374; 99284; J7030; A4216; J2405

== ENCOUNTER 2022-05-24 10:00 | Outpatient (RCR) | payer MEDICARE, MEDICAID, SELFPAY ==
--- NOTE | 2022-05-17 13:33 | HP.PTEVAL_ITS ---
Patient's Visit Information SAMANTHA QUIROS is a 52 year old F referred to Physical Therapy by SOFYA PEREZ with a diagnosis of AGUILA ANKLE PAIN AND L ACHILLES TENDINITIS. Date of Evaluation: 05/17/22 Physical Therapist: Patt Garnica, PT, Cert MDT - Visit Plan Frequency: 2-3x /Week Duration: 4-6 Weeks Plan: AGUILA LE ROM, STRETCHING AND STRENGTHENING TO HELP MEET SET GOALS. - Subjective Work/Leisure: UNEMPLOYEED. Disability: YES - FOR BIPOLOR DISORDER AND PTSD SINCE 2016. Present symptoms: AGUILA ANKLE PAIN AND L ACHILLES PAIN. SHOOTING PAINS. AGUILA RANDOM ANKLE ROLLING CAUSING FALLING. LEFT KNEE PAIN FROM FALL AFTER R ANKLE ROLLED. Present since: COUPLE YEARS AGO. Pain Scale: WORST 8/10, LEAST 3/10. Currently: 02/18. Commenced as a result of: H/O AGUILA ANKLES FX'S. (R 2008, L 2018) NO ANKLE SX'S. STATES SURGERY WAS RECOMMENDED ON BOTH ANKLES BUT PATIENT REFUSED. Worse: STANDING AND WALKING. Better: SITTING DOWN, ICE, PROPPING THEM UP. Disturbed sleep: YES. Previous history/Previous treatment/Treatment this episode: R ANKLE FX 2008. TRIED PT. WALKING BOOT. L ANKLE FX 2018 AND HEALED FASTER THAN R. PT ON L ANKLE IN THE PAST TOO. NO ANKLE SURGERY OR INJECTIONS. PATIENT RELATES HER ANKLE FX'S TO FALLING FROM GETTING DIZZY FROM MEDICATION CHANGES/SIDE EFFECTS. ACTUALLY NOW RE-CALLS SHE FEEL DOWN THE STEPS AND BROKE LEFT ANKLE. PATIENT REPORTS HER ANKLES STOPPED ROLLING AFTER THE BREAKS AFTER THERAPY BUT SHE STOPPED DOING HER EX'S AND THEN THEY STARTED AGAIN. Gait: LAST FALL WAS APPROX JANUARY 2022 AND DENIES INJURIES FROM THAT FALL. BOWEL AND BLADDER DYSFUNCTION: NO. Accidents: NO. Unexplained weight loss: NO. Imaging: PATIENT REPORTS SHE HAS HAD BOTH X-RAYS OF BOTH ANKLES THIS YEAR AND THERE ARE NO FX'S. PMH/Recent major surgery: BIPOLOAR DISORDER, PTSD, HEART SX ABLATIONS FOR AFIB 2 WEEKS AGO. HTN, CAD, PERIPHERAL VASCULAR DISEASE. HEART ATTACK 2012. CARDIAC CATH - NO STENTS. PATIENT REPORTS L KNEE MRI AND TKR RECOMMENDED. TKR SECOND OPINION PENDING END OF THIS MONTH. - Objective THIS PATIENT AMBULATES INDEP'LY INTO PT TODAY WITH WITHOUT ANY AD'S AND NO LOB BUT AGUILA LE EXTERNAL ROTATION AND DECRASED CADANCE AND AGUILA STRIDE LENGTH. DECREASED AGUILA TOE OFF PHASES OF GAIT. SHE IS ABLE TO INDEP'LY TRANSFER FROM SIT TO STAND WITHOUT UE ASSIST. SHE HAS TIGHT AGUILA GASTROC SOLEUS COMPLEX'S WITH DORSIFLEXION TO +5 DEG AGUILA. AGUILA INVERSION ROM IS WFL BUT C/O PAIN WITH TESTING. AGUILA ANKLE EVERSION +5 DEG. PLANTAR FLEX ROM WFL AGUILA. L KNEE FLEXION TO 111 DEG AND FULL EXTENSION. SHE HAS TENDERNESS AND SWELLING ALONG THE LEFT ACHILLES TENDON. AGUILA ANKLE STRENGTH: R DORSI 5/5, PLANTAR 3-/5, INV 4-/5, EVERSION 3- /5. LEFT DORSI 4/5, PLANTAR 2+/5, INV 3+/5 AND EV 3-/5. PATIENT REPORTS THE DOCTOR GAVE HER A WALKER BUT SHE REFUSES TO USE IT AND IT IS IN HER CLOSET AT HOME. THIS PT ENCOURAGED PATIENT TO USE WALKER AT ALL TIMES FOR SAFETY. - Balance/Special Test Scores Lower Extremity Functional Score: 20 - Goals Goal 1:: DECREASE AGUILA ANKLE PAIN Goal Time Frame: 4-6 Weeks Goal 2:: INCREASE FUNCTION ROM OF AGUILA LE'S TO EASE ADL'S AND IMPROVE GAIT SAFEY. Goal Time Frame: 4-6 Weeks Goal 3:: IMPROVE AGUILA LE FUNCTIONAL STRENGTH TO IMPROVE ADL FUNCTION AND GAIT SAFETY. Goal Time Frame: 4-6 Weeks Goal 4:: PATIENT WILL BE INDEP WITH A HEP FOR CONTINUED IMPROVEMENT ONCE FORMAL PHYSICAL THERAPY CONCLUDES. Goal Time Frame: 4-6 Weeks - Anticipated Interventions Patient/Client Instruction: Educate patient on: Condition, Plan of Care, Risk Factors For the Purpose of:: To improve self management Therapeutic Exercise to Include: Strength training, Flexibilty training, Gait and locomotor training, Neuromotor development For the Purpose of:: To decrease pain, To increase ROM, To improve muscle performance and motor function, To increase tolerance to activity/condition/position, To improve ability of physical actions for home/community/work/leisure, To improve gait and locomotor functions Cryotherapy (ice pack, ice massage): Yes Thermo therapy (hot pack): Yes Ultrasound (thermal/non thermal): Yes For the Purpose of:: To decrease pain, To improve nutrient delivery to tissue Thank you for the opportunity to evaluate your patient. For Medicare and Medicare HMO plans, please review the plan of care and approve it. It will need to be FAXED BACK to us at [phone] for Medicare purposes. For Medicare only, by signing this I certify the plan of care. Please let me know if there are questions or concerns regarding this plan of care. Physician Signature: Date:
--- NOTE | 2022-08-21 12:28 | HP.PT.NRP ---
SAMANTHA QUIROS was seen in my office for initial evaluation on 05/17/22. The following Plan of Care was established for this patient: Initial Frequency: 2-3x /Week Initial Duration: 4-6 Weeks Patient/Client Instruction: Educate patient on: Condition, Plan of Care, Risk Factors For the Purpose of:: To improve self management Therapeutic Exercise to Include: Strength training, Flexibilty training, Gait and locomotor training, Neuromotor development For the Purpose of:: To decrease pain, To increase ROM, To improve muscle performance and motor function, To increase tolerance to activity/condition/position, To improve ability of physical actions for home/community/work/leisure, To improve gait and locomotor functions Cryotherapy (ice pack, ice massage): Yes Thermo therapy (hot pack): Yes Ultrasound (thermal/non thermal): Yes For the Purpose of:: To decrease pain, To improve nutrient delivery to tissue This patient was last seen in our office 05/24/22. Pertinent comments regarding their Physical therapy will appear below: This patient has not returned to Physical Therapy and is appropriate to return to MD for further follow-up as needed. At this point I will be discontinuing this patient from physical therapy. I would be happy to see this patient again in the future if found appropriate by the physician. Thank you! Patt Garnica, PT, Cert MDT Balance/Gait/Functional tests - Balance/Special Test Scores Lower Extremity Functional Score: 20
== END 2022-05-24 19:00 | disposition home or self-care (01) ==
LOC: PT 10:00
PROVIDERS: PCP Internal Medicine
DX: M25.571 Pain in right ankle and joints of right foot (principal); M25.572 Pain in left ankle and joints of left foot; M76.62 Achilles tendinitis, left leg
CPT/HCPCS: 97110; 97162

== ENCOUNTER 2022-05-28 12:08 | Emergency (ER) | payer MEDICARE, MEDICAID, SELFPAY ==
[2022-05-28 12:09] VITALS: BP 141/86; PULSE 76; RESP 18; TEMP 35.6; O2SAT 96; BMI 43.8
--- NOTE | 2022-05-28 12:24 | EKG12_ITS ---
Test Reason : CP Blood Pressure : / mmHG Vent. Rate : 070 BPM Atrial Rate : 070 BPM P-R Int : 172 ms QRS Dur : 086 ms QT Int : 388 ms P-R-T Axes : 065 012 027 degrees QTc Int : 419 ms Normal sinus rhythm ST & T wave abnormality, consider anterior ischemia Abnormal ECG Confirmed by CALLIE TORIBIO, NEIL ([id number]), newspaper editor YOEL HULL ([id number]) on 05/29/2022 10:28:48 AM Referred By: Marito/Melissa Confirmed By:NEIL LEDESMA MD
--- NOTE | 2022-05-28 12:26 | ED.VIS.CHEST ---
HPI History of Present Illness Chief Complaint: Shortness of Breath Narrative Narrative: 52-year-old female with history of hypertension, CAD, PR, diabetes presenting with retrosternal chest pain which is sharp in nature. She states she has had this since April 30. It is constantly present. It is worse with deep inspiration. Patient notes that she was seen by Dr. Vincent from [facility] and was initially diagnosed with SVT. He apparently scheduled an ablation for SVT but ultimately determined intraoperatively that she had atrial fibrillation. He did proceed with the ablation. The patient has been anticoagulated on Eliquis since the . She states that she has called the office several times because she has had constant pain here since the procedure. She relates that during the procedure she had to be shocked 3 times. She states the procedure was supposed to last 2 hours and lasted 6 hours. Patient states that she saw her primary care physician today who sent a message to Dr. Vincent. His office initially set her up an appointment for next week and then called back 5 minutes later and told her to come to the emergency room for an echocardiogram. Patient states that she has chronic shortness of breath which is unchanged because she is a smoker. She has chronic lightheadedness which is unchanged as well. She states none of these things are new except for the chest pain. [facility] Medical History Amitriptyline overdose Bipolar 1 disorder, mixed, severe Cardiomyopathy Hypertension Marijuana use Myocardial infarct, old Near syncope Nicotine dependence PTSD (post-traumatic stress disorder) SVT (supraventricular tachycardia) Syncope Home Medications hjnxvuqcev-nxpvoxovtipll-ohejlwem 50 mg-325 mg-40 mg tablet 1 tab PO 4X/DAY PRN Migraine Headache 12/28/20 [History Last Taken Unknown] clonazepam 1 mg tablet 1 mg PO BID PRN PRN Anxiety 12/28/20 [History Last Taken Unknown] promethazine 25 mg tablet 25 mg PO 4X/DAY PRN Nausea 12/28/20 [History Last Taken Unknown] lurasidone 40 mg tablet (Latuda) 60 mg PO DAILY depression 07/03/21 [History Last Taken Unknown] amlodipine 10 mg tablet 10 mg PO DAILY 04/08/22 [History Last Taken Unknown] benztropine 1 mg tablet 1 mg PO BID 04/08/22 [History Last Taken Unknown] divalproex 500 mg tablet,delayed release 500 mg PO TID 04/08/22 [History Last Taken Unknown] lisinopril 5 mg tablet 20 mg PO DAILY blood pressure 04/08/22 [History Last Taken Unknown] apixaban 5 mg tablet (Eliquis) 5 mg PO BID 05/28/22 [History Last Taken Unknown] carvedilol 12.5 mg tablet 12.5 mg PO BID 05/28/22 [History Last Taken Unknown] omeprazole 20 mg capsule,delayed release 20 mg PO DAILY 05/28/22 [History Last Taken Unknown] Allergy/AdvReac Type Severity Reaction Status Date / Time No Known Allergies Allergy Verified 05/28/22 12:08 Family History Other Breast cancer Diabetes Heart disease Surgical History H/O cardiac radiofrequency ablation History of hysterectomy History of tonsillectomy Hx of cardiac catheterization Social History current occupation: Disabled Smoking Status: Current every day smoker tobacco type: cigarettes alcohol intake: current alcohol intake frequency: other details: Social alcohol use but nothing habitual substance use type: marijuana ROS ROS ED Constitutional Constitutional ED: Denies chills or fever(s) Eyes Eyes: Denies blurry vision or change in vision ENT ENT ED: Denies rhinorrhea or sore throat Cardiovascular Cardiovascular: Reports as per HPI Respiratory/Chest Respiratory/Chest: Reports dyspnea; Denies cough Gastrointestinal Gastrointestinal: Denies abdominal pain, constipation, diarrhea, melena or nausea Genitourinary Genitourinary ED: Denies dysuria Musculoskeletal Musculoskeletal: Denies arthralgias or back pain Integumentary Denies abscess or Abrasions Neurologic Neurologic: Denies headache(s) or paresthesias EXAM Physical Exam Const Vital Signs: 05/28/22 12:09 05/28/22 12:25 05/28/22 12:27 Temperature 96.1 F L Temperature Source Temporal Pulse Rate 76 Respiratory Rate 18 Respiratory Effort Normal Non-Labored Normal Non-Labored Blood Pressure 141/86 H Blood Pressure Mean 104 Pulse Ox 96 Oxygen Delivery Method Room Air Positive well nourished General Appearance ED: NAD; Negative for pallor HEENT Reports TM's clear and moist mucous membranes Tympanic Membrane ED: Yes TM's clear Eyes PERRL and EOMs intact bilaterally Neck no lymphadenopathy Chest Wall inspection of chest normal Chest Narrative: Mild tenderness palpation right parasternal region. No deformity, crepitance. Equal symmetric breath sounds chest wall rise Resp normal respiratory effort and clear to auscultation bilaterally Cardio regular rate and regular rhythm GI normal to inspection, nondistended, normoactive bowel sounds Extremity normal to inspection General Extremety ED: Negative for edema General Extremity: Negative for edema Neuro oriented x3 and CN's II-XII intact bilaterally Sensorium / Orientation: awake and alert Motor Exam: strength 5/5 throughout Psych mental status grossly normal Skin no rashes or lesions noted General Skin Exam: Negative for jaundice or pallor Heart Score History: Slightly/Non-Suspicious ECG: Normal Age: >45 - <65 years Risk Factors: >/= 3 Risk Factors or History of CAD Troponin: </= Normal Limit Score: 3 MDM MDM MDM Narrative Medical decision making narrative: Patient was having chest pain which is been constant for a month. EKG obtained on arrival my interpretation shows a normal sinus rhythm with a ventricular to 70 bpm. Patient is on Eliquis so I did not assess PE. Vital signs are stable and she is afebrile. CBC and BMP unremarkable. High-sensitivity troponin is 24 after a month of pain that is constant and dull believe she needs a delta troponin. Depakote level slightly low at 43. Patient has been made aware of this. Chest x-ray on my interpretation shows no acute cardiopulmonary process and radiologist agree. I feel this point patient stable to be discharged home. She will follow-up with Dr. Vincent from . Return precautions discussed. Impression: 1. Chest pain Lab Data Attestation: I reviewed the patient's lab results. Labs: Laboratory Results - last 24 hr 05/28/22 05/28/22 05/28/22 12:30 12:30 12:30 WBC 7.8 RBC 4.45 Hgb 14.5 Hct 42.7 MCV 96.0 MCH 32.6 H MCHC 34.0 RDW Std Deviation 44.7 H RDW Coeff of Willy 12.8 Plt Count 212 MPV 10.4 Immature Gran % (Auto) 0.300 Neut % (Auto) 58.8 Lymph % (Auto) 30.2 [place] % (Auto) 5.9 Eos % (Auto) 3.6 Baso % (Auto) 1.2 H Absolute Neuts (auto) 4.6 Absolute Lymphs (auto) 2.35 Nucleated RBC % 0 Sodium 138 Potassium 4.0 Chloride 103 Carbon Dioxide 26.0 Anion Gap 9 BUN 11 Creatinine 0.89 Estim Creat Clear Calc 55.80 Est GFR (MDRD) Af Amer 86 Est GFR (MDRD) Non-Af 71 BUN/Creatinine Ratio 12.3 Glucose 90 Calcium 9.6 Troponin I High Sens 24 Valproic Acid 43 L Radiography Diagnostic Testing: Clinical Impression(s) from Imaging Studies Chest X-Ray 05/28/22 12:45 IMPRESSION: Normal x-ray examination of the chest. Electronically Signed: Michael Chong MD at 13:26 EDT , Discharge Plan Triage Chief Complaint: Shortness of Breath ED Provider: Keyshawn Devi Dx/Rx/DC Orders Instructions: ED Chest Pain, Noncardiac Prescriptions: No Action clonazepam 1 MG tablet 1 mg PO BID PRN PRN (Reason: Anxiety) [id number]-tamlhuogrgoav-gbpo 1 TABLET tablet 1 tab PO 4X/DAY PRN (Reason: Migraine Headache) promethazine 25 MG tablet 25 mg PO 4X/DAY PRN (Reason: Nausea) Latuda 40 mg Tablet 60 mg PO DAILY divalproex 500 mg tablet,delayed release (DR/EC) 500 mg PO TID Label Comments: TAKE 1 TABLET BY MOUTH EVERY MORNING AND TAKE 2 TABLETS BY MOUTH AT BEDTIME amlodipine 10 mg tablet 10 mg PO DAILY benztropine 1 mg tablet 1 mg PO BID Label Comments: TAKE 1 TABLET BY MOUTH TWICE DAILY lisinopril 5 mg tablet 20 mg PO DAILY carvedilol 12.5 mg Tablet 12.5 mg PO BID Rx Instructions: must administer with a meal/food Eliquis 5 mg Tablet 5 mg PO BID omeprazole 20 mg Capsule,Delayed Release(Dr/Ec) 20 mg PO DAILY Primary Care Provider: Adri Chang Referrals: Robert Crump MD [STAFF PHYSICIAN] - As Needed Oberhauser,Adri, DO [Primary Care Provider] - Disposition Disposition: Home, Self Care
--- NOTE | 2022-05-28 12:27 | NURSING ---
NO OLD EKGS
[2022-05-28] MEDS: Ondansetron 4 MG/2 ML Vial IV (12:42)
[2022-05-28] MEDS: Morphine 4 MG/ML Syringe IV (12:42)
[2022-05-28 12:44] LABS: Absolute Lymphocyte Count 2.35 X10^3/uL (0.83-4.51); Absolute Neutrophil Count 4.6 X10^3/uL (2.0-7.7); Basophil# 0.09 X10^3/uL; Basophil% 1.2 % (0-1); Eosinophil# 0.28 X10^3/uL; Eosinophils% 3.6 % (0-5); Hematocrit 42.7 % (37-47); Hemoglobin 14.5 g/dL (12.0-15.0); Lymphocyte # 2.35 X10^3/ul (0.83-4.51); Lymphocyte % 30.2 % (19-41); Mean Corpuscular Hgb 32.6 pg (27.0-32.0); Mean Platelet Vol. 10.4 fl (6.2-12.0); Monocyte# 0.46 X10^3/uL; Monocyte% 5.9 % (0-10); NRBC Flagged by Analyzer 0 % (0-5); Neutrophil # 4.59 X10^3/uL (2.7-7.7); Neutrophil % 58.8 % (47-70); Platelet Count 212 K/mm3 (150-450); RBC Distribution Width CV 12.8 % (11.6-14.6); RBC Distribution Width SD 44.7 fl (35.1-43.9); Red Blood Count 4.45 M/mm3 (4.2-5.4); White Blood Count 7.8 K/mm3 (4.4-11.0)
--- NOTE | 2022-05-28 12:45 | RAD_ITS ---
STUDY: X-RAY CHEST REASON FOR EXAM: Female, 52 years old. chest pain TECHNIQUE: Single AP portable view of the chest. COMPARISON: 01/25/2022 FINDINGS: The lungs are clear and expanded. Elevated right hemidiaphragm which is unchanged. Normal size heart. Normal mediastinum and trisha. Normal visualized pulmonary arteries. Normal visualized aortic arch and descending thoracic aorta. Normal visualized thoracic spine. Normal visualized ribs, clavicles, and shoulders. There is no demonstrated abnormality of the visualized soft tissue structures of the upper abdomen. RAD/Chest 1 View (Portable) IMPRESSION: Normal x-ray examination of the chest. Electronically Signed: Michael Chong MD at 13:26 EDT ,
[2022-05-28 13:02] LABS: Anion Gap 9 (5-15); BUN 11 mg/dL (7-18); BUN/Creat Ratio 12.3 RATIO (10-20); Calcium,Total 9.6 mg/dL (8.5-10.1); Chloride 103 mmol/L (98-107); Creatinine, Serum 0.89 mg/dL (0.55-1.02); EST Glomerular Filtration Rate 71 mL/min (>60); Est Glom Filt Rate - Afr Amer 86 mL/min (>60); Glucose 90 mg/dL (74-106); Sodium Level 138 mmol/L (136-145); Troponin-I HS (w/2H Reflex) 24 pg/mL (3.0-54.0)
[2022-05-28 13:35] LABS: Valproic Acid (Depakene) Level 43 ug/mL (50-100)
[2022-05-28 14:06] VITALS: BP 136/57; PULSE 71; RESP 19; O2SAT 96
[2022-05-28 14:38] LABS: Reflex Troponin-HS? (from REC) Y
== END 2022-05-28 14:14 | disposition home or self-care (01) ==
PROVIDERS: Emergency Provider Student in an Organized Health Care Education/Training Program; PCP Internal Medicine; Visit Provider Student in an Organized Health Care Education/Training Program
DX: R07.9 Chest pain, unspecified (principal); I48.91 Unspecified atrial fibrillation; I47.1 Supraventricular tachycardia; E11.9 Type 2 diabetes mellitus without complications; I25.10 Atherosclerotic heart disease of native coronary artery without angina pectoris; I10 Essential (primary) hypertension; F17.210 Nicotine dependence, cigarettes, uncomplicated; Z79.899 Other long term (current) drug therapy
CPT/HCPCS: 71045; 80048; 80164; 84484; 85025; 93005; 96374; 96375; 99285; A4216; J2405

== ENCOUNTER → 2022-05-30 | Outpatient (CLI) | payer MEDICARE, MEDICAID, SELFPAY ==
[2022-05-30 07:35] LABS: Platelet Count 212 K/mm3 (150-450)
[2022-05-30 08:04] LABS: Valproic Acid (Depakene) Level 46 ug/mL (50-100)
[2022-05-30 08:05] LABS: AST(SGOT) 9 U/L (15-37); Alanine Aminotransfer ALT/SGPT 14 U/L (13-56); Albumin, Serum 3.8 g/dL (3.2-5.0); Alkaline Phosphatase 49 U/L (45-117); Bilirubin, Direct 0.09 mg/dL (0.00-0.30); Globulin 3.5 g/dL (2.2-4.2); Protein, Total 7.3 g/dL (6.4-8.2)
== END | disposition home or self-care (01) ==
LOC: LAB 07:20
PROVIDERS: PCP Internal Medicine; Referring Provider Registered Nurse; Visit Provider Registered Nurse
DX: F31.9 Bipolar disorder, unspecified (principal); Z79.899 Other long term (current) drug therapy
CPT/HCPCS: 36415; 80076; 80164; 82140; 85049

== ENCOUNTER → 2022-07-30 | Outpatient (CLI) | payer MEDICARE, MEDICAID, SELFPAY ==
[2022-07-30 16:26] LABS: Estradiol 19.1 pg/mL; Follicle Stimulating Hormone 42.8 mIU/mL
== END | disposition home or self-care (01) ==
LOC: PAVLAB 15:35
PROVIDERS: PCP Internal Medicine; Referring Provider Nurse Practitioner Women's Health; Visit Provider Nurse Practitioner Women's Health
DX: R23.2 Flushing (principal)
CPT/HCPCS: 36415; 82670; 83001

== ENCOUNTER → 2022-08-03 | Outpatient (CLI) | payer MEDICARE, MEDICAID, SELFPAY ==
--- NOTE | 2022-08-03 10:47 | BI_ITS ---
MAMMOGRAPHY - BILATERAL SCREENING REASON FOR EXAM: Female, 52 years old. Routine annual screening examination. PERTINENT HISTORY: Grandmother with breast cancer. TECHNIQUE: Digital bilateral breast bryanna (3D mammographic acquisition) in the CC and MLO projections. 2-D mediolateral oblique (MLO) and craniocaudad (CC) views of both breasts were obtained. CAD: Full Field Digital Mammography with Computer Added Detection was performed. COMPARISON: No comparison mammograms available at this time. If any prior films become available, an addendum to this report can be generated. FINDINGS: Breast Composition: The breasts are heterogeneously dense, which may obscure small masses. There are no dominant masses or suspicious calcifications. No other significant abnormalities are identified. BI/SCRN MAMM (CAD)W/BRYANNA BILAT IMPRESSION: Negative screening mammogram. Yearly followup mammogram recommended. (A) ASSESSMENT CATEGORY: BIRADS Category 1: Negative. A letter regarding these results will be sent to the patient by the facility within 30 days. Approximately 10% of breast cancers are not detected by mammography. A normal mammogram should not delay biopsy of a clinically suspicious abnormality. [id number] Electronically Signed: Tunde Plunkett MD at 8:56 EDT ,
== END | disposition home or self-care (01) ==
LOC: OPBI 10:46
PROVIDERS: PCP Internal Medicine; Visit Provider Nurse Practitioner Women's Health
DX: Z12.31 Encounter for screening mammogram for malignant neoplasm of breast (principal)
CPT/HCPCS: 77063; 77067

== ENCOUNTER 2022-11-16 21:03 | Emergency (ER) | payer MEDICARE, MEDICAID, SELFPAY ==
[2022-11-16 21:11] VITALS: BP 58/46; PULSE 81; RESP 16; TEMP 35.6; O2SAT 98; BMI 37.8
[2022-11-16 21:22] VITALS: BP 59/48; PULSE 79; RESP 18; O2SAT 93
--- NOTE | 2022-11-16 21:44 | CT_ITS ---
EXAM: CT HEAD WITHOUT INTRAVENOUS CONTRAST CLINICAL INDICATION: Altered mental status TECHNIQUE: Multiple axial images were obtained of the head without intravenous contrast. This CT exam was performed using one or more of the following dose reduction techniques: automated exposure control, adjustment of the mA and/or kV according to patient size, and/or use of iterative reconstruction technique. This report was created using [employer] report generation technology. RADIATION DOSE: CTDIvol = 44.99 mGy, DLP = 812.98 mGy-cmContrast: COMPARISON: April 08, 2022. FINDINGS: BRAIN AND EXTRA-AXIAL SPACES: Unremarkable. No intra- or extra-axial hemorrhage. No evidence of acute infarct. No intracranial mass or mass effect. There is preservation of the balderas/white matter interface. Posterior fossa structures are unremarkable. Ventricles are appropriate for age. No hydrocephalus. Basal cisterns are patent. BONES/JOINTS: Unremarkable. No discrete lytic or blastic abnormalities. SINUSES: Mucosal thickening and mucous retention cysts in the maxillary and ethmoid sinuses, mild. Trace if any fluid. MASTOID AIR CELLS: Unremarkable. Clear. ORBITS: Visualized globes, extraocular muscles, optic nerves and retrobulbar fat appear unremarkable. Aspects score for acute stroke: 10. CT/Brain/Head without Contrast IMPRESSION: No acute findings in the head/brain. Mild chronic sinusitis. Electronically Signed: Suzanna Chen MD at 22:35 EST ,
--- NOTE | 2022-11-16 21:45 | EKG12_ITS ---
Test Reason : ALT LOC Blood Pressure : / mmHG Vent. Rate : 074 BPM Atrial Rate : 074 BPM P-R Int : 172 ms QRS Dur : 080 ms QT Int : 402 ms P-R-T Axes : 050 029 026 degrees QTc Int : 446 ms Sinus rhythm with Premature supraventricular complexes and with occasional Premature ventricular comp lexes T wave abnormality, consider anterior ischemia Abnormal ECG Confirmed by GIGI TORIBIO, DALY ([id number]), continuity editor JOYCE SHARIF ([id number]) on 11/19/2022 11:06:40 AM Referred By: ALDA Confirmed By:ILDEFONSO YU MD
[2022-11-16 22:04] LABS: Absolute Lymphocyte Count 5.66 X10^3/uL (0.83-4.51); Absolute Neutrophil Count 6.2 X10^3/uL (2.0-7.7); Basophil# 0.14 X10^3/uL; Eosinophil# 0.52 X10^3/uL; Eosinophils% 3.8 % (0-5); Hematocrit 40.5 % (37-47); Hemoglobin 13.2 g/dL (12.0-15.0); Lymphocyte # 5.66 X10^3/ul (0.83-4.51); Mean Corp Hgb Conc 32.6 g/dL (32-36); Mean Corpuscular Hgb 32.5 pg (27.0-32.0); Mean Corpuscular Volume 99.8 fL (81-99); Mean Platelet Vol. 10.5 fl (6.2-12.0); Monocyte# 1.13 X10^3/uL; Monocyte% 8.2 % (0-10); NRBC Flagged by Analyzer 0 % (0-5); Neutrophil # 6.18 X10^3/uL (2.7-7.7); Neutrophil % 44.8 % (47-70); POSITIVE DIFFERENTIAL YES; Platelet Count 314 K/mm3 (150-450); RBC Distribution Width CV 13.4 % (11.6-14.6); RBC Distribution Width SD 49.5 fl (35.1-43.9); Red Blood Count 4.06 M/mm3 (4.2-5.4); White Blood Count 13.8 K/mm3 (4.4-11.0)
[2022-11-16] MEDS: 0.9% Normal Saline 1,000 ML 999 ML IV ×2 (22:07→23:48)
--- NOTE | 2022-11-16 22:08 | RAD_ITS ---
EXAM: XR CHEST, 1 VIEW CLINICAL INDICATION: Dyspnea TECHNIQUE: Frontal view of the chest. This report was created using [employer] report generation technology. COMPARISON: May 28, 2022, April 08, 2022, January 25, 2022. FINDINGS: LUNGS AND PLEURAL SPACES: There is a mildly dense band of opacity at the right lung base superior to the moderately elevated right hemidiaphragm, likely discoid atelectasis. Similar location and appearance as on prior exams and January and March 2022. No pneumothorax. No effusion. HEART: Unremarkable. Cardiac silhouette not enlarged. MEDIASTINUM: Central airways and mediastinal contour are unremarkable. BONES/JOINTS: Unremarkable. SOFT TISSUES: Unremarkable. RAD/Chest 1 View (Portable) IMPRESSION: No acute findings. Stable chest. Right diaphragm elevation and a band of atelectasis versus scarring at the right lung base. Electronically Signed: Suzanna Chen MD at 22:46 EST ,
[2022-11-16 22:21] LABS: Differential Indicated SCAN CRITERIA MET
[2022-11-16 22:22] LABS: ALB/GLOB Ratio 1.1 RATIO (0.9-2.4); AST(SGOT) 6 U/L (15-37); Alanine Aminotransfer ALT/SGPT 16 U/L (13-56); Albumin, Serum 3.4 g/dL (3.2-5.0); Alkaline Phosphatase 47 U/L (45-117); Anion Gap 3 (5-15); BUN 16 mg/dL (7-18); BUN/Creat Ratio 11.9 RATIO (10-20); Calcium,Total 8.7 mg/dL (8.5-10.1); Chloride 104 mmol/L (98-107); Creatinine, Serum 1.34 mg/dL (0.55-1.02); EST Glomerular Filtration Rate 44 mL/min (>60); Est Glom Filt Rate - Afr Amer 53 mL/min (>60); Estimated Creatinine Clearance 37.06 ml/min; Globulin 3.1 g/dL (2.2-4.2); Glucose 92 mg/dL (74-106); International Normalized Ratio 0.9; Protein, Total 6.5 g/dL (6.4-8.2); Prothrombin Time (Protime)PT. 11.9 SECONDS (11.7-14.9); Sodium Level 139 mmol/L (136-145); Troponin-I HS 36 pg/mL (3.0-54.0)
[2022-11-16 22:23] LABS: Partial Thromboplast Time 28.2 Seconds (24.1-36.2)
--- NOTE | 2022-11-16 22:27 | EX.ED.DYSGE1 ---
HPI History of Present Illness Chief Complaint: Alt LOC Informant: patient Onset/Context/Timing Onset: Today Context: Sudden Onset Timing: Continuous Quality: Dizziness Location: Generalized Worsened by: Sitting, standing Relieved by: Nothing Narrative Narrative: Patient presents with altered mental status that was noticed today. Patient states she felt dizzy and lightheaded. Patient states this is worse with sitting and standing. Patient states she had episodes of blurry vision and double vision. Patient admits to some shortness of breath but denies any cough. Patient admits to some nausea but denies any vomiting. Patient admits to feeling weak all over. Patient admits to smoking marijuana but denies taking any opiate pain medication tonight. Patient denies any chest pain or palpitations. Patient denies any headaches. [facility] Medical History Amitriptyline overdose Anxiety Bipolar 1 disorder, mixed, severe Cardiomyopathy Class 2 obesity with body mass index (BMI) of 38.0 to 38.9 in adult Essential (primary) hypertension Marijuana use Myocardial infarct, old Paroxysmal A-fib PTSD (post-traumatic stress disorder) SVT (supraventricular tachycardia) Syncope Tension headache Tobacco abuse Toxic encephalopathy Home Medications clonazepam 1 mg tablet 1 mg PO BID PRN PRN Anxiety 12/28/20 [History Last Taken Unknown] benztropine 1 mg tablet 1 mg PO BID 04/08/22 [History Last Taken Unknown] divalproex 500 mg tablet,delayed release 500 mg PO TID 04/08/22 [History Last Taken Unknown] omeprazole 20 mg capsule,delayed release 20 mg PO DAILY 05/28/22 [History Last Taken Unknown] neyxoeluqh-pfdzkoncyvchl-krbooduq 50 mg-325 mg-40 mg tablet 1 tab PO Q4H PRN Migraine Headache 08/10/22 [History Last Taken Unknown] lisinopril 20 mg tablet 20 mg PO DAILY 08/10/22 [History Last Taken Unknown] lurasidone 60 mg tablet (Latuda) 60 mg PO QAM 08/10/22 [History Last Taken Unknown] promethazine 25 mg tablet 25 mg PO Q6H PRN Nausea 08/10/22 [History Last Taken Unknown] amlodipine 5 mg tablet 5 mg PO DAILY #90 tabs 08/22/22 [Rx Last Taken Unknown] carvedilol 25 mg tablet 25 mg PO BID #180 tabs 09/06/22 [Rx Last Taken Unknown] cyclobenzaprine 5 mg tablet 5 mg PO QHS 10/18/22 [History Last Taken Unknown] Allergy/AdvReac Type Severity Reaction Status Date / Time No Known Allergies Allergy Verified 11/16/22 21:23 Family History (Reviewed 10/18/22 @ 14:37 by Dena Souza OVERSIZE LOAD PILOT ESCORT, OVERSIZE LOAD PILOT ESCORT-C) Mother Hypertension Malignant neoplasm of skin Father CVA (cerebral vascular accident) Hypertension Malignant neoplasm of prostate Other Breast cancer Diabetes Heart disease Surgical History H/O cardiac radiofrequency ablation (04/30/22) History of hysterectomy History of left heart catheterization (2012) History of tonsillectomy Social History current occupation: Disabled Smoking Status: Current every day smoker tobacco type: cigarettes alcohol intake: current alcohol intake frequency: other details: Social alcohol use but nothing habitual substance use type: marijuana caffeine: Yes ROS ROS ED Constitutional Constitutional ED: Denies chills or fever(s) Eyes Eyes: Reports blurry vision and diplopia ENT ENT ED: Denies rhinorrhea or sore throat Cardiovascular Cardiovascular: Denies chest pain or palpitations Respiratory/Chest Respiratory/Chest: Reports dyspnea; Denies cough Gastrointestinal Gastrointestinal: Reports nausea; Denies vomiting Genitourinary Genitourinary ED: Denies dysuria or hematuria Musculoskeletal Musculoskeletal: Reports neck pain; Denies back pain Integumentary Denies abscess or rash Neurologic Neurologic: Reports weakness; Denies headache(s) Allergic/Immunologic Allergic/Immunologic ED: Denies mouth swelling or urticaria EXAM Physical Exam Const Vital Signs: 11/16/22 21:11 11/16/22 21:22 11/16/22 22:34 Temperature 96.0 F L Temperature Source Temporal Pulse Rate 81 79 76 Respiratory Rate 16 18 16 Blood Pressure 58/46 L 59/48 L 100/59 L Blood Pressure Mean 50 51 72 Pulse Ox 98 93 96 Oxygen Delivery Method Room Air Room Air Room Air Positive well nourished, well developed and obese General Appearance ED: well developed and NAD Nutritional Appearance: obese HEENT Reports moist mucous membranes Eyes PERRL and EOMs intact bilaterally Neck supple and no JVD Resp normal respiratory effort and clear to auscultation bilaterally Cardio regular rate, regular rhythm and no murmurs GI normal to inspection, nondistended, normoactive bowel sounds and non-tender Palpation: soft Extremity normal to inspection General Extremety ED: Negative for edema or tenderness General Extremity: Negative for edema Neuro oriented x3, CN's II-XII intact bilaterally and no sensory deficits noted Sensorium / Orientation: alert Motor Exam: strength 5/5 throughout Psych mental status grossly normal Skin no rashes or lesions noted MDM MDM MDM Narrative Medical decision making narrative: Patient was given 2 L of IV fluids. EKG was obtained. On my interpretation, it showed a normal sinus rhythm with occasional PACs and PVCs with a rate of 74. [place] interval, QRS interval, and QTc intervals were all normal. [place] was normal. There are no acute ST or T wave changes. CBC was obtained and was reviewed. White blood cell count was mildly elevated at 13.8. Hemoglobin and hematocrit were within normal limits. Platelets were normal. Pro time with INR was obtained and was reviewed. These were within normal limits. PTT was reviewed and was within normal limits. Comprehensive metabolic profile was obtained and showed a slightly elevated creatinine of 1.34. Electrolytes were within normal limits. Anion gap was normal. Lactic acid was obtained and was reviewed and was normal. CT scan of the brain was obtained. There is no acute intracranial abnormality. This was interpreted by the radiologist and reviewed by myself. Portable 1 view chest x-ray was obtained. On my interpretation, lung tanner are clear. There is normal cardiac silhouette. Bony thorax is normal. There is no acute process noted. Radiologist also interpreted the x-ray and agrees. COVID-19 rapid antigen was obtained and was negative. Influenza A and influenza B rapid antigens were obtained and were negative. Patient is feeling better on reevaluation. Patient wants to go home. I discussed findings with the patient. Patient was instructed to drink plenty of fluids. Patient was instructed to stop smoking and stop smoking marijuana. Patient was instructed to follow-up with her primary care physician in 5 to 7 days. Patient understood and was agreeable with the plan. All questions were answered. Lab Data Attestation: I reviewed the patient's lab results. Labs: Laboratory Results - last 24 hr 11/16/22 11/16/22 11/16/22 20:55 20:55 20:55 WBC 13.8 H RBC 4.06 L Hgb 13.2 Hct 40.5 MCV 99.8 H MCH 32.5 H MCHC 32.6 RDW Std Deviation 49.5 H RDW Coeff of Willy 13.4 Plt Count 314 MPV 10.5 Immature Gran % (Auto) 1.200 H Neut % (Auto) 44.8 L Lymph % (Auto) 41.0 [place] % (Auto) 8.2 Eos % (Auto) 3.8 Baso % (Auto) 1.0 Absolute Neuts (auto) 6.2 Absolute Lymphs (auto) 5.66 H Nucleated RBC % 0 Differential Comment SEE COMMENT Atypical Lymphocytes 1+ Platelet Estimate ADEQUATE RBC Morphology N CHROM Anisocytosis RARE Macrocytosis RARE PT 11.9 INR 0.9 APTT 28.2 Sodium 139 Potassium 4.0 Chloride 104 Carbon Dioxide 32.0 Anion Gap 3 L BUN 16 Creatinine 1.34 H Estim Creat Clear Calc 37.06 Est GFR (MDRD) Af Amer 53 L Est GFR (MDRD) Non-Af 44 L BUN/Creatinine Ratio 11.9 Glucose 92 Lactic Acid Calcium 8.7 Total Bilirubin 0.20 AST 6 L ALT 16 Alkaline Phosphatase 47 Troponin I High Sens 36 Total Protein 6.5 Albumin 3.4 Globulin 3.1 Albumin/Globulin Ratio 1.1 11/16/22 20:55 WBC RBC Hgb Hct MCV MCH MCHC RDW Std Deviation RDW Coeff of Willy Plt Count MPV Immature Gran % (Auto) Neut % (Auto) Lymph % (Auto) [place] % (Auto) Eos % (Auto) Baso % (Auto) Absolute Neuts (auto) Absolute Lymphs (auto) Nucleated RBC % Differential Comment Atypical Lymphocytes Platelet Estimate RBC Morphology Anisocytosis Macrocytosis PT INR APTT Sodium Potassium Chloride Carbon Dioxide Anion Gap BUN Creatinine Estim Creat Clear Calc Est GFR (MDRD) Af Amer Est GFR (MDRD) Non-Af BUN/Creatinine Ratio Glucose Lactic Acid 1.6 Calcium Total Bilirubin AST ALT Alkaline Phosphatase Troponin I High Sens Total Protein Albumin Globulin Albumin/Globulin Ratio Radiography Chest X-Ray - ED: 1 View, Read by ED Physician, Read by Radiologist and No Acute Disease Diagnostic Testing: Clinical Impression(s) from Imaging Studies Brain CT 11/16/22 21:44 IMPRESSION: No acute findings in the head/brain. Mild chronic sinusitis. Electronically Signed: Suzanna Chen MD at 22:35 EST , Chest X-Ray 11/16/22 22:08 IMPRESSION: No acute findings. Stable chest. Right diaphragm elevation and a band of atelectasis versus scarring at the right lung base. Electronically Signed: Suzanna Chen MD at 22:46 EST , EKG Initial EKG: Attestation: I personally reviewed and interpreted this EKG as follows: Interpretation: Sinus Rhythm (With occasional PACs and PVCs with a rate of 74) and Non-Specific ST Changes Prior EKG tracings: available for review Prior: Unchanged (05/28/2022) Discharge Plan Triage Chief Complaint: Alt LOC ED Provider: Jeff Rooney Dx/Rx/DC Orders Clinical Impression: Dehydration, Marijuana use, Tobacco abuse, Mental status change resolved, Class 2 obesity with body mass index (BMI) of 38.0 to 38.9 in adult Instructions: ED Dehydration (Adult), ED How to Quit Smoking Prescriptions: No Action Latuda 60 mg tablet 60 mg PO QAM Rx Instructions: must administer with food (at least 350 calories) lisinopril 20 mg tablet 20 mg PO DAILY cyclobenzaprine 5 mg tablet 5 mg PO QHS clonazepam 1 MG tablet 1 mg PO BID PRN PRN (Reason: Anxiety) promethazine 25 mg tablet 25 mg PO Q6H PRN (Reason: Nausea) pntllvgutx-yazarsfggyjgp-lxci 50-325-40 mg tablet 1 tab PO Q4H PRN (Reason: Migraine Headache) Rx Instructions: Take 1-2 tabs divalproex 500 mg tablet,delayed release (DR/EC) 500 mg PO TID Label Comments: TAKE 1 TABLET BY MOUTH EVERY MORNING AND TAKE 2 TABLETS BY MOUTH AT BEDTIME benztropine 1 mg tablet 1 mg PO BID Label Comments: TAKE 1 TABLET BY MOUTH TWICE DAILY omeprazole 20 mg Capsule,Delayed Release(Dr/Ec) 20 mg PO DAILY amlodipine 5 mg tablet 5 mg PO DAILY Qty: 90 3RF carvedilol 25 mg tablet 25 mg PO BID Qty: 180 3RF Rx Instructions: must administer with a meal/food Primary Care Provider: Adri Chang Referrals: Adri Chang DO [Primary Care Provider] - 3-5 Days Disposition Disposition: Home, Self Care
[2022-11-16 22:28] LABS: Anisocytosis RARE; Atypical Lymphocyte 1+ %; Macrocytosis RARE; Platelet Estimate ADEQUATE (ADEQ); Red Cell Morphology N CHROM NORMAL (NORM C&C)
[2022-11-16 22:33] LABS: Lactic Acid 1.6 mmol/L (0.4-1.9)
[2022-11-16 22:34] VITALS: BP 100/59; PULSE 76; RESP 16; O2SAT 96
[2022-11-17 00:38] VITALS: BP 101/65; PULSE 89; RESP 18
== END 2022-11-17 00:39 | disposition home or self-care (01) ==
PROVIDERS: Emergency Provider Emergency Medicine; PCP Internal Medicine; Visit Provider Emergency Medicine
DX: R41.82 Altered mental status, unspecified (principal); F17.210 Nicotine dependence, cigarettes, uncomplicated; I10 Essential (primary) hypertension; R11.0 Nausea; E66.9 Obesity, unspecified; R06.02 Shortness of breath; Z20.822 Contact with and (suspected) exposure to COVID-19; Z68.38 Body mass index [BMI] 38.0-38.9, adult
CPT/HCPCS: 16020; 70450; 71045; 80053; 83605; 84484; 85025; 85610; 85730; 87040; 87428; 93005; 96360; 96361; 99285; A4216

== ENCOUNTER → 2022-11-20 | Outpatient (CLI) | payer MEDICARE, MEDICAID, SELFPAY ==
--- NOTE | 2022-11-20 14:30 | CT_ITS ---
STUDY: LOW DOSE CT LUNG CANCER SCREENING REASON FOR EXAM: Female, 52 years old. Lung cancer screening -- and gt;20 pk yr hx;current smoker; asymptomatic RADIATION DOSAGE (If Supplied By Facility): CTDIvol = ( 4.02 ) mGy, DLP = ( 119.84 ) mGycm TECHNIQUE: No contrast was administered. Low dose technique was utilized (average mAS-38 and kVp 120). 1.25 mm axial source images with a slice interval of 1.25-mm were reconstructed in lung windows. 2.5 mm axial source images with a slice interval of 2.5-mm were reconstructed in lung windows. 5.0 mm axial source images with a slice interval of 5.0-mm were reconstructed in soft tissue windows. COMPARISON: None. NODULES: Patchy 2.9 cm x 1.6 cm peripheral infiltration in the lateral aspect of the lingular segment of the left upper lobe abutting the left major fissure posteriorly. This may represent either an area of scarring or possible early infiltrate. Mild increased markings are also seen in the superior segment of the left lower lobe. Follow-up is recommended. Emphysema: Mild degree of emphysematous changes. Endobronchial lesion: Unremarkable Aorta: Unremarkable CORONARY ARTERIES: Coronary artery calcification is not seen. Heart: Moderate Pulmonary artery: Unremarkable Mediastinal nodes: Small mediastinal lymph nodes. Other chest and abdominal findings: CT/Low Dose CT Lung Screening IMPRESSION: Lung-RADS category 4A - Screening at 3 months with LDCT or evaluation with PET/CT may be used. IMPORTANT NOTES FOR USE: ACR Lung-RADS Version 1.1 Assessment Categories Release Date: 2018 Category: Coded 0-4 bases on nodule(s) with highest degree of suspicion. Negative screen is defined as categories 1 and 2; a positive screen is defined as categories 3 and 4. Category 3 and 4A nodules that are unchanged on interval CT should be coded as category 2, and individuals returned to screening in 12 months. Category 4X: Category 3 or 4 nodules with additional imaging findings that increase the suspicion of lung cancer, such as spiculation, GGN that doubles in size in 1 year, enlarged lymph notes, etc. Category Modifiers: S (significant finding unrelated to lung cancer) Electronically Signed: Tunde Plunkett MD at 15:17 EST ,
== END | disposition home or self-care (01) ==
LOC: CT 14:29
PROVIDERS: PCP Internal Medicine; Referring Provider Nurse Practitioner Family; Visit Provider Nurse Practitioner Family
DX: Z87.891 Personal history of nicotine dependence (principal)
CPT/HCPCS: 71271

== ENCOUNTER 2022-12-18 13:57 | Day surgery (SDC) | payer MEDICARE, MEDICAID, SELFPAY ==
[2022-12-18 14:32] VITALS: BP 164/93; PULSE 83; RESP 16; TEMP 36.2; O2SAT 93; BMI 46.9
[2022-12-18] MEDS: Lactated Ringers 1,000 ML 15 ML IV (14:38)
--- NOTE | 2022-12-18 15:04 | HP.PCM_ITS ---
History and Physical Date of Admission: 12/18/22 52 F who presents to the office today to establish for diarrhea and the need for a screening colonoscopy. Earlier this year she had diarrhea x 2-3 months, had accidents in both day and night. Urgent watery diarrhea w/in 30 min of eating. Didn't get relief with imodium. Negative C diff. Had severe stabbing abd pains, like bowels being squeezed, during this period of time. Diarrhea resolved spontaneously by August 2022. No further abdominal pain either. No melena or hematochezia. Reports hx of IBS, used to take dicyclomine for it, hasn't used it in about 8 yrs. Now bowels are regular, has at least one formed stool per day. Takes omeprazole for heartburn. Takes phenergan prn for nausea, gets nausea with headaches, can usually prevent vomiting if she takes phenergan and fioricet. Reports she chokes easily. Remote hx of EGD. Exam Const General: cooperative, comfortable and no acute distress Nutritional Appearance: obese Orientation: alert, awake and oriented x3 HENMT Head: normal to inspection Eyes Sclera: sclerae normal Resp Effort & Inspection: normal respiratory effort GI Palpation: soft, no hepatosplenomegaly, no masses and nontender Skin General: jaundice Neuro Gait: normal gait Psych Mood: euthymic mood Quality Reporting Tobacco Screening ([facility]) Smoking Status: Current every day smoker Assessment and Plan Assessment and Plan (1) Heartburn: ?Status:?Acute ?Plan: 52 yr old female who had diarrhea which spontaneously resolved. She reports hx of IBS which was managed with dicyclomine. The argument against this recent diarrhea being IBS is the nocturnal diarrhea. F/u if diarrhea returns. Will schedule her for EGD to eval for esophagitis, stenosis, stricture, Hong's; and will get screening colonoscopy. f/u in office 2 wks after endoscopies to discuss biopsy results (2) Colonoscopy planned: ?Status:?Acute ?Plan: as above (3) Dysphagia: ?Status:?Acute ?Plan: as above I have examined the patient and the H&P has been reviewed. There are no clinical changes since date of exam.
--- NOTE | 2022-12-18 15:15 | COLBX_PTH ---
PATIENT: SAMANTHA QUIROS LOC: EN U#:[id number] AGE/SX: 52/F ROOM: RE12/18/[address]: Dr. Roc Pinedo DO : 1970 BED: DIS: 12/18/2022 SPEC #: [id number] RECD: 12/18/22 18:01 STATUS: ADAMA MELTONDillon #: [id number] REINA: 12/18/22 15:[address]: Roc Pinedo DEPT: SURGICAL PATHOLOGY RECD BY: Shruthi Cruz ENTERED: 12/19/22 08:44 SP TYPE: COLON BX OTHR DR: Dr. Adri Chang, Tissues: A - Gastric mucous membrane B - Esophagus, NOS C - Sigmoid colon biopsy Procedures: Special Stain Group II Surgery Specimen Level IV Alcian Blue/PAS (control) HEADER OPERATION: Colonoscopy, [place] PRE-OP DIAGNOSIS: Heartburn, dysphagia TISSUE SUBMITTED: A ? Gastric body biopsy, B ? Distal esophagus biopsy, C ? Sigmoid polyp biopsy MICROSCOPIC DIAGNOSIS A. Gastric body, biopsy: Mild chronic inflammation. See comment. B. Distal esophagus, biopsy: Gastroesophageal junctional mucosa with mild chronic inflammation. No evidence of goblet cell metaplasia. See comment. C. Sigmoid colon polyp, biopsy: Fragments of tubular adenoma. AM:max 12/20/2022 COMMENT A. The results of immunohistochemistry for Helicobacter pylori will be reported separately ([id number]). B. Alcian blue/PAS stain with matched control supports the above diagnosis. MICROSCOPIC DESCRIPTION Slides are reviewed. GROSS DESCRIPTION A - Received in fixative is one container labeled with the patient's name and designated gastric body biopsy. The specimen consists of multiple irregular fragments of light castelan soft tissue that in aggregate measure 1 x 0.3 x 0.1 cm. The specimen is totally submitted in one cassette. B - Received in fixative is one container labeled with the patient's name and designated distal esophagus biopsy. The specimen consists of two irregular fragments of light castelan soft tissue that in aggregate measure 0.8 x 0.3 x 0.1 cm. The specimen is totally submitted in one cassette. C - Received in fixative is one container labeled with the patient's name and designated sigmoid polyp biopsy. The specimen consists of multiple irregular fragments of light castelan soft tissue that in aggregate measure 0.8 x 0.3 x 0.1 cm. The specimen is totally submitted in one cassette. / SJ:rg 12/19/2022 TC:3 CPT: 95626 x3, 10956
--- NOTE | 2022-12-18 15:15 | IMM_PTH ---
PATIENT: SAMANTHA QUIROS LOC: EN U#:[id number] AGE/SX: 52/F ROOM: RE12/18/[address]: Dr. Roc Pinedo DO : 1970 BED: DIS: 12/18/2022 SPEC #: [id number] RECD: 12/19/22 08:18 STATUS: ADAMA REDillon #: [id number] REINA: 12/18/22 15:[address]: Roc Pinedo DEPT: IMMUNOHISTOCHEMISTRY RECD BY: Shruthi Cruz ENTERED: 12/19/22 08:20 SP TYPE: IMMUNO OTHR DR: Dr. Adri Chang DO Tissues: Gastric mucous membrane Procedures: H Pylori (initial) PHYSICIAN & INSTITUTION [place] [id number] SPECIMEN INFORMATION: Tissue Source: A - Gastric body biopsy Clinical Info: Heartburn, dysphagia Specimen Number: [id number] CPT code: 36984 METHODOLOGY: Deparaffinized sections of prefer/formalin-fixed tissue or PAP/DQ stained slides are incubated with monoclonal/polyclonal antibodies/oligonucleotide probes. Localization is made via biotin free immunoperoxidase method. Appropriate controls are performed and reacted as expected. Results on target cell population are indicated in the following table: RESULTS: ANTIBODY / CLONE RESULT Block A H Pylori (polyclonal) negative These tests were developed and their performance characteristics determined by [facility]. They may not have been cleared or approved by the U.S. Food and Drug Administration. The FDA has determined that such clearance or approval is not necessary. The above immunohistochemical/dualISH markers are ordered and reviewed by the Pathologist. INTERPRETATION: A. Gastric body, biopsy: Negative for Helicobacter pylori organisms. AM:max 12/20/2022
--- NOTE | 2022-12-18 16:00 | OP.EGD_ITS ---
Patient Name: Lacy Peterson Procedure Date: 12/18/2022 3:25 PM Date of : 1970 Age: 52 Procedure: Upper GI endoscopy Indications: Dysphagia, Heartburn Providers: Roc Pinedo DO Referring MD: Roc Pinedo DO Medicines: Monitored Anesthesia Care Patient Profile: This is a 52 year old female. Refer to note in patient chart for documentation of history and physical. Patient has symptoms of chronic dysphagia, chronic dyspepsia and chronic heartburn. Complications: No immediate complications. Procedure: Pre-Anesthesia Assessment: - Prior to the procedure, a History and Physical was performed, and patient medications and allergies were reviewed. The risks and benefits of the procedure and the sedation options and risks were discussed with the patient. All questions were answered and informed consent was obtained. Patient identification and proposed procedure were verified by the physician. Mental Status Examination: normal. Prophylactic Antibiotics: The patient does not require prophylactic antibiotics. Prior Anticoagulants: The patient has taken no previous anticoagulant or antiplatelet agents. ASA Grade Assessment: II - A patient with mild systemic disease. After reviewing the risks and benefits, the patient was deemed in satisfactory condition to undergo the procedure. The anesthesia plan was to use monitored anesthesia care (MAC). Immediately prior to administration of medications, the patient was re-assessed for adequacy to receive sedatives. The heart rate, respiratory rate, oxygen saturations, blood pressure, adequacy of pulmonary ventilation, and response to care were monitored throughout the procedure. The physical status of the patient was re-assessed after the procedure. After obtaining informed consent, the endoscope was passed under direct vision. Throughout the procedure, the patient's blood pressure, pulse, and oxygen saturations were monitored continuously. The pediatric colonoscope was introduced through the mouth, and advanced to the second part of duodenum. The upper GI endoscopy was accomplished without difficulty. The patient tolerated the procedure well. Scope In: 3:34:21 PM Scope Out: 3:37:14 PM Total Procedure Duration Time 0 hours 2 minutes 53 seconds Findings: The Z-line was irregular and was found 39 cm from the incisors. Biopsies were taken with a cold forceps for histology. Verification of patient identification for the specimen was done. Estimated blood loss was minimal. A moderate Schatzki ring was found in the lower third of the esophagus. A guidewire was placed and the scope was withdrawn. Dilation was performed with a Savary dilator with no resistance at 51 Fr. The dilation site was examined and showed moderate improvement in luminal narrowing. Estimated blood loss was minimal. Localized moderate inflammation characterized by congestion (edema), erosions and erythema was found in the gastric body. Biopsies were taken with a cold forceps for histology. Verification of patient identification for the specimen was done. Estimated blood loss was minimal. The first portion of the duodenum was normal. Impression: - Z-line irregular, 39 cm from the incisors. Biopsied. - Moderate Schatzki ring. Dilated. - Gastritis. Biopsied. - Normal first portion of the duodenum. Recommendation: - Await pathology results. - Repeat upper endoscopy in 1 year for surveillance. - Continue present medications. Procedure Code(s): --- Professional --- 54653, Esophagogastroduodenoscopy, flexible, transoral; with insertion of guide wire followed by passage of dilator(s) through esophagus over guide wire 78483, 59,51, Esophagogastroduodenoscopy, flexible, transoral; with biopsy, single or multiple CPT copyright 2017 [employer]. All rights reserved. The codes documented in this report are preliminary and upon silk screener review may be revised to meet current compliance requirements. Roc Pinedo DO 12/18/2022 3:59:53 PM This report has been signed electronically. Number of Addenda: 0 Note Initiated On: 12/18/2022 3:25 PM
--- NOTE | 2022-12-18 16:00 | OP.CCLET_ITS ---
12/18/2022 Adri Chang Do Re : Upper GI endoscopy procedure for Lacy Peterson Dear Charlene This procedure was performed on Sunday, December 18, 2022. My impressions and recommendations are as follows: Impressions : - Z-line irregular, 39 cm from the incisors. Biopsied. - Moderate Schatzki ring. Dilated. - Gastritis. Biopsied. - Normal first portion of the duodenum. Recommendations : - Await pathology results. - Repeat upper endoscopy in 1 year for surveillance. - Continue present medications. My findings are described in the full procedure note, which is enclosed. If I can be of further assistance, please feel free to contact me at . Sincerely, Roc Pinedo, 12/18/2022 3:59:53 PM This report has been signed electronically.
[2022-12-18 16:01] VITALS: BP 138/83; BP 164/93; PULSE 91; RESP 16; TEMP 36.5; O2SAT 96
--- NOTE | 2022-12-18 16:03 | OP.CCLET_ITS ---
12/18/2022 Adri Chang Do Re : Colonoscopy procedure for Lacy Peterson Dear Charlene This procedure was performed on Sunday, December 18, 2022. My impressions and recommendations are as follows: Impressions : - One 5 mm polyp at the recto-sigmoid colon, removed with a cold snare. Resected and retrieved. - Diverticulosis in the sigmoid colon and in the descending colon. Recommendations : - Discharge patient to home. - Resume previous diet. - Continue present medications. - Await pathology results. - Repeat colonoscopy in 5 years for surveillance. My findings are described in the full procedure note, which is enclosed. If I can be of further assistance, please feel free to contact me at . Sincerely, Roc Pinedo, 12/18/2022 4:02:31 PM This report has been signed electronically.
--- NOTE | 2022-12-18 16:03 | OP.COLON_ITS ---
Patient Name: Lacy Peterson Procedure Date: 12/18/2022 3:37 PM Date of : 1970 Age: 52 Procedure: Colonoscopy Indications: Screening for colorectal malignant neoplasm Providers: Roc Pinedo DO Referring MD: Roc Pinedo DO Medicines: Monitored Anesthesia Care Patient Profile: This is a 52 year old female. Refer to note in patient chart for documentation of history and physical. Patient has symptoms of chronic dysphagia, chronic dyspepsia and chronic heartburn. Last Colonoscopy: none. The patient's first colonoscopy is today. Complications: No immediate complications. Procedure: Pre-Anesthesia Assessment: - Prior to the procedure, a History and Physical was performed, and patient medications and allergies were reviewed. The risks and benefits of the procedure and the sedation options and risks were discussed with the patient. All questions were answered and informed consent was obtained. Patient identification and proposed procedure were verified by the physician. Mental Status Examination: normal. Prophylactic Antibiotics: The patient does not require prophylactic antibiotics. Prior Anticoagulants: The patient has taken no previous anticoagulant or antiplatelet agents. ASA Grade Assessment: II - A patient with mild systemic disease. After reviewing the risks and benefits, the patient was deemed in satisfactory condition to undergo the procedure. The anesthesia plan was to use monitored anesthesia care (MAC). Immediately prior to administration of medications, the patient was re-assessed for adequacy to receive sedatives. The heart rate, respiratory rate, oxygen saturations, blood pressure, adequacy of pulmonary ventilation, and response to care were monitored throughout the procedure. The physical status of the patient was re-assessed after the procedure. After I obtained informed consent, the scope was passed under direct vision. Throughout the procedure, the patient's blood pressure, pulse, and oxygen saturations were monitored continuously. The colonoscope was introduced through the anus and advanced to the cecum, identified by appendiceal orifice and ileocecal valve. The colonoscopy was performed without difficulty. The patient tolerated the procedure well. The quality of the bowel preparation was good. Moderate Sedation: Moderate (conscious) sedation was personally administered by an anesthesia professional. The following parameters were monitored: oxygen saturation, heart rate, blood pressure, respiratory rate, EKG, adequacy of pulmonary ventilation, and response to care. Scope In: 3:39:05 PM Scope Withdrawal Time 0 hours 11 minutes 17 seconds Scope Out: 3:54:18 PM Total Procedure Duration Time 0 hours 15 minutes 13 seconds Findings: The perianal and digital rectal examinations were normal. A 5 mm polyp was found in the recto-sigmoid colon. The polyp was sessile. The polyp was removed with a cold snare. Resection and retrieval were complete. Verification of patient identification for the specimen was done. Estimated blood loss was minimal. A few small and large-mouthed diverticula were found in the sigmoid colon and descending colon. Impression: - One 5 mm polyp at the recto-sigmoid colon, removed with a cold snare. Resected and retrieved. - Diverticulosis in the sigmoid colon and in the descending colon. Recommendation: - Discharge patient to home. - Resume previous diet. - Continue present medications. - Await pathology results. - Repeat colonoscopy in 5 years for surveillance. Procedure Code(s): --- Professional --- 43245, Colonoscopy, flexible; with removal of tumor(s), polyp(s), or other lesion(s) by snare technique CPT copyright 2017 [employer]. All rights reserved. The codes documented in this report are preliminary and upon inspector type review may be revised to meet current compliance requirements. Roc Pinedo DO 12/18/2022 4:02:31 PM This report has been signed electronically. Number of Addenda: 0 Note Initiated On: 12/18/2022 3:37 PM
[2022-12-18 16:05] VITALS: BP 146/84; BP 164/93; PULSE 81; RESP 16; O2SAT 97
[2022-12-18 16:10] VITALS: BP 148/79; BP 164/93; PULSE 79; RESP 16; O2SAT 96
[2022-12-18 16:15] VITALS: BP 155/73; BP 164/93; PULSE 77; RESP 16; TEMP 37.1; O2SAT 95
[2022-12-18 16:49] VITALS: BP 164/93
== END 2022-12-18 16:59 | disposition home or self-care (01) ==
LOC: EN 13:59 → AC 14:01
PROVIDERS: PCP Internal Medicine; Referring Provider Internal Medicine Gastroenterology; Visit Provider Internal Medicine Gastroenterology
PROC: 0DJD8ZZ Inspection of Lower Intestinal Tract, Via Natural or Artificial Opening Endoscopic (ICD-10-PCS; CPT 45378; principal; 2022-12-18 15:10)
DX: Z12.11 Encounter for screening for malignant neoplasm of colon (principal); D12.5 Benign neoplasm of sigmoid colon; R13.10 Dysphagia, unspecified; K57.30 Diverticulosis of large intestine without perforation or abscess without bleeding; F17.200 Nicotine dependence, unspecified, uncomplicated; K29.70 Gastritis, unspecified, without bleeding; R12 Heartburn; R19.7 Diarrhea, unspecified; K22.2 Esophageal obstruction; K21.9 Gastro-esophageal reflux disease without esophagitis; I10 Essential (primary) hypertension; Z87.19 Personal history of other diseases of the digestive system; Z79.899 Other long term (current) drug therapy
CPT/HCPCS: 43239; 43248; 45385; 88305; 88313; 88342; J7120; J2405

== ENCOUNTER → 2023-01-09 | Outpatient (CLI) | payer MEDICARE, MEDICAID, SELFPAY ==
--- NOTE | 2023-01-09 11:05 | RAD_ITS ---
EXAM: XR RIGHT ANKLE COMPLETE, 3 OR MORE VIEWS CLINICAL INDICATION: PAIN TECHNIQUE: Frontal, lateral and oblique views of the right ankle. This report was created using [employer] report generation technology. COMPARISON: Previous ankle radiographs of 09/04/2021. FINDINGS: BONES/JOINTS: Cortical thickening again noted along the posterior aspect of the distal tibia, consistent with old trauma. No acute fracture or dislocation is identified. Moderate plantar and posterior calcaneal spurs are again noted. There is minimal degenerative spurring arising from the distal tip of the lateral malleolus. A small corticated calcification is also projected adjacent to the distal tip of the lateral malleolus, unchanged, due to accessory ossicle or old avulsed osseous fragment. No sclerotic or destructive changes observed. SOFT TISSUES: Soft tissue swelling noted about the lateral aspect of the ankle. No radiopaque foreign body. RAD/Ankle min 3 Views IMPRESSION: Soft tissue swelling about the lateral aspect of the ankle. Calcaneal spurs. Minimal degenerative spurring about the lateral aspect of the ankle. No acute fracture, dislocation or ankle effusion identified. Electronically Signed: Mario Bennett MD at 5:56 EST ,
== END | disposition home or self-care (01) ==
LOC: RAD 11:00
PROVIDERS: PCP Internal Medicine; Referring Provider Internal Medicine; Visit Provider Internal Medicine
DX: M25.579 Pain in unspecified ankle and joints of unspecified foot (principal)
CPT/HCPCS: 73610

== ENCOUNTER → 2023-01-30 | Outpatient (CLI) | payer MEDICARE, MEDICAID, SELFPAY ==
--- NOTE | 2023-01-30 08:30 | MRI_ITS ---
STUDY: MRI CERVICAL SPINE WITHOUT CONTRAST REASON FOR EXAM: Female, 52 years old. Cervical radiculopathy. TECHNIQUE: Standardized fat and water weighted pulse sequences were obtained in the sagittal and axial planes. COMPARISON: None FINDINGS: Normal foramen magnum and brainstem-cervical cord junction. Normal craniovertebral junction. Normal anterior atlantoaxial articulation. Normal odontoid process. Straightening of the C-spine curvature. Normal vertebral bodies and posterior osseous elements. C2-3: Normal endplates. Normal disc height, signal and morphology. Normal central canal and intervertebral neural foramina. C3-4: Normal endplates. Normal disc height, signal and morphology. Normal central canal and intervertebral neural foramina. C4-5: Normal endplates. Normal disc height, signal and morphology. Normal central canal and intervertebral neural foramina. C5-6: Normal endplates. Normal disc height. Midline ventral extradural defect is suspicious for small subligamentous disc protrusion. Normal central canal and intervertebral neural foramina. C6-7: Normal endplates. Normal disc height, signal and morphology. Normal central canal and intervertebral neural foramina. C7-T1: Normal endplates. Normal disc height, signal and morphology. Normal central canal and intervertebral neural foramina. T1-T2: (Sagittal only). Normal endplates. Normal disc height, signal and morphology. Normal central canal and intervertebral neural foramina. T2-T3: (Sagittal only). Normal T2 inferior endplate. Slight anterior wedging of T3 superior endplate is presumably from remote injury. This accounts for the increased anterior disc space height. Normal disc signal and morphology. Normal central canal and intervertebral neural foramina. T3-T4: (Sagittal only). Normal T3 inferior endplate. Slight anterior wedging of T4 superior endplate causing increased anterior disc space height. Normal disc signal and morphology. Normal central canal and intervertebral neural foramina. T4-T5: (Sagittal only). Normal endplates. Normal disc height, signal and morphology. Normal central canal and intervertebral neural foramina. Normal cervical cord. Normal thoracic spinal cord, brainstem and cerebellum. Small benign retention cyst in the midline retropharyngeal space of the nasopharynx. Normal visualized soft tissue structures. MRI/Spine Cervical (Routine) IMPRESSION: 1. Small midline ventral extradural defect at C5-C6 disc space level is suspicious for tiny subligamentous disc protrusion but no disc extrusion, cord compression or cervical nerve root displacement. 2. Normal remaining of the cervical spine. 3. Incidental tiny mucus retention cyst in the nasopharyngeal retropharyngeal space. Electronically Signed: Vidal Jones MD at 12:46 EDT ,
== END | disposition home or self-care (01) ==
LOC: MRI 08:24
PROVIDERS: PCP Internal Medicine; Referring Provider Internal Medicine; Visit Provider Internal Medicine
DX: M54.12 Radiculopathy, cervical region (principal)
CPT/HCPCS: 72141

== ENCOUNTER 2023-02-26 11:30 | Outpatient (RCR) | payer MEDICARE, MEDICAID, SELFPAY ==
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
--- NOTE | 2023-01-16 13:16 | HP.PTREVAL ---
Dr. Adri Chang, DO, It has been my pleasure to treat SAMANTHA QUIROS over the last 4 visits for ACUTE CERVICAL RADICULOPATHY. Please see the progress note below for an update on the physical therapy plan of care! Subjective: PATIENT REPORTS HER R SHLD IS BETTER BUT STILL SOME PAIN WITH THINGS LIKE WASHING HAIR AND REACHING HAND ABOVE SHLD HEIGHT. SHE REPORTS HER R SHLD PAIN IS MILD AND INTERMITTENT. SHE REPORTS HER NECK HAS GOOD DAYS AND BAD DAYS. THERE ARE DAYS I CAN'T DRIVE BECAUSE IT IS NOT SAFE FOR ME TO LOOK FROM SIDE TO SIDE. SOMETIMES NECK LOCKS UP. NECK PAIN IS CONSTANT RANGING FROM 2/10 TO 9/10. MY R ARM IS STILL WEAK AND I STILL DROP THINGS BUT THE NUMBNESS AND TINGLING IS GONE. MEDICINE SEEMS TO BE HELPING. 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 Objective/Function: PATIENT WAS SEEN TODAY FOR RE-ASSESSMENT OF PROGRESS TOWARD THE SET PT GOALS AND THE NEED FOR FURTHER PHYSICAL THERAPY VS READINESS FOR DISCHARGE. UPON EXAM TODAY: Sensory deficit: HYPERSENSATIVITY OF RIGHT UE REPORTED COMPARED TO LEFT WITH TESTING TODAY. ROM deficit: ABLE TO ELEVATE RIGHT UE 115 DEG AND C/O MILD PAIN THROUGHOUT MVMT. ABLE TO GET HAND BEHIND HER BACK NOW BUT LIMITED R SHLD ROM ALL PLANES AND C/O MILD PAIN WITH RIGHT SHLD AROM ALL PLANES. FULL RIGHT ELBOW FLEX/EXT. FULL RIGHT WRIST FLEX/EXT AND ABLE TO MAKE FULL FIST. L UE ROM WFL. 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 Dural Signs: POSTITIVE R UE. Cervical Mvmt Loss: Flex: NIL. Pro: NIL. Ext: MOD. Ret: MOD. RSB: MOD. LSB: MOD. R Rot: MOD. L Rot: MOD. PATIENT C/O INCRASED PAIN WITH CERVICAL ROM TESTING ALL PLANES. Postural strength: POOR. Palpation: TENDERNESS WITH LIGHT PALPATION OF THE OCCIPUT, CERVICAL SPINE, AGUILA UT'S, AND RIGHT SHLD. TIGHT AGUILA UT'S. Plan Plan: *VERY RECENT H/O PASSING OUT AND ED VISITS. BLOOD PRESSURE GOES TOO LOW. IF PASSES OUT CALL THE [facility]. PATIENT REPORTS SHE CAN USUALLY FEEL IT COMING ON. CONSIDER US AND STM TO TENDER AREAS IN NECK/SHLD. RESUME PT 2X'S A WK X 3-5 WKS - PATIENT IS AGREEABLE TO POC: POSTURE CORRECTION/STRENGTHENING, INSTRUCTION IN APPROPRIATE BODY MECHANICS AND ACTIVITY MODIFICATIONS. AGUILA UE ROM, STRETCHING AND STRENGTHENING. HEP INSTRUCTION. Balance/Gait/Functional tests - Balance/Special Test Scores Oswestry Neck Score: 23 Goals Goal 1:: DECREASE C/O NECK AND RIGHT UE SX'S. Goal Time Frame: 4-6 Weeks Goal 2:: IMPROVE PERSONAL CARE, LIFTING, READING, SLEEP, WORK, DRIVING AND RECREATIONAL FUNCTION Goal Time Frame: 4-6 Weeks Goal 3:: INSTRUCT IN PROPHYLAXIS Goal Time Frame: 4-6 Weeks Anticipated Interventions Patient/Client Instruction: Educate patient on: Condition, Plan of Care, Risk Factors For the Purpose of:: To improve self management Therapeutic Exercise to Include: Strength training, Body mechanics, Postural training, Flexibilty training, Neuromotor development, Scapular Strength/Stabilization For the Purpose of:: To decrease pain, To increase ROM, To improve muscle performance and motor function, To increase tolerance to activity/condition/position, To improve ability of physical actions for home/community/work/leisure Manual Therapy Techniques to Include: Soft tissue mobilization For the Purpose of:: To decrease pain, To improve nutrient delivery to tissue Cryotherapy (ice pack, ice massage): Yes Thermo therapy (hot pack): Yes Ultrasound (thermal/non thermal): Yes For the Purpose of:: To decrease pain, To improve nutrient delivery to tissue Please do not hesitate to contact me at [phone] by phone or if you have questions or concerns regarding this new plan of care! Sincerely, Patt Garnica, PT, Cert MDT
--- NOTE | 2023-02-26 12:10 | HP.PTDCSUM_ITS ---
It has been my pleasure to treat SAMATNHA QUIROS referred by Dr. Adri Chang DO, with the diagnosis of ACUTE CERVICAL RADICULOPATHY for a total of 9 visit(s). Discharge Date: Please see the following information for a summary of their discharge status. Subjective: PATIENT REPORTS SHE HASN'T BEEN HERE BECAUSE SHE DROPPED HOT COFFEE ON HER FOOT AND HAS A BAD BURN. STATES SHE DROPPED IT WITH HER R UE. SHE REPORTS SHE IS STILL DROPPING STUFF WITH HER R UE AND HER R UE IS STILL GOING NUMB. SHE REPORTS TEMPORARY RELIEF WITH THE US. REPORTS COMPLIANCE WITH HEP. STATES THE EX'S DO NOT INCREASE HER PAIN AND THEY ARE HELPFUL. STATES HER NECK IS BETTER. PATIENT REPORTS R SHLD PAIN RIGHT NOW FROM REACHING INTO THE BACK SEAT JUST BEFORE COMING IN TO PT. PATIENT STATES I CAN PUT A BRA ON NOW AND IT DOESN'T HURT - THAT'S GOOD. PATIENT STATES SHE FEELS SHE CAN CONTINUE ON HER OWN NOW AND THAT IS WHAT SHE WANTS TO DO. NECK Pain Intensity (Out of 10): 0 R UE Pain Intensity (Out of 10): 3 % Improvement: 75 Objective/Function: PATIENT WAS SEEN TODAY FOR RE-ASSESSMENT OF PROGRESS TOWARD THE SET PT GOALS AND THE NEED FOR FURTHER PHYSICAL THERAPY VS READINESS FOR DISCHARGE. UPON EXAM TODAY: Sensory deficit: PATIENT DENIES HYPERSENSATIVITY OF RIGHT UE COMPARED TO LEFT WITH TESTING TODAY. ROM deficit: ABLE TO ELEVATE RIGHT UE 125 DEG AND C/O MILD PAIN THROUGHOUT MVMT. ABLE TO ONLY PARTIALLY GET HAND BEHIND HER BACK NOW AND LIMITED R SHLD ROM ALL PLANES AND C/O MILD PAIN WITH RIGHT SHLD AROM ALL PLANES. FULL RIGHT ELBOW FLEX/EXT. FULL RIGHT WRIST FLEX/EXT AND ABLE TO MAKE FULL FIST. L UE ROM WFL. 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 R SHLD STRENGTH GROSSLY 3-/5. Dural Signs: POSTITIVE R UE. Cervical Mvmt Loss: Flex: NIL. Pro: NIL. Ext: MOD. Ret: MOD. RSB: MOD. LSB: MOD. R Rot: MOD. L Rot: MIN. PATIENT C/O MILD INCRASED PAIN WITH CERVICAL ROM TESTING ALL PLANES. Postural strength: POOR. Palpation: NO ACUTE NECK TENDERNESS WITH PALPATION. PHYSICIAN RE-ASSESSMENT RECOMMENDED BASED ON PATIENT CONTINUEING TO HAVE SIGNIFICANT R UE LIMITATIONS AND SX'S. PATIENT AGREEABLE. Goal 1:: DECREASE C/O NECK AND RIGHT UE SX'S. Goal Progress: Progressing Goal 2:: IMPROVE PERSONAL CARE, LIFTING, READING, SLEEP, WORK, DRIVING AND RECREATIONAL FUNCTION Goal Progress: Progressing Goal 3:: INSTRUCT IN PROPHYLAXIS Goal Progress: Progressing Plan: D/C TO HEP TOLERATED. PHYSICIAN RE-ASSESSMENT RECOMMENDED. PATIENT AGREEABLE. If there are questions or concerns regarding this patient's physical therapy, please feel free to call me at [phone]. Thank you for the referral of this patient. Sincerely, Patt Garnica, PT, Cert MDT Balance/Gait/Functional tests - Balance/Special Test Scores Oswestry Neck Score: 22
== END 2023-02-26 19:00 | disposition home or self-care (01) ==
LOC: PT 11:30
PROVIDERS: PCP Internal Medicine; Referring Provider Internal Medicine; Visit Provider Internal Medicine
DX: M54.12 Radiculopathy, cervical region (principal)
CPT/HCPCS: 97035; 97110; 97112; 97140; 97162; 97164; 97530

== ENCOUNTER → 2023-03-29 | Outpatient (CLI) | payer MEDICARE, MEDICAID, SELFPAY ==
--- NOTE | 2023-03-29 12:39 | MRI_ITS ---
EXAM: MR RIGHT UPPER EXTREMITY WITHOUT INTRAVENOUS CONTRAST, SHOULDER CLINICAL INDICATION: SHOULDER PAIN TECHNIQUE: Multiplanar and multisequence MR images of the right shoulder without intravenous contrast. COMPARISON: No relevant prior studies available. FINDINGS: TENDONS: SUPRASPINATUS: Small focal partial-thickness intrasubstance tear at the footprint supraspinatus tendon is likely to be hidden or concealed at the time of arthroscopy. INFRASPINATUS: Unremarkable. No infraspinatus tendon tear. SUBSCAPULARIS: Unremarkable. Intact. TERES MINOR: Unremarkable. Intact. BICEPS BRACHII, LONG HEAD: Unremarkable. The extra-articular biceps tendon is in the bicipital groove. The intra-articular biceps tendon is normal. LIGAMENTS: GLENOHUMERAL: Unremarkable. Intact. MUSCLES: Unremarkable. No rotator cuff muscle atrophy. FLUID: Subacromial/subdeltoid bursitis. No joint effusion. CARTILAGE: Unremarkable. Articular cartilage intact. GLENOID LABRUM: Unremarkable. Intact, limited evaluation on non-arthrographic exam. BONES/JOINTS: Mild to moderate hypertrophic degenerative changes of the acromioclavicular joint with mild mass effect on the underlying soft tissues. Type II acromion with curved undersurface. No subacromial enthesophyte. No os acromiale. OTHER SOFT TISSUES: Unremarkable. No rotator interval edema.
== END | disposition home or self-care (01) ==
LOC: MRI 12:36
PROVIDERS: PCP Internal Medicine; Referring Provider Internal Medicine; Visit Provider Internal Medicine
DX: M25.511 Pain in right shoulder (principal); G89.29 Other chronic pain
CPT/HCPCS: 73221

== ENCOUNTER 2023-05-01 08:07 | Day surgery (SDC) | payer MEDICARE, MEDICAID, SELFPAY ==
--- NOTE | 2023-04-18 10:04 | EKG12_ITS ---
Test Reason : PRE OP Blood Pressure : / mmHG Vent. Rate : 063 BPM Atrial Rate : 063 BPM P-R Int : 176 ms QRS Dur : 078 ms QT Int : 408 ms P-R-T Axes : 045 009 -20 degrees QTc Int : 417 ms Normal sinus rhythm ST & T wave abnormality, consider inferior ischemia ST & T wave abnormality, consider anterolateral ischemia Abnormal ECG Confirmed by FABRICE RATLIFF MD ([id number]), department editor JOYCE SHARIF ([id number]) on 04/19/2023 8:13:09 AM Referred By: Chad Busby Confirmed By:FABRICE RATLIFF MD
--- NOTE | 2023-04-18 10:16 | RAD_ITS ---
STUDY: X-RAY CHEST REASON FOR EXAM: Female, 53 years old. PRE OP TECHNIQUE: Frontal and lateral views of the chest. COMPARISON: 11/16/2022. FINDINGS: The lungs are clear and expanded. There is no demonstrated pleural abnormality. Normal size heart. Normal mediastinum and trisha. Normal visualized pulmonary arteries. Normal visualized aortic arch and descending thoracic aorta. Normal visualized thoracic spine. Normal visualized ribs, clavicles, and shoulders. There is no demonstrated abnormality of the visualized soft tissue structures of the upper abdomen. RAD/Chest PA and Lateral IMPRESSION: Normal x-ray examination of the chest. Electronically Signed: Uzair Healy MD at 19:55 EDT ,
[2023-04-18 10:52] LABS: Absolute Lymphocyte Count 1.95 X10^3/uL (0.83-4.51); Basophil# 0.11 X10^3/uL; Basophil% 1.6 % (0-1); Eosinophil# 0.53 X10^3/uL; Eosinophils% 7.6 % (0-5); Hematocrit 43.7 % (37-47); Hemoglobin 14.3 g/dL (12.0-15.0); Lymphocyte # 1.95 X10^3/ul (0.83-4.51); Lymphocyte % 27.8 % (19-41); Mean Corp Hgb Conc 32.7 g/dL (32-36); Mean Corpuscular Hgb 32.5 pg (27.0-32.0); Mean Corpuscular Volume 99.3 fL (81-99); Mean Platelet Vol. 11.2 fl (6.2-12.0); Monocyte# 0.38 X10^3/uL; Monocyte% 5.4 % (0-10); NRBC Flagged by Analyzer 0 % (0-5); Neutrophil # 4.01 X10^3/uL (2.7-7.7); Neutrophil % 57.2 % (47-70); Platelet Count 243 K/mm3 (150-450); RBC Distribution Width SD 47.8 fl (35.1-43.9)
[2023-04-18 11:32] LABS: AST(SGOT) 8 U/L (15-37); Alanine Aminotransfer ALT/SGPT 18 U/L (13-56); Albumin, Serum 3.6 g/dL (3.2-5.0); Alkaline Phosphatase 51 U/L (45-117); Anion Gap 4 (5-15); BUN 5 mg/dL (7-18); BUN/Creat Ratio 6.4 RATIO (10-20); Chloride 107 mmol/L (98-107); Creatinine, Serum 0.78 mg/dL (0.55-1.02); EST Glomerular Filtration Rate 82 mL/min (>60); Est Glom Filt Rate - Afr Amer 99 mL/min (>60); Globulin 3.5 g/dL (2.2-4.2); Glucose 99 mg/dL (74-106); Potassium 4.3 mmol/L (3.5-5.1); Protein, Total 7.1 g/dL (6.4-8.2); Sodium Level 138 mmol/L (136-145)
[2023-05-01] VITALS (9 sets, daily range): BP systolic 114–160; BP diastolic 57–94; PULSE 72–79; RESP 16–18; TEMP 35.8–36.4; O2SAT 89–100; BMI 40.2
[2023-05-01] MEDS: Lactated Ringers 1,000 ML 15 ML IV (08:39)
--- NOTE | 2023-05-01 09:16 | HP.PCM_ITS ---
HPI - General HPI Narrative SAMANTHA QUIROS, is a 53 F who presents for right shoulder arthroscopy, SAD, possible RCR. No changes to h and p. Cleared. Right shoulder marked. Plan for block. Still having shoulder pain. GP put her on 7.5mg oxycodone. Regardless, narcotic counselling done. Plan to take 1-2 percocet 5/325, and the block should help with pain. [facility] [address] [place] [address] [address] [place] [address] OFFICE VISIT Date of Service:? 04/02/23 MR#: [id number] Acct: [id number] Name:? SAMANTHA QUIROS Rep #: [id number] : 1970 ? ? Provider: Dr. Chad Busby MD Age/Sex:? 53/F ? ? [place] [facility] [place] Status: Signed Intake Vital Signs ? 01/09/2310:40 03/28/2308:50 Height 5 ft 1 in 5 ft 1 in Intake Visit Reasons:?RIGHT SHOULDER Is patient in pain?: Yes Pain scale (1-10): 5 Allergies No Known Allergies Allergy (Verified 04/02/23 08:32) Medications clonazepam 1 mg tablet 1 mg PO BID PRN PRN Anxiety 12/28/20 [History Confirmed 04/02/23] benztropine 1 mg tablet 1 mg PO BID 04/08/22 [History Confirmed 04/02/23] divalproex 500 mg tablet,delayed release 500 mg PO 0800 04/08/22 [History Confirmed 04/02/23] omeprazole 20 mg capsule,delayed release 20 mg PO DAILY 05/28/22 [History Confirmed 04/02/23] oozzajobqy-pcylvslthunja-jtvrtkja 50 mg-325 mg-40 mg tablet 1 tab PO Q4H PRN Migraine Headache 08/10/22 [History Confirmed 04/02/23] lisinopril 20 mg tablet 20 mg PO DAILY 08/10/22 [History Confirmed 04/02/23] lurasidone 60 mg tablet (Latuda) 60 mg PO DAILY 08/10/22 [History Confirmed 04/02/23] promethazine 25 mg tablet 25 mg PO Q6H PRN Nausea 08/10/22 [History Confirmed 04/02/23] carvedilol 25 mg tablet 25 mg PO BID #180 tabs 09/06/22 [Rx Confirmed 04/02/23] cyclobenzaprine 5 mg tablet 5 mg PO PRN PRN MUSCLE RELAXANT 10/18/22 [History Confirmed 04/02/23] hydrocodone 5 mg-acetaminophen 300 mg tablet 1 tab PO BID PRN Pain 11/20/22 [History Confirmed 04/02/23] pregabalin 100 mg capsule (Lyrica) 100 mg PO TID 11/20/22 [History Confirmed 04/02/23] albuterol sulfate 90 mcg/actuation aerosol inhaler 2 puff inhalation Q4H PRN shortness of breath or wheezing #8.5 grams 11/22/22 [Rx Confirmed 04/02/23] amlodipine 5 mg tablet 2.5 mg PO DAILY #90 tabs 12/03/22 [Rx Confirmed 04/02/23] divalproex 500 mg tablet,delayed release 1,000 mg PO 2000 BIPOLAR 12/13/22 [History Confirmed 04/02/23] prednisone 20 mg tablet 20 mg PO .FOLLOW DOSAGE 12/13/22 [History Confirmed 04/02/23] dicyclomine 20 mg tablet 20 mg PO BID PRN diarrhea #60 tabs 01/09/23 [Rx Conf irmed 04/02/23] omeprazole 40 mg capsule,delayed release 40 mg PO QAM #90 caps 01/09/23 [Rx Confirmed 04/02/23] PFSH Medical History?(Updated 04/02/23 @ 08:40 by Chad Busby MD) Amitriptyline overdose Anxiety Back pain Bipolar 1 disorder, mixed, severe Bipolar disorder Cardiology follow-up encounter Cardiomyopathy Chest pain Class 2 obesity with body mass index (BMI) of 38.0 to 38.9 in adult Depression Difficulty swallowing Emphysema, unspecified Encounter for screening for malignant neoplasm of lung in current smoker with 30 pack year history or greater Essential (primary) hypertension Gastric reflux History of echocardiogram History of Holter monitoring History of IBS History of steroid therapy Hypertension Impingement of right shoulder Marijuana use Migraine headache Myocardial infarct, old Paroxysmal A-fib Post-menopausal PTSD (post-traumatic stress disorder) Right rotator cuff tear Right shoulder pain Sleep apnea Smoker SVT (supraventricular tachycardia) Syncope Syncope Tension headache Tobacco abuse Toxic encephalopathy Wears partial dentures Surgical History? H/O cardiac radiofrequency ablation (04/30/22) History of hysterectomy History of left heart catheterization (2012) History of tonsillectomy Hx of section Family History? Mother Hypertension Malignant neoplasm of skinFather CVA (cerebral vascular accident) Hypertension Malignant neoplasm of prostateOther Breast cancer Diabetes Heart disease Social History? current occupation:? Disabled Smoking Status:? Current every day smoker tobacco type: cigarettes alcohol intake:? current alcohol intake frequency: other details:? Social alcohol use but nothing habitual substance use type:? marijuana caffeine:? Yes HPI RIGHT SHOULDER Details: Parts of this documentation were recorded by a scribe, this documentation accurately reflects the service provided and the decisions made by me, Dr. Chad Busby MD 04/02/23 0830. SAMANTHA QUIROS is a 53 year old F here today for? right shoulder pain. 6 months history. the whole arm gets numb and tingling and painful, moving it to 90 degre es abduction can't do it. Pain is posteriorly then down the arm to the hand. hard to reach posteriorly. Did some PT - helped a bit in the beginning. doing PT since Nov.? On norco - 800 mg ibuprofen - helps a bit - makes it easier to move. Tried prednisone. Here with Juan Carlos her . 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 RHD. worse at night, with lifting. doesn't want cortisone because has bad blood sugar reactions, had to be cardio verted after knee injection. Ortho Exam General General: Yes no acute distress Neurologic: Yes alert and Yes oriented x3 Psychologic: Yes reasonable and appropriate Right Shoulder Skin/Wound: Yes CDI, No ecchymosis, No erythema and No swelling Testing: Positive Hawkin's, Neer's, Speed's, PROM-External Rotation at side 0- 60, empty can and belly press normal; Negative TTP Biceps, TTP AC Joint, Drop Arm, Apprehension Test, Sulcus Sign, [place], cross arm, scapular symmetry or scapular winging SHOULDER: Active and passive forward elevation 155 degrees quite a painful arc negative drop arm sign external rotation is full internal rotation posterior beltli ne/back pocket.? Strength in forward elevation 4+/5 strength in external rotation 4+/5.? Normal sensation and motor function of the hand to the median radial ulnar nerves as well as AIN/PIN and axillary nerve.? Hand is warm and well-perfused strong radial pulse Supplemental Info [facility] [address] [place] [address] Upper Ext? Joint Only(Routine) MR#:? [id number] Acct: [id number] Name:? SAMANTHA QUIROS Rep #: [id number] :?? 1970 F 53 ? From:? ? Maxwell Matthews MD PCP: Dr. Adri Chang DO ? Status: REG CLI Study: Upper Ext? Joint Only(Routine) ? Date of Exam: 03/29/23 Exam# [id number] ? Ordering Dr:? Adri Chang DO EXAM:? MR RIGHT UPPER EXTREMITY WITHOUT INTRAVENOUS CONTRAST, SHOULDER CLINICAL INDICATION:? SHOULDER PAIN TECHNIQUE:? Multiplanar and multisequence MR images of the right shoulder without intravenous contrast. COMPARISON:? No relevant prior studies available. FINDINGS: TENDONS: SUPRASPINATUS:? Small focal partial-thickness intrasubstance tear at the footprint supraspinatus tendon is likely to be hidden or concealed at the time of arthroscopy. INFRASPINATUS:? Unremarkable.? No infraspinatus tendon tear. SUBSCAPULARIS:? Unremarkable.? Intact. TERES MINOR:? Unremarkable.? Intact. BICEPS BRACHII, LONG HEAD:? Unremarkable.? The extra-articular biceps tendon is in the bicipital groove.? The intra-articular biceps tendon is normal. LIGAMENTS: GLENOHUMERAL:? Unremarkable.? Intact. MUSCLES:? Unremarkable.? No rotator cuff muscle atrophy. FLUID:? Subacromial/subdeltoid bursitis.? No joint effusion. CARTILAGE:? Unremarkable.? Articular cartilage intact. GLENOID LABRUM:? Unremarkable.? Intact, limited evaluation on non-arthrographic exam. BONES/JOINTS:? Mild to moderate hypertrophic degenerative changes of the acromioclavicular joint with mild mass effect on the underlying soft tissues.? Type II acromion with curved undersurface. No subacromial enthesophyte. No os acromiale. OTHER SOFT TISSUES:? Unremarkable.? No rotator interval edema. MRI/Upper Ext? Joint Only(Routine) IMPRESSION: ? 1.? Small focal partial-thickness intrasubstance tear at the footprint supraspinatus tendon is likely to be hidden or concealed at the time of arthroscopy. No other significant rotator cuff tear. ? 2.? Subacromial/subdeltoid bursitis. ? Electronically Signed: Maxwell Matthews MD at 21:50 EDT Reading Location ID and State: [facility] / [place] Tel , Service support? , ? Coding Level of Care Code Off vis,new,level 3 Diagnoses Impingement of right shoulder? M25.811 Right rotator cuff tear? M75.101 Right shoulder pain? M25.511 Assessment and Plan Assessment and Plan (1) Impingement of right shoulder: ?Status:?Acute ?Plan: 53-year-old female with a right shoulder pain from impingement syndrome downsloping acromion and small intrasubstance rotator cuff tear.? This despite some of her sensations of numbness in the upper extremity this seems to be comin g from the majority of the shoulder.? She had a fairly definitive physical exam findings for shoulder base pathology and pain.? Discussed different options rest ice anti-inflammatories activity modifications continue physical therapy anti- inflammatories or subacromial steroid injections.? She is adamant about not wanting to try cortisone injection despite the risk profile associated with that.? Surgical operation and option for this would be right shoulder arthroscopy subacromial decompression possible rotator cuff repair explained the pros cons risk benefits of that as well as the recovery 1 to 2 weeks in a sling 3 months of physical therapy.? Patient understands wished to proceed signed the consent form today.? We will have to try to get family doctor clearance for this given her diabetes and a prior heart ablation. Pros and cons risks and benefits were discussed with the patient including but not limited to infection, pain, stiffness, bleeding, damage to surrounding structures, neurovascular injury, recurrence or retear, failure or wear of hardware or fixation, instability, fracture, deep vein thrombosis and pulmonary embolism, anesthetic risks, , patient dissatisfaction, need for further surgery and other risks.? Patient understood and wished to proceed with surgery, and signed the informed consent documentation. [facility] Medical History (Updated 04/25/23 @ 13:57 by Tania Carvajal) Amitriptyline overdose Anxiety Back pain Bipolar 1 disorder, mixed, severe Bipolar disorder Cardiology follow-up encounter Cardiomyopathy Chest pain Class 2 obesity with body mass index (BMI) of 38.0 to 38.9 in adult Depression Difficulty swallowing Emphysema, unspecified Encounter for screening for malignant neoplasm of lung in current smoker with 30 pack year history or greater Essential (primary) hypertension Gastric reflux History of echocardiogram History of Holter monitoring History of IBS Hypertension Impingement of right shoulder Marijuana use Migraine headache Myocardial infarct, old Paroxysmal A-fib Post-menopausal PTSD (post-traumatic stress disorder) Right rotator cuff tear Right shoulder pain Smoker SVT (supraventricular tachycardia) Syncope Tension headache Tobacco abuse Toxic encephalopathy Wears partial dentures Home Medications clonazepam 1 mg tablet 1 mg PO BID PRN PRN Anxiety 12/28/20 [History Last Taken Unknown] benztropine 1 mg tablet 1 mg PO BID 04/08/22 [History Last Taken 05/01/23] divalproex 500 mg tablet,delayed release 500 mg PO 0800 04/08/22 [History Last Taken 05/01/23] mxrefqiflc-olsmtsdrvvqwg-unhonhfy 50 mg-325 mg-40 mg tablet 1 tab PO Q4H PRN Migraine Headache 08/10/22 [History Last Taken Unknown] lisinopril 20 mg tablet 20 mg PO DAILY 08/10/22 [History Last Taken 05/01/23] lurasidone 60 mg tablet (Latuda) 60 mg PO QHS 08/10/22 [History Last Taken Unknown] promethazine 25 mg tablet 25 mg PO Q6H PRN Nausea 08/10/22 [History Last Taken Unknown] carvedilol 25 mg tablet 25 mg PO BID #180 tabs 09/06/22 [Rx Last Taken 05/01/23] cyclobenzaprine 5 mg tablet 5 mg PO PRN PRN MUSCLE RELAXANT 10/18/22 [History Last Taken Unknown] hydrocodone 5 mg-acetaminophen 300 mg tablet 1 tab PO BID PRN Pain 11/20/22 [History Last Taken Unknown] pregabalin 100 mg capsule (Lyrica) 100 mg PO TID 11/20/22 [History Last Taken Unknown] divalproex 500 mg tablet,delayed release 1,000 mg PO 1999 BIPOLAR 12/13/22 [History Last Taken Unknown] dicyclomine 20 mg tablet 20 mg PO BID PRN diarrhea #60 tabs 01/09/23 [Rx Last Taken Unknown] omeprazole 40 mg capsule,delayed release 40 mg PO QAM #90 caps 01/09/23 [Rx Last Taken 05/01/23] amlodipine 5 mg tablet 2.5 mg PO BID 04/25/23 [History Last Taken 05/01/23] fluoxetine 20 mg capsule (Prozac) 20 mg PO DAILY 04/25/23 [History Last Taken Unknown] Allergy/AdvReac Type Severity Reaction Status Date / Time No Known Allergies Allergy Verified 05/01/23 08:34 Family History Mother Hypertension Malignant neoplasm of skin Father CVA (cerebral vascular accident) Hypertension Malignant neoplasm of prostate Other Breast cancer Diabetes Heart disease Surgical History (Updated 04/25/23 @ 13:57 by Tania Carvajal) H/O cardiac radiofrequency ablation (04/30/22) History of esophagogastroduodenoscopy (EGD) History of hysterectomy History of left heart catheterization (2012) History of tonsillectomy Hx of section Social History current occupation: Disabled Smoking Status: Current every day smoker tobacco type: cigarettes alcohol intake: current alcohol intake frequency: other details: Social alcohol use but nothing habitual substance use type: marijuana caffeine: Yes Vital Signs Vital Signs Vital Signs: 05/01/23 08:40 05/01/23 08:40 Temperature 97.5 F L Temperature Source Temporal Pulse Rate 75 Respiratory Rate 18 Respiratory Pattern Normal Blood Pressure 114/94 H Blood Pressure Mean 100 Blood Pressure Source Monitor Blood Pressure Position Semi-Fowlers Blood Pressure Location Right Arm Pulse Ox 95 Oxygen Delivery Method Room Air Weight Weight: 242 lb Body Mass Index (BMI) 40.2 Results Lab / Micro Data Result Diagrams: 04/18/23 10:26 04/18/23 10:25
[2023-05-01] MEDS: Cefazolin 2 GM in 0.9% Normal Saline 100 ML IV (09:52)
[2023-05-01] MEDS: Epinephrine (1 mg/ml) 1 MG/ML VIAL (10:00)
--- NOTE | 2023-05-01 11:14 | OP.PCM_ITS ---
Problems Associated Problem List Diagnoses (1) Right rotator cuff tear: Report of Operation Date of Procedure: 05/01/23 Pre-Operative Diagnosis: right shoulder impingement, RC tear Post-Operative Diagnosis: same Surgery/Procedure Performed:: Right shoulder arthroscopy, subacromial decompression, rotator cuff repair Surgeon: Chad Busby Type of Anesthesia: Block,Regional and General Anesthesiologist: Jasson López Estimated Blood Loss (mL): 20 Description of Procedure: Patient brought to the operating room theater. Placed supine on the table. General anesthesia administered. 2 g IV Ancef given prior to the start of the procedure. All bony prominences padded. Patient transferred right side up lateral decubitus beanbag positioner. Axillary roll used. SCDs on the legs. Upper extremity prepped and draped in the usual sterile fashion with chlorhexidine-based prep solution lying over 3 minutes drying time prior to draping. 10 pounds in line traction used with the arm in 45 degrees of abduction. Preoperative timeout performed to confirm the site patient and the surgery. Began by inserting the arthroscope into the intra-articular portion of the shoulder through a standard posterior portal. Did the diagnostic arthroscopy. Made a standard inside out anterior portal through the rotator interval just posterior to the biceps tendon. Cartilage on the glenoid and humeral head was normal. Mild fraying of the superior labrum biceps root stable. Gently debrided this. No loose bodies. There is some minor fraying in the mid aspect of the supraspinatus tendon otherwise no full thickness rotator cuff tears. Normal bare area normal axillary recess. Subscapularis appeared normal. Marked the area of intrasubstance tearing where there was undersurface fraying at the insertion of the supraspinatus tendon. Next I turned my attention to the subacromial space inserted the arthroscope into the subacromial space made an accessory lateral portal. Identified the area of the partial-thickness tearing cleared away quite a bit of adhesive bursitis from the lateral and anterior aspects of the subacromial space this was quite dense and adhesed to the subdeltoid area. And I did a subacromial decompression for 5 mm down to flat margins. I then inserted 2 x 7 mm cannulas. I then used the Arthrex pasta knotless repair bridge technique, self punching anchors all suture. I inserted 1 anterior anchor and 1 anchor posterior to the tear. I then passed the working stitch through the passing stitch of the opposite anchor and then in knotless fashion tensioned this down. I then performed the same for the posterior anchor to create a knotless suture bridge configuration across the tear. Cut the suture tails short. Arthroscopic pictures taken and saved onto the system. Arthroscope withdrawn case terminated wound cleaned with wet and dry dressing. Portals closed with 3- 0 Monocryl sutures. Steri-Strips Adaptic 4 x 4 gauze ABD dressing cloth tape with a sling for the upper extremity. Patient transferred off the operating room table and taken to postanesthetic care unit in stable addition. All sponge and instrument counts were correct no complications. Complications none Admit VTE Documentation VTE Present on Admission: No VTE Mechan Device Prophylaxis: SCD's VTE Pharm Prophylaxis ordered?: No Reason prophylaxis not ordered:: Treatment Not Indicated Procedures Musculoskeletal 20xxx-29xxx: Other Procedure See Report
--- NOTE | 2023-05-01 11:24 | DCINST_ITS ---
Discharge Instructions Diet Discharge Diet: No restrictions Activity Lifting Restrictions: sling to arm Additional Activity Instructions:: pendulums, hand wrist elbow ROM 4x/day Dressing / Incision Call your doctor if your incision/area has: Continuous Slow Oozing, Sudden Increased Bleeding, Increased Pain/ Swelling, Increased Redness, Foul Smelling Discharge and Swelling at the incision site Remove Dressing in: leave in place till F/U Follow Up Care Please Follow Up With: Chad Busby MD When: 2 days Test Results: Test results from this visit will be discussed in further detail at your follow- up appointment, if applicable. Discharge Plan Admission Attending Provider: Chad Busby Primary Care Provider: Adri Chang Discharge Orders/Prescriptions Prescriptions: New oxycodone-acetaminophen [Percocet] 5-325 mg tablet 1 - 2 tab PO Q6H MDD 6 PRN (Reason: pain) 5 Days Qty: 30 0RF No Action Latuda 60 mg tablet 60 mg PO QHS Rx Instructions: must administer with food (at least 350 calories) lisinopril 20 mg tablet 20 mg PO DAILY cyclobenzaprine 5 mg tablet 5 mg PO PRN PRN (Reason: MUSCLE RELAXANT) omeprazole 40 mg capsule,delayed release(DR/EC) 40 mg PO QAM Qty: 90 3RF dicyclomine 20 mg tablet 20 mg PO BID PRN (Reason: diarrhea) Qty: 60 2RF pregabalin [Lyrica] 100 mg capsule 100 mg PO TID hydrocodone-acetaminophen 5-300 mg tablet 1 tab PO BID PRN (Reason: Pain) clonazepam 1 MG tablet 1 mg PO BID PRN PRN (Reason: Anxiety) promethazine 25 mg tablet 25 mg PO Q6H PRN (Reason: Nausea) zyzkjxztxw-viksvcqnqkpjn-coae 50-325-40 mg tablet 1 tab PO Q4H PRN (Reason: Migraine Headache) Rx Instructions: Take 1-2 tabs divalproex 500 mg tablet,delayed release (DR/EC) 500 mg PO 0800 Label Comments: TAKE 1 TABLET BY MOUTH EVERY MORNING AND TAKE 2 TABLETS BY MOUTH AT BEDTIME benztropine 1 mg tablet 1 mg PO BID Label Comments: TAKE 1 TABLET BY MOUTH TWICE DAILY divalproex 500 mg tablet,delayed release (DR/EC) 1,000 mg PO 1999 Label Comments: TAKE 2 TABLETS BY MOUTH EVERY MORNING AND TAKE 1 TABLET BY MOUTH EVERY NIGHT fluoxetine [Prozac] 20 mg Capsule 20 mg PO DAILY amlodipine 5 mg tablet 2.5 mg PO BID carvedilol 25 mg tablet 25 mg PO BID Qty: 180 3RF Rx Instructions: must administer with a meal/food Referrals / Follow Up: Adri Chang DO [Primary Care Provider] - Chad Busby MD [Med Staff - Active Staff] - Disposition Disposition (needs filled in before D/C Order can be placed): Home, Self Care
[2023-05-01] MEDS: HYDROcodone Bitartrate/Apap 5/325 Tablet PO (13:18)
== END 2023-05-01 13:34 | disposition home or self-care (01) ==
LOC: SDC 08:08 → AC 08:10
PROVIDERS: PCP Internal Medicine; Referring Provider Orthopaedic Surgery Sports Medicine; Visit Provider Orthopaedic Surgery Sports Medicine
PROC: (CPT 29805; principal; 2023-05-01 09:45)
DX: M75.101 Unspecified rotator cuff tear or rupture of right shoulder, not specified as traumatic (principal); J43.9 Emphysema, unspecified; I42.9 Cardiomyopathy, unspecified; I48.0 Paroxysmal atrial fibrillation; Z68.41 Body mass index [BMI] 40.0-44.9, adult; E11.9 Type 2 diabetes mellitus without complications; M75.41 Impingement syndrome of right shoulder; I10 Essential (primary) hypertension; E66.9 Obesity, unspecified; F17.210 Nicotine dependence, cigarettes, uncomplicated; Z79.899 Other long term (current) drug therapy
CPT/HCPCS: 29827; 29826; 01630; 36415; 71046; 80053; 85025; 93005; J7120; J2405

== ENCOUNTER 2023-05-22 14:28 | Outpatient (RCR) | payer MEDICARE, MEDICAID, SELFPAY ==
--- NOTE | 2023-05-22 16:57 | HP.PTEVAL ---
Patient's Visit Information Visit Information Visit Information: SAMANTHA QUIROS is a 53 year old F referred to Physical Therapy by Dr. Chad Busby MD with a diagnosis of UNSPECIFIED RTC TEAR OR RUPTURE OF RIGHT SHOULDER. Date of Evaluation: 05/22/23 Physical Therapist: Beau Crocker, PT, Cert MDT, OCS Visit Plan Frequency: 2x /Week Duration: 8 weeks Plan: S/P ARTHROSCOPY ,SUBACROMIAL DECOMPRESSION WITH SMALL SUPRASPINTUS TEAR REPAIR ON 05/01/23 PT INTERVENTIONS MANUAL THERAPY PROM/JOINT MOBS ,PROM/AAROM RIGHT SHOULDER ,PROGRESS TO STRENGTHENING RTC/SCAPULAR ABLE , AND MODALTIES NEED Subjective Subjective: This 53 y/o female presents to physical therapy with right shoulder arthroscopy ,Subacromial decompression , and RTC repair small tear of supraspinatus on 05/01/23 at [facility] done by DR Busby . Patient DOS with sling for 2weeks. Patient has Oct 2022 tried PT . Patient had MRI showed only small supraspinatus tear. Patient seen DR ON 05/[address] and discontinue sling. Patient taking Narco for pain. Patient stated over did with cutting up fruit May 14 weekend. Patient continues to have pain with with activity. Patient has paresthesia/tingling. Patient has difficulty with sleeping. Patient pain posterior and global. Patient aggravating factors [place] activities, affecting ADLS .Alleviating factors rest ,medication ,ice. Patient pain affects QOL and function with ADLS and self hygiene. Patient goals to have no pain. SOCIAL: disability] VOCATION: Pain Right Shoulder: Pain Intensity (Out of 10): 7 Pain Intensity Range: 10 Objective Objective: POSTURE: mild forward posture ,rounded shoulders head forward NEURO: denies paresthesia/tingling PROM: shoulder flexion ~ 130 degrees ,abduction ~ 135 degrees in scapation ,ER 80 degrees pain with patient guarding with ROM CAPSULAR RESTRICTION: mild/mod limited all planes MMT: ( peak force) 0 RTC/DELTOID AROM: shoulder flexion 85 degrees , abduction 80 degrees Balance/Special Test Scores Quick DASH Score: 75.0000 Goals Goal 1:: Patient to be I with HEP for shoulder surgery Goal Time Frame: 6-8 Weeks Goal 2:: Patient to improve AROM shoulder flexion/abduction ~ 145 degrees and ER 90 degrees for functional activities for ADL'S Goal Time Frame: 6-8 Weeks Goal 3:: Patient to improve peak force RTC/deltoid by 15 # to improve strength for functional activism and ADL's Goal Time Frame: 6-8 Weeks Goal 4:: Patient to demonstrate 50% improvement with less pain to mprove function Goal Time Frame: 4-6 Weeks Goal 5:: Patient to improve quick dash by 5-10 points to improve QOL. Rehabilitation Potential Physical Therapy Diagnosis: This patient underwent s/p arthroscopic subacromial decompression and repair small tear of supraspinatus with pain ,decrease ROM ,strength impairs function and ADLS thus benefit from skilled PT Rehabilitation Potential: Fair Anticipated Interventions Patient/Client Instruction: Educate patient on: Condition and Plan of Care For the Purpose of:: To decrease pain, To increase ROM, To improve muscle performance and motor function, To improve ability to perform ADL's, To improve performance and independence with ADL's, To improve ability of physical actions for home/community/work/leisure, To improve health of tissue, To decrease soft tissue restriction, To increase flexibility/ROM, To reduce risk of recurrence, To prevent re-injury and To improve tolerance to ADL's Therapeutic Exercise to Include: Strength training, Postural training, Flexibilty training, Passive ROM, Active ROM and Scapular Strength/Stabilization Comment: RTC For the Purpose of:: To decrease pain, To increase ROM, To improve muscle performance and motor function, To improve ability to perform ADL's, To increase tolerance to activity/condition/position, To improve ability of physical actions for home/community/work/leisure, To improve health of tissue, To decrease soft tissue restriction, To increase flexibility/ROM, To assume or resume ADL's and To improve tolerance to ADL's Manual Therapy Techniques to Include: Mobilization and Passive ROM Comment: G-H For the Purpose of:: To decrease pain, To increase ROM, To improve health of tissue, To decrease soft tissue restriction and To increase flexibility/ROM TENS: Yes IF ES: Yes Cryotherapy (ice pack, ice massage): Yes Thermo therapy (hot pack): Yes Ultrasound (thermal/non thermal): Yes For the Purpose of:: To decrease pain, To increase ROM, To improve nutrient delivery to tissue, To increase oxygenation perfusion, To improve health of tissue and To decrease soft tissue restriction Text: Thank you for the opportunity to evaluate your patient. For Medicare and Medicare HMO plans, please review the plan of care and approve it. It will need to be FAXED BACK to us at [phone] for Medicare purposes. For Medicare only, by signing this I certify the plan of care. Please let me know if there are questions or concerns regarding this plan of care. Physician Signature: Date:
--- NOTE | 2023-07-05 13:00 | HP.PT.NRP ---
Patient Information Patient Information: SAMANHTA QUIROS was seen in my office for initial evaluation on 05/22/23. The following Plan of Care was established for this patient: POC Established Initial Frequency: 2x /Week Initial Duration: 8 weeks Anticipated Interventions Patient/Client Instruction: Educate patient on: Condition and Plan of Care For the Purpose of:: To decrease pain, To increase ROM, To improve muscle performance and motor function, To improve ability to perform ADL's, To improve performance and independence with ADL's, To improve ability of physical actions for home/community/work/leisure, To improve health of tissue, To decrease soft tissue restriction, To increase flexibility/ROM, To reduce risk of recurrence, To prevent re-injury and To improve tolerance to ADL's Therapeutic Exercise to Include: Strength training, Postural training, Flexibilty training, Passive ROM, Active ROM and Scapular Strength/Stabilization For the Purpose of:: To decrease pain, To increase ROM, To improve muscle performance and motor function, To improve ability to perform ADL's, To increase tolerance to activity/condition/position, To improve ability of physical actions for home/community/work/leisure, To improve health of tissue, To decrease soft tissue restriction, To increase flexibility/ROM, To assume or resume ADL's and To improve tolerance to ADL's Manual Therapy Techniques to Include: Mobilization and Passive ROM Comment: G-H For the Purpose of:: To decrease pain, To increase ROM, To improve health of tissue, To decrease soft tissue restriction and To increase flexibility/ROM TENS: Yes IF ES: Yes Cryotherapy (ice pack, ice massage): Yes Thermo therapy (hot pack): Yes Ultrasound (thermal/non thermal): Yes For the Purpose of:: To decrease pain, To increase ROM, To improve nutrient delivery to tissue, To increase oxygenation perfusion, To improve health of tissue and To decrease soft tissue restriction Last Seen Last Seen: This patient was last seen in our office . Pertinent comments regarding their Physical therapy will appear below: Patient was seen for s/p RTC arthroscopic right shoulder for PT evaluation At this point I will be discontinuing this patient from physical therapy. I would be happy to see this patient again in the future if found appropriate by the physician. Thank you! Beau Crocker, PT, Cert MDT, OCS Balance/Gait/Functional tests Balance/Special Test Scores Quick DASH Score: 75.0000
== END 2023-05-22 19:00 | disposition home or self-care (01) ==
LOC: PT 14:28
PROVIDERS: PCP Internal Medicine; Referring Provider Orthopaedic Surgery Sports Medicine; Visit Provider Orthopaedic Surgery Sports Medicine
DX: M75.101 Unspecified rotator cuff tear or rupture of right shoulder, not specified as traumatic
CPT/HCPCS: 97110; 97162

== ENCOUNTER → 2023-06-17 | Outpatient (CLI) | payer MEDICARE, MEDICAID, SELFPAY ==
--- NOTE | 2023-06-17 15:17 | CT_ITS ---
INDICATION: follow nodule EXAMINATION: CT CHEST WITHOUT CONTRAST - CT Chest W/O Contrast Injection TECHNIQUE: Helically acquired images were obtained of the chest with sagittal and coronal reconstructed images. Individualized dose optimization techniques were used for this CT. COMPARISON: 11/20/2022 CT. FINDINGS: LUNGS, PLEURA AND LARGE AIRWAYS: No consolidation or edema. 4 mm right upper lobe pulmonary nodule, stable as compared to the prior CT. Calcified left lower lobe granuloma. No pleural effusion. No pneumothorax. THYROID: Unremarkable. HEART AND PERICARDIUM: Heart is unremarkable. No pericardial effusion. No evidence of coronary artery calcification. MEDIASTINUM AND CIRILO: No mediastinal or hilar adenopathy. Esophagus is unremarkable. No hiatal hernia. VESSELS: No thoracic aortic aneurysm. UPPER ABDOMEN: The visualized upper abdomen is unremarkable. BONES: No focal osseous abnormality. CT/Chest without Contrast IMPRESSION: 1. 4 mm right upper lobe pulmonary nodule. If the patient meets criteria for annual screening for lung cancer with low-dose CT, recommend continuing annual screening. If the patient does not have increased risk factors for lung cancer, no follow-up is recommended. 2. Left lower lobe and lingular nodular densities seen on the prior CT have resolved. Electronically Signed: Pradeep Mondragon DO at 6:00 EDT ,
== END | disposition home or self-care (01) ==
LOC: CT 15:02
PROVIDERS: PCP Internal Medicine; Referring Provider Nurse Practitioner Acute Care; Visit Provider Nurse Practitioner Acute Care
DX: R91.8 Other nonspecific abnormal finding of lung field (principal)
CPT/HCPCS: 71250

== ENCOUNTER → 2023-09-17 | Outpatient (CLI) | payer MEDICARE, MEDICAID, SELFPAY ==
--- NOTE | 2023-09-17 07:38 | RAD_ITS ---
STUDY: X-RAY - LEFT FOOT CLINICAL: Female, 53 years old. Pain and swelling following twisting injury. TECHNIQUE: 3 view(s) of the foot. COMPARISON: None. FINDINGS: There is a plantar calcaneal spur. Small spur is seen at the insertion of the Achilles tendon. Normal visualized subtalar, talonavicular, calcaneocuboid, tarsal and tarsometatarsal articulations. There is a talar neck. This is a normal variant. Normal metatarsi. Normal metatarsophalangeal joint of the great toe. Normal tibial and fibular sesamoid bones. Normal interphalangeal joint of the great toe. Normal phalanges of the great toe. Normal second through fifth metatarsophalangeal joints. Normal interphalangeal joints and phalanges of the lesser toes. Diffuse soft tissue swelling. RAD/Foot min 3 Views IMPRESSION: Calcaneal Spurs. Diffuse soft tissue swelling. Electronically Signed: Tunde Plunkett MD at 9:09 EST ,
--- NOTE | 2023-09-17 07:50 | RAD_ITS ---
STUDY: X-RAY - LEFT ANKLE REASON FOR EXAM: Female, 53 years old. Left ankle pain and swelling following injury. TECHNIQUE: 3 view(s) of the ankle. COMPARISON: None. FINDINGS: Normal visualized distal tibia and fibula. Normal medial and lateral malleoli. Normal tibiotalar articulation and ankle mortise. Plantar spur. Tiny spur is seen at the insertion of the Achilles tendon. The visualized subtalar, talonavicular, calcaneocuboid and tarsal articulations are normal. Diffuse soft tissue swelling. RAD/Ankle min 3 Views IMPRESSION: Soft tissue swelling. No fracture is seen. Calcaneal spurs. Electronically Signed: Tunde Plunkett MD at 9:08 EST ,
== END | disposition home or self-care (01) ==
LOC: RAD.FUTURE 07:37 → RAD 07:40
PROVIDERS: PCP Internal Medicine; Referring Provider Physician Assistant; Visit Provider Physician Assistant
DX: S99.912A Unspecified injury of left ankle, initial encounter (principal); X58.XXXA Exposure to other specified factors, initial encounter
CPT/HCPCS: 73610; 73630